=== PATIENT | female | born 1970 | race American Indian/Alaskan Native ===

== ENCOUNTER 2019-02-25 11:24 | Outpatient (CLI) | payer MEDICAID ==
--- NOTE | 2019-02-25 14:02 | Ultrasound Report ---
ULTRASOUND RENAL BILATERAL HISTORY: Abnormal results of kidney function studies. TECHNIQUE: transabdominal ultrasound with color Doppler interrogation. FINDINGS: The right kidney measures 12.4cm. Right renal cortex: 1.7cm. The left kidney measures 11.7cm. Left renal cortex: 1.5cm. Scans of the kidneys show normal renal contours. There is normal central calyceal clustering and good preservation of the cortical thickness. There is no evidence of mass or hydronephrosis. The views of the bladder and the region of the ureters appear normal. IMPRESSION: Unremarkable renal ultrasound.
== END 2019-02-25 11:25 | disposition home or self-care (01) ==
LOC: US 11:24
PROVIDERS: ATTEND Internal Medicine Nephrology
DX: R94.4 Abnormal results of kidney function studies (principal); I11.0 Hypertensive heart disease with heart failure; I50.9 Heart failure, unspecified
CPT/HCPCS: 76770

== ENCOUNTER 2019-03-17 09:23 | Outpatient (CLI) | payer MEDICAID ==
--- NOTE | 2019-03-17 13:53 | Vascular Lab Report ---
PROCEDURE: VL VENOUS DUPLEX LE BILAT TECHNIQUE: Duplex Doppler sonography of the BILATERAL lower extremities. Montoya scale imaging with and without compression, spectral waveform analysis with and without augmentation, and color flow Dopple r were employed. HISTORY: CHRONIC KIDNEY DISEASE, STAGE 2 MILD COMPARISONS: None FINDINGS: RIGHT lower EXTREMITY: Deep Venous Thrombus: None Superficial Venous Thrombus: None Venous valvular incompetence: None Soft tissue abnormality: None LEFT lower EXTREMITY: Deep Venous Thrombus: None Superficial Venous Thrombus: None Venous valvular incompetence: None Soft tissue abnormality: None IMPRESSION: No evidence of deep venous thrombosis in the bilateral lower extremities. This document is electronically signed by Wendi Burris MD., Mar 17 2019 01:51:54 PM ET
== END 2019-03-17 09:24 | disposition home or self-care (01) ==
LOC: VAS 09:23
PROVIDERS: ATTEND Internal Medicine Nephrology
DX: I13.0 Hypertensive heart and chronic kidney disease with heart failure and stage 1 through stage 4 chronic kidney disease, or unspecified chronic kidney disease (principal); I50.9 Heart failure, unspecified; N18.2 Chronic kidney disease, stage 2 (mild)
CPT/HCPCS: 93970

== ENCOUNTER 2019-05-27 13:51 | Outpatient (CLI) | payer MEDICAID ==
[2019-05-27 14:14] LABS: Hematocrit 35.1 % (30.3-42.9); Hemoglobin 11.3 gm/dl (10.1-14.3); Mean Corpuscular HGB Conc 32 % (30-34); Mean Corpuscular Volume 84 fl (79-97); Platelet Count 302 K/mm3 (140-440); Red Cell Distribution Width 13.3 % (13.2-15.2)
[2019-05-27 14:29] LABS: Albumin 4.3 g/dL (3.9-5); Calcium 9.7 mg/dL (8.4-10.2)
== END 2019-05-27 13:52 | disposition home or self-care (01) ==
LOC: LAB 13:51
PROVIDERS: ATTEND Internal Medicine Nephrology
DX: E11.21 Type 2 diabetes mellitus with diabetic nephropathy (principal); N17.9 Acute kidney failure, unspecified; D64.9 Anemia, unspecified; E11.22 Type 2 diabetes mellitus with diabetic chronic kidney disease; I13.0 Hypertensive heart and chronic kidney disease with heart failure and stage 1 through stage 4 chronic kidney disease, or unspecified chronic kidney disease; I50.9 Heart failure, unspecified; N18.2 Chronic kidney disease, stage 2 (mild); R60.9 Edema, unspecified
CPT/HCPCS: 36415; 80048; 82040; 84100; 85027

== ENCOUNTER 2019-05-28 14:14 | Inpatient (IN) | payer MEDICAID ==
--- NOTE | 2019-05-28 15:12 | Event Note ---
ED Screening Note ED Screening Note: SENT BY PCP FOR WORSENING CKD This initial assessment/diagnostic orders/clinical plan/treatment(s) is/are subject to change based on patients health status, clinical progression and re- assessment by fellow clinical providers in the ED. Further treatment and workup at subsequent clinical providers discretion. Patient/guardian urged not to elope from the ED as their condition may be serious if not clinically assessed and managed. Initial orders include: EKG LABS URINE
--- NOTE | 2019-05-28 15:42 | XRay Report ---
CHEST 2 VIEWS INDICATION / CLINICAL INFORMATION: SOB. COMPARISON: None available. FINDINGS: SUPPORT DEVICES: None. HEART / MEDIASTINUM: The heart size and pulmonary vasculature are normal. The aorta is normal in sky ana. LUNGS / PLEURA: No significant pulmonary or pleural abnormality. No pneumothorax. ADDITIONAL FINDINGS: No significant additional findings. IMPRESSION: No acute findings. Signer Name: Nathen Castro MD Signed: 05/28/2019 3:37 PM Workstation Name: [id number]
[2019-05-28 16:12] LABS: Hematocrit 33.6 % (30.3-42.9); Mean Corpuscular HGB Conc 33 % (30-34); Mean Corpuscular Volume 84 fl (79-97); Platelet Count 272 K/mm3 (140-440); Red Blood Count 4.01 M/mm3 (3.65-5.03); Red Cell Distribution Width 13.2 % (13.2-15.2)
[2019-05-28 16:15] LABS: Bilirubin,Urine NEG (Negative); Blood,Urine NEG (Negative); Color,Urine Straw (Yellow); Protein,Urine <15 mg/dL mg/dL (Negative); Urobilinogen,Urine < 2.0 mg/dL (<2.0); WBC,Urine < 1.0 /HPF (0.0-6.0)
[2019-05-28 16:34] LABS: Albumin 4.4 g/dL (3.9-5); Calcium 9.6 mg/dL (8.4-10.2)
--- NOTE | 2019-05-28 20:48 | Emergency Department Report ---
ED General Adult HPI - General Chief complaint: Medical Clearance Stated complaint: SENT DR. KRISHNA Time Seen by Provider: 05/28/19 14:28 Source: patient, old records reviewed Mode of arrival: Ambulatory Limitations: No Limitations - History of Present Illness Initial comments: 48-year-old female with a past medical history CHF, diabetes, and hypertension presents to the hospital for worsening renal function. Patient outpatient labs performed yesterday. Last reviewed and show a creatinine of 3.4 yesterday. She was advised to come to the ED yesterday but had to handle some things at home with her children before being admitted to the hospital. She complains of right upper quadrant pain radiating to the right back described as a burning inter mittent pain without nausea, vomiting, or fever. No complaints of shortness of breath or edema. She does not recall her baseline creatinine. Per Dr Wilder (I spoke to him) her baseline creatinine is less than 1. He also expresses that she is taking nephrotoxic medication and has a history of n oncompliance and needs to be admitted to the hospital. Severity scale (0 -10): 0 - Related Data Home Medications Medication Instructions Recorded Confirmed Last Taken Fluconazole 1 tab PO DAILY 06/04/15 06/04/15 03/06/15 Fluconazole 1 tab PO DAILY 06/04/15 06/04/15 03/06/15 Lisinopril [Zestril TAB] 20 mg PO QDAY 06/04/15 06/04/15 03/06/15 Metoprolol [Lopressor TAB] 50 mg PO DAILY 06/04/15 06/04/15 03/06/15 Potassium Chloride [Klor-Con M20] 1 tab PO DAILY 06/04/15 06/04/15 03/06/15 Simvastatin [Zocor TAB] 40 mg PO QHS 06/04/15 06/04/15 03/06/15 Zolpidem [Ambien] 5 mg PO QHS PRN 06/04/15 06/04/15 03/06/15 cloNIDine [Catapres] 0.2 mg PO BID 06/04/15 06/04/15 03/06/15 Previous Rx's Medication Instructions Recorded Last Taken Type Ciprofloxacin HCl [Ciprofloxacin 500 mg PO Q12H #14 tab 06/04/15 Unknown Rx TAB] DOXYCYCLINE Hyclate [Vibramycin 100 mg PO Q12HR #14 capsule 06/04/15 Unknown Rx CAP] HYDROcodone/APAP 10-325 [[place] 1 each PO Q6HR PRN #20 tablet 06/04/15 Unknown Rx 10/325] Insulin Aspart [NovoLOG 100 5 unit SQ AC 30 Days units 06/04/15 Unknown Rx UNITS/ML VIAL] Insulin Glargine [Lantus VIAL] 40 unit SUB-Q QHS 30 Days units 06/04/15 Unknown Rx glipiZIDE [Glucotrol] 2 tab PO QDAY 30 Days tablet 06/04/15 Unknown Rx Allergies Allergy/AdvReac Type Severity Reaction Status Date / Time No Known Allergies Allergy Verified 05/28/19 15:07 ED Review of Systems ROS: Stated complaint: SENT DR. KRISHNA Other details as noted in HPI Comment: All other systems reviewed and negative ED Past Medical Hx - Past Medical History Previous Medical History?: Yes Hx Hypertension: Yes Hx Congestive Heart Failure: Yes Hx Diabetes: Yes - Surgical History Past Surgical History?: No - Social History Smoking Status: Never Smoker Substance Use Type: None - Medications Home Medications: Home Medications Medication Instructions Recorded Confirmed Last Taken Type Ciprofloxacin HCl [Ciprofloxacin 500 mg PO Q12H #14 tab 06/04/15 Unknown Rx TAB] DOXYCYCLINE Hyclate [Vibramycin 100 mg PO Q12HR #14 capsule 06/04/15 Unknown Rx CAP] Fluconazole 1 tab PO DAILY 06/04/15 06/04/15 03/06/15 History Fluconazole 1 tab PO DAILY 06/04/15 06/04/15 03/06/15 History HYDROcodone/APAP 10-325 [[place] 1 each PO Q6HR PRN #20 tablet 06/04/15 Unknown Rx 10/325] Insulin Aspart [NovoLOG 100 5 unit SQ AC 30 Days units 06/04/15 Unknown Rx UNITS/ML VIAL] Insulin Glargine [Lantus VIAL] 40 unit SUB-Q QHS 30 Days units 06/04/15 Unknow n Rx Lisinopril [Zestril TAB] 20 mg PO QDAY 06/04/15 06/04/15 03/06/15 History Metoprolol [Lopressor TAB] 50 mg PO DAILY 06/04/15 06/04/15 03/06/15 History Potassium Chloride [Klor-Con M20] 1 tab PO DAILY 06/04/15 06/04/1515 History Simvastatin [Zocor TAB] 40 mg PO QHS 06/04/15 06/04/15 03/06/15 History Zolpidem [Ambien] 5 mg PO QHS PRN 06/04/15 06/04/15 03/06/15 History cloNIDine [Catapres] 0.2 mg PO BID 06/04/15 06/04/15 03/06/15 History glipiZIDE [Glucotrol] 2 tab PO QDAY 30 Days tablet 06/04/15 Unknown Rx ED Physical Exam - General Limitations: No Limitations ED Course Vital Signs 05/28/19 05/28/19 05/28/19 15:05 19:41 21:21 Temperature 97.6 F Pulse Rate 95 H 91 H 87 Respiratory 18 17 16 Rate Blood Pressure 150/84 110/69 97/57 [Right] O2 Sat by Pulse 99 96 98 Oximetry 05/29/19 00:04 Temperature Pulse Rate 88 Respiratory 18 Rate Blood Pressure 109/64 [Right] O2 Sat by Pulse 98 Oximetry - Consultations Consultation #1: 05/28/19 20:[address] Wilder. States baseline creatinine less than 1. Patient taking nephrotoxic medication. Needs to be admitted to the hospital for further treatment. Recommends 1/2 normal saline at 75 mL per hour ED Medical Decision Making - Lab Data Result diagrams: 05/28/19 15:52 05/28/19 15:52 Lab Results 05/28/19 05/28/19 05/28/19 Range/Units 14:30 15:50 15:50 WBC (4.5-11.0) K/mm3 RBC (3.65-5.03) M/mm3 Hgb (10.1-14.3) gm/dl Hct (30.3-42.9) % MCV (79-97) fl MCH (28-32) pg MCHC (30-34) % RDW (13.2-15.2) % Plt Count (140-440) K/mm3 Sodium (137-145) mmol/L Potassium (3.6-5.0) mmol/L Chloride (98-107) mmol/L Carbon Dioxide (22-30) mmol/L Anion Gap mmol/L BUN (7-17) mg/dL Creatinine (0.7-1.2) mg/dL Estimated GFR ml/min BUN/Creatinine Ratio % Glucose (65-100) mg/dL POC Glucose 129 H (70-105) Osmolality Mosm/kg Calcium (8.4-10.2) mg/dL Phosphorus (2.5-4.5) mg/dL Magnesium (1.7-2.3) mg/dL Total Bilirubin (0.1-1.2) mg/dL AST (5-40) units/L ALT (7-56) units/L Alkaline Phosphatase (35-129) units/L Troponin T (0.00-0.029) ng/mL NT-Pro-B Natriuret Pep (0-900) pg/mL Total Protein (6.3-8.2) g/dL Albumin (3.9-5) g/dL Albumin/Globulin Ratio % Urine Color Straw (Yellow) Urine Turbidity Clear (Clear) Urine pH 6.0 (5.0-7.0) Ur Specific [place] 1.014 (1.003-1.030) Urine Protein <15 mg/dl (Negative) mg/dL Urine Glucose (UA) >=500 (Negative) mg/dL Urine Ketones Neg (Negative) mg/dL Urine Blood Neg (Negative) Urine Nitrite Neg (Negative) Urine Bilirubin Neg (Negative) Urine Urobilinogen < 2.0 (<2.0) mg/dL Ur Leukocyte Esterase Neg (Negative) Urine WBC (Auto) < 1.0 (0.0-6.0) /HPF Urine RBC (Auto) 3.0 (0.0-6.0) /HPF U Epithel Cells (Auto) 1.0 (0-13.0) /HPF Urine Osmolality 550 Mosm/kg Urine Creatinine 128.9 H (0.1-20.0) mg/dL Urine Sodium 73 mmol/L Urine Urea Nitrogen 693 05/28/19 05/28/19 05/28/19 Range/Units 15:52 15:52 15:52 WBC 5.3 (4.5-11.0) K/mm3 RBC 4.01 (3.65-5.03) M/mm3 Hgb 11.0 (10.1-14.3) gm/dl Hct 33.6 (30.3-42.9) % MCV 84 (79-97) fl MCH 27 L (28-32) pg MCHC 33 (30-34) % RDW 13.2 (13.2-15.2) % Plt Count 272 (140-440) K/mm3 Sodium 143 (137-145) mmol/L Potassium 4.9 (3.6-5.0) mmol/L Chloride 106.0 (98-107) mmol/L Carbon Dioxide 23 (22-30) mmol/L Anion Gap 19 mmol/L BUN 48 H (7-17) mg/dL Creatinine 2.7 H (0.7-1.2) mg/dL Estimated GFR 23 ml/min BUN/Creatinine Ratio 18 % Glucose 119 H (65-100) mg/dL POC Glucose (70-105) Osmolality Mosm/kg Calcium 9.6 (8.4-10.2) mg/dL Phosphorus 4.30 (2.5-4.5) mg/dL Magnesium 2.10 (1.7-2.3) mg/dL Total Bilirubin 0.30 (0.1-1.2) mg/dL AST 18 (5-40) units/L ALT 18 (7-56) units/L Alkaline Phosphatase 92 (35-129) units/L Troponin T (0.00-0.029) ng/mL NT-Pro-B Natriuret Pep (0-900) pg/mL Total Protein 7.9 (6.3-8.2) g/dL Albumin 4.4 (3.9-5) g/dL Albumin/Globulin Ratio 1.3 % Urine Color (Yellow) Urine Turbidity (Clear) Urine pH (5.0-7.0) Ur Specific [place] (1.003-1.030) Urine Protein (Negative) mg/dL Urine Glucose (UA) (Negative) mg/dL Urine Ketones (Negative) mg/dL Urine Blood (Negative) Urine Nitrite (Negative) Urine Bilirubin (Negative) Urine Urobilinogen (<2.0) mg/dL Ur Leukocyte Esterase (Negative) Urine WBC (Auto) (0.0-6.0) /HPF Urine RBC (Auto) (0.0-6.0) /HPF U Epithel Cells (Auto) (0-13.0) /HPF Urine Osmolality Mosm/kg Urine Creatinine (0.1-20.0) mg/dL Urine Sodium mmol/L Urine Urea Nitrogen 05/28/19 05/28/19 05/28/19 Range/Units 15:52 15:52 19:48 WBC (4.5-11.0) K/mm3 RBC (3.65-5.03) M/mm3 Hgb (10.1-14.3) gm/dl Hct (30.3-42.9) % MCV (79-97) fl MCH (28-32) pg MCHC (30-34) % RDW (13.2-15.2) % Plt Count (140-440) K/mm3 Sodium (137-145) mmol/L Potassium (3.6-5.0) mmol/L Chloride (98-107) mmol/L Carbon Dioxide (22-30) mmol/L Anion Gap mmol/L BUN (7-17) mg/dL Creatinine (0.7-1.2) mg/dL Estimated GFR ml/min BUN/Creatinine Ratio % Glucose (65-100) mg/dL POC Glucose 100 (70-105) Osmolality 312 Mosm/kg Calcium (8.4-10.2) mg/dL Phosphorus (2.5-4.5) mg/dL Magnesium (1.7-2.3) mg/dL Total Bilirubin (0.1-1.2) mg/dL AST (5-40) units/L ALT (7-56) units/L Alkaline Phosphatase (35-129) units/L Troponin T < 0.010 (0.00-0.029) ng/mL NT-Pro-B Natriuret Pep 10.16 (0-900) pg/mL Total Protein (6.3-8.2) g/dL Albumin (3.9-5) g/dL Albumin/Globulin Ratio % Urine Color (Yellow) Urine Turbidity (Clear) Urine pH (5.0-7.0) Ur Specific [place] (1.003-1.030) Urine Protein (Negative) mg/dL Urine Glucose (UA) (Negative) mg/dL Urine Ketones (Negative) mg/dL Urine Blood (Negative) Urine Nitrite (Negative) Urine Bilirubin (Negative) Urine Urobilinogen (<2.0) mg/dL Ur Leukocyte Esterase (Negative) Urine WBC (Auto) (0.0-6.0) /HPF Urine RBC (Auto) (0.0-6.0) /HPF U Epithel Cells (Auto) (0-13.0) /HPF Urine Osmolality Mosm/kg Urine Creatinine (0.1-20.0) mg/dL Urine Sodium mmol/L Urine Urea Nitrogen - Radiology Data Radiology results: report reviewed LIMITED RUQ ABDOMINAL ULTRASOUND INDICATION: ruq pain. COMPARISON: No relevant prior imaging study available. FINDINGS: Pancreas: Visualized portions show no significant abnormality. Abdominal Aorta: No significant abnormality. IVC: No significant abnormality. Liver: Normal. Gallbladder: Multiple gallstones. Sonographic Vazquez's sign: Not performed. Bile ducts: Normal. Common bile duct measures 2 mm. Free fluid: None. Additional Findings: None. IMPRESSION: 1. Cholelithiasis. CHEST 2 VIEWS INDICATION / CLINICAL INFORMATION: SOB. COMPARISON: None available. FINDINGS: SUPPORT DEVICES: None. HEART / MEDIASTINUM: The heart size and pulmonary vasculature are normal. The aorta is normal in caliber. LUNGS / PLEURA: No significant pulmonary or pleural abnormality. No pneumothorax. ADDITIONAL FINDINGS: No significant additional findings. IMPRESSION: No acute findings. - Medical Decision Making Plans admit patient to hospital for workup of acute renal failure. 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 Meño ayoub US ordered due to ruq pain and confirmed cholelithiasis - Differential Diagnosis acute renal failure, nephrotoxicity Critical Care Time: No Critical care attestation.: If time is entered above; I have spent that time in minutes in the direct care of this critically ill patient, excluding procedure time. ED Disposition Clinical Impression: ARF (acute renal failure), HTN (hypertension), Cholelithiasis Disposition: OP ADMIT IP TO THIS HOSP Is pt being admited?: Yes Condition: Stable Time of Disposition: 20:52 (Dr Puga/hosp)
[2019-05-28 20:49] LABS: Creatinine,Urine 128.9 mg/dL (0.1-20.0)
[2019-05-28] MEDS ORDERED: ZOFRAN IV PRN (23:36)
[2019-05-28] MEDS ORDERED: SODIUM CHLORIDE FLUSH SYRINGE 10 ML IV PRN (23:36)
[2019-05-28] MEDS ORDERED: D50W (25GM) Syringe IV PRN (23:36)
[2019-05-28] MEDS ORDERED: NACL 0.45% 1000 ML 1,000 ML IV SCH (23:45)
--- NOTE | 2019-05-28 23:57 | History and Physical Report ---
<KIMI MCDANIEL - Last Filed: 05/29/19 00:06> History of Present Illness Date of examination: 05/28/19 Date of admission: 05/28/19 23:11 Chief complaint: worsening renal function and rt sided flank pain History of present illness: 48-year-old -Malaysian female with history of hypertension, diabetes, CHF, obesity who presents to [facility] ED with c/o right-sided flank pain and worsening renal function. Patient went to see her pumper helper (Dr. Wilder) on 05/27, at which time she had a creatinine of 3.4, and was told to report to the ED for further evaluation. Patient states that she had some personal affairs to address before presenting to ED. she complained of right-sided flank pain and slight tenderness to right upper quadrant. The patient and she describes it burning. The right flank is tender to deep palpation. Denies: fever, cough, BLE edema, PND, SOB, or weight gain >2lbs in one day Past History Past Medical History: diabetes, heart failure, hypertension Past Surgical History: No surgical history Social history: lives with family Family history: no significant family history Medications and Allergies Allergies Allergy/AdvReac Type Severity Reaction Status Date / Time No Known Allergies Allergy Verified 05/28/19 15:07 Home Medications Medication Instructions Recorded Confirmed Last Taken Type Ciprofloxacin HCl [Ciprofloxacin 500 mg PO Q12H #14 tab 06/04/15 Unknown Rx TAB] DOXYCYCLINE Hyclate [Vibramycin 100 mg PO Q12HR #14 capsule 06/04/15 Unknown Rx CAP] Fluconazole 1 tab PO DAILY 06/04/15 06/04/15 03/06/15 History Fluconazole 1 tab PO DAILY 06/04/15 06/04/15 03/06/15 History HYDROcodone/APAP 10-325 [[place] 1 each PO Q6HR PRN #20 tablet 06/04/15 Unknown Rx 10/325] Insulin Aspart [NovoLOG 100 5 unit SQ AC 30 Days units 06/04/15 Unknown Rx UNITS/ML VIAL] Insulin Glargine [Lantus VIAL] 40 unit SUB-Q QHS 30 Days units 06/04/15 Unknown Rx Lisinopril [Zestril TAB] 20 mg PO QDAY 06/04/15 06/04/15 03/06/15 History Metoprolol [Lopressor TAB] 50 mg PO DAILY 06/04/15 06/04/15 03/06/15 History Potassium Chloride [Klor-Con M20] 1 tab PO DAILY 06/04/15 06/04/15 03/06/15 History Simvastatin [Zocor TAB] 40 mg PO QHS 06/04/15 06/04/15 03/06/15 History Zolpidem [Ambien] 5 mg PO QHS PRN 06/04/15 06/04/15 03/06/15 History cloNIDine [Catapres] 0.2 mg PO BID 06/04/15 06/04/15 03/06/15 History glipiZIDE [Glucotrol] 2 tab PO QDAY 30 Days tablet 06/04/15 Unknown Rx Active Meds: Active Medications Acetaminophen (Tylenol) 650 mg PO Q4H PRN PRN Reason: Non Cardiac Pain or Temp>100.5 Dextrose (D50w (25gm) Syringe) 50 ml IV PRN PRN PRN Reason: Hypoglycemia Docusate Sodium (Colace) 100 mg PO BID NEY Enoxaparin Sodium (Lovenox) 30 mg SUB-Q QDAY [facility] Sodium Chloride (Nacl 0.45% 1000 Ml) 1,000 mls @ 75 mls/hr IV DIRECT NEY Insulin Glargine (Lantus) 30 units SUB-Q QHS NEY Insulin Human Lispro (Humalog) 0 unit SUB-Q ACHS NEY; Protocol Ondansetron HCl (Zofran) 4 mg IV Q8H PRN PRN Reason: Nausea And Vomiting Sodium Chloride (Sodium Chloride Flush Syringe 10 Ml) 10 ml IV BID NEY Sodium Chloride (Sodium Chloride Flush Syringe 10 Ml) 10 ml IV PRN PRN PRN Reason: LINE FLUSH Review of Systems All systems: negative (reviewed and no additional remarkable complaints except as noted below) Genitourinary Female: flank pain Exam - Physical Exam Narrative exam: Physical exam General appearance: Present: No acute distress, -Malaysian female, obese, well-developed, alert and oriented 3 - EENT Eyes: Present: PERRL, EOM intact ENT: hearing intact, normal dentition - Neck Neck: Present: supple, normal ROM - Respiratory Respiratory effort: Non-labored Respiratory: bilateral: diminished (bases) - Cardiovascular Heart rate: 88 (bpm) Rhythm: regular Heart Sounds: Present: S1 & S2. Absent: rub, click - Extremities Extremities: no ischemia, pulses intact, - Peripheral Assessment Peripheral Pulses: within normal limits - Abdominal General gastrointestinal: Obese, soft, slight tenderness to the right upper quadrant, normal bowel sounds - Integumentary Integumentary: Present: warm, dry - Musculoskeletal Musculoskeletal: Able to move all extremities -Neurological Neurological: CN II-XII intact - Psychiatric Psychiatric: Appropriate for situation, cooperative - Constitutional Vitals: Temp Pulse Resp BP Pulse Ox 97.6 F 87 16 97/57 98 05/28/19 15:05 05/28/19 21:21 05/28/19 21:21 05/28/19 21:21 05/28/19 21:21 Results - Labs CBC & Chem 7: 05/28/19 15:52 05/28/19 15:52 Labs: Laboratory Last Values WBC 5.3 K/mm3 (4.5-11.0) 05/28/19 15:52 RBC 4.01 M/mm3 (3.65-5.03) 05/28/19 15:52 Hgb 11.0 gm/dl (10.1-14.3) 05/28/19 15:52 Hct 33.6 % (30.3-42.9) 05/28/19 15:52 MCV 84 fl (79-97) 05/28/19 15:52 MCH 27 pg (28-32) L 05/28/19 15:52 MCHC 33 % (30-34) 05/28/19 15:52 RDW 13.2 % (13.2-15.2) 05/28/19 15:52 Plt Count 272 K/mm3 (140-440) 05/28/19 15:52 Sodium 143 mmol/L (137-145) 05/28/19 15:52 Potassium 4.9 mmol/L (3.6-5.0) 05/28/19 15:52 Chloride 106.0 mmol/L (98-107) 05/28/19 15:52 Carbon Dioxide 23 mmol/L (22-30) 05/28/19 15:52 19 mmol/L 05/28/19 15:52 BUN 48 mg/dL (7-17) H 05/28/19 15:52 2.7 mg/dL (0.7-1.2) H 05/28/19 15:52 Estimated GFR 23 ml/min 05/28/19 15:52 18 % 05/28/19 15:52 Glucose 119 mg/dL (65-100) H 05/28/19 15:52 POC Glucose 100 (70-105) 05/28/19 19:48 312 Mosm/kg 05/28/19 15:52 Calcium 9.6 mg/dL (8.4-10.2) 05/28/19 15:52 Phosphorus 4.30 mg/dL (2.5-4.5) 05/28/19 15:52 Magnesium 2.10 mg/dL (1.7-2.3) 05/28/19 15:52 0.30 mg/dL (0.1-1.2) 05/28/19 15:52 AST 18 units/L (5-40) 05/28/19 15:52 ALT 18 units/L (7-56) 05/28/19 15:52 92 units/L (35-129) 05/28/19 15:52 < 0.010 ng/mL (0.00-0.029) 05/28/19 15:52 NT-Pro-B Natriuret Pep 10.16 pg/mL (0-900) 05/28/19 15:52 7.9 g/dL (6.3-8.2) 05/28/19 15:52 4.4 g/dL (3.9-5) 05/28/19 15:52 1.3 % 05/28/19 15:52 Straw (Yellow) 05/28/19 15:50 Clear (Clear) 05/28/19 15:50 6.0 (5.0-7.0) 05/28/19 15:50 Ur Specific [place] 1.014 (1.003-1.030) 05/28/19 15:50 <15 mg/dl mg/dL (Negative) 05/28/19 15:50 >=500 mg/dL (Negative) 05/28/19 15:50 Neg mg/dL (Negative) 05/28/19 15:50 Neg (Negative) 05/28/19 15:50 Neg (Negative) 05/28/19 15:50 Neg (Negative) 05/28/19 15:50 < 2.0 mg/dL (<2.0) 05/28/19 15:50 Ur Leukocyte Esterase Neg (Negative) 05/28/19 15:50 < 1.0 /HPF (0.0-6.0) 05/28/19 15:50 3.0 /HPF (0.0-6.0) 05/28/19 15:50 U Epithel Cells (Auto) 1.0 /HPF (0-13.0) 05/28/19 15:50 550 Mosm/kg 05/28/19 15:50 128.9 mg/dL (0.1-20.0) H 05/28/19 15:50 73 mmol/L 05/28/19 15:50 693 05/28/19 15:50 - Imaging and Cardiology Chest x-ray: report reviewed (LUNGS / PLEURA: No significant pulmonary or pleural abnormality. No pneumothorax. ), image reviewed Assessment and Plan Assessment and plan: 48-year-old -Malaysian female with history of hypertension, diabetes, CHF, obesity who presents to [facility] ED with c/o right-sided flank pain and worsening renal function. On 05/27 she had a creatinine of 3.4. On admission her creatinine is 2.7. Dr. Wilder states pt's baseline is <1.0, and has been taking nephrotoxic meds. Will admit to medical floor for further evaluation and treatment. DEVON ??CKD HTN DM CHF Obesity Plan: Continue supportive care Dr. Wilder (pumper helper) following Continue to monitor renal function; avoid nephrotoxic agents Start 1/2 NS @ 75ml/hr US Abd pending Urine Culture pending Monitor BP IV hydralazine prn Will review and resume home antihypertensive meds once medication reconciliation has been completed POC BG monitoring HgbA1C pending SSI and scheduled Lantus May benefit from outpatient weight management program DVT PPX on Lovenox Advance Directives: No VTE prophylaxis?: Chemical Plan of care discussed with patient/family: Yes <KARMEN PAINTING - Last Filed: 05/29/19 05:41> History of Present Illness Date of admission: 05/28/19 23:11 Medications and Allergies Active Meds: Active Medications Acetaminophen (Tylenol) 650 mg PO Q4H PRN PRN Reason: Non Cardiac Pain or Temp>100.5 Last Admin: 05/29/19 00:07 Dose: 650 mg Documented by: Dextrose (D50w (25gm) Syringe) 50 ml IV PRN PRN PRN Reason: Hypoglycemia Docusate Sodium (Colace) 100 mg PO BID NEY Enoxaparin Sodium (Lovenox) 30 mg SUB-Q QDAY NEY Hydralazine HCl (Apresoline) 10 mg IV Q4H PRN PRN Reason: Blood Pressure Sodium Chloride (Nacl 0.45% 1000 Ml) 1,000 mls @ 75 mls/hr IV DIRECT NEY Last Admin: 05/29/19 01:04 Dose: 75 mls/hr Documented by: Insulin Glargine (Lantus) 30 units SUB-Q QHS NEY Insulin Human Lispro (Humalog) 0 unit SUB-Q ACHS NEY; Protocol Ondansetron HCl (Zofran) 4 mg IV Q8H PRN PRN Reason: Nausea And Vomiting Sodium Chloride (Sodium Chloride Flush Syringe 10 Ml) 10 ml IV BID NEY Sodium Chloride (Sodium Chloride Flush Syringe 10 Ml) 10 ml IV PRN PRN PRN Reason: LINE FLUSH Exam - Constitutional Vitals: Temp Pulse Resp BP Pulse Ox 98.5 F 86 24 126/72 96 05/29/19 02:42 05/29/19 02:42 05/29/19 02:42 05/29/19 02:42 05/29/19 02:42 Results - Labs CBC & Chem 7: 05/28/19 15:52 05/28/19 15:52 Labs: Laboratory Last Values WBC 5.3 K/mm3 (4.5-11.0) 05/28/19 15:52 RBC 4.01 M/mm3 (3.65-5.03) 05/28/19 15:52 Hgb 11.0 gm/dl (10.1-14.3) 05/28/19 15:52 Hct 33.6 % (30.3-42.9) 05/28/19 15:52 MCV 84 fl (79-97) 05/28/19 15:52 MCH 27 pg (28-32) L 05/28/19 15:52 MCHC 33 % (30-34) 05/28/19 15:52 RDW 13.2 % (13.2-15.2) 05/28/19 15:52 Plt Count 272 K/mm3 (140-440) 05/28/19 15:52 Sodium 143 mmol/L (137-145) 05/28/19 15:52 Potassium 4.9 mmol/L (3.6-5.0) 05/28/19 15:52 Chloride 106.0 mmol/L (98-107) 05/28/19 15:52 Carbon Dioxide 23 mmol/L (22-30) 05/28/19 15:52 19 mmol/L 05/28/19 15:52 BUN 48 mg/dL (7-17) H 05/28/19 15:52 2.7 mg/dL (0.7-1.2) H 05/28/19 15:52 Estimated GFR 23 ml/min 05/28/19 15:52 18 % 05/28/19 15:52 Glucose 119 mg/dL (65-100) H 05/28/19 15:52 POC Glucose 100 (70-105) 05/28/19 19:48 312 Mosm/kg 05/28/19 15:52 Calcium 9.6 mg/dL (8.4-10.2) 05/28/19 15:52 Phosphorus 4.30 mg/dL (2.5-4.5) 05/28/19 15:52 Magnesium 2.10 mg/dL (1.7-2.3) 05/28/19 15:52 0.30 mg/dL (0.1-1.2) 05/28/19 15:52 AST 18 units/L (5-40) 05/28/19 15:52 ALT 18 units/L (7-56) 05/28/19 15:52 92 units/L (35-129) 05/28/19 15:52 < 0.010 ng/mL (0.00-0.029) 05/28/19 15:52 NT-Pro-B Natriuret Pep 10.16 pg/mL (0-900) 05/28/19 15:52 7.9 g/dL (6.3-8.2) 05/28/19 15:52 4.4 g/dL (3.9-5) 05/28/19 15:52 1.3 % 05/28/19 15:52 Straw (Yellow) 05/28/19 15:50 Clear (Clear) 05/28/19 15:50 6.0 (5.0-7.0) 05/28/19 15:50 Ur Specific [place] 1.014 (1.003-1.030) 05/28/19 15:50 <15 mg/dl mg/dL (Negative) 05/28/19 15:50 >=500 mg/dL (Negative) 05/28/19 15:50 Neg mg/dL (Negative) 05/28/19 15:50 Neg (Negative) 05/28/19 15:50 Neg (Negative) 05/28/19 15:50 Neg (Negative) 05/28/19 15:50 < 2.0 mg/dL (<2.0) 05/28/19 15:50 Ur Leukocyte Esterase Neg (Negative) 05/28/19 15:50 < 1.0 /HPF (0.0-6.0) 05/28/19 15:50 3.0 /HPF (0.0-6.0) 05/28/19 15:50 U Epithel Cells (Auto) 1.0 /HPF (0-13.0) 05/28/19 15:50 550 Mosm/kg 05/28/19 15:50 128.9 mg/dL (0.1-20.0) H 05/28/19 15:50 73 mmol/L 05/28/19 15:50 693 05/28/19 15:50 Assessment and Plan Assessment and plan: 48 year old woman with hypertension, diabetes, CHF, chronic kidney disease was sent to the emergency room by Dr. Wilder for evaluation of worsening kidney function. Also component of right upper quadrant pain, we will follow ultrasound. Agree with fluids, renal to follow patient. Patient seen and examined, d/w MEDICAL LEAD
[2019-05-28] MEDS ORDERED: TYLENOL ONE (23:59)
[2019-05-29] MEDS: TYLENOL PO PRN ×4 (00:07→22:10)
[2019-05-29] MEDS ORDERED: APRESOLINE IV PRN (00:13)
[2019-05-29] MEDS: NACL 0.45% 1000 ML 1,000 ML IV SCH ×2 (01:04→13:40)
--- NOTE | 2019-05-29 01:42 | Ultrasound Report ---
LIMITED RUQ ABDOMINAL ULTRASOUND INDICATION: ruq pain. COMPARISON: No relevant prior imaging study available. FINDINGS: Pancreas: Visualized portions show no significant abnormality. Abdominal Aorta: No significant abnormality. IVC: No significant abnormality. Liver: Normal. Gallbladder: Multiple gallstones. Sonographic Vazquez's sign: Not performed. Bile ducts: Normal. Common bile duct measures 2 mm. Free fluid: None. Additional Findings: None. IMPRESSION: 1. Cholelithiasis. Signer Name: Hima Santoyo MD Signed: 05/29/2019 1:37 AM Workstation Name: [email or web address]
[2019-05-29 06:20] LABS: Basophils % (Auto) 0.4 % (0.0-1.8); Eosinophils # (Auto) 0.1 K/mm3 (0.0-0.4); Eosinophils % (Auto) 1.1 % (0.0-4.3); Hematocrit 30.4 % (30.3-42.9); Hemoglobin 9.7 gm/dl (10.1-14.3); Lymphocytes # (Auto) 2.1 K/mm3 (1.2-5.4); Lymphocytes % (Auto) 41.7 % (13.4-35.0); Mean Corpuscular HGB Conc 32 % (30-34); Mean Corpuscular Volume 84 fl (79-97); Monocytes # (Auto) 0.5 K/mm3 (0.0-0.8); Monocytes % (Auto) 8.9 % (0.0-7.3); Platelet Count 236 K/mm3 (140-440); Red Blood Count 3.62 M/mm3 (3.65-5.03); Red Cell Distribution Width 13.6 % (13.2-15.2)
[2019-05-29 06:37] LABS: Calcium 9.3 mg/dL (8.4-10.2)
[2019-05-29] MEDS: HumaLOG SUB-Q SCH ×4 (07:00→22:25)
--- NOTE | 2019-05-29 08:32 | Progress Note ---
Assessment and Plan Assessment and plan: Patient is a 48 yo -[place] female with history of hypertension, diabetes, CHF, obesity who presents to [facility] ED with c/o right-sided flank pain and worsening renal function. Patient went to see her handle assembler (Dr. Wilder) on 05/27/19, at which time she had a creatinine of 3.4, and was told to report to the ED for further evaluation. Patient states that she had some personal affairs to address before presenting to ED. she complained of right-sided flank pain and slight tenderness to right upper quadrant. The patient and she describes it burning. The right flank is tender to deep palpation. On admission her creatinine is 2.7. Dr. Wilder states pt's baseline is <1.0, and has been taking nephrotoxic meds. Will admit to medical floor for further evaluation and treatment. Acute Renal Failure, suspect multifactorial, vasomotor, tubular stasis: consulted Nephrology and monitor BMP closely HTN DM CHF Obesity Plan: Continue supportive care Dr. Wilder (handle assembler) following Continue to monitor renal function; avoid nephrotoxic agents Start 1/2 NS @ 75ml/hr US Abd pending Urine Culture pending Monitor BP IV hydralazine prn Will review and resume home antihypertensive meds once medication reconciliation has been completed POC BG monitoring HgbA1C pending SSI and scheduled Lantus May benefit from outpatient weight management program DVT PPX on Lovenox History Interval history: Patient was seen and examined. Follow-up on current diagnosis of ARF. No overnight events reported to me. Patient denies any chest pain, shortness breath, nausea/vomiting or severe headaches. Imaging, nursing note, chart, labs and old chart reviewed. Discussed with patient. Hospitalist Physical - Physical exam Narrative exam: Gen: WDWN, NAD, Awake, Alert, Orientated HEENT: NCAT, EOMI, PERRL, OP Clear Neck: supple, no adenopathy, no thyromegaly, no JVD CVS/Heart: RRR, normal S1S2, pulses present bilaterally Chest/Lungs: CTA B, Symmetrical chest expansion, good air entry bilaterally GI/Abdomen: soft, NTND, good bowel sounds, no guarding or rebound /Bladder: no suprapubic tenderness, no CVA or paraspinal tenderness Extermity/Skin: no c/c/e, no obvious rash MSK: FROM x 4 Neuro: CN 2-12 grossly intact, no new focal deficits Psych: calm - Constitutional Vitals: Temp Pulse Resp BP Pulse Ox 98.5 F 86 18 126/72 96 05/29/19 02:42 05/29/19 02:42 05/29/19 06:46 05/29/19 02:42 05/29/19 02:42 Results - Labs CBC & Chem 7: 05/29/19 05:05 05/29/19 05:05 Labs: Laboratory Last Values WBC 5.1 K/mm3 (4.5-11.0) 05/29/19 05:05 RBC 3.62 M/mm3 (3.65-5.03) L 05/29/19 05:05 Hgb 9.7 gm/dl (10.1-14.3) L 05/29/19 05:05 Hct 30.4 % (30.3-42.9) 05/29/19 05:05 MCV 84 fl (79-97) 05/29/19 05:05 MCH 27 pg (28-32) L 05/29/19 05:05 MCHC 32 % (30-34) 05/29/19 05:05 RDW 13.6 % (13.2-15.2) 05/29/19 05:05 Plt Count 236 K/mm3 (140-440) 05/29/19 05:05 Lymph % (Auto) 41.7 % (13.4-35.0) H 05/29/19 05:05 [place] % (Auto) 8.9 % (0.0-7.3) H 05/29/19 05:05 Eos % (Auto) 1.1 % (0.0-4.3) 05/29/19 05:05 Baso % (Auto) 0.4 % (0.0-1.8) 05/29/19 05:05 Lymph # 2.1 K/mm3 (1.2-5.4) 05/29/19 05:05 [place] # 0.5 K/mm3 (0.0-0.8) 05/29/19 05:05 Eos # 0.1 K/mm3 (0.0-0.4) 05/29/19 05:05 Baso # 0.0 K/mm3 (0.0-0.1) 05/29/19 05:05 Seg Neutrophils % 47.9 % (40.0-70.0) 05/29/19 05:05 Seg Neutrophils # 2.5 K/mm3 (1.8-7.7) 05/29/19 05:05 Sodium 142 mmol/L (137-145) 05/29/19 05:05 Potassium 4.2 mmol/L (3.6-5.0) 05/29/19 05:05 Chloride 107.8 mmol/L (98-107) H 05/29/19 05:05 Carbon Dioxide 21 mmol/L (22-30) L 05/29/19 05:05 17 mmol/L 05/29/19 05:05 BUN 43 mg/dL (7-17) H 05/29/19 05:05 2.3 mg/dL (0.7-1.2) H 05/29/19 05:05 Estimated GFR 27 ml/min 05/29/19 05:05 19 % 05/29/19 05:05 Glucose 86 mg/dL (65-100) 05/29/19 05:05 POC Glucose 100 (70-105) 05/28/19 19:48 9.0 % (4-6) H 05/29/19 05:05 312 Mosm/kg 05/28/19 15:52 Calcium 9.3 mg/dL (8.4-10.2) 05/29/19 05:05 Phosphorus 4.30 mg/dL (2.5-4.5) 05/28/19 15:52 Magnesium 2.10 mg/dL (1.7-2.3) 05/28/19 15:52 0.30 mg/dL (0.1-1.2) 05/28/19 15:52 AST 18 units/L (5-40) 05/28/19 15:52 ALT 18 units/L (7-56) 05/28/19 15:52 92 units/L (35-129) 05/28/19 15:52 < 0.010 ng/mL (0.00-0.029) 05/28/19 15:52 NT-Pro-B Natriuret Pep 10.16 pg/mL (0-900) 05/28/19 15:52 7.9 g/dL (6.3-8.2) 05/28/19 15:52 4.4 g/dL (3.9-5) 05/28/19 15:52 1.3 % 05/28/19 15:52 Straw (Yellow) 05/28/19 15:50 Clear (Clear) 05/28/19 15:50 6.0 (5.0-7.0) 05/28/19 15:50 Ur Specific [place] 1.014 (1.003-1.030) 05/28/19 15:50 <15 mg/dl mg/dL (Negative) 05/28/19 15:50 >=500 mg/dL (Negative) 05/28/19 15:50 Neg mg/dL (Negative) 05/28/19 15:50 Neg (Negative) 05/28/19 15:50 Neg (Negative) 05/28/19 15:50 Neg (Negative) 05/28/19 15:50 < 2.0 mg/dL (<2.0) 05/28/19 15:50 Ur Leukocyte Esterase Neg (Negative) 05/28/19 15:50 < 1.0 /HPF (0.0-6.0) 05/28/19 15:50 3.0 /HPF (0.0-6.0) 05/28/19 15:50 U Epithel Cells (Auto) 1.0 /HPF (0-13.0) 05/28/19 15:50 550 Mosm/kg 05/28/19 15:50 128.9 mg/dL (0.1-20.0) H 05/28/19 15:50 73 mmol/L 05/28/19 15:50 693 05/28/19 15:50 Active Medications - Current Medications Current Medications: Generic Name Dose Route Start Last Admin Trade Name Freq PRN Reason Stop Dose Admin Acetaminophen 650 mg 05/28/19 23:12 05/29/19 05:46 Tylenol PO 650 mg Q4H PRN Administration Non Cardiac Pain or Temp>100.5 Dextrose 50 ml 05/28/19 23:36 D50w (25gm) Syringe IV PRN PRN Hypoglycemia Docusate Sodium 100 mg 05/29/19 10:00 Colace PO BID NEY Enoxaparin Sodium 30 mg 05/29/19 10:00 Lovenox SUB-Q QDAY NEY Hydralazine HCl 10 mg 05/29/19 00:13 Apresoline IV Q4H PRN Blood Pressure Sodium Chloride 1,000 mls @ 75 mls/hr 05/28/19 23:00 05/29/19 01:04 Nacl 0.45% 1000 Ml IV 75 mls/hr DIRECT NEY Administration Insulin Glargine 30 units 05/29/19 22:00 Lantus SUB-Q QHS [facility] Insulin Human Lispro 0 unit 05/29/19 07:30 Humalog SUB-Q ACHS [facility] Protocol Ondansetron HCl 4 mg 05/28/19 23:36 Zofran IV Q8H PRN Nausea And Vomiting Sodium Chloride 10 ml 05/29/19 10:00 Sodium Chloride Flush Syringe 10 Ml IV BID [facility] Sodium Chloride 10 ml 05/28/19 23:36 Sodium Chloride Flush Syringe 10 Ml IV PRN PRN LINE FLUSH
--- NOTE | 2019-05-29 09:03 | Consultation ---
History of Present Illness - History of Present Illness Assessment and plan: Acute kidney injury in a patient who has multiple risk factors for underlying chronic kidney disease her baseline creatinine is fairly normal patient's cre atinine wasn't 2 range and last month but she has not had any follow-up later creatinine was noted to be markedly elevated however at that time patient was taking NSAIDS despite counseling , was also on Byduron, lisinopril and Tradjenta D/w Dr Ramesh her endocrine MD who was made aware about patient's noncompliance I did discuss with him today before when I saw the patient in the clinic for follow-up Patient is very poorly involved in her health care, she is also very high risk As far as education is concerned,I have educated this patient on multiple occasions, and she fails to read and follow despite counseling and education Christine pre renal , DEVON improving Past History Past Medical History: diabetes, heart failure, hypertension Past Surgical History: No surgical history Social history: lives with family Family history: no significant family history Medications and Allergies Allergies Allergy/AdvReac Type Severity Reaction Status Date / Time No Known Allergies Allergy Verified 05/28/19 15:07 Home Medications Medication Instructions Recorded Confirmed Last Taken Type Ciprofloxacin HCl [Ciprofloxacin 500 mg PO Q12H #14 tab 06/04/15 Unknown Rx TAB] DOXYCYCLINE Hyclate [Vibramycin 100 mg PO Q12HR #14 capsule 06/04/15 Unknown Rx CAP] Fluconazole 1 tab PO DAILY 06/04/15 06/04/15 03/06/15 History Fluconazole 1 tab PO DAILY 06/04/15 06/04/15 03/06/15 History HYDROcodone/APAP 10-325 [[place] 1 each PO Q6HR PRN #20 tablet 06/04/15 Unknown Rx 10/325] Insulin Aspart [NovoLOG 100 5 unit SQ AC 30 Days units 06/04/15 Unknown Rx UNITS/ML VIAL] Insulin Glargine [Lantus VIAL] 40 unit SUB-Q QHS 30 Days units 06/04/15 Unknown Rx Lisinopril [Zestril TAB] 20 mg PO QDAY 06/04/15 06/04/15 03/06/15 History Metoprolol [Lopressor TAB] 50 mg PO DAILY 06/04/15 06/04/15 03/06/15 History Potassium Chloride [Klor-Con M20] 1 tab PO DAILY 06/04/15 06/04/15 03/06/15 History Simvastatin [Zocor TAB] 40 mg PO QHS 06/04/15 06/04/15 03/06/15 History Zolpidem [Ambien] 5 mg PO QHS PRN 06/04/15 06/04/15 03/06/15 History cloNIDine [Catapres] 0.2 mg PO BID 06/04/15 06/04/15 03/06/15 History glipiZIDE [Glucotrol] 2 tab PO QDAY 30 Days tablet 06/04/15 Unknown Rx Active Meds: Active Medications Acetaminophen (Tylenol) 650 mg PO Q4H PRN PRN Reason: Non Cardiac Pain or Temp>100.5 Last Admin: 05/29/19 05:46 Dose: 650 mg Documented by: Dextrose (D50w (25gm) Syringe) 50 ml IV PRN PRN PRN Reason: Hypoglycemia Docusate Sodium (Colace) 100 mg PO BID NEY Enoxaparin Sodium (Lovenox) 30 mg SUB-Q QDAY NEY Hydralazine HCl (Apresoline) 10 mg IV Q4H PRN PRN Reason: Blood Pressure Sodium Chloride (Nacl 0.45% 1000 Ml) 1,000 mls @ 75 mls/hr IV DIRECT NEY Last Admin: 05/29/19 01:04 Dose: 75 mls/hr Documented by: Insulin Glargine (Lantus) 30 units SUB-Q QHS NEY Insulin Human Lispro (Humalog) 0 unit SUB-Q ACHS NEY; Protocol Ondansetron HCl (Zofran) 4 mg IV Q8H PRN PRN Reason: Nausea And Vomiting Sodium Chloride (Sodium Chloride Flush Syringe 10 Ml) 10 ml IV BID NEY Sodium Chloride (Sodium Chloride Flush Syringe 10 Ml) 10 ml IV PRN PRN PRN Reason: LINE FLUSH Exam - Vital Signs Vital signs: Vital Signs Temp Pulse Resp BP Pulse Ox 97.6 F 95 H 18 150/84 99 05/28/19 15:05 05/28/19 15:05 05/28/19 15:05 05/28/19 15:05 05/28/19 15:05 Results - Lab Results 05/29/19 05:05 05/29/19 05:05 Most recent lab results Calcium 9.3 mg/dL (8.4-10.2) 05/29/19 05:05 Phosphorus 4.30 mg/dL (2.5-4.5) 05/28/19 15:52 Magnesium 2.10 mg/dL (1.7-2.3) 05/28/19 15:52 128.9 mg/dL (0.1-20.0) H 05/28/19 15:50 73 mmol/L 05/28/19 15:50
[2019-05-29] MEDS ORDERED: HEPARIN SUB-Q SCH (10:00)
[2019-05-29] MEDS ORDERED: LOVENOX SUB-Q SCH (10:00)
[2019-05-29] MEDS: COLACE PO SCH ×2 (10:25→22:18)
[2019-05-29] MEDS: SODIUM CHLORIDE FLUSH SYRINGE 10 ML IV SCH ×2 (13:44→22:14)
[2019-05-29] MEDS: NEURONTIN PO SCH ×2 (15:52→22:07)
[2019-05-29] MEDS: LANTUS SUB-Q SCH (22:11)
[2019-05-30] MEDS: NACL 0.45% 1000 ML 1,000 ML IV SCH ×2 (03:28→22:04)
[2019-05-30 05:50] LABS: Hematocrit 31.4 % (30.3-42.9); Hemoglobin 10.2 gm/dl (10.1-14.3); Mean Corpuscular HGB Conc 33 % (30-34); Mean Corpuscular Volume 84 fl (79-97); Platelet Count 238 K/mm3 (140-440); Red Blood Count 3.74 M/mm3 (3.65-5.03); Red Cell Distribution Width 13.1 % (13.2-15.2)
[2019-05-30 06:11] LABS: Calcium 9.2 mg/dL (8.4-10.2)
[2019-05-30] MEDS: HumaLOG SUB-Q SCH ×4 (07:48→22:04)
--- NOTE | 2019-05-30 09:18 | Progress Note ---
Subjective Interval history: Patient was seen today for follow-up on multiple renal related issues Patient denies any complaints of chest pain shortness of breath nausea vomiting . Events over 24 hours were noted Vitals intake output medications were reviewed Allergies: Reviewed Social/family history: Reviewed Physical examination: Gen.: No acute distress HEENT: Oral mucosa moist, no icterus Neck: Supple no thyromegaly maass or JVD Chest: Clear to auscultation Heart: Regular rate and rhythm S1-S2 heard no S3-S4 Abdomen: Soft nontender no suprapubic masses nor organomegaly Extremity: Dry skin less than 1+ edema,No petechial rashes Psych: No evidence of any agitation and aggression noted Neurological: Alert awake Assessment and plan Acute kidney injury: Patient's renal function appears to be improving, she is stable for discharge from renal standpoint Metabolic acidosis current bicarbonate around 21 would like to give her sodium bicarbonate tablet to twice a day for correction of metabolic acidosis Renal failure was mostly drug-induced patient appeared to be mostly prerenal likely due to the effect of medications Poorly controlled diabetes mellitus type 2 slowly improving current hemoglobin A1c noted to be 9.0 which used to be around 14 per patient few months ago She does need to follow up with her health information technician in outpatient setting, she was advised not to use nonsteroidal drug which she was using an outpatient setti ng would like to avoid OLIVIA inhibitor, angiotensin receptor spike, Byduron and Tradjenta if needed should be used with caution when her renal function normalizes with close monitoring of renal function Patient is very high risk in terms of adverse outcome, mortality risk, multiorgan failure She has been adequately counseled and educated regarding all her renal-related issues She will need to make an appointment follow-up in the office next week Patient has been adequately counseled and educated regarding all the renal related issues and does have a good understanding Lab results as well as renal progress was discussed with patient and simple Mongolian We will continue to follow and make recommendation from renal standpoint. For any questions please call me at: [phone] Objective - Vital Signs Vital signs: Vital Signs - 12hr 05/29/19 05/30/19 23:13 06:07 Temperature 98.6 F 97.8 F Pulse Rate 101 H 89 Respiratory 18 18 Rate Blood Pressure 117/75 135/69 O2 Sat by Pulse 96 95 Oximetry - Lab 05/30/19 05:29 05/30/19 05:29 Most recent lab results Calcium 9.2 mg/dL (8.4-10.2) 05/30/19 05:29 Phosphorus 4.30 mg/dL (2.5-4.5) 05/28/19 15:52 Magnesium 2.10 mg/dL (1.7-2.3) 05/28/19 15:52 128.9 mg/dL (0.1-20.0) H 05/28/19 15:50 73 mmol/L 05/28/19 15:50 Medications & Allergies - Medications Allergies/Adverse Reactions: Allergies No Known Allergies Allergy (Verified 05/28/19 15:07) Home Medications: Home Medications Medication Instructions Recorded Confirmed Last Taken Type Ciprofloxacin HCl [Ciprofloxacin 500 mg PO Q12H #14 tab 06/04/15 Unknown Rx TAB] DOXYCYCLINE Hyclate [Vibramycin 100 mg PO Q12HR #14 capsule 06/04/15 Unknown Rx CAP] Fluconazole 1 tab PO DAILY 06/04/15 06/04/15 03/06/15 History Fluconazole 1 tab PO DAILY 06/04/15 06/04/15 03/06/15 History HYDROcodone/APAP 10-325 [[place] 1 each PO Q6HR PRN #20 tablet 06/04/15 Unknown Rx 10/325] Insulin Aspart [NovoLOG 100 5 unit SQ AC 30 Days units 06/04/15 Unknown Rx UNITS/ML VIAL] Insulin Glargine [Lantus VIAL] 40 unit SUB-Q QHS 30 Days units 06/04/15 Unknown Rx Lisinopril [Zestril TAB] 20 mg PO QDAY 06/04/15 06/04/15 03/06/15 History Metoprolol [Lopressor TAB] 50 mg PO DAILY 06/04/15 06/04/15 03/06/15 History Potassium Chloride [Klor-Con M20] 1 tab PO DAILY 06/04/15 06/04/15 03/06/15 History Simvastatin [Zocor TAB] 40 mg PO QHS 06/04/15 06/04/15 03/06/15 History Zolpidem [Ambien] 5 mg PO QHS PRN 06/04/15 06/04/15 03/06/15 History cloNIDine [Catapres] 0.2 mg PO BID 06/04/15 06/04/15 03/06/15 History glipiZIDE [Glucotrol] 2 tab PO QDAY 30 Days tablet 06/04/15 Unknown Rx Active Medications: Generic Name Dose Route Start Last Admin Trade Name Freq PRN Reason Stop Dose Admin Acetaminophen 650 mg 05/28/19 23:12 05/29/19 22:10 Tylenol PO 650 mg Q4H PRN Administration Non Cardiac Pain or Temp>100.5 Dextrose 50 ml 05/28/19 23:36 D50w (25gm) Syringe IV PRN PRN Hypoglycemia Docusate Sodium 100 mg 05/29/19 10:00 05/29/19 22:18 Colace PO 100 mg BID NEY Administration Enoxaparin Sodium 40 mg 05/30/19 10:00 Lovenox SUB-Q QDAY@1000 NEY Gabapentin 600 mg 05/29/19 16:00 05/29/19 22:07 Neurontin PO 600 mg BID NEY Administration Hydralazine HCl 10 mg 05/29/19 00:13 Apresoline IV Q4H PRN Blood Pressure Sodium Chloride 1,000 mls @ 75 mls/hr 05/28/19 23:00 05/30/19 03:28 Nacl 0.45% 1000 Ml IV 75 mls/hr DIRECT NEY Administration Insulin Glargine 30 units 05/29/19 22:00 05/29/19 22:11 Lantus SUB-Q 30 units QHS NEY Administration Insulin Human Lispro 0 unit 05/29/19 07:30 05/30/19 07:48 Humalog SUB-Q Not Given ACHS [facility] Protocol Ondansetron HCl 4 mg 05/28/19 23:36 Zofran IV Q8H PRN Nausea And Vomiting Sodium Chloride 10 ml 05/29/19 10:00 05/29/19 22:14 Sodium Chloride Flush Syringe 10 Ml IV 10 ml BID NEY Administration Sodium Chloride 10 ml 05/28/19 23:36 Sodium Chloride Flush Syringe 10 Ml IV PRN PRN LINE FLUSH
[2019-05-30] MEDS: COLACE PO SCH ×2 (11:32→22:03)
[2019-05-30] MEDS: NEURONTIN PO SCH ×2 (11:33→22:02)
[2019-05-30] MEDS: LOVENOX SUB-Q SCH (11:33)
[2019-05-30] MEDS: SODIUM CHLORIDE FLUSH SYRINGE 10 ML IV SCH ×2 (11:38→22:06)
--- NOTE | 2019-05-30 11:49 | Gastroenterology Consultation ---
History of Present Illness - Reason for Consult Consult date: 05/30/19 abd pain, gallstones Requesting physician: ANG CLIFTON - History of Present Illness Patient is a 48 y/o female with PMH of HTN, DM (uncontrolled; A1C 9 this admission), CHF, and obesity who was sent to ED by management department chair for worsening renal function. She also has c/o abdominal pain to which GI has been consulted. This morning patient was sitting on the side of the bed w/o acute distress. Repo rts acute onset of epigastric/RUQ abd pain x 1 week with pain waxing and weaning and radiating to her back. There are no exacerbating factors. Pain is not correlated with PO intake. Admits to intentional wt loss due to diet changes but denies fever, CP, SOB, N/V, signs of bleeding, or LGI symptoms. Tolerating diet. Has been taking Ibuprofen at home heavily due to neuropathy pain but has decreased amount over the last couple of weeks. No hx of PUD or previous EGD. Past History Past Medical History: other (as per HPI) Past Surgical History: No surgical history Social history: lives with family Family history: no significant family history Medications and Allergies Allergies Allergy/AdvReac Type Severity Reaction Status Date / Time No Known Allergies Allergy Verified 05/28/19 15:07 Home Medications Medication Instructions Recorded Confirmed Last Taken Type Ciprofloxacin HCl [Ciprofloxacin 500 mg PO Q12H #14 tab 06/04/15 Unknown Rx TAB] DOXYCYCLINE Hyclate [Vibramycin 100 mg PO Q12HR #14 capsule 06/04/15 Unknown Rx CAP] Fluconazole 1 tab PO DAILY 06/04/15 06/04/15 03/06/15 History Fluconazole 1 tab PO DAILY 06/04/15 06/04/15 03/06/15 History HYDROcodone/APAP 10-325 [[place] 1 each PO Q6HR PRN #20 tablet 06/04/15 Unknown Rx 10/325] Insulin Aspart [NovoLOG 100 5 unit SQ AC 30 Days units 06/04/15 Unknown Rx UNITS/ML VIAL] Insulin Glargine [Lantus VIAL] 40 unit SUB-Q QHS 30 Days units 06/04/15 Unknown Rx Lisinopril [Zestril TAB] 20 mg PO QDAY 06/04/15 06/04/15 03/06/15 History Metoprolol [Lopressor TAB] 50 mg PO DAILY 06/04/15 06/04/15 03/06/15 History Potassium Chloride [Klor-Con M20] 1 tab PO DAILY 06/04/15 06/04/15 03/06/15 Hi story Simvastatin [Zocor TAB] 40 mg PO QHS 06/04/15 06/04/15 03/06/15 History Zolpidem [Ambien] 5 mg PO QHS PRN 06/04/15 06/04/15 03/06/15 History cloNIDine [Catapres] 0.2 mg PO BID 06/04/15 06/04/15 03/06/15 History glipiZIDE [Glucotrol] 2 tab PO QDAY 30 Days tablet 06/04/15 Unknown Rx Active Meds: Active Medications Acetaminophen (Tylenol) 650 mg PO Q4H PRN PRN Reason: Non Cardiac Pain or Temp>100.5 Last Admin: 05/29/19 22:10 Dose: 650 mg Documented by: Dextrose (D50w (25gm) Syringe) 50 ml IV PRN PRN PRN Reason: Hypoglycemia Docusate Sodium (Colace) 100 mg PO BID [facility] Last Admin: 05/30/19 11:32 Dose: 100 mg Documented by: Enoxaparin Sodium (Lovenox) 40 mg SUB-Q QDAY@1000 NEY Last Admin: 05/30/19 11:33 Dose: 40 mg Documented by: Gabapentin (Neurontin) 600 mg PO BID [facility] Last Admin: 05/30/19 11:33 Dose: 600 mg Documented by: Hydralazine HCl (Apresoline) 10 mg IV Q4H PRN PRN Reason: Blood Pressure Sodium Chloride (Nacl 0.45% 1000 Ml) 1,000 mls @ 75 mls/hr IV DIRECT [facility] Last Admin: 05/30/19 03:28 Dose: 75 mls/hr Documented by: Insulin Glargine (Lantus) 30 units SUB-Q QHS [facility] Last Admin: 05/29/19 22:11 Dose: 30 units Documented by: Insulin Human Lispro (Humalog) 0 unit SUB-Q [facility]; Protocol Last Admin: 05/30/19 07:48 Dose: Not Given Documented by: Ondansetron HCl (Zofran) 4 mg IV Q8H PRN PRN Reason: Nausea And Vomiting Sodium Chloride (Sodium Chloride Flush Syringe 10 Ml) 10 ml IV BID NEY Last Admin: 05/30/19 11:38 Dose: 10 ml Documented by: Sodium Chloride (Sodium Chloride Flush Syringe 10 Ml) 10 ml IV PRN PRN PRN Reason: LINE FLUSH medications reviewed/updated as required Review of Systems - Review of Systems All systems: negative Gastrointestinal: abdominal pain (epigastric/RUQ) Exam - Constitutional Vital Signs: Temp Pulse Resp BP Pulse Ox 97.8 F 140 H 18 135/69 95 05/30/19 06:07 05/30/19 08:00 05/30/19 06:07 05/30/19 06:07 05/30/19 06:07 General appearance: no acute distress, obese - EENT Eyes: PERRL, EOM intact - Respiratory Respiratory effort: normal - Cardiovascular Rhythm: other (tachycardia) - Gastrointestinal General gastrointestinal: Present: soft, tender (midly TTP in epigastric/RUQ), non-distended, normal bowel sounds, other (obese) - Neurologic Neurological: alert and oriented x3 - Labs CBC & Chem 7: 05/30/19 05:29 05/30/19 05:29 Lab Results: Laboratory Results - last 24 hr 05/29/19 05/29/19 05/30/19 17:38 22:17 05:29 WBC 4.3 L RBC 3.74 Hgb 10.2 Hct 31.4 MCV 84 MCH 27 L MCHC 33 RDW 13.1 L Plt Count 238 Sodium Potassium Chloride Carbon Dioxide Anion Gap BUN Creatinine Estimated GFR BUN/Creatinine Ratio Glucose POC Glucose 158 H 124 H Calcium 05/30/19 05/30/19 05:29 07:21 WBC RBC Hgb Hct MCV MCH MCHC RDW Plt Count Sodium 141 Potassium 4.4 Chloride 107.9 H Carbon Dioxide 21 L Anion Gap 17 BUN 33 H Creatinine 2.0 H Estimated GFR 32 BUN/Creatinine Ratio 17 Glucose 117 H POC Glucose 117 H Calcium 9.2 Assessment and Plan 1.abdominal pain (epigastric/RUQ) -afebrile -WBC, H/H, and LFTs WNL -abd U/S showed gallstones -etiology unclear- possibly PUD given heavy NSAID use vs GB vs other (uncontrolled DM likely contributing as well) -will schedule for EGD tomorrow for further evaluation (r/o GI pathology) -NPO after MN -if EGD negative, consider further workup of GB with HIDA vs surgery consult -start on daily PPI -optimize glycemic control -limit narcotics -continue supportive care -will follow 2.DEVON-improving 3.HTN 4.DM (uncontrolled; A1C 9) 5.CHF 6.obesity
--- NOTE | 2019-05-30 12:09 | Progress Note ---
Assessment and Plan Assessment and plan: Patient is a 48 yo -[place] woman with a history of hypertension, type 2 DM, CHF, obesity who presents to [facility] ED with c/o right-sided flank pain and worsening renal function. Patient went to see her systems tester (Dr. Wilder) on 05/27/19, at which time she had a creatinine of 3.4, and was told to report to the ED for further evaluation. Patient states that she had some personal affairs to address before presenting to ED. she complained of right-sided flank pain and slight tenderness to right upper quadrant. The patient and she describes it burning. The right flank is tender to deep palpation. On admission her creatinine is 2.7. Dr. Wilder states pt's baseline is <1.0, and has been taking nephrotoxic meds. Will admit to medical floor for further evaluation and treatment. Acute Renal Failure, suspect multifactorial, vasomotor, tubular stasis: consulted Nephrology and monitor BMP closely Abdominal pains: consulted GI, ordered abd ultrasound which showed Cholelithiasis Cholelithiasis: consulted GI HTN: low salt diet DM type 2 with hyperglycemia complications: treat with ssi, accuchecks and insulin CHF by history: continue to monitor i/o, tele shows premature beats other nsr Obesity, bmi 49.2: personal counselor on weight reduction done. AFR improved, possible EGD tomorrow History Interval history: Patient was seen and examined. Follow-up on current diagnosis of ARF. No overnight events reported to me. Patient denies any chest pain, shortness breath, nausea/vomiting or severe headaches. Imaging, nursing note, chart, labs and old chart reviewed. Discussed with patient. She c/o epigastric abd pains radiating to back. Hospitalist Physical - Physical exam Narrative exam: Gen: WDWN, NAD, Awake, Alert, Orientated x 3, bmi 49.2 HEENT: NCAT, EOMI, PERRL, OP Clear Neck: supple, no adenopathy, no thyromegaly, no JVD CVS/Heart: RRR, normal S1S2, pulses present bilaterally Chest/Lungs: CTA B, Symmetrical chest expansion, good air entry bilaterally GI/Abdomen: soft, epigastric tenderness, good bowel sounds, no guarding or rebound /Bladder: no suprapubic tenderness, no CVA or paraspinal tenderness Extermity/Skin: no c/c/e, no obvious rash MSK: FROM x 4 Neuro: CN 2-12 grossly intact, no new focal deficits Psych: calm - Constitutional Vitals: Temp Pulse Resp BP Pulse Ox 97.8 F 140 H 18 135/69 95 05/30/19 06:07 05/30/19 08:00 05/30/19 06:07 05/30/19 06:07 05/30/19 06:07 Results - Labs CBC & Chem 7: 05/30/19 05:29 05/30/19 05:29 Labs: Laboratory Last Values WBC 4.3 K/mm3 (4.5-11.0) L 05/30/19 05:29 RBC 3.74 M/mm3 (3.65-5.03) 05/30/19 05:29 Hgb 10.2 gm/dl (10.1-14.3) 05/30/19 05:29 Hct 31.4 % (30.3-42.9) 05/30/19 05:29 MCV 84 fl (79-97) 05/30/19 05:29 MCH 27 pg (28-32) L 05/30/19 05:29 MCHC 33 % (30-34) 05/30/19 05:29 RDW 13.1 % (13.2-15.2) L 05/30/19 05:29 Plt Count 238 K/mm3 (140-440) 05/30/19 05:29 Lymph % (Auto) 41.7 % (13.4-35.0) H 05/29/19 05:05 [place] % (Auto) 8.9 % (0.0-7.3) H 05/29/19 05:05 Eos % (Auto) 1.1 % (0.0-4.3) 05/29/19 05:05 Baso % (Auto) 0.4 % (0.0-1.8) 05/29/19 05:05 Lymph # 2.1 K/mm3 (1.2-5.4) 05/29/19 05:05 [place] # 0.5 K/mm3 (0.0-0.8) 05/29/19 05:05 Eos # 0.1 K/mm3 (0.0-0.4) 05/29/19 05:05 Baso # 0.0 K/mm3 (0.0-0.1) 05/29/19 05:05 Seg Neutrophils % 47.9 % (40.0-70.0) 05/29/19 05:05 Seg Neutrophils # 2.5 K/mm3 (1.8-7.7) 05/29/19 05:05 Sodium 141 mmol/L (137-145) 05/30/19 05:29 Potassium 4.4 mmol/L (3.6-5.0) 05/30/19 05:29 Chloride 107.9 mmol/L (98-107) H 05/30/19 05:29 Carbon Dioxide 21 mmol/L (22-30) L 05/30/19 05:29 17 mmol/L 05/30/19 05:29 BUN 33 mg/dL (7-17) H 05/30/19 05:29 2.0 mg/dL (0.7-1.2) H 05/30/19 05:29 Estimated GFR 32 ml/min 05/30/19 05:29 17 % 05/30/19 05:29 Glucose 117 mg/dL (65-100) H 05/30/19 05:29 POC Glucose 117 (70-105) H 05/30/19 07:21 9.0 % (4-6) H 05/29/19 05:05 312 Mosm/kg 05/28/19 15:52 Calcium 9.2 mg/dL (8.4-10.2) 05/30/19 05:29 Phosphorus 4.30 mg/dL (2.5-4.5) 05/28/19 15:52 Magnesium 2.10 mg/dL (1.7-2.3) 05/28/19 15:52 0.30 mg/dL (0.1-1.2) 05/28/19 15:52 AST 18 units/L (5-40) 05/28/19 15:52 ALT 18 units/L (7-56) 05/28/19 15:52 92 units/L (35-129) 05/28/19 15:52 < 0.010 ng/mL (0.00-0.029) 05/28/19 15:52 NT-Pro-B Natriuret Pep 10.16 pg/mL (0-900) 05/28/19 15:52 7.9 g/dL (6.3-8.2) 05/28/19 15:52 4.4 g/dL (3.9-5) 05/28/19 15:52 1.3 % 05/28/19 15:52 Straw (Yellow) 05/28/19 15:50 Clear (Clear) 05/28/19 15:50 6.0 (5.0-7.0) 05/28/19 15:50 Ur Specific [place] 1.014 (1.003-1.030) 05/28/19 15:50 <15 mg/dl mg/dL (Negative) 05/28/19 15:50 >=500 mg/dL (Negative) 05/28/19 15:50 Neg mg/dL (Negative) 05/28/19 15:50 Neg (Negative) 05/28/19 15:50 Neg (Negative) 05/28/19 15:50 Neg (Negative) 05/28/19 15:50 < 2.0 mg/dL (<2.0) 05/28/19 15:50 Ur Leukocyte Esterase Neg (Negative) 05/28/19 15:50 < 1.0 /HPF (0.0-6.0) 05/28/19 15:50 3.0 /HPF (0.0-6.0) 05/28/19 15:50 U Epithel Cells (Auto) 1.0 /HPF (0-13.0) 05/28/19 15:50 550 Mosm/kg 05/28/19 15:50 128.9 mg/dL (0.1-20.0) H 05/28/19 15:50 73 mmol/L 05/28/19 15:50 693 05/28/19 15:50 Active Medications - Current Medications Current Medications: Generic Name Dose Route Start Last Admin Trade Name Freq PRN Reason Stop Dose Admin Acetaminophen 650 mg 05/28/19 23:12 05/29/19 22:10 Tylenol PO 650 mg Q4H PRN Administration Non Cardiac Pain or Temp>100.5 Dextrose 50 ml 05/28/19 23:36 D50w (25gm) Syringe IV PRN PRN Hypoglycemia Docusate Sodium 100 mg 05/29/19 10:00 05/30/19 11:32 Colace PO 100 mg BID NEY Administration Enoxaparin Sodium 40 mg 05/30/19 10:00 05/30/19 11:33 Lovenox SUB-Q 40 mg QDAY@1000 NEY Administration Gabapentin 600 mg 05/29/19 16:00 05/30/19 11:33 Neurontin PO 600 mg BID NEY Administration Hydralazine HCl 10 mg 05/29/19 00:13 Apresoline IV Q4H PRN Blood Pressure Sodium Chloride 1,000 mls @ 75 mls/hr 05/28/19 23:00 05/30/19 03:28 Nacl 0.45% 1000 Ml IV 75 mls/hr DIRECT NEY Administration Insulin Glargine 30 units 05/29/19 22:00 05/29/19 22:11 Lantus SUB-Q 30 units QHS NEY Administration Insulin Human Lispro 0 unit 05/29/19 07:30 05/30/19 07:48 Humalog SUB-Q Not Given ACHS [facility] Protocol Ondansetron HCl 4 mg 05/28/19 23:36 Zofran IV Q8H PRN Nausea And Vomiting Sodium Chloride 10 ml 05/29/19 10:00 05/30/19 11:38 Sodium Chloride Flush Syringe 10 Ml IV 10 ml BID NEY Administration Sodium Chloride 10 ml 05/28/19 23:36 Sodium Chloride Flush Syringe 10 Ml IV PRN PRN LINE FLUSH Nutrition/Malnutrition Assess - Dietary Evaluation Nutrition/Malnutrition Findings: Nutrition Notes Start: 05/29/19 14:49 Freq: Status: Active Protocol: Document 05/29/19 14:50 RM (Rec: 05/29/19 15:04 RM [id number]) Nutrition Notes Need for Assessment generated from: finger buff sewer,Education Initial or Follow up Assessment Current Diagnosis Acute Kidney Injury,Diabetes, Heart Failure Other Pertinent Diagnosis ??? CKD Current Diet Renal Labs/Tests A1c 9 Pertinent Medications Reviewed Height 5 ft 11 in Weight 159.71 kg [place] Body Weight (kg) 70.45 BMI 49.1 Subjective/Other Information Screened for new onset DM. Pt stated that she had only eaten a slice of bread and some fruit since admission. Declined ONS. Pt stated that she has received diet advice from multiple people in the past including a nurse, park maintenance technician, and systems tester. Some of what pt recalled was inadequate or conflicting. Reviewed DM diet education. Gave handout. Burn Absent Trauma Absent #2 Nutrition Diagnosis Food and nutrition-related knowledge deficit Etiology inadequate or conflicting previous education As Evidenced by Signs and Symptoms pt desire for education #1 Nutrition Diagnosis Inadequate oral intake Etiology food preferences As Evidenced by Signs and Symptoms pt statement that she only ate a slice of bread and some fruit today Is patient on ventilator? No Is Patient Ambulatory and/or Out of Bed Yes REE-(Leake-St. Jeor-ambulatory/OOB) [ 3007.199 [id number]] Kcal/Kg value to use for calculation 16 Approximate Energy Requirements Using 2555 kcal/Kg Calculation Used for Recommendations Kcal/kg Additional Notes Protein Needs: 92-115g (0.8-1/ kg 115kg adjBW) Fluid Needs: 1 ml/kcal Nutrition Intervention Change Diet Order: Continue current Teaching Recipient Patient Learning Readiness Good Teaching Methods Discussion,Handout Response to Teaching Verbalize understanding Education Handouts Provided Carbohydrate counting for people with diabetes Barriers to Learning No Barriers RD phone number provided Yes Patient aware of follow up options Yes Goal #1 Meet at least 75% of calorie and protein needs via PO and ONS intakes Goal #2 Utilize carbohydrate counting Anticipated Discharge Needs: Unable to determine at this time Follow-Up By: 06/03/19 Additional Comments Follow for PO and ONS intakes
[2019-05-30] MEDS: PROTONIX PO SCH (13:47)
[2019-05-30] MEDS: TYLENOL PO PRN (22:03)
[2019-05-30] MEDS: LANTUS SUB-Q SCH (22:05)
[2019-05-31 05:30] LABS: Calcium 8.9 mg/dL (8.4-10.2)
[2019-05-31] MEDS ORDERED: WATER FOR IRRIG STERILE IR ONE (06:33)
[2019-05-31] MEDS ORDERED: NACL 0.9% 1000 ML 1,000 ML IV SCH (07:00)
[2019-05-31] MEDS: HumaLOG SUB-Q SCH ×3 (07:17→17:31)
[2019-05-31] MEDS ORDERED: XYLOCAINE CARDIAC IV ONE (07:54)
[2019-05-31] MEDS ORDERED: PHENYLEPHRINE/NS Syringe 1,000 MCG/10 ML IV ONE ×2 (07:54→07:56)
[2019-05-31] MEDS ORDERED: VERSED ONE (07:54)
[2019-05-31] MEDS ORDERED: KETALAR ONE (07:54)
[2019-05-31] MEDS ORDERED: DIPRIVAN 10 MG/ML IV ONE (07:54)
--- NOTE | 2019-05-31 08:17 | Anesthesia Day of Surgery ---
Anesthesia Day of Surgery - Day of Surgery Patient Examined: Yes Patient H&P Reviewed: Yes Patient is NPO: Yes
--- NOTE | 2019-05-31 08:17 | Anesthesia Consultation ---
Anesthesia Consult and Med Hx Date of service: 05/31/19 - Airway Anesthetic Teeth Evaluation: Good ROM Head & Neck: Adequate Mental/Hyoid Distance: Adequate Mallampati Class: Class III Intubation Access Assessment: Possibly Difficult - Pulmonary Exam CTA: Yes - Cardiac Exam Cardiac Exam: RRR - Pre-Operative Health Status ASA Pre-Surgery Classification: ASA3 Proposed Anesthetic Plan: MAC - Pulmonary SOB: Yes (with exertion) - Cardiovascular System Hx Hypertension: Yes Hx Heart Attack/AMI: No Hx Percutaneous Transluminal Coronary Angioplasty (PTCA): No Hx Cardia Arrhythmia: No - Central Nervous System Hx Seizures: No CVA: No Hx Back Pain: Yes Hx Psychiatric Problems: No - Gastrointestinal Hx Gastroesophageal Reflux Disease: No - Endocrine Hx Renal Disease: Yes (DEVON) Hx Insulin Dependent Diabetes: Yes Hx Thyroid Disease: No - Other Systems Hx Obesity: Yes (BMI 48) - Additional Comments Anesthesia Medical History Comments: No prior GA. Reportsd diagnosis CHF in 2007 but has not followed with a elastic attacher chainstitch recently. No cardiology records available at this time. Chronic dyspnea on exertion but denies chest pain. No evidence of acute decompensation on exam.
--- NOTE | 2019-05-31 09:03 | Post Operative Note ---
Pre-op diagnosis: epigastric pain Post-op diagnosis: same Findings: EGD: grade I esophagitis w/ 2 small nodules at g-e junction - medium hiatal hernia - mild gastritis (bx's) - negative other Procedure: EGD Anesthesia: MAC Surgeon: CA PARISI Estimated blood loss: none Pathology: list Specimen disposition: to lab Condition: stable Disposition: floor
[2019-05-31] MEDS: NEURONTIN PO SCH (11:17)
[2019-05-31] MEDS: PROTONIX PO SCH (11:18)
[2019-05-31] MEDS: COLACE PO SCH (11:18)
[2019-05-31] MEDS: SODIUM CHLORIDE FLUSH SYRINGE 10 ML IV SCH (11:19)
[2019-05-31] MEDS: LOVENOX SUB-Q SCH (11:20)
--- NOTE | 2019-05-31 12:13 | Progress Note ---
Assessment and Plan Impression * Acute kidney injury * Abdominal pain * Hypertension * Metabolic acidosis * Diabetes * Obesity Recommendations * Patient's renal function is stable. She is also nonoliguric. * Continue to hold her OLIVIA inhibitor for now. * Her blood pressure is adequately controlled * No objection to discharge from renal standpoint. However she'll need a follow-up visit in the office next week Subjective Date of service: 05/31/19 Interval history: Patient is comfortable. Denies any shortness of breath. No nausea or vomiting. Does complain of some right upper quadrant discomfort. Status post EGD yesterday. Findings noted. Objective - Vital Signs Vital signs: Vital Signs - 12hr 05/31/19 05/31/19 05/31/19 05:53 07:37 07:43 Temperature 98.2 F 98.6 F 98.6 F Pulse Rate 92 H 91 H 91 H Respiratory 16 10 L 10 L Rate Blood Pressure 114/65 119/67 119/67 O2 Sat by Pulse 94 100 100 Oximetry 05/31/19 05/31/19 08:31 08:46 Temperature 98.3 F Pulse Rate 100 H 88 Respiratory 18 12 Rate Blood Pressure 153/93 110/71 O2 Sat by Pulse 100 100 Oximetry - General Appearance General appearance: well-developed, well-nourished, appears stated age, obese EENT: PERRL, mucous membranes moist Neck: no JVD, no thyromegaly, no carotid bruit, supple Respiratory: Present: Clear to Ascultation Cardiology: regular, normal heart rate, S1S2, no murmurs Gastrointestinal: normal, normoactive bowel sounds Integumentary: no rash, other (no edema) - Lab 05/30/19 05:29 05/31/19 04:10 Most recent lab results Calcium 8.9 mg/dL (8.4-10.2) 05/31/19 04:10 Phosphorus 4.30 mg/dL (2.5-4.5) 05/28/19 15:52 Magnesium 2.10 mg/dL (1.7-2.3) 05/28/19 15:52 128.9 mg/dL (0.1-20.0) H 05/28/19 15:50 73 mmol/L 05/28/19 15:50 Medications & Allergies - Medications Allergies/Adverse Reactions: Allergies No Known Allergies Allergy (Verified 05/28/19 15:07) Home Medications: Home Medications Medication Instructions Recorded Confirmed Last Taken Type Ciprofloxacin HCl [Ciprofloxacin 500 mg PO Q12H #14 tab 06/04/15 Unknown Rx TAB] DOXYCYCLINE Hyclate [Vibramycin 100 mg PO Q12HR #14 capsule 06/04/15 Unknown Rx CAP] Fluconazole 1 tab PO DAILY 06/04/15 06/04/15 03/06/15 History Fluconazole 1 tab PO DAILY 06/04/15 06/04/15 03/06/15 History HYDROcodone/APAP 10-325 [[place] 1 each PO Q6HR PRN #20 tablet 06/04/15 Unknown Rx 10/325] Insulin Aspart [NovoLOG 100 5 unit SQ AC 30 Days units 06/04/15 Unknown Rx UNITS/ML VIAL] Insulin Glargine [Lantus VIAL] 40 unit SUB-Q QHS 30 Days units 06/04/15 Unknown Rx Lisinopril [Zestril TAB] 20 mg PO QDAY 06/04/15 06/04/15 03/06/15 History Metoprolol [Lopressor TAB] 50 mg PO DAILY 06/04/15 06/04/15 03/06/15 History Potassium Chloride [Klor-Con M20] 1 tab PO DAILY 06/04/15 06/04/15 03/06/15 History Simvastatin [Zocor TAB] 40 mg PO QHS 06/04/15 06/04/15 03/06/15 History Zolpidem [Ambien] 5 mg PO QHS PRN 06/04/15 06/04/15 03/06/15 History cloNIDine [Catapres] 0.2 mg PO BID 06/04/15 06/04/15 03/06/15 History glipiZIDE [Glucotrol] 2 tab PO QDAY 30 Days tablet 06/04/15 Unknown Rx Active Medications: Generic Name Dose Route Start Last Admin Trade Name Freq PRN Reason Stop Dose Admin Acetaminophen 650 mg 05/28/19 23:12 05/30/19 22:03 Tylenol PO 650 mg Q4H PRN Administration Non Cardiac Pain or Temp>100.5 Dextrose 50 ml 05/28/19 23:36 D50w (25gm) Syringe IV PRN PRN Hypoglycemia Docusate Sodium 100 mg 05/29/19 10:00 05/31/19 11:18 Colace PO 100 mg BID NEY Administration Enoxaparin Sodium 40 mg 05/30/19 10:00 05/31/19 11:20 Lovenox SUB-Q 40 mg QDAY@1000 NEY Administration Gabapentin 600 mg 05/29/19 16:00 05/31/19 11:17 Neurontin PO 600 mg BID NEY Administration Hydralazine HCl 10 mg 05/29/19 00:13 Apresoline IV Q4H PRN Blood Pressure Sodium Chloride 1,000 mls @ 75 mls/hr 05/28/19 23:00 05/30/19 22:04 Nacl 0.45% 1000 Ml IV 75 mls/hr DIRECT NEY Administration Sodium Chloride 1,000 mls @ 50 mls/hr 05/31/19 07:00 05/31/19 07:45 Nacl 0.9% 1000 Ml IV 50 mls/hr DIRECT NEY Administration Insulin Glargine 30 units 05/29/19 22:00 05/30/19 22:05 Lantus SUB-Q Not Given QHS [facility] Insulin Human Lispro 0 unit 05/29/19 07:30 05/31/19 07:17 Humalog SUB-Q Not Given ACHS [facility] Protocol Ondansetron HCl 4 mg 05/28/19 23:36 Zofran IV Q8H PRN Nausea And Vomiting Pantoprazole Sodium 40 mg 05/30/19 13:00 05/31/19 11:18 Protonix PO 40 mg QDAY NEY Administration Sodium Chloride 10 ml 05/29/19 10:00 05/31/19 11:19 Sodium Chloride Flush Syringe 10 Ml IV 10 ml BID NEY Administration Sodium Chloride 10 ml 05/28/19 23:36 Sodium Chloride Flush Syringe 10 Ml IV PRN PRN LINE FLUSH
--- NOTE | 2019-05-31 12:24 | Post Anesthesia Evaluation ---
- Post Anesthesia Evaluation Patient Participated: Yes Airway Patent: Yes Stable Respiratory Function: Yes Nausea/Vomiting: No Temp > 96.8F: Yes Pain Manageable: Yes Adequeate Hydration: Yes Anesthesia Complications: No
--- NOTE | 2019-05-31 12:40 | Operative Report ---
PROCEDURE: EGD with cold biopsies. INDICATIONS: 1. Nausea, vomiting. 2. Epigastric pain. MEDICATIONS: Propofol per CARDIAC SURGEON. COMPLICATIONS: None. DESCRIPTION OF PROCEDURE: The patient brought to the procedure suite. The patient had the procedure discussed with her at length. All risks, complications, and benefits discussed after which the patient signed for the procedure performed. The patient was placed in left lateral decubitus position. Mouth block was placed in the patient's oral cavity. After adequate sedation medication as above, endoscope was introduced into the mouth and brought to the level of the second portion of duodenum. Retroflexion view performed. The patient's vital signs remained stable throughout the procedure. FINDINGS: There was noted to be grade 1 esophagitis noted at GE junction at 38 cm from the gums. There were 2 small raised nodules at the GE junction noted. Biopsies were taken of the GE junction and the nodules and sent to pathology. There was a medium, approximately 2.5 to 3 cm hiatal hernia noted at GE junction. The esophagus otherwise appeared to be normal. There is mild to moderate antral gastritis noted. Biopsies were taken and sent to Pathology. The remaining stomach otherwise appeared to be normal. The duodenum appeared to be normal. Retroflexion view performed in the stomach showed no other pathology other than noted above. The patient tolerated the procedure well. No complications noted during the procedure. IMPRESSION: 1. Hiatal hernia. 2. Esophagitis with 2 small benign appearing nodules, with biopsies taken and sent to pathology. 3. Otherwise normal esophagus. 4. Gastritis with biopsies performed. 5. Otherwise normal stomach. 6. Normal duodenum. RECOMMENDATIONS: 1. Follow up biopsy results. 2. Stool for H. pylori, if positive, we will treat. 3. PPI daily. 4. Soft diet. 5. If tolerate soft diet, okay to discharge from GI standpoint. 6. If symptoms persist, would recommend Surgery consult for possible laparoscopic cholecystectomy. [facility]# [id number] CAB/NTS
[2019-05-31] MEDS: NACL 0.45% 1000 ML 1,000 ML IV SCH (14:06)
[2019-05-31] MEDS: TYLENOL PO PRN (14:08)
[2019-05-31 14:14] VITALS: BP 132/82
[2019-05-31] MEDS ORDERED: NACL 0.9% 1000 ML 1,000 ML ONE (14:40)
--- NOTE | 2019-05-31 14:52 | Progress Note ---
Assessment and Plan Assessment and plan: Patient is a 48 yo -[place] woman with a history of hypertension, type 2 DM, CHF, obesity who presents to [facility] ED with c/o right-sided flank pain and worsening renal function. Patient went to see her personal lines insurance agent (Dr. Wilder) on 05/27/19, at which time she had a creatinine of 3.4, and was told to report to the ED for further evaluation. Patient states that she had some personal affairs to address before presenting to ED. she complained of right-sided flank pain and slight tenderness to right upper quadrant. The patient and she describes it burning. The right flank is tender to deep palpation. On admission her creatinine is 2.7. Dr. Wilder states pt's baseline is <1.0, and has been taking nephrotoxic meds. Will admit to medical floor for further evaluation and treatment. Procedure: EGD Pre-op diagnosis: epigastric pain Post-op diagnosis: same Findings: EGD: grade I esophagitis w/ 2 small nodules at g-e junction - medium hiatal hernia - mild gastritis (bx's) - negative other Plan: f/u bx's - PPI qd - soft diet - if tolerate soft diet ok to d/c from GI standpoint w. follow up outpt - if symptoms recur would rec surgery consult for possible lap marlo - Dr. Jackson to take over service in am, will sign off, call if needed Discharge Diagnoses: Acute Renal Failure, suspect multifactorial, vasomotor, tubular stasis: consulted Nephrology and monitor BMP closely Grade I esophagitis with 2 small nodules at GE junction s/p bx Mild Gastritis Abdominal pains with Cholelithiasis: consulted Gs, recommended surgery but patient wants it done as outpatient Cholelithiasis: consulted GI HTN: low salt diet DM type 2 with hyperglycemia complications: treat with ssi, accuchecks and insulin CHF by history: continue to monitor i/o, tele shows premature beats other nsr Obesity, bmi 49.2: mortgage loan counselor on weight reduction done. History Interval history: Patient was seen and examined. Follow-up on current diagnosis of ARF. No overnight events reported to me. Patient denies any chest pain, shortness breath, nausea/vomiting or severe headaches. Imaging, nursing note, chart, labs and old chart reviewed. Discussed with patient. She c/o epigastric abd pains radiating to back. Hospitalist Physical - Physical exam Narrative exam: Gen: WDWN, NAD, Awake, Alert, Orientated x 3, bmi 49.2 HEENT: NCAT, EOMI, PERRL, OP Clear Neck: supple, no adenopathy, no thyromegaly, no JVD CVS/Heart: RRR, normal S1S2, pulses present bilaterally Chest/Lungs: CTA B, Symmetrical chest expansion, good air entry bilaterally GI/Abdomen: soft, epigastric tenderness, good bowel sounds, no guarding or rebound /Bladder: no suprapubic tenderness, no CVA or paraspinal tenderness Extermity/Skin: no c/c/e, no obvious rash MSK: FROM x 4 Neuro: CN 2-12 grossly intact, no new focal deficits Psych: calm - Constitutional Vitals: Temp Pulse Resp BP Pulse Ox 98.4 F 85 20 132/82 98 05/31/19 11:20 05/31/19 11:20 05/31/19 11:20 05/31/19 11:20 05/31/19 11:20 Results - Labs CBC & Chem 7: 05/30/19 05:29 05/31/19 04:10 Labs: Laboratory Last Values WBC 4.3 K/mm3 (4.5-11.0) L 05/30/19 05:29 RBC 3.74 M/mm3 (3.65-5.03) 05/30/19 05:29 Hgb 10.2 gm/dl (10.1-14.3) 05/30/19 05:29 Hct 31.4 % (30.3-42.9) 05/30/19 05:29 MCV 84 fl (79-97) 05/30/19 05:29 MCH 27 pg (28-32) L 05/30/19 05:29 MCHC 33 % (30-34) 05/30/19 05:29 RDW 13.1 % (13.2-15.2) L 05/30/19 05:29 Plt Count 238 K/mm3 (140-440) 05/30/19 05:29 Lymph % (Auto) 41.7 % (13.4-35.0) H 05/29/19 05:05 [place] % (Auto) 8.9 % (0.0-7.3) H 05/29/19 05:05 Eos % (Auto) 1.1 % (0.0-4.3) 05/29/19 05:05 Baso % (Auto) 0.4 % (0.0-1.8) 05/29/19 05:05 Lymph # 2.1 K/mm3 (1.2-5.4) 05/29/19 05:05 [place] # 0.5 K/mm3 (0.0-0.8) 05/29/19 05:05 Eos # 0.1 K/mm3 (0.0-0.4) 05/29/19 05:05 Baso # 0.0 K/mm3 (0.0-0.1) 05/29/19 05:05 Seg Neutrophils % 47.9 % (40.0-70.0) 05/29/19 05:05 Seg Neutrophils # 2.5 K/mm3 (1.8-7.7) 05/29/19 05:05 Sodium 142 mmol/L (137-145) 05/31/19 04:10 Potassium 4.5 mmol/L (3.6-5.0) 05/31/19 04:10 Chloride 107.8 mmol/L (98-107) H 05/31/19 04:10 Carbon Dioxide 21 mmol/L (22-30) L 05/31/19 04:10 18 mmol/L 05/31/19 04:10 BUN 31 mg/dL (7-17) H 05/31/19 04:10 2.0 mg/dL (0.7-1.2) H 05/31/19 04:10 Estimated GFR 32 ml/min 05/31/19 04:10 16 % 05/31/19 04:10 Glucose 130 mg/dL (65-100) H 05/31/19 04:10 POC Glucose 147 (70-105) H 05/31/19 12:38 9.0 % (4-6) H 05/29/19 05:05 312 Mosm/kg 05/28/19 15:52 Calcium 8.9 mg/dL (8.4-10.2) 05/31/19 04:10 Phosphorus 4.30 mg/dL (2.5-4.5) 05/28/19 15:52 Magnesium 2.10 mg/dL (1.7-2.3) 05/28/19 15:52 0.30 mg/dL (0.1-1.2) 05/28/19 15:52 AST 18 units/L (5-40) 05/28/19 15:52 ALT 18 units/L (7-56) 05/28/19 15:52 92 units/L (35-129) 05/28/19 15:52 < 0.010 ng/mL (0.00-0.029) 05/28/19 15:52 NT-Pro-B Natriuret Pep 10.16 pg/mL (0-900) 05/28/19 15:52 7.9 g/dL (6.3-8.2) 05/28/19 15:52 4.4 g/dL (3.9-5) 05/28/19 15:52 1.3 % 05/28/19 15:52 Straw (Yellow) 05/28/19 15:50 Clear (Clear) 05/28/19 15:50 6.0 (5.0-7.0) 05/28/19 15:50 Ur Specific [place] 1.014 (1.003-1.030) 05/28/19 15:50 <15 mg/dl mg/dL (Negative) 05/28/19 15:50 >=500 mg/dL (Negative) 05/28/19 15:50 Neg mg/dL (Negative) 05/28/19 15:50 Neg (Negative) 05/28/19 15:50 Neg (Negative) 05/28/19 15:50 Neg (Negative) 05/28/19 15:50 < 2.0 mg/dL (<2.0) 05/28/19 15:50 Ur Leukocyte Esterase Neg (Negative) 05/28/19 15:50 < 1.0 /HPF (0.0-6.0) 05/28/19 15:50 3.0 /HPF (0.0-6.0) 05/28/19 15:50 U Epithel Cells (Auto) 1.0 /HPF (0-13.0) 05/28/19 15:50 550 Mosm/kg 05/28/19 15:50 128.9 mg/dL (0.1-20.0) H 05/28/19 15:50 73 mmol/L 05/28/19 15:50 693 07/17/19 15:50 Active Medications - Current Medications Current Medications: Generic Name Dose Route Start Last Admin Trade Name Freq PRN Reason Stop Dose Admin Acetaminophen 650 mg 05/28/19 23:12 05/31/19 14:08 Tylenol PO 650 mg Q4H PRN Administration Non Cardiac Pain or Temp>100.5 Dextrose 50 ml 05/28/19 23:36 D50w (25gm) Syringe IV PRN PRN Hypoglycemia Docusate Sodium 100 mg 05/29/19 10:00 05/31/19 11:18 Colace PO 100 mg BID NEY Administration Enoxaparin Sodium 40 mg 05/30/19 10:00 05/31/19 11:20 Lovenox SUB-Q 40 mg QDAY@1000 NEY Administration Gabapentin 600 mg 05/29/19 16:00 05/31/19 11:17 Neurontin PO 600 mg BID NEY Administration Hydralazine HCl 10 mg 05/29/19 00:13 Apresoline IV Q4H PRN Blood Pressure Sodium Chloride 1,000 mls @ 75 mls/hr 05/28/19 23:00 05/31/19 14:06 Nacl 0.45% 1000 Ml IV 75 mls/hr DIRECT NEY Administration Sodium Chloride 1,000 mls @ 50 mls/hr 05/31/19 07:00 05/31/19 07:45 Nacl 0.9% 1000 Ml IV 50 mls/hr DIRECT NEY Administration Insulin Glargine 30 units 05/29/19 22:00 05/30/19 22:05 Lantus SUB-Q Not Given QHS [facility] Insulin Human Lispro 0 unit 05/29/19 07:30 05/31/19 13:06 Humalog SUB-Q Not Given ACHS [facility] Protocol Ondansetron HCl 4 mg 05/28/19 23:36 Zofran IV Q8H PRN Nausea And Vomiting Pantoprazole Sodium 40 mg 05/30/19 13:00 05/31/19 11:18 Protonix PO 40 mg QDAY NEY Administration Sodium Chloride 10 ml 05/29/19 10:00 05/31/19 11:19 Sodium Chloride Flush Syringe 10 Ml IV 10 ml BID NEY Administration Sodium Chloride 10 ml 05/28/19 23:36 Sodium Chloride Flush Syringe 10 Ml IV PRN PRN LINE FLUSH Nutrition/Malnutrition Assess - Dietary Evaluation Nutrition/Malnutrition Findings: Nutrition Notes Start: 05/29/19 14:49 Freq: Status: Active Protocol: Document 05/29/19 14:50 RM (Rec: 05/29/19 15:04 RM [id number]) Nutrition Notes Need for Assessment generated from: eligibility worker,Education Initial or Follow up Assessment Current Diagnosis Acute Kidney Injury,Diabetes, Heart Failure Other Pertinent Diagnosis ??? CKD Current Diet Renal Labs/Tests A1c 9 Pertinent Medications Reviewed Height 5 ft 11 in Weight 159.71 kg [place] Body Weight (kg) 70.45 BMI 49.1 Subjective/Other Information Screened for new onset DM. Pt stated that she had only eaten a slice of bread and some fruit since admission. Declined ONS. Pt stated that she has received diet advice from multiple people in the past including a nurse, stick puller, and personal lines insurance agent. Some of what pt recalled was inadequate or conflicting. Reviewed DM diet education. Gave handout. Burn Absent Trauma Absent #2 Nutrition Diagnosis Food and nutrition-related knowledge deficit Etiology inadequate or conflicting previous education As Evidenced by Signs and Symptoms pt desire for education #1 Nutrition Diagnosis Inadequate oral intake Etiology food preferences As Evidenced by Signs and Symptoms pt statement that she only ate a slice of bread and some fruit today Is patient on ventilator? No Is Patient Ambulatory and/or Out of Bed Yes REE-([place] or-ambulatory/OOB) [ 3007.199 [id number]] Kcal/Kg value to use for calculation 16 Approximate Energy Requirements Using 2555 kcal/Kg Calculation Used for Recommendations Kcal/kg Additional Notes Protein Needs: 92-115g (0.8-1/ kg 115kg adjBW) Fluid Needs: 1 ml/kcal Nutrition Intervention Change Diet Order: Continue current Teaching Recipient Patient Learning Readiness Good Teaching Methods Discussion,Handout Response to Teaching Verbalize understanding Education Handouts Provided Carbohydrate counting for people with diabetes Barriers to Learning No Barriers RD phone number provided Yes Patient aware of follow up options Yes Goal #1 Meet at least 75% of calorie and protein needs via PO and ONS intakes Goal #2 Utilize carbohydrate counting Anticipated Discharge Needs: Unable to determine at this time Follow-Up By: 06/03/19 Additional Comments Follow for PO and ONS intakes
--- NOTE | 2019-05-31 14:57 | Discharge Summary ---
Providers - Providers Date of Admission: 05/28/19 23:11 Date of discharge: 05/31/19 Attending physician: ANG CLIFTON 05/28/19 23:28 Consult to Physician [CONS] Urgent Comment: Consulting Provider: HECTOR WILDER Physician Instructions: Reason For Exam: arf 05/29/19 15:15 Physical Therapy Evaluation and Treat [CONS] Routine Comment: Reason For Exam: difficulty in ambulation/vertigo/furniture walks 05/30/19 09:12 Consult to Physician [CONS] Routine Comment: Consulting Provider: CA PARISI Physician Instructions: Reason For Exam: abd pains, cholelithiasis 05/31/19 12:23 Consult to Physician [CONS] Routine Comment: Consulting Provider: DEVIN WEN Physician Instructions: i notified Reason For Exam: cholelithiasis Primary care physician: KODAK BARRIENTOS Hospitalization Condition: Stable Hospital course: Patient is a 48 yo -[place] woman with a history of hypertension, type 2 DM, CHF, obesity who presents to [facility] ED with c/o right-sided flank pain and worsening renal function. Patient went to see her sanitary landfill supervisor (Dr. Wilder) on 05/27/19, at which time she had a creatinine of 3.4, and was told to report to the ED for further evaluation. Patient states that she had some personal affairs to address before presenting to ED. she complained of right-sided flank pain and slight tenderness to right upper quadrant. The patient and she describes it burning. The right flank is tender to deep palpation. On admission her creatinine is 2.7. Dr. Wilder states pt's baseline is <1.0, and has been taking nephrotoxic meds. Will admit to medical floor for further evaluation and treatment. Procedure: EGD Pre-op diagnosis: epigastric pain Post-op diagnosis: same Findings: EGD: grade I esophagitis w/ 2 small nodules at g-e junction - medium hiatal hernia - mild gastritis (bx's) - negative other Plan: f/u bx's - PPI qd - soft diet - if tolerate soft diet ok to d/c from GI standpoint w. follow up outpt - if symptoms recur would rec surgery consult for possible lap marlo - Dr. Jackson to take over service in am, will sign off, call if needed Discharge Diagnoses: Acute Renal Failure, suspect multifactorial, vasomotor, tubular stasis: consulted Nephrology and monitor BMP closely Grade I esophagitis with 2 small nodules at GE junction s/p bx Mild Gastritis Abdominal pains with Cholelithiasis: consulted Gs, recommended surgery but patient wants it done as outpatient Cholelithiasis: consulted GI HTN: low salt diet DM type 2 with hyperglycemia complications: treat with ssi, accuchecks and insulin CHF by history: continue to monitor i/o, tele shows premature beats other NSR Obesity, bmi 49.2: child and family counselor on weight reduction done. patient wants to go home and schedule lap marlo as outpatient. Pre-op evaluation: patient is a class II risk intermediate risk using Revised Decker Criteria. No active CHF, normal troponin and pCXR on admission, ok to proceed for lap cholecystectomy. Disposition: DC-01 TO HOME OR SELFCARE Time spent for discharge: 36 minutes Core Measure Documentation - Palliative Care Palliative Care/ Comfort Measures: Not Applicable - Core Measures Any of the following diagnoses?: none - VTE Discharge Requirements Deep Vein Thrombosis/Pulmonary Embolism Present on Admission: No Has pt received <5 days of overlap therapy or INR<2.0: No Anticoagulant overlap therapy prescribed at discharge: No Contraindication No Overlap Therapy order at DC: Not Indicated Exam - Physical Exam Narrative exam: Gen: WDWN, NAD, Awake, Alert, Orientated x 3, bmi 49.2 HEENT: NCAT, EOMI, PERRL, OP Clear Neck: supple, no adenopathy, no thyromegaly, no JVD CVS/Heart: RRR, normal S1S2, pulses present bilaterally Chest/Lungs: CTA B, Symmetrical chest expansion, good air entry bilaterally GI/Abdomen: soft, epigastric tenderness, good bowel sounds, no guarding or rebound /Bladder: no suprapubic tenderness, no CVA or paraspinal tenderness Extermity/Skin: no c/c/e, no obvious rash MSK: FROM x 4 Neuro: CN 2-12 grossly intact, no new focal deficits Psych: calm - Constitutional Vitals: Temp Pulse Resp BP Pulse Ox 98.4 F 85 20 132/82 98 05/31/19 11:20 05/31/19 11:20 05/31/19 11:20 05/31/19 11:20 05/31/19 11:20 Plan Activity: other (no strenous activity unless cleared by PCP) Diet: low salt, diabetic Special Instructions: record blood sugar diary Follow up with: [place] KEELEY BATISTA MD [Referring] - 3-5 Days DEVIN WEN DO [Staff Physician] - 7 Days CA PARISI MD [Staff Physician] - 7 Days HECTOR WILDER MD [Staff Physician] - 7 Days Prescriptions: Gabapentin [Neurontin] 2 tab PO BID 30 Days capsule HYDROcodone/APAP 10-325 [[place] 10/325] 1 each PO Q6HR PRN #20 tablet PRN Reason: Pain , Severe (7-10) Pantoprazole [Protonix TAB] 40 mg PO QDAY #30 tablet
--- NOTE | 2019-05-31 15:23 | Consultation ---
History of Present Illness Consult date: 05/31/19 Reason for consult: abdominal pain Chief complaint: abdominal pain - History of present illness History of present illness: 48 yo F with hx of obesity, DM presented to ER as recommended by her nephrologis t due to worsening kidney function. She also c/o epigastric, RUQ abdominal pain radiating to the back for 4-5 days. The pain is crampy in the back and sharp in the abdomen. She states it woke her from sleep and has been constant since. It is not associated with food. 1 episode of emesis at home. Has been tolerating a diet otherwise. She denies f/c, cp, sob. No prior episodes of these symptoms. Past History Past Medical History: diabetes, hypertension, other (obesity) Past Surgical History: No surgical history Social history: lives with family Family history: no significant family history Medications and Allergies Allergies Allergy/AdvReac Type Severity Reaction Status Date / Time No Known Allergies Allergy Verified 05/28/19 15:07 Home Medications Medication Instructions Recorded Confirmed Last Taken Type HYDROcodone/APAP 10-325 [[place] 1 each PO Q6HR PRN #20 tablet 06/04/15 05/31/19 U nknown Rx 10-325 mg TAB] Insulin Aspart [NovoLOG 100 5 unit SQ AC 30 Days units 06/04/15 05/31/19 Unknown Rx UNITS/ML VIAL] Insulin Glargine [Lantus VIAL] 40 unit SUB-Q QHS 30 Days units 06/04/15 05/31/19 Unknown Rx Lisinopril [Zestril TAB] 20 mg PO QDAY 06/04/15 05/31/19 03/06/15 History Metoprolol [Lopressor TAB] 50 mg PO DAILY 06/04/15 05/31/19 03/06/15 History Potassium Chloride [Klor-Con M20] 1 tab PO DAILY 06/04/15 05/31/19 03/06/15 History Simvastatin [Zocor TAB] 40 mg PO QHS 06/04/15 05/31/19 03/06/15 History Zolpidem [Ambien] 5 mg PO QHS PRN 06/04/15 05/31/19 03/06/15 History cloNIDine [Catapres] 0.2 mg PO BID 06/04/15 05/31/19 03/06/15 History Gabapentin [Neurontin] 2 tab PO BID 30 Days capsule 05/31/19 Unknown Rx HYDROcodone/APAP 10-325 [[place] 1 each PO Q6HR PRN #20 tablet 05/31/19 Unknown Rx 10/325] Pantoprazole [Protonix TAB] 40 mg PO QDAY #30 tablet 05/31/19 Unknown Rx Active Meds: Active Medications Acetaminophen (Tylenol) 650 mg PO Q4H PRN PRN Reason: Non Cardiac Pain or Temp>100.5 Last Admin: 05/31/19 14:08 Dose: 650 mg Documented by: Dextrose (D50w (25gm) Syringe) 50 ml IV PRN PRN PRN Reason: Hypoglycemia Docusate Sodium (Colace) 100 mg PO BID [facility] Last Admin: 05/31/19 11:18 Dose: 100 mg Documented by: Enoxaparin Sodium (Lovenox) 40 mg SUB-Q QDAY@1000 NEY Last Admin: 05/31/19 11:20 Dose: 40 mg Documented by: Gabapentin (Neurontin) 600 mg PO BID [facility] Last Admin: 05/31/19 11:17 Dose: 600 mg Documented by: Hydralazine HCl (Apresoline) 10 mg IV Q4H PRN PRN Reason: Blood Pressure Sodium Chloride (Nacl 0.45% 1000 Ml) 1,000 mls @ 75 mls/hr IV DIRECT [facility] Last Admin: 05/31/19 14:06 Dose: 75 mls/hr Documented by: Sodium Chloride (Nacl 0.9% 1000 Ml) 1,000 mls @ 50 mls/hr IV DIRECT [facility] Last Admin: 05/31/19 07:45 Dose: 50 mls/hr Documented by: Insulin Glargine (Lantus) 30 units SUB-Q QHS [facility] Last Admin: 05/30/19 22:05 Dose: Not Given Documented by: Insulin Human Lispro (Humalog) 0 unit SUB-Q [facility]; Protocol Last Admin: 05/31/19 13:06 Dose: Not Given Documented by: Ondansetron HCl (Zofran) 4 mg IV Q8H PRN PRN Reason: Nausea And Vomiting Pantoprazole Sodium (Protonix) 40 mg PO QDAY [facility] Last Admin: 05/31/19 11:18 Dose: 40 mg Documented by: Sodium Chloride (Sodium Chloride Flush Syringe 10 Ml) 10 ml IV BID NEY Last Admin: 05/31/19 11:19 Dose: 10 ml Documented by: Sodium Chloride (Sodium Chloride Flush Syringe 10 Ml) 10 ml IV PRN PRN PRN Reason: LINE FLUSH Review of Systems All systems: negative (10 pt ROS performed and negative except for that listed in HPI) Exam Vital Signs Temp Pulse Resp BP Pulse Ox 97.6 F 95 H 18 150/84 99 05/28/19 15:05 05/28/19 15:05 05/28/19 15:05 05/28/19 15:05 05/28/19 15:05 Narrative exam: Gen: AAOx3. NAD ENT: no scleral icterus or conjunctival pallor CV: s1, s2+ resp: even and unlabored Abd: soft, ND, obese, RUQ TTP. no r/r/g Ext: no c/c/e Results - Labs 05/30/19 05:29 05/31/19 04:10 Abnormal lab results 05/30/19 05/30/19 05/31/19 Range/Units 17:03 21:57 04:10 Chloride 107.8 H (98-107) mmol/L Carbon Dioxide 21 L (22-30) mmol/L BUN 31 H (7-17) mg/dL Creatinine 2.0 H (0.7-1.2) mg/dL Glucose 130 H (65-100) mg/dL POC Glucose 116 H 165 H (70-105) 05/31/19 05/31/19 Range/Units 09:18 12:38 Chloride (98-107) mmol/L Carbon Dioxide (22-30) mmol/L BUN (7-17) mg/dL Creatinine (0.7-1.2) mg/dL Glucose (65-100) mg/dL POC Glucose 147 H 147 H (70-105) Diabetes panel 05/31/19 Range/Units 04:10 Sodium 142 (137-145) mmol/L Potassium 4.5 (3.6-5.0) mmol/L Chloride 107.8 H (98-107) mmol/L Carbon Dioxide 21 L (22-30) mmol/L BUN 31 H (7-17) mg/dL Creatinine 2.0 H (0.7-1.2) mg/dL Glucose 130 H (65-100) mg/dL Calcium 8.9 (8.4-10.2) mg/dL Calcium panel 05/31/19 Range/Units 04:10 Calcium 8.9 (8.4-10.2) mg/dL Pituitary panel 05/31/19 Range/Units 04:10 Sodium 142 (137-145) mmol/L Potassium 4.5 (3.6-5.0) mmol/L Chloride 107.8 H (98-107) mmol/L Carbon Dioxide 21 L (22-30) mmol/L BUN 31 H (7-17) mg/dL Creatinine 2.0 H (0.7-1.2) mg/dL Glucose 130 H (65-100) mg/dL Calcium 8.9 (8.4-10.2) mg/dL Adrenal panel 05/31/19 Range/Units 04:10 Sodium 142 (137-145) mmol/L Potassium 4.5 (3.6-5.0) mmol/L Chloride 107.8 H (98-107) mmol/L Carbon Dioxide 21 L (22-30) mmol/L BUN 31 H (7-17) mg/dL Creatinine 2.0 H (0.7-1.2) mg/dL Glucose 130 H (65-100) mg/dL Calcium 8.9 (8.4-10.2) mg/dL - Imaging US - abdomen: report reviewed, image reviewed Assessment and Plan 48 yo F with abdominal pain, cholelithiasis EGD 05/31/19 -grade I esophagitis w/ 2 small nodules at g-e junction - medium hiatal hernia - mild gastritis (bx's) - negative other Plan: 1. Discussed cholecystectomy with the patient as she is still having pain. We discussed risks, benefits, alternatives to surgery. I advised her that I do not feel confident that her pain will resolve without intervention. She would like to have time to think about surgery and would prefer to go home and follow up as an outpatient. 2. low fat diet 3. follow up in surgery clinic to schedule elective cholecystectomy 4. Patient advised to return to ER if her symptoms get worse. 5. c/w PPI per GI D/W Dr. Grant. Thank you, please call with questions.
== END 2019-05-31 18:04 | disposition home or self-care (01) | DRG 444 ==
LOC: ED 14:14 → 3A 23:11
PROVIDERS: ADMIT Internal Medicine; ATTEND Internal Medicine
PROC: 0DB48ZX Excision of Esophagogastric Junction, Via Natural or Artificial Opening Endoscopic, Diagnostic (ICD-10-PCS; principal; 2019-05-31)
PROC: 0DB68ZX Excision of Stomach, Via Natural or Artificial Opening Endoscopic, Diagnostic (ICD-10-PCS; 2019-05-31)
DX: K80.20 Calculus of gallbladder without cholecystitis without obstruction (principal); N17.0 Acute kidney failure with tubular necrosis; Z68.42 Body mass index [BMI] 45.0-49.9, adult; E87.2 Acidosis; I13.0 Hypertensive heart and chronic kidney disease with heart failure and stage 1 through stage 4 chronic kidney disease, or unspecified chronic kidney disease; N18.9 Chronic kidney disease, unspecified; E11.22 Type 2 diabetes mellitus with diabetic chronic kidney disease; E11.65 Type 2 diabetes mellitus with hyperglycemia; K20.9 Esophagitis, unspecified; K31.89 Other diseases of stomach and duodenum; K29.70 Gastritis, unspecified, without bleeding; K44.9 Diaphragmatic hernia without obstruction or gangrene; Z71.3 Dietary counseling and surveillance; Z79.899 Other long term (current) drug therapy; Z79.82 Long term (current) use of aspirin; Z79.4 Long term (current) use of insulin; E66.9 Obesity, unspecified
CPT/HCPCS: 36415; 71046; 76705; 80048; 80053; 81001; 81025; 82040; 82570; 82962; 83036; 83735; 83880; 83930; 83935; 84100; 84300; 84484; 84520; 85025; 85027; 87086; 88305; 88312; 88342; 93005; 93010; 96372; 99285; G0378; J1650; J1815; J2001; J2250; J2370; J2704; J7030

== ENCOUNTER 2019-06-26 06:35 | Day surgery (SDC) | payer MEDICAID ==
[~2019-06-26 06:35] MED LIST: ceFAZolin 2 GM in NACL 0.9% 100 ML IV ONE
[2019-06-26 07:39] LABS: Basophils # (Auto) 0.1 K/mm3 (0.0-0.1); Eosinophils # (Auto) 0.1 K/mm3 (0.0-0.4); Hematocrit 31.1 % (30.3-42.9); Hemoglobin 10.2 gm/dl (10.1-14.3); Lymphocytes # (Auto) 2.2 K/mm3 (1.2-5.4); Lymphocytes % (Auto) 36.8 % (13.4-35.0); Mean Corpuscular HGB Conc 33 % (30-34); Mean Corpuscular Volume 83 fl (79-97); Monocytes # (Auto) 0.5 K/mm3 (0.0-0.8); Monocytes % (Auto) 8.4 % (0.0-7.3); Platelet Count 302 K/mm3 (140-440); Red Blood Count 3.75 M/mm3 (3.65-5.03); Red Cell Distribution Width 13.4 % (13.2-15.2)
[2019-06-26 07:45] LABS: Calcium 8.6 mg/dL (8.4-10.2)
--- NOTE | 2019-06-26 08:00 | Anesthesia Consultation ---
Anesthesia Consult and Med Hx Date of service: 06/26/19 - Airway Anesthetic Teeth Evaluation: Good ROM Head & Neck: Adequate Mental/Hyoid Distance: Adequate Mallampati Class: Class II Intubation Access Assessment: Probably Good - Pulmonary Exam CTA: Yes - Cardiac Exam Cardiac Exam: RRR - Pre-Operative Health Status ASA Pre-Surgery Classification: ASA3 Proposed Anesthetic Plan: General (Surgery will be postponed as patient has hx of CHF and cannot lie flat without breathing difficulties and was scheduled to have a stress test last month before her gallbaladder issues , so she will go and seee her shrimp peeler for a stress test and clearancec first ) - Pulmonary Hx Smoking: No Hx Asthma: No SOB: Yes (CHRONIC SOB) COPD: No Hx Pneumonia: No Hx Sleep Apnea: No (ENEDINA PRE SCREEN HIGH RISK) - Cardiovascular System Hx Hypertension: Yes (OFF MEDS X 3 MONTHS) Hx Heart Attack/AMI: No Hx Percutaneous Transluminal Coronary Angioplasty (PTCA): No Hx Cardia Arrhythmia: No - Central Nervous System Hx Seizures: No CVA: No Hx Back Pain: Yes Hx Psychiatric Problems: No - Gastrointestinal Hx Gastroesophageal Reflux Disease: No - Endocrine Hx Renal Disease: Yes (DEVON) Hx End Stage Renal Disease: No Hx Insulin Dependent Diabetes: Yes Hx Thyroid Disease: No - Hematic Hx Anemia: Yes - Other Systems Hx Alcohol Use: No Hx Cancer: No Hx Obesity: Yes (BMI 48)
[2019-06-26 08:03] VITALS: BP 140/92
[2019-06-26] MEDS ORDERED: ANCEF/STERILE WATER 2 GM/20 ML 2 GM/20 ML SYRINGE IV NR (09:00)
--- NOTE | 2019-06-26 19:43 | Anesthesia Day of Surgery ---
Anesthesia Day of Surgery - Day of Surgery Patient Examined: Yes Patient H&P Reviewed: Yes Patient is NPO: Yes
--- NOTE | 2019-06-26 19:44 | Post Anesthesia Evaluation ---
- Post Anesthesia Evaluation Patient Participated: Yes Airway Patent: Yes Stable Respiratory Function: Yes Nausea/Vomiting: No Temp > 96.8F: Yes Pain Manageable: Yes Adequeate Hydration: Yes Anesthesia Complications: No Block Receding Appropriately: Not Applicable Patient on Ventilator: No
--- NOTE | 2019-06-26 22:38 | Event Note ---
Date: 06/26/19 Late note: Pt interviewed by anesthesia morning of surgery. She mentioned during the interview that she was due to have a stress test per her outpatient lead ramp service man Dr. Kidd a few months ago. However, due to life events she was unable to do this and has not followed up with lead ramp service man. Unfortunately, she did not mention this during consultation in surgery office. Discussed with anesthesia and the safest course of action will be to cancel this case as it is elective and have patient follow up with cardiology as soon as possible for stress test. Once this is done and patient cleared by cardiology, will reschedule patient for surgery. Patient agreeable to this.
== END 2019-06-26 07:45 | disposition home or self-care (01) ==
LOC: OR 06:35
PROVIDERS: ATTEND Surgery
DX: K80.20 Calculus of gallbladder without cholecystitis without obstruction (principal); I11.0 Hypertensive heart disease with heart failure; I50.9 Heart failure, unspecified; E78.00 Pure hypercholesterolemia, unspecified; E66.9 Obesity, unspecified; E11.42 Type 2 diabetes mellitus with diabetic polyneuropathy; K21.9 Gastro-esophageal reflux disease without esophagitis; M19.90 Unspecified osteoarthritis, unspecified site; Z53.8 Procedure and treatment not carried out for other reasons; Z68.42 Body mass index [BMI] 45.0-49.9, adult; Z91.81 History of falling; Z79.4 Long term (current) use of insulin; Z79.899 Other long term (current) drug therapy; Z80.8 Family history of malignant neoplasm of other organs or systems; Z86.2 Personal history of diseases of the blood and blood-forming organs and certain disorders involving the immune mechanism
CPT/HCPCS: 36415; 80048; 82962; 85025; J0690

== ENCOUNTER 2020-04-28 00:21 | Observation (INO) | payer MEDICAID ==
[2020-04-28 02:03] LABS: Basophils % (Auto) 0.4 % (0.0-1.8); Eosinophils % (Auto) 0.8 % (0.0-4.3); Hematocrit 36.3 % (30.3-42.9); Hemoglobin 11.3 gm/dl (10.1-14.3); Lymphocytes # (Auto) 1.5 K/mm3 (1.2-5.4); Lymphocytes % (Auto) 28.6 % (13.4-35.0); Mean Corpuscular HGB Conc 31 % (30-34); Mean Corpuscular Volume 87 fl (79-97); Monocytes # (Auto) 0.4 K/mm3 (0.0-0.8); Monocytes % (Auto) 7.2 % (0.0-7.3); Platelet Count 233 K/mm3 (140-440); Red Blood Count 4.19 M/mm3 (3.65-5.03)
[2020-04-28 02:19] LABS: Albumin 3.6 g/dL (3.9-5); Calcium 9.1 mg/dL (8.4-10.2)
[2020-04-28] MEDS ORDERED: SODIUM CHLORIDE 0.9% 1000 ML 1,000 ML IV ONE (03:27)
[2020-04-28] MEDS ORDERED: INSULIN REGULAR, HUMAN 100 UNITS/1 ML IV ONE ×2 (03:28→05:48)
--- NOTE | 2020-04-28 03:50 | Emergency Department Report ---
ED General Adult HPI - General Chief complaint: Eye Problems Stated complaint: BLEEDING IN BACK OF EYE Time Seen by Provider: 04/28/20 03:25 Source: patient Mode of arrival: Ambulatory Limitations: No Limitations - History of Present Illness Initial comments: 49-year female with a past medical history of obesity, diabetes on insulin, hypertension, and recently diagnosed right eye cataract presents to the hospital complaining visual field changes, uncontrolled BP, and hyperglycemia. Patient saw an assessment counselor 2 weeks ago for intermittent cloudy visual field. She was diagnosed with cataracts. She saw her PMD Dr. Renetta Post on 616 for medical clearance for cataract surgery. Patient cannot be medically cleared because her sugar was in the 460s and blood pressure was 160/100. Patient received clonidine at the doctor's office. Patient states she is supposed to take Basaglar sliding scale dosing and Humalog 70 units every morning and every afternoon for her diabetes. She is also on lisinopril, metoprolol, and Lasix 40 mg daily. Patient ran out of Humalog 1 week ago. Patient also states she has been unable to fill her lisinopril (dose unknown) in several months because the pharmacy is always out of the medication. She has not tried another pharmacy. Patient complains of mild intermittent right-sided headache, increase urination, and lower extremity edema. Patient's lower extremity edema is better than normal and her PMD recently increased her Lasix from 40 mg daily to twice daily. Patient states while getting the EKG in the office and lying supine she is what is described as blood dripping downward in her visual field. This has occurred multiple times when lying supine since office visit and has not happened in the past. Patient was advised to go to the ER after office visit but had to run some errands prior to coming here. PMD: Dr. Renetta Post Manufacturing Automation Engineer: Dr. Cruz - Related Data Previous Rx's Medication Instructions Recorded Last Taken Type Aspirin EC [Halfprin EC] 81 mg PO QDAY #30 tablet. 04/29/20 Unknown Rx Gabapentin 600 tab PO BID #90 cap 04/29/20 Unknown Rx HYDROcodone/APAP 10-325 [[place] 1 each PO Q6HR PRN #14 tablet 04/29/20 Unknown Rx 10-325 mg TAB] Insulin Glargine [Lantus VIAL] 70 units SUB-Q BID #10 ml 04/29/20 Unknown Rx Insulin Regular, Human [HumuLIN R] 0 units SUB-Q ACHS #10 ml 04/29/20 Unknown Rx Insulin Regular, Human [HumuLIN R] 15 units SUB-Q AC #30 ml 04/29/20 Unknown Rx Metoprolol [Lopressor TAB] 12.5 mg PO BID #60 tablet 04/29/20 Unknown Rx Pantoprazole [Protonix TAB] 40 mg PO QDAY #30 tablet 04/29/20 Unknown Rx amLODIPine 5 mg PO QDAY #30 tablet 04/29/20 Unknown Rx Allergies Allergy/AdvReac Type Severity Reaction Status Date / Time No Known Allergies Allergy Verified 05/28/19 15:07 ED Review of Systems ROS: Stated complaint: BLEEDING IN BACK OF EYE Other details as noted in HPI Comment: All other systems reviewed and negative ED Past Medical Hx - Past Medical History Previous Medical History?: Yes Hx Hypertension: Yes (OFF MEDS X 3 MONTHS) Hx Heart Attack/AMI: No Hx Congestive Heart Failure: Yes (2008- RESOLVED) Hx Diabetes: Yes Hx GERD: Yes Hx Renal Disease: Yes (DEVON) Hx Arthritis: Yes Hx Headaches / Migraines: (MIGRAINES) Hx Seizures: No Hx Asthma: No Hx COPD: No Hx HIV: No - Surgical History Past Surgical History?: No - Social History Smoking Status: Never Smoker Substance Use Type: None - Medications Home Medications: Home Medications Medication Instructions Recorded Confirmed Last Taken Type Aspirin EC [Halfprin EC] 81 mg PO QDAY #30 tablet. 04/29/20 Unknown Rx Gabapentin 600 tab PO BID #90 cap 04/29/20 Unknown Rx HYDROcodone/APAP 10-325 [[place] 1 each PO Q6HR PRN #14 tablet 04/29/20 Unknown Rx 10-325 mg TAB] Insulin Glargine [Lantus VIAL] 70 units SUB-Q BID #10 ml 04/29/20 Unknown Rx Insulin Regular, Human [HumuLIN R] 0 units SUB-Q ACHS #10 ml 04/29/20 Unknown Rx Insulin Regular, Human [HumuLIN R] 15 units SUB-Q AC #30 ml 04/29/20 Unknown Rx Metoprolol [Lopressor TAB] 12.5 mg PO BID #60 tablet 04/29/20 Unknown Rx Pantoprazole [Protonix TAB] 40 mg PO QDAY #30 tablet 04/29/20 Unknown Rx amLODIPine 5 mg PO QDAY #30 tablet 04/29/20 Unknown Rx ED Physical Exam - General Limitations: No Limitations - Other Other exam information: General: No acute distress Head: Atraumatic Eyes: normal appearance, pupils equal reactive to light, Left eye 20/50, right eye 20/50, bilateral 20/30. no gross hemorrhage on fundoscopic exam, ENT: Moist mucous membranes Neck: Normal appearance, no midline tenderness Chest: Clear to auscultation bilaterally CV: Regular rate and rhythm Abdomen: Soft, normal bowel sounds, nontender, nondistended, no rebound or guarding Back: Normal inspection Extremity: Normal inspection, full range of motion, lower extremity edema with symmetrical legs. No calf tenderness Neuro: Alert O x 3, no facial asymmetry, speech clear, no gross motor sensory deficit Psych: Appropriate behavior Skin: No rash ED Course Vital Signs 04/28/20 04/28/20 04/28/20 00:41 00:57 03:52 Temperature 98.0 F Pulse Rate 72 72 Respiratory 18 19 Rate Blood Pressure 157/113 Blood Pressure 161/97 [Right] O2 Sat by Pulse 96 Oximetry 04/28/20 04/28/20 04/28/20 04:00 04:16 04:30 Temperature Pulse Rate 68 70 70 Respiratory 18 18 19 Rate Blood Pressure 139/86 139/86 139/86 Blood Pressure [Right] O2 Sat by Pulse 97 96 98 Oximetry 04/28/20 04/28/20 04/28/20 04:54 05:00 05:16 Temperature Pulse Rate 80 67 65 Respiratory 22 14 14 Rate Blood Pressure 139/86 139/86 139/86 Blood Pressure [Right] O2 Sat by Pulse 98 100 Oximetry 04/28/20 04/28/20 04/28/20 05:30 05:46 06:00 Temperature Pulse Rate 73 63 63 Respiratory 19 17 16 Rate Blood Pressure 128/95 128/95 126/85 Blood Pressure [Right] O2 Sat by Pulse 99 100 100 Oximetry 04/28/20 04/28/20 04/28/20 06:16 06:30 06:46 Temperature Pulse Rate 64 63 72 Respiratory 17 17 20 Rate Blood Pressure 126/85 126/85 126/85 Blood Pressure [Right] O2 Sat by Pulse 96 98 100 Oximetry 04/28/20 04/28/20 04/28/20 07:00 07:08 07:10 Temperature 98.3 F Pulse Rate 67 64 Respiratory 19 19 Rate Blood Pressure 126/85 160/96 Blood Pressure [Right] O2 Sat by Pulse 100 96 Oximetry 04/28/20 04/28/20 04/28/20 07:20 07:30 07:40 Temperature Pulse Rate 63 70 67 Respiratory 18 16 15 Rate Blood Pressure 160/96 160/96 160/96 Blood Pressure [Right] O2 Sat by Pulse 99 97 97 Oximetry 04/28/20 04/28/20 04/28/20 07:50 07:56 08:00 Temperature Pulse Rate 70 68 68 Respiratory 16 15 17 Rate Blood Pressure 160/96 134/83 Blood Pressure 135/77 [Right] O2 Sat by Pulse 98 98 100 Oximetry 04/28/20 04/28/20 04/28/20 08:10 08:20 08:30 Temperature Pulse Rate 69 67 72 Respiratory 20 19 17 Rate Blood Pressure 134/83 134/83 134/83 Blood Pressure [Right] O2 Sat by Pulse 100 100 Oximetry 04/28/20 04/28/20 04/28/20 08:40 08:50 09:00 Temperature Pulse Rate 67 71 66 Respiratory 13 15 17 Rate Blood Pressure 134/83 134/83 134/83 Blood Pressure [Right] O2 Sat by Pulse Oximetry - Reevaluation(s) Reevaluation #1: 04/28/20 05:48 glucose remains hI after insulin 10 units NS initiated and additional 10 units regular insulin provided. No signs of anion gap acidosis. UA collection pending 04/28/20 06:37 pt developed signficant cramps after insulin. likely potassium shift. ativan 1 mg ordered - Consultations Consultation #1: 04/28/20 05:26 i attempted to call Dr Cruz. mailbox full, no available answering service ED Medical Decision Making - Lab Data Result diagrams: 04/28/20 01:25 04/29/20 04:26 Lab Results 04/28/20 04/28/20 04/28/20 Range/Units 01:25 01:25 02:58 WBC 5.4 (4.5-11.0) K/mm3 RBC 4.19 (3.65-5.03) M/mm3 Hgb 11.3 (10.1-14.3) gm/dl Hct 36.3 (30.3-42.9) % MCV 87 (79-97) fl MCH 27 L (28-32) pg MCHC 31 (30-34) % RDW 14.0 (13.2-15.2) % Plt Count 233 (140-440) K/mm3 Lymph % (Auto) 28.6 (13.4-35.0) % Tift % (Auto) 7.2 (0.0-7.3) % Eos % (Auto) 0.8 (0.0-4.3) % Baso % (Auto) 0.4 (0.0-1.8) % Lymph # 1.5 (1.2-5.4) K/mm3 Tift # 0.4 (0.0-0.8) K/mm3 Eos # 0.0 (0.0-0.4) K/mm3 Baso # 0.0 (0.0-0.1) K/mm3 Seg Neutrophils % 63.0 (40.0-70.0) % Seg Neutrophils # 3.4 (1.8-7.7) K/mm3 VBG pH 7.305 L (7.320-7.420) Sodium 131 L (137-145) mmol/L Potassium 5.0 (3.6-5.0) mmol/L Chloride 94.0 L (98-107) mmol/L Carbon Dioxide 24 (22-30) mmol/L Anion Gap 18 mmol/L BUN 34 H (7-17) mg/dL Creatinine 2.1 H (0.7-1.2) mg/dL Estimated GFR 30 ml/min BUN/Creatinine Ratio 16 % Glucose 687 H* (65-100) mg/dL POC Glucose (70-105) Calcium 9.1 (8.4-10.2) mg/dL Total Bilirubin 0.20 (0.1-1.2) mg/dL AST 13 (5-40) units/L ALT 23 (7-56) units/L Alkaline Phosphatase 149 H (35-129) units/L Total Protein 6.7 (6.3-8.2) g/dL Albumin 3.6 L (3.9-5) g/dL Albumin/Globulin Ratio 1.2 % 04/28/20 04/28/20 Range/Units 03:48 05:37 WBC (4.5-11.0) K/mm3 RBC (3.65-5.03) M/mm3 Hgb (10.1-14.3) gm/dl Hct (30.3-42.9) % MCV (79-97) fl MCH (28-32) pg MCHC (30-34) % RDW (13.2-15.2) % Plt Count (140-440) K/mm3 Lymph % (Auto) (13.4-35.0) % Tift % (Auto) (0.0-7.3) % Eos % (Auto) (0.0-4.3) % Baso % (Auto) (0.0-1.8) % Lymph # (1.2-5.4) K/mm3 Tift # (0.0-0.8) K/mm3 Eos # (0.0-0.4) K/mm3 Baso # (0.0-0.1) K/mm3 Seg Neutrophils % (40.0-70.0) % Seg Neutrophils # (1.8-7.7) K/mm3 VBG pH (7.320-7.420) Sodium (137-145) mmol/L Potassium (3.6-5.0) mmol/L Chloride (98-107) mmol/L Carbon Dioxide (22-30) mmol/L Anion Gap mmol/L BUN (7-17) mg/dL Creatinine (0.7-1.2) mg/dL Estimated GFR ml/min BUN/Creatinine Ratio % Glucose (65-100) mg/dL POC Glucose > 500 H > 500 H (70-105) Calcium (8.4-10.2) mg/dL Total Bilirubin (0.1-1.2) mg/dL AST (5-40) units/L ALT (7-56) units/L Alkaline Phosphatase (35-129) units/L Total Protein (6.3-8.2) g/dL Albumin (3.9-5) g/dL Albumin/Globulin Ratio % - Radiology Data Radiology results: report reviewed CT HEAD WITHOUT CONTRAST INDICATION / CLINICAL INFORMATION: Pt complains of mild headache, Pt states "dripping blood in LEFT visual field". TECHNIQUE: All CT scans at this location are performed using CT dose reduction for ALARA by means of automated exposure control. COMPARISON: None FINDINGS: HEMORRHAGE: None. EXTRA-AXIAL SPACES: Normal in size and morphology for the patient's age. V ENTRICULAR SYSTEM: Normal in size and morphology for the patient's age. CEREBRAL PARENCHYMA: No significant abnormality. No acute territorial infarct. MIDLINE SHIFT OR HERNIATION: None. CEREBELLUM / BRAINSTEM: No significant abnormality. ORBITS: Normal as visualized. SOFT TISSUES of HEAD: No significant abnormality. CALVARIUM: No significant abnormality. PARANASAL SINUSES / MASTOID AIR CELLS: Normal as visualized. ADDITIONAL FINDINGS: None. IMPRESSION: 1. No acute intracranial abnormality. 2. No orbital or periorbital abnormality - Medical Decision Making Mild renal insufficiency noted. Normal saline 1 mL provided. Outpatient follow-up with nephrology encouraged. Patient is on Lasix. Patient has hyperglycemia secondary to medication noncompliance and does not have anion gap acidosis to suggest DKA. Patient also noncompliant with her blood pressure which has remained stable since arrival. I attempted to contact patient's assessment counselor but the office is closed, mailbox is full, and there does not appear to be a paging service. Patient has a known right eye cataracts and is currently awaiting medical clearance for surgery. attempted to my colleague. Admission recommended. patient is glucose remained high despite 10 units and normal saline. Patient will be admitted for further management Critical Care Time: No Critical care attestation.: If time is entered above; I have spent that time in minutes in the direct care of this critically ill patient, excluding procedure time. ED Disposition Clinical Impression: HTN (hypertension), Cataract, left eye, Visual disturbance, Mild renal insufficiency, Acute on chronic renal insufficiency, Uncontrolled diabetes mellitus, Noncompliance with medication regimen Disposition: OP ADMIT IP TO THIS HOSP Is pt being admited?: Yes Does the pt Need Aspirin: No Condition: Stable Time of Disposition: 06:17
--- NOTE | 2020-04-28 05:17 | Cat Scan Report ---
CT HEAD WITHOUT CONTRAST INDICATION / CLINICAL INFORMATION: Pt complains of mild headache, Pt states "dripping blood in LEFT visual field". TECHNIQUE: All CT scans at this location are performed using CT dose reduction for ALARA by means of automated e xposure control. COMPARISON: None FINDINGS: HEMORRHAGE: None. EXTRA-AXIAL SPACES: Normal in size and morphology for the patient's age. VENTRICULAR SYSTEM: Normal in size and morphology for the patient's age. CEREBRAL PARENCHYMA: No significant abnormality. No acute territorial infarct. MIDLINE SHIFT OR HERNIATION: None. CEREBELLUM / BRAINSTEM: No significant abnormality. ORBITS: Normal as visualized. SOFT TISSUES of HEAD: No significant abnormality. CALVARIUM: No significant abnormality. PARANASAL SINUSES / MASTOID AIR CELLS: Normal as visualized. ADDITIONAL FINDINGS: None. IMPRESSION: 1. No acute intracranial abnormality. 2. No orbital or periorbital abnormality Signer Name: Michael Plummer MD Signed: 04/28/2020 5:12 AM Workstation Name: [id number]
[2020-04-28] MEDS ORDERED: LORazepam 2 MG/ML VIAL IV ONE (06:36)
[2020-04-28] MEDS ORDERED: HYDROcodone/ACETAMINOPHEN 10-325MG TAB PO PRN (08:49)
--- NOTE | 2020-04-28 08:55 | History and Physical Report ---
History of Present Illness Date of examination: 04/28/20 Date of admission: 04/28/20 07:04 Chief complaint: My blood glucose is running high History of present illness: 49-year female with a past medical history of obesity, diabetes on insulin, hypertension, and recently diagnosed right eye cataract presents to the hospital complaining visual field changes, uncontrolled BP, and hyperglycemia. Patient saw an front end developer 2 weeks ago for intermittent cloudy visual field and she was diagnosed with cataracts. She went to her PCP office to get the medical karina jose for cataract surgery but patient cannot be medically cleared because her sugar was in the 460s and blood pressure was 160/100. Patient states that she ran out of her medication and was not taking her insulin and blood pressure medicine for last few days. In the ER patient noted to have blood glucose of greater than 500, Patient was given IV fluid and regular insulin subcu one-time dose. She is now called for admission for further evaluation and management. Patient denies any chest pain or shortness of breath but complains of visual difficulty with the right eye due to her cataract. PMD: Dr. Renetta Post Color Maker Dyer: Dr. Cruz - Past Medical History Previous Medical History?: Yes Hx Hypertension: Yes (OFF MEDS X 3 MONTHS) Hx Heart Attack/AMI: No Hx Congestive Heart Failure: Yes (2008- RESOLVED) Hx Diabetes: Yes Hx GERD: Yes Hx Renal Disease: Yes (DEVON) Hx Arthritis: Yes Hx Headaches / Migraines: (MIGRAINES) Hx Seizures: No Hx Asthma: No Hx COPD: No Hx HIV: No - Surgical History Past Surgical History?: No - Social History Smoking Status: Never Smoker Substance Use Type: None - Family History Hx Hypertension: Yes Review of System: Constitutional: no fever, no chills, no weight loss Ears, eyes, nose, mouth and throat: no nasal congestion, no nasal discharge, no sinus pressure, no red eye. Neck: No neck pain or rigidity. Cardiovascular: No chest pain, no orthopnea, no palpitations, no leg swelling Respiratory: No shortness of breath, no cough, no congestion, no wheezing Gastrointestinal: no abdominal pain, no nausea, no vomiting Genitourinary : no dysuria, no hematuria Musculoskeletal: no joint swelling or muscle ache Integumentary: no rash, no pruritis Neurological: no parathesias, no numbness, no tingling Endocrine: no cold or heat intolerance, no polyuria or polydipsia Hematologic/Lymphatic: no easy bruising, no easy bleeding, no gland swelling Allergic/Immunologic: no urticaria, no angioedema. Medications and Allergies Allergies Allergy/AdvReac Type Severity Reaction Status Date / Time No Known Allergies Allergy Verified 05/28/19 15:07 Home Medications Medication Instructions Recorded Confirmed Last Taken Type Aspirin EC [Halfprin EC] 81 mg PO QDAY #30 tablet. 04/29/20 Unknown Rx Gabapentin 600 tab PO BID #90 cap 04/29/20 Unknown Rx HYDROcodone/APAP 10-325 [[place] 1 each PO Q6HR PRN #14 tablet 04/29/20 Unknown Rx 10-325 mg TAB] Insulin Glargine [Lantus VIAL] 70 units SUB-Q BID #10 ml 04/29/20 Unknown Rx Insulin Regular, Human [HumuLIN R] 0 units SUB-Q ACHS #10 ml 04/29/20 Unknown Rx Insulin Regular, Human [HumuLIN R] 15 units SUB-Q AC #30 ml 04/29/20 Unknown Rx Metoprolol [Lopressor TAB] 12.5 mg PO BID #60 tablet 04/29/20 Unknown Rx Pantoprazole [Protonix TAB] 40 mg PO QDAY #30 tablet 04/29/20 Unknown Rx amLODIPine 5 mg PO QDAY #30 tablet 04/29/20 Unknown Rx Active Meds: Active Medications Acetaminophen/Hydrocodone Bitart ([place] 10/325) 1 each PO Q6HR PRN PRN Reason: Pain, Moderate (4-6) Gabapentin (Gabapentin) 600 mg PO BID NEY Sodium Chloride (Nacl 0.9% 1000 Ml) 1,000 mls @ 100 mls/hr IV DIRECT NEY Insulin Glargine (Lantus) 35 units SUB-Q BID NEY Insulin Human Regular (Humulin R) 0 units SUB-Q ACHS NYE; Protocol Pantoprazole Sodium (Protonix) 40 mg PO QDAY NEY Exam - Physical Exam Narrative exam: GENERAL: well-developed and morbidly obese -[place] female lying on bed appeared to be in no discomfort. HEENT: Normocephalic. Atraumatic. No conjunctival congestion or icterus. Patient has moist mucous membranes. NECK: Supple. Trachea midline. CHEST/LUNGS: Clear to auscultated bilaterally, breathing nonlabored. No wheezes crackles or rhonchi. HEART/CARDIOVASCULAR: Regular in rate and rhythm. S1 and S2 positive. ABDOMEN: Abdomen is soft, nontender. Patient has normal bowel sounds. SKIN: There is no rash. Warm and dry. NEURO: No focal motor deficit. Follows command. MUSCULOSKELETAL: No joint effusion or tenderness. EXTRIMITY: No edema, no cyanosis or clubbing. PSYCH: Cooperative. - Constitutional Vitals: Temp Pulse Resp BP Pulse Ox 98.3 F 68 15 135/77 98 04/28/20 07:08 04/28/20 07:56 04/28/20 07:56 04/28/20 07:56 04/28/20 07:56 Results - Labs CBC & Chem 7: 04/28/20 01:25 04/29/20 04:26 Labs: Abnormal lab results 04/28/20 04/28/20 04/28/20 Range/Units 01:25 01:25 02:58 MCH 27 L (28-32) pg VBG pH 7.305 L (7.320-7.420) Sodium 131 L (137-145) mmol/L Chloride 94.0 L (98-107) mmol/L BUN 34 H (7-17) mg/dL Creatinine 2.1 H (0.7-1.2) mg/dL Glucose 687 H* (65-100) mg/dL POC Glucose (70-105) Alkaline Phosphatase 149 H (35-129) units/L Albumin 3.6 L (3.9-5) g/dL 04/28/20 04/28/20 04/28/20 Range/Units 03:48 05:37 06:54 MCH (28-32) pg VBG pH (7.320-7.420) Sodium (137-145) mmol/L Chloride (98-107) mmol/L BUN (7-17) mg/dL Creatinine (0.7-1.2) mg/dL Glucose (65-100) mg/dL POC Glucose > 500 H > 500 H 407 H (70-105) Alkaline Phosphatase (35-129) units/L Albumin (3.9-5) g/dL - Imaging and Cardiology CT Scan - head: report reviewed (Reviewed, no acute findings) Assessment and Plan Hyperglycemia hyperosmolar nonketotic state -Blood glucose was greater than 600 on admission with a normal CO2 and negative ketones in the urine -We will place on aggressive IV fluid hydration -We will initiate sliding scale of insulin and readjust her Lantus dose -We will also add pre-meal insulin based on her 24-hour sliding scale requirement -Her A1c 14.3, counseled on dietary and exercise regimen Hypertension, stable, will resume home medications Diabetes mellitus type 2, uncontrolled -We will continue to adjust insulin doses, continue consistent carb diet -dietary regimen and exercise recommended Morbid obesity, BMI close to 50 -Provided dietary and exercise recommendation DEVON on underlying CKD -Creatinine 1 year ago was 1.5 -We will continue IV fluid, repeat BMP in the morning -Patient follow-up with Dr. Wilder outpatient Right eye cataract -Patient follow-ups with front end developer outpatient -Continue to monitor for now GERD, continue PPI CHF by history, no sign of decompensation -Patient states that she was diagnosed with CHF but that is now resolved -Continue to monitor ins and O's -No prior 2D echo records available Dvt Px, heparin
[2020-04-28 09:25] LABS: Alanine Aminotransferase 23 units/L (7-56); Albumin 3.8 g/dL (3.9-5)
[2020-04-28 09:29] LABS: Bilirubin,Direct < 0.2 mg/dL (0-0.2)
[2020-04-28 09:50] LABS: Bacteria,Urine 1+ /HPF (Negative); Bilirubin,Urine NEG (Negative); Blood,Urine SM (Negative); Color,Urine Yellow (Yellow); Mucus,Urine FEW /HPF; Urobilinogen,Urine < 2.0 mg/dL (<2.0)
[2020-04-28] MEDS ORDERED: INSULIN GLARGINE 100 UNITS/ML SUB-Q SCH ×2 (10:00)
[2020-04-28] MEDS: GABAPENTIN 300 MG CAP PO SCH ×2 (10:34→22:50)
[2020-04-28] MEDS: METOPROLOL TARTRATE 25 MG TAB PO SCH ×2 (10:34→22:49)
[2020-04-28] MEDS: PANTOPRAZOLE 40 MG TAB PO SCH (10:35)
[2020-04-28] MEDS: HEPARIN 5,000 UNIT/1 ML VIAL SUB-Q SCH ×2 (10:35→22:49)
[2020-04-28] MEDS: INSULIN REGULAR, HUMAN 100 UNITS/1 ML SUB-Q SCH ×3 (12:11→22:54)
[2020-04-28] MEDS: SODIUM CHLORIDE 0.9% 1000 ML 1,000 ML IV SCH (16:07)
[2020-04-28] MEDS ORDERED: INSULIN REGULAR, HUMAN 100 UNITS/1 ML SUB-Q ONE ×2 (16:07→18:31)
[2020-04-28] MEDS: INSULIN GLARGINE 100 UNITS/ML SUB-Q SCH (22:53)
[2020-04-29] MEDS: SODIUM CHLORIDE 0.9% 1000 ML 1,000 ML IV SCH (02:26)
[2020-04-29 05:44] LABS: Calcium 8.6 mg/dL (8.4-10.2)
[2020-04-29] MEDS: INSULIN REGULAR, HUMAN 100 UNITS/1 ML SUB-Q SCH ×4 (07:59→12:17)
[2020-04-29] MEDS: METOPROLOL TARTRATE 25 MG TAB PO SCH (09:19)
[2020-04-29] MEDS: INSULIN GLARGINE 100 UNITS/ML SUB-Q SCH (09:20)
[2020-04-29] MEDS: PANTOPRAZOLE 40 MG TAB PO SCH (09:20)
[2020-04-29] MEDS: HEPARIN 5,000 UNIT/1 ML VIAL SUB-Q SCH (09:20)
[2020-04-29] MEDS: GABAPENTIN 300 MG CAP PO SCH (09:20)
--- NOTE | 2020-04-29 10:46 | Discharge Summary ---
Providers - Providers Date of Admission: 04/28/20 07:04 Date of discharge: 04/29/20 Attending physician: RISSA DANIEL Primary care physician: HORSE AND WAGON DRIVER Hospitalization Condition: Stable Pertinent studies: Head CT Hospital course: This is a 49-year-old female with history of morbid obesity, diabetes mellitus type 2, right eye cataract presented to the hospital with complaining visual field changes, uncontrolled BP, and hyperglycemia. on presentation blood glucose was 675, given iv fluid bolus in the ER, admitted to telemetry with a long- acting and sliding scale coverage. Patient was monitored and insulin doses were adjusted. Patient was continued on iv fluid, consistent carb diet, Long-acting insulin and SSI. Adjusted long acting insulin dose to better improve BG level, counselled for dietary and insulin regimen compliance. Multiple attempts were made to communicate with patient's social media community manager but unable to reach out. Patient was instructed to go to her social media community manager office immediately after discharge is as a walk-in. Patient denied any pain to her right eye or any complaints of worsening vision. Head CT was unremarkable. Patient was then discharged home in stable condition with outpt f/u. 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 HEENT: Normocephalic. Atraumatic. No conjunctival congestion or icterus. Patient has moist mucous membranes. NECK: Supple. Trachea midline. CHEST/LUNGS: Clear to auscultated bilaterally, breathing nonlabored. No wheezes crackles or rhonchi. HEART/CARDIOVASCULAR: Regular in rate and rhythm. S1 and S2 positive. ABDOMEN: Abdomen is soft, nontender. Patient has normal bowel sounds. SKIN: There is no rash. Warm and dry. NEURO: No focal motor deficit. Follows command. MUSCULOSKELETAL: No joint effusion or tenderness. EXTRIMITY: No edema, no cyanosis or clubbing. PSYCH: Cooperative. - Constitutional Vitals: Temp Pulse Resp BP Pulse Ox 98.4 F 63 20 130/80 93 04/29/20 06:08 04/29/20 06:08 04/29/20 06:08 04/29/20 09:19 04/29/20 06:08 Plan Activity: advance as tolerated Weight Bearing Status: Weight Bear as Tolerated Diet: diabetic Special Instructions: record blood sugar diary Follow up with: PRIMARY CARE, [Primary Care Provider] - 3-5 Days Prescriptions: amLODIPine 5 mg PO QDAY #30 tablet Gabapentin 600 tab PO BID #90 cap Aspirin EC [Halfprin EC] 81 mg PO QDAY #30 tablet. Insulin Regular, Human [HumuLIN R] 15 units SUB-Q AC #30 ml Insulin Regular, Human [HumuLIN R] 0 units SUB-Q ACHS #10 ml Insulin Glargine [Lantus VIAL] 70 units SUB-Q BID #10 ml Metoprolol [Lopressor TAB] 12.5 mg PO BID #60 tablet HYDROcodone/APAP 10-325 [[place] 10-325 mg TAB] 1 each PO Q6HR PRN #14 tablet PRN Reason: Pain Pantoprazole [Protonix TAB] 40 mg PO QDAY #30 tablet
[2020-04-29] MEDS ORDERED: amLODIPine 5 MG TAB PO SCH (11:00)
[2020-04-29 12:18] VITALS: BP 134/80
[2020-04-29] MEDS ORDERED: INSULIN GLARGINE 100 UNITS/ML SUB-Q SCH (22:00)
== END 2020-04-29 14:10 | disposition home health service (06) ==
LOC: ED 00:21 → INTOOBSV 07:04 → 3A 07:04
PROVIDERS: ADMIT Internal Medicine Geriatric Medicine; ATTEND Internal Medicine
DX: E11.65 Type 2 diabetes mellitus with hyperglycemia (principal); E11.22 Type 2 diabetes mellitus with diabetic chronic kidney disease; I13.0 Hypertensive heart and chronic kidney disease with heart failure and stage 1 through stage 4 chronic kidney disease, or unspecified chronic kidney disease; N18.9 Chronic kidney disease, unspecified; I50.9 Heart failure, unspecified; E11.36 Type 2 diabetes mellitus with diabetic cataract; E66.01 Morbid (severe) obesity due to excess calories; N17.9 Acute kidney failure, unspecified; K21.9 Gastro-esophageal reflux disease without esophagitis; G43.909 Migraine, unspecified, not intractable, without status migrainosus; Z91.19 Patient's noncompliance with other medical treatment and regimen; Z79.4 Long term (current) use of insulin; Z79.899 Other long term (current) drug therapy; Z68.43 Body mass index [BMI] 50.0-59.9, adult
CPT/HCPCS: 36415; 70450; 80048; 80053; 80076; 81001; 82805; 82947; 82962; 83036; 85025; 96361; 96372; 96374; 96375; 96376; 99284; G0378; J1644; J2060; J7030; J1815

== ENCOUNTER 2020-06-10 11:50 | Inpatient (IN) | payer MEDICAID ==
[2020-06-10 12:51] LABS: Basophils % (Auto) 0.4 % (0.0-1.8); Eosinophils % (Auto) 0.6 % (0.0-4.3); Hematocrit 39.4 % (30.3-42.9); Hemoglobin 12.7 gm/dl (10.1-14.3); Lymphocytes # (Auto) 2.7 K/mm3 (1.2-5.4); Mean Corpuscular HGB Conc 32 % (30-34); Mean Corpuscular Volume 82 fl (79-97); Monocytes # (Auto) 0.6 K/mm3 (0.0-0.8); Monocytes % (Auto) 9.1 % (0.0-7.3); Platelet Count 276 K/mm3 (140-440); Red Blood Count 4.82 M/mm3 (3.65-5.03); Red Cell Distribution Width 12.9 % (13.2-15.2)
[2020-06-10 12:56] LABS: Albumin 4.1 g/dL (3.9-5); Calcium 9.7 mg/dL (8.4-10.2)
[2020-06-10] MEDS ORDERED: SODIUM CHLORIDE 0.9% 500 ML 500 ML IV ONE (12:57)
[2020-06-10] MEDS ORDERED: ONDANSETRON 4 MG/2 ML INJ IV ONE (12:58)
[2020-06-10] MEDS ORDERED: INSULIN REGULAR, HUMAN 100 UNITS/1 ML IV ONE ×2 (12:59→15:01)
--- NOTE | 2020-06-10 13:08 | Emergency Department Report ---
HPI - General Chief Complaint: Hyperglycemia Time Seen by Provider: 06/10/20 12:44 - HPI HPI: Room 7 The patient is a 49-year-old female present with a chief complaint of vomiting and diarrhea. The patient states she has been "feeling sick" for approximately 2 weeks which includes nausea. The patient states over the past week she has had intractable nausea vomiting and diarrhea. Patient states she has had a decreased appetite and has been unable to keep anything down. The patient denies fever or cough but states for the past 2 days she has had shortness of breath. Patient denies any known COVID-19 contacts. The patient states this morning her glucose was over 600 prompting her to come to the emergency department ED Past Medical Hx - Past Medical History Hx Hypertension: Yes (OFF MEDS X 3 MONTHS) Hx Congestive Heart Failure: Yes (2008- RESOLVED) Hx Diabetes: Yes Hx GERD: Yes Hx Renal Disease: Yes (DEVON) Hx Arthritis: Yes Hx Headaches / Migraines: (MIGRAINES) - Surgical History Additional Surgical History: eye surgery - Family History Family history: no significant - Social History Smoking Status: Never Smoker Substance Use Type: None (Denies illicit drug use) - Medications Home Medications: Home Medications Medication Instructions Recorded Confirmed Last Taken Type Aspirin EC [Halfprin EC] 81 mg PO QDAY #30 tablet. 04/29/20 Unknown Rx Gabapentin 600 tab PO BID #90 cap 04/29/20 Unknown Rx HYDROcodone/APAP 10-325 [[place] 1 each PO Q6HR PRN #14 tablet 04/29/20 Unknown Rx 10-325 mg TAB] Insulin Glargine [Lantus VIAL] 70 units SUB-Q BID #10 ml 04/29/20 Unknown Rx Insulin Regular, Human [HumuLIN R] 0 units SUB-Q ACHS #10 ml 04/29/20 Unknown Rx Insulin Regular, Human [HumuLIN R] 15 units SUB-Q AC #30 ml 04/29/20 Unknown Rx Metoprolol [Lopressor TAB] 12.5 mg PO BID #60 tablet 04/29/20 Unknown Rx Pantoprazole [Protonix TAB] 40 mg PO QDAY #30 tablet 04/29/20 Unknown Rx amLODIPine 5 mg PO QDAY #30 tablet 04/29/20 Unknown Rx ED Review of Systems ROS: Stated complaint: HBP/SUGAR HIGH/VOMIT Other details as noted in HPI Constitutional: denies: fever Respiratory: shortness of breath. denies: cough Endocrine: no symptoms reported Gastrointestinal: abdominal pain, nausea, vomiting, diarrhea Physical Exam - Physical Exam Vital Signs: Vital Signs 06/10/20 11:55 Temperature 97.5 F L Pulse Rate 103 H Respiratory 22 Rate Blood Pressure 146/103 O2 Sat by Pulse 98 Oximetry Physical Exam: GENERAL: The patient is well-developed well-nourished female lying on stretcher not appearing to be in acute distress. [] HEENT: Normocephalic. Atraumatic. Extraocular motions are intact. Patient has moist mucous membranes. NECK: Supple. Trachea midline CHEST/LUNGS: Clear to auscultation. There is no respiratory distress noted. HEART/CARDIOVASCULAR: Regular. There is no tachycardia. There is no gallop rub or murmur. ABDOMEN: Abdomen is soft, nontender. Patient has normal bowel sounds. There is no abdominal distention. SKIN: There is no rash. There is no edema. There is no diaphoresis. NEURO: The patient is awake, alert, and oriented. The patient is cooperative. The patient has normal speech MUSCULOSKELETAL: There is no evidence of acute injury. ED Course Vital Signs 06/10/20 11:55 Temperature 97.5 F L Pulse Rate 103 H Respiratory 22 Rate Blood Pressure 146/103 O2 Sat by Pulse 98 Oximetry ED Medical Decision Making - Lab Data Result diagrams: 06/10/20 12:11 06/10/20 12:11 - Radiology Data Radiology results: report reviewed (Chest x-ray, CT abdomen pelvis), image reviewed (Chest x-ray, CT abdomen pelvis) interpreted by me: Chest x-ray-no focal infiltrates, no pneumothorax [address] [address] XRay Report Signed Patient: YASMANY LEROY MR #: [id number] : 1970 Acct:[id number] Age/Sex: 49 / F ADM Date: 06/10/20 Loc: ED Attending Dr: Ordering Physician: KARRI MAJOR MD Date of Service: 06/10/20 Procedure(s): XR chest 1V ap Accession Number(s): [id number] cc: KARRI MAJOR MD Fluoro Time In Minutes: CHEST 1 VIEW INDICATION / CLINICAL INFORMATION: Shortness of breath. COMPARISON: 05/28/2019 FINDINGS: SUPPORT DEVICES: None. HEART / MEDIASTINUM: No significant abnormality. LUNGS / PLEURA: No significant pulmonary or pleural abnormality. No pneumothorax. ADDITIONAL FINDINGS: No significant additional findings. IMPRESSION: No acute pulmonary or pleural abnormality. No interval change from 05/28/2019 Signer Name: Stanley Staley MD FACR Signed: 06/10/2020 2:01 PM Workstation Name: [id number] Transcribed By: [place] Dictated By: Stanley Staley MD Electronically Authenticated By: Stanley Staley MD Signed Date/Time: 06/10/20 1401 DD/ 1352 TD/TT: [facility] [address] [place] [address] Cat Scan Report Signed Patient: YASMANY LEROY MR #: [id number] : 1970 Acct:[id number] Age/Sex: 49 / F ADM Date: 06/10/20 Loc: ED Attending Dr: Ordering Physician: KARRI MAJOR MD Date of Service: 06/10/20 Pro cedure(s): CT abdomen pelvis wo con Accession Number(s): [id number] cc: KARRI MAJOR MD CT ABDOMEN AND PELVIS WITHOUT IV CONTRAST INDICATION: Intractable nausea vomiting diarrhea. COMPARISON: None available. TECHNIQUE: All CT scans at this facility use dose modulation, automated exposure control, iterative reconstruction or weight based dosing, when appropriate, to reduce radiation dose to as low as reasonably achievable. FINDINGS: Lung Bases: No significant abnormality. Skeletal System: No acute abnormality. ABDOMEN: Liver: No significant abnormality. Gallbladder: No significant abnormality. Bile Ducts: No significant abnormality. Pancreas: No significant abnormality. Spleen: No significant abnormality. Adrenals: No significant abnormality. Right Kidney: No significant abnormality. Left Kidney: No significant abnormality. Upper GI tract: No significant abnormality. Lymph Nodes: No significant adenopathy. Aorta: No significant abnormality. Additional Findings: No significant abnormality. PELVIS: Colon: No acute abnormality. Urinary Bladder and Distal Ureters: No significant abnormality. Appendix: No significant abnormality. Lymph Nodes: No significant adenopathy. Additional Findings: None. IMPRESSION: 1. Within the limitations of non contrast technique, no acute process in the abdom en or pelvis. Signer Name: Kayden Fairchild MD Signed: 06/10/2020 2:10 PM Workstation Name: [id number] Transcribed By: SW Dictated By: Kayden Fairchild MD Electronically Authenticated By: Kayden Fairchild MD Signed Date/Time: 06/10/20 1410 DD/ 1405 TD/TT: - Differential Diagnosis Gastroenteritis, COVID-19, pancreatitis Critical care attestation.: If time is entered above; I have spent that time in minutes in the direct care of this critically ill patient, excluding procedure time. ED Disposition Clinical Impression: Intractable nausea and vomiting Disposition: DC-09 OP ADMIT IP TO THIS HOSP Is pt being admited?: Yes Does the pt Need Aspirin: No Condition: Fair Time of Disposition: 15:34 (Hospitalist paged (Dr Bullock))
--- NOTE | 2020-06-10 14:06 | XRay Report ---
CHEST 1 VIEW INDICATION / CLINICAL INFORMATION: Shortness of breath. COMPARISON: 05/28/2019 FINDINGS: SUPPORT DEVICES: None. HEART / MEDIASTINUM: No significant abnormality. LUNGS / PLEURA: No significant pulmonary or pleural abnormality. No pneumothorax. ADDITIONAL FINDINGS: No significant additional findings. IMPRESSION: No acute pulmonary or pleural abnormality. No interval change from 05/28/2019 Signer Name: Stanley Staley MD FACJolly Signed: 06/10/2020 2:01 PM Workstation Name: [email or web address]
--- NOTE | 2020-06-10 14:14 | Cat Scan Report ---
CT ABDOMEN AND PELVIS WITHOUT IV CONTRAST INDICATION: Intractable nausea vomiting diarrhea. COMPARISON: None available. TECHNIQUE: All CT scans at this facility use dose modulation, automated exposure control, iterative reconstructi on or weight based dosing, when appropriate, to reduce radiation dose to as low as reasonably achieva ble. FINDINGS: Lung Bases: No significant abnormality. Skeletal System: No acute abnormality. ABDOMEN: Liver: No significant abnormality. Gallbladder: No significant abnormality. Bile Ducts: No significant abnormality. Pancreas: No significant abnormality. Spleen: No significant abnormality. Adrenals: No significant abnormality. Right Kidney: No significant abnormality. Left Kidney: No significant abnormality. Upper GI tract: No significant abnormality. Lymph Nodes: No significant adenopathy. Aorta: No significant abnormality. Additional Findings: No significant abnormality. PELVIS: Colon: No acute abnormality. Urinary Bladder and Distal Ureters: No significant abnormality. Appendix: No significant abnormality. Lymph Nodes: No significant adenopathy. Additional Findings: None. IMPRESSION: 1. Within the limitations of non contrast technique, no acute process in the abdomen or pelvis. Signer Name: Kayden Fairchild MD Signed: 06/10/2020 2:10 PM Workstation Name: [email or web address]
[2020-06-10] MEDS ORDERED: METOCLOPRAMIDE 10 MG/2 ML INJ IV ONE (15:02)
[2020-06-10 16:32] LABS: C-Reactive Protein 0.2 mg/dL (0.00-1.30)
--- NOTE | 2020-06-10 17:58 | History and Physical Report ---
History of Present Illness Date of examination: 06/10/20 Date of admission: 06/10/20 15:37 Chief complaint: Vomiting for 1 week Diarrhea for 2 to 3 days High blood glucose levels around 500 History of present illness: 49-year-old female comes in for vomiting and diarrhea of one-week duration. Patient states she has not been feeling good and feeling sick. Intractable nausea and vomiting. Also diarrhea for the last 3days which has subsided. Decreased appetite. Unable to keep anything down. No fever. No cough. No exposure to coronavirus. Patient also has high blood glucose levels which prompted him to come to the emergency department. Noncompliant with her medications. Polyuria and polydipsia present. - Past Medical History Hypertension: Yes (OFF MEDS X 3 MONTHS) Congestive Heart Failure: Yes (2007- RESOLVED) Diabetes: Yes GERD: Yes Renal Disease: Yes (DEVON) Arthritis: Yes Headaches / Migraines: (MIGRAINES) - Surgical History Additional Surgical History: eye surgery - Family History Family history: no significant - Social History Smoking Status: Never Smoker Substance Use Type: None (Denies illicit drug use) - Medications Home Medications: Home Medications Medication Instructions Recorded Confirmed Last Taken Type Aspirin EC [Halfprin EC] 81 mg PO QDAY #30 tablet. 04/29/20 Unknown Rx Gabapentin 600 tab PO BID #90 cap 04/29/20 Unknown Rx HYDROcodone/APAP 10-325 [[place] 1 each PO Q6HR PRN #14 tablet 04/29/20 Unknown Rx 10-325 mg TAB] Insulin Glargine [Lantus VIAL] 70 units SUB-Q BID #10 ml 04/29/20 Unknown Rx Insulin Regular, Human [HumuLIN R] 0 units SUB-Q ACHS #10 ml 04/29/20 Unknown Rx Insulin Regular, Human [HumuLIN R] 15 units SUB-Q AC #30 ml 04/29/20 Unknown Rx Metoprolol [Lopressor TAB] 12.5 mg PO BID #60 tablet 04/29/20 Unknown Rx Pantoprazole [Protonix TAB] 40 mg PO QDAY #30 tablet 04/29/20 Unknown Rx amLODIPine 5 mg PO QDAY #30 tablet 04/29/20 Unknown Rx Review of Systems ROS: Constitutional feels weak and dehydrated, no fever HEENT no sore throat no post nasal drip no diplopia Neck no neck stiffness no lymph gland enlargement Chest and lungs no shortness of breath cough or wheezing CVS no chest pain no diaphoresis no palpitations GI persistent vomiting and diarrhea for 2 days Genitourinary system no dysuria no flank pain Musculoskeletal system no muscle pains no 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 04/29/20 06/11/20 Unknown Rx Gabapentin 600 tab PO BID #90 cap 04/29/20 06/11/20 Unknown Rx HYDROcodone/APAP 10-325 [[place] 1 each PO Q6HR PRN #14 tablet 04/29/20 06/11/20 Unknown Rx 10-325 mg TAB] Insulin Glargine [Lantus VIAL] 70 units SUB-Q BID #10 ml 04/29/20 06/11/20 Unknown Rx Insulin Regular, Human [HumuLIN R] 0 units SUB-Q ACHS #10 ml 04/29/20 06/11/20 Unknown Rx Insulin Regular, Human [HumuLIN R] 15 units SUB-Q AC #30 ml 04/29/20 06/11/20 Unknown Rx Metoprolol [Lopressor TAB] 12.5 mg PO BID #60 tablet 04/29/20 06/11/20 Unknown R x Pantoprazole [Protonix TAB] 40 mg PO QDAY #30 tablet 04/29/20 06/11/20 1 Day Ago Rx ~06/10/20 amLODIPine 5 mg PO QDAY #30 tablet 04/29/20 06/11/20 Unknown Rx Exam - Constitutional Vitals: Temp Pulse Resp BP Pulse Ox 97.5 F L 94 H 18 142/93 96 06/10/20 11:55 06/10/20 17:01 06/10/20 17:01 06/10/20 17:01 06/10/20 17:01 General appearance: Present: no acute distress, well-nourished - EENT Eyes: Present: PERRL ENT: hearing intact, clear oral mucosa - Neck Neck: Present: supple, normal ROM - Respiratory Respiratory effort: normal Respiratory: bilateral: CTA - Cardiovascular Heart rate: 78 Rhythm: regular Heart Sounds: Present: S1 & S2. Absent: rub, click - Extremities Extremities: no ischemia, pulses symmetrical, No edema Peripheral Pulses: within normal limits - Abdominal General gastrointestinal: Present: soft, non-tender, non-distended, normal bowel sounds Female genitourinary: Present: normal - Integumentary Integumentary: Present: clear, warm, dry - Musculoskeletal Musculoskeletal: gait normal, strength equal bilaterally - Psychiatric Psychiatric: appropriate mood/affect, intact judgment & insight - Neurologic Neurologic: CNII-XII intact, moves all extremities Results - Labs CBC & Chem 7: 06/10/20 12:11 06/10/20 15:55 Labs: Laboratory Last Values WBC 6.8 K/mm3 (4.5-11.0) 06/10/20 12:11 RBC 4.82 M/mm3 (3.65-5.03) 06/10/20 12:11 Hgb 12.7 gm/dl (10.1-14.3) 06/10/20 12:11 Hct 39.4 % (30.3-42.9) 06/10/20 12:11 MCV 82 fl (79-97) 06/10/20 12:11 MCH 26 pg (28-32) L 06/10/20 12:11 MCHC 32 % (30-34) 06/10/20 12:11 RDW 12.9 % (13.2-15.2) L 06/10/20 12:11 Plt Count 276 K/mm3 (140-440) 06/10/20 12:11 Lymph % (Auto) 40.0 % (13.4-35.0) H 06/10/20 12:11 [place] % (Auto) 9.1 % (0.0-7.3) H 06/10/20 12:11 Eos % (Auto) 0.6 % (0.0-4.3) 06/10/20 12:11 Baso % (Auto) 0.4 % (0.0-1.8) 06/10/20 12:11 Lymph # 2.7 K/mm3 (1.2-5.4) 06/10/20 12:11 [place] # 0.6 K/mm3 (0.0-0.8) 06/10/20 12:11 Eos # 0.0 K/mm3 (0.0-0.4) 06/10/20 12:11 Baso # 0.0 K/mm3 (0.0-0.1) 06/10/20 12:11 Seg Neutrophils % 49.9 % (40.0-70.0) 06/10/20 12:11 Seg Neutrophils # 3.4 K/mm3 (1.8-7.7) 06/10/20 12:11 D-Dimer 267.43 ng/mlDDU (0-234) H 06/10/20 15:55 VBG pH 7.366 (7.320-7.420) 06/10/20 12:11 Sodium 128 mmol/L (137-145) L 06/10/20 12:11 Potassium 4.0 mmol/L (3.6-5.0) 06/10/20 12:11 Chloride 92.0 mmol/L (98-107) L 06/10/20 12:11 Carbon Dioxide 19 mmol/L (22-30) L 06/10/20 12:11 Anion Gap 21 mmol/L 06/10/20 12:11 BUN 41 mg/dL (7-17) H 06/10/20 12:11 Creatinine 2.4 mg/dL (0.6-1.2) H 06/10/20 12:11 Estimated GFR 26 ml/min 06/10/20 12:11 BUN/Creatinine Ratio 17 % 06/10/20 12:11 Glucose 528 mg/dL (65-100) H* 06/10/20 15:55 POC Glucose > 500 (70-105) H 06/10/20 15:13 Ketones Quantitative Negative (Negative) 06/10/20 13:16 Calcium 9.7 mg/dL (8.4-10.2) 06/10/20 12:11 Ferritin 305.7 ng/mL (13.0-400.0) 06/10/20 15:55 Total Bilirubin 0.30 mg/dL (0.1-1.2) 06/10/20 12:11 AST 15 units/L (5-40) 06/10/20 12:11 ALT 18 units/L (7-56) 06/10/20 12:11 Alkaline Phosphatase 125 units/L (35-129) 06/10/20 12:11 Lactate Dehydrogenase 248 units/L (91-180) H 06/10/20 15:55 C-Reactive Protein 0.20 mg/dL (0.00-1.30) 06/10/20 15:55 Total Protein 7.7 g/dL (6.3-8.2) 06/10/20 12:11 Albumin 4.1 g/dL (3.9-5) 06/10/20 12:11 Albumin/Globulin Ratio 1.1 % 06/10/20 12:11 Lipase 39 units/L (13-60) 06/10/20 13:16 Short CBC 06/10/20 Range/Units 12:11 WBC 6.8 (4.5-11.0) K/mm3 Hgb 12.7 (10.1-14.3) gm/dl Hct 39.4 (30.3-42.9) % Plt Count 276 (140-440) K/mm3 BMP 06/10/20 06/10/20 12:11 15:55 Sodium 128 L Potassium 4.0 Chloride 92.0 L Carbon Dioxide 19 L BUN 41 H Creatinine 2.4 H Glucose 572 H* 528 H* Calcium 9.7 Liver Function 06/10/20 Range/Units 12:11 Total Bilirubin 0.30 (0.1-1.2) mg/dL AST 15 (5-40) units/L ALT 18 (7-56) units/L Alkaline Phosphatase 125 (35-129) units/L Albumin 4.1 (3.9-5) g/dL Assessment and Plan Advance Directives: Yes (Full code) VTE prophylaxis?: Chemical Plan of care discussed with patient/family: Yes - Patient Problems (1) Acute gastroenteritis Current Visit: Yes Status: Acute Plan to address problem: IV fluids for now (2) Hyperosmolar non-ketotic state due to type 2 diabetes mellitus Current Visit: Yes Status: Acute Plan to address problem: No anion gap increase Frequent Accu-Cheks and high-dose insulin sliding scale protocol Insulin 70/30 twice daily also started Patient counseled about the diabetes and the management Patient is morbidly obese Patient advised about bariatric surgery after discharge (3) DEVON (acute kidney injury) Current Visit: Yes Status: Acute Plan to address problem: Secondary to ATN IV normal saline for now Nephrology consult if necessary (4) Intractable nausea and vomiting Current Visit: Yes Status: Acute Plan to address problem: IV fluids and IV Zofran/IV Reglan. (5) HTN (hypertension) Current Visit: No Status: Chronic Qualifiers: Hypertension type: essential hypertension Qualified Code(s): I10 - Essential (primary) hypertension Plan to address problem: Continue antihypertensives and adjust medications (6) Hyponatremia Current Visit: Yes Status: Acute Plan to address problem: Secondary to high blood glucose levels Should correct with the correction of blood glucose levels (7) DVT prophylaxis Current Visit: Yes Status: Acute Plan to address problem: On heparin and GI prophylaxis
[2020-06-10] MEDS: INSULIN LISPRO 100 UNIT/ML SUB-Q SCH ×2 (19:04→22:18)
[2020-06-10] MEDS ORDERED: HYDROcodone/ACETAMINOPHEN 10-325MG TAB PO PRN (21:30)
[2020-06-10] MEDS ORDERED: METOCLOPRAMIDE 10 MG/2 ML INJ IV PRN (21:31)
[2020-06-10] MEDS ORDERED: HYDROmorphone 1 MG/1 ML INJ IV PRN (21:31)
[2020-06-10] MEDS ORDERED: ONDANSETRON 4 MG/2 ML INJ IV PRN (21:31)
[2020-06-10] MEDS ORDERED: ACETAMINOPHEN 325 MG TAB PO PRN (21:31)
[2020-06-10] MEDS ORDERED: SODIUM CHLORIDE 0.9% 1000 ML 1,000 ML IV SCH (21:45)
[2020-06-10] MEDS: GABAPENTIN 300 MG CAP PO SCH (22:16)
[2020-06-10] MEDS: PANTOPRAZOLE 40 MG INJ IV SCH (22:16)
[2020-06-10] MEDS: METOPROLOL TARTRATE 25 MG TAB PO SCH (22:17)
[2020-06-11] MEDS: INSULIN LISPRO 100 UNIT/ML SUB-Q SCH ×6 (02:30→22:11)
[2020-06-11] MEDS: INSULIN NPH/REGULAR 70/30 INJ SUB-Q SCH ×2 (09:10→18:24)
[2020-06-11] MEDS: PANTOPRAZOLE 40 MG INJ IV SCH ×2 (11:27→22:08)
[2020-06-11] MEDS: METOPROLOL TARTRATE 25 MG TAB PO SCH ×2 (11:28→22:07)
[2020-06-11] MEDS: GABAPENTIN 300 MG CAP PO SCH ×2 (11:28→22:06)
[2020-06-11] MEDS: amLODIPine 5 MG TAB PO SCH (11:29)
[2020-06-12] MEDS: INSULIN LISPRO 100 UNIT/ML SUB-Q SCH ×6 (01:59→22:23)
[2020-06-12] MEDS: INSULIN NPH/REGULAR 70/30 INJ SUB-Q SCH ×2 (08:35→16:35)
[2020-06-12] MEDS: PANTOPRAZOLE 40 MG INJ IV SCH ×2 (09:34→22:13)
[2020-06-12] MEDS: GABAPENTIN 300 MG CAP PO SCH ×2 (09:36→22:14)
[2020-06-12] MEDS: METOPROLOL TARTRATE 25 MG TAB PO SCH ×2 (09:37→22:19)
[2020-06-12] MEDS: amLODIPine 5 MG TAB PO SCH (09:39)
--- NOTE | 2020-06-12 20:09 | Progress Note ---
Assessment and Plan - Patient Problems (1) Acute gastroenteritis Current Visit: Yes Status: Acute Plan to address problem: IV fluids for now (2) Hyperosmolar non-ketotic state due to type 2 diabetes mellitus Current Visit: Yes Status: Acute Plan to address problem: No anion gap increase Frequent Accu-Cheks and high-dose insulin sliding scale protocol Insulin 70/30 twice daily also started Patient counseled about the diabetes and the management Patient is morbidly obese Patient advised about bariatric surgery after discharge (3) DEVON (acute kidney injury) Current Visit: Yes Status: Acute Plan to address problem: Secondary to ATN IV normal saline for now Nephrology consult if necessary (4) Intractable nausea and vomiting Current Visit: Yes Status: Acute Plan to address problem: IV fluids and IV Zofran/IV Reglan. (5) HTN (hypertension) Current Visit: No Status: Chronic Qualifiers: Hypertension type: essential hypertension Qualified Code(s): I10 - Essential (primary) hypertension Plan to address problem: Continue antihypertensives and adjust medications (6) Hyponatremia Current Visit: Yes Status: Acute Plan to address problem: Secondary to high blood glucose levels Should correct with the correction of blood glucose levels (7) DVT prophylaxis Current Visit: Yes Status: Acute Plan to address problem: On heparin and GI prophylaxis Subjective Date of service: 06/11/20 Principal diagnosis: Hyperosmolar nonketotic state and diabetes Interval history: Patient was into hyperosmolar state secondary to type 2 diabetes Patient was vomiting With aggressive insulin therapy blood sugars have come reasonable around 200 Patient is not vomiting Objective - Constitutional Vitals: Vital Signs - 12hr 06/12/20 06/12/20 06/12/20 09:37 09:39 10:00 Temperature Pulse Rate 89 89 Respiratory 20 Rate Blood Pressure 113/69 113/69 O2 Sat by Pulse 98 Oximetry 06/12/20 06/12/20 10:59 18:11 Temperature 99.3 F 97.0 F L Pulse Rate 89 84 Respiratory 20 22 Rate Blood Pressure 119/85 103/75 O2 Sat by Pulse 97 96 Oximetry General appearance: Present: mild distress, well-nourished - EENT Eyes: PERRL, EOM intact ENT: hearing intact, clear oral mucosa Ears: bilateral: normal - Neck Neck: supple, normal ROM - Respiratory Respiratory effort: normal Respiratory: bilateral: CTA - Breasts Breasts: normal - Cardiovascular Heart rate: 78 Rhythm: regular Heart Sounds: Present: S1 & S2. Absent: gallop, rub Extremities: pulses intact, No edema, normal color, Full ROM - Gastrointestinal General gastrointestinal: Present: soft, non-tender, non-distended, normal bowel sounds - Genitourinary Female genitourinary: normal - Integumentary Integumentary: clear, warm, dry - Musculoskeletal Musculoskeletal: 1, strength equal bilaterally - Neurologic Neurologic: moves all extremities - Psychiatric Psychiatric: memory intact, appropriate mood/affect, intact judgment & insight - Labs CBC & Chem 7: 06/10/20 12:11 06/10/20 15:55 Labs: Abnormal lab results 06/11/20 06/12/20 06/12/20 Range/Units 21:37 02:03 06:11 POC Glucose 224 H 268 H 288 H (70-105) 06/12/20 06/12/20 06/12/20 Range/Units 10:40 14:21 17:52 POC Glucose 359 H 393 H 410 H (70-105)
--- NOTE | 2020-06-12 20:15 | Progress Note ---
Assessment and Plan Day #3 06/12/2020 Patient symptomatically a lot better BMP is pending - Patient Problems (1) Acute gastroenteritis Current Visit: Yes Status: Acute Plan to address problem: IV fluids for now Resolved (2) Hyperosmolar non-ketotic state due to type 2 diabetes mellitus Current Visit: Yes Status: Acute Plan to address problem: No anion gap increase Frequent Accu-Cheks and high-dose insulin sliding scale protocol Patient on Basaglar 70 units twice a day at home and Humalog as per sliding scale which she has been non-compliant Patient advised about continuing Basaglar 70 twice a day at home and also Humalog 10 units before each meal and follow sliding scale for postprandial blood sugars. Patient counseled about the diabetes and the management Patient is morbidly obese Patient advised about bariatric surgery after discharge (3) DEVON (acute kidney injury) Current Visit: Yes Status: Acute Plan to address problem: Secondary to ATN IV normal saline for now Nephrology consult if necessary BMP is pending (4) Intractable nausea and vomiting Current Visit: Yes Status: Acute Plan to address problem: IV fluids and IV Zofran/IV Reglan. (5) HTN (hypertension) Current Visit: No Status: Chronic Qualifiers: Hypertension type: essential hypertension Qualified Code(s): I10 - Essential (primary) hypertension Plan to address problem: Continue antihypertensives and adjust medications (6) Hyponatremia Current Visit: Yes Status: Acute Plan to address problem: Secondary to high blood glucose levels Should correct with the correction of blood glucose levels (7) DVT prophylaxis Current Visit: Yes Status: Acute Plan to address problem: On heparin and GI prophylaxis Subjective Date of service: 06/12/20 Principal diagnosis: Hyperosmolar nonketotic state and diabetes Interval history: Patient was into hyperosmolar state secondary to type 2 diabetes Patient was vomiting With aggressive insulin therapy blood sugars have come reasonable around 200 Patient is not vomiting Objective - Constitutional Vitals: Vital Signs - 12hr 06/12/20 06/12/20 06/12/20 09:37 09:39 10:00 Temperature Pulse Rate 89 89 Respiratory 20 Rate Blood Pressure 113/69 113/69 O2 Sat by Pulse 98 Oximetry 06/12/20 06/12/20 10:59 18:11 Temperature 99.3 F 97.0 F L Pulse Rate 89 84 Respiratory 20 22 Rate Blood Pressure 119/85 103/75 O2 Sat by Pulse 97 96 Oximetry General appearance: Present: no acute distress, well-nourished - EENT Eyes: PERRL, EOM intact ENT: hearing intact, clear oral mucosa Ears: bilateral: normal - Neck Neck: supple, normal ROM - Respiratory Respiratory effort: normal Respiratory: bilateral: CTA - Breasts Breasts: normal - Cardiovascular Heart rate: 78 Rhythm: regular Heart Sounds: Present: S1 & S2. Absent: gallop, rub Extremities: no ischemia, pulses intact, No edema, normal color, Full ROM - Gastrointestinal General gastrointestinal: Present: soft, non-tender, non-distended, normal bowel sounds Rectal Exam: deferred - Genitourinary Female genitourinary: normal - Integumentary Integumentary: clear, warm, dry - Musculoskeletal Musculoskeletal: 1, strength equal bilaterally - Neurologic Neurologic: moves all extremities - Psychiatric Psychiatric: memory intact, appropriate mood/affect, intact judgment & insight - Allied health notes Allied health notes reviewed: nursing, case management - Labs CBC & Chem 7: 06/10/20 12:11 06/10/20 15:55 Labs: Abnormal lab results 06/11/20 06/12/20 06/12/20 Range/Units 21:37 02:03 06:11 POC Glucose 224 H 268 H 288 H (70-105) 06/12/20 06/12/20 06/12/20 Range/Units 10:40 14:21 17:52 POC Glucose 359 H 393 H 410 H (70-105)
--- NOTE | 2020-06-12 20:22 | Discharge Summary ---
Providers - Providers Date of Admission: 06/12/20 12:43 Date of discharge: 06/13/20 Attending physician: MILANA PIERSON [facility] Condition[facility] Fair Disposition: DC- TO HOME OR SELFCARE - Discharge Diagnoses (1) Acute gastroenteritis Status: Acute (2) Hyperosmolar non-ketotic state due to type 2 diabetes mellitus Status: Acute (3) DEVON (acute kidney injury) Status: Acute (4) Intractable nausea and vomiting Status: Acute (5) HTN (hypertension) Status: Chronic Qualifiers: Hypertension type: essential hypertension Qualified Code(s): I10 - Essential (primary) hypertension (6) Hyponatremia Status: Acute (7) DVT prophylaxis Status: Acute Core Measure Documentation - Palliative Care Palliative Care/ Comfort Measures: Not Applicable - Core Measures Any of the following diagnoses?: none Exam - Constitutional Vitals: Temp Pulse Resp BP Pulse Ox 97.0 F L 84 22 103/75 96 06/12/20 18:11 06/12/20 18:11 06/12/20 18:11 06/12/20 18:11 06/12/20 18:11 [facility] - 7 Days Prescriptions: Insulin Glargine,Hum.rec.anlog [Basaglar Kwikpen U-100] 75 unit SQ BID #15 insuln.pen Valsartan [Diovan] 160 mg PO QDAY #30 tablet Gabapentin 600 mg PO BID #60 capsule Aspirin EC [Halfprin EC] 81 mg PO QDAY 100 Days #100 tablet. Insulin Lispro [Humalog Kwikpen U-200] 10 unit SQ AC #5 insuln.pen Potassium Chloride [K-Dur] 20 meq PO Q3D #10 tablet Furosemide [Lasix TAB] 40 mg PO Q3D 30 Days #10 tablet Metoprolol [Lopressor TAB] 25 mg PO BID #60 tablet Pantoprazole [Protonix TAB] 40 mg PO QDAY #30 tablet
[2020-06-12 20:46] LABS: Calcium 9.1 mg/dL (8.4-10.2)
[2020-06-12] MEDS: SODIUM CHLORIDE 0.9% 1000 ML 1,000 ML IV SCH (22:13)
[2020-06-13] MEDS: INSULIN LISPRO 100 UNIT/ML SUB-Q SCH ×6 (02:51→18:03)
[2020-06-13] MEDS ORDERED: PANTOPRAZOLE 40 MG TAB PO SCH (10:00)
[2020-06-13] MEDS: GABAPENTIN 300 MG CAP PO SCH (10:09)
[2020-06-13] MEDS: INSULIN NPH/REGULAR 70/30 INJ SUB-Q SCH ×2 (10:09→18:14)
[2020-06-13] MEDS: METOPROLOL TARTRATE 25 MG TAB PO SCH (10:11)
[2020-06-13] MEDS: amLODIPine 5 MG TAB PO SCH (10:12)
[2020-06-13] MEDS: SODIUM CHLORIDE 0.9% 1000 ML 1,000 ML IV SCH (10:18)
[2020-06-13 11:13] LABS: Albumin 3.8 g/dL (3.9-5)
[2020-06-13 16:00] LABS: Calcium 8.6 mg/dL (8.4-10.2)
[2020-06-13 16:09] VITALS: BP 136/75
== END 2020-06-13 18:15 | disposition home or self-care (01) | DRG 637 ==
LOC: ED 11:50 → INTOOBSV 15:37 → 3A 15:37 → OBSVTOIN 06-12 12:43
PROVIDERS: ADMIT Internal Medicine; ATTEND Internal Medicine
DX: E11.00 Type 2 diabetes mellitus with hyperosmolarity without nonketotic hyperglycemic-hyperosmolar coma (NKHHC) (principal); N17.0 Acute kidney failure with tubular necrosis; K52.9 Noninfective gastroenteritis and colitis, unspecified; E87.1 Hypo-osmolality and hyponatremia; I11.0 Hypertensive heart disease with heart failure; I50.9 Heart failure, unspecified; K21.9 Gastro-esophageal reflux disease without esophagitis; M19.90 Unspecified osteoarthritis, unspecified site; G43.909 Migraine, unspecified, not intractable, without status migrainosus; Z79.82 Long term (current) use of aspirin; Z79.899 Other long term (current) drug therapy; Z79.4 Long term (current) use of insulin; Z03.818 Encounter for observation for suspected exposure to other biological agents ruled out
CPT/HCPCS: 36415; 71045; 74176; 80048; 80053; 82010; 82728; 82805; 82947; 82962; 83615; 83690; 84145; 85025; 85379; 86140; 96374; 96375; 96376; G0378; C9113; J1815; J2405; J2765; J7030; J7040; U0003-CS

== ENCOUNTER 2021-06-15 23:29 | Emergency (ER) | payer MEDICAID ==
[2021-06-16 00:39] VITALS: BP 153/97
[2021-06-16] MEDS ORDERED: ASPIRIN 325 MG TAB PO ONE (00:40)
--- NOTE | 2021-06-16 01:21 | XRay Report ---
CHEST 2 VIEWS INDICATION / CLINICAL INFORMATION: chest pain. COMPARISON: 06/10/20 FINDINGS: SUPPORT DEVICES: None. HEART / MEDIASTINUM: No significant abnormality. LUNGS / PLEURA: No significant pulmonary or pleural abnormality. No pneumothorax. ADDITIONAL FINDINGS: No significant additional findings. IMPRESSION: 1. No acute findings. No change. Signer Name: David Shrestha MD Signed: 06/16/2021 1:16 AM Workstation Name: [id number]
[2021-06-16 01:34] LABS: Basophils % (Auto) 0.5 % (0.0-1.8); Eosinophils # (Auto) 0.1 K/mm3 (0.0-0.4); Hematocrit 33.8 % (30.3-42.9); Hemoglobin 10.7 gm/dl (10.1-14.3); Lymphocytes # (Auto) 3.2 K/mm3 (1.2-5.4); Lymphocytes % (Auto) 36.9 % (13.4-35.0); Mean Corpuscular HGB Conc 32 % (30-34); Mean Corpuscular Volume 82 fl (79-97); Monocytes # (Auto) 0.6 K/mm3 (0.0-0.8); Monocytes % (Auto) 7.4 % (0.0-7.3); Platelet Count 385 K/mm3 (140-440); Red Blood Count 4.13 M/mm3 (3.65-5.03); Red Cell Distribution Width 13.7 % (13.2-15.2)
[2021-06-16 01:52] LABS: Alanine Aminotransferase 13 units/L (7-56); Albumin 3.1 g/dL (3.9-5); BUN/Creatinine Ratio 12; Blood Urea Nitrogen 43 mg/dL (7-17); Calcium 9.1 mg/dL (8.4-10.2); Hemolysis Index 2
[2021-06-16 02:17] LABS: Chol/HDL Ratio 6.34 %; HDL Cholesterol 64 mg/dL (40-59); LDL Cholesterol,Direct 321 mg/dL (50-130)
--- NOTE | 2021-06-16 11:13 | Electrocardiograph Report ---
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
== END 2021-06-16 07:15 | disposition left against medical advice (07) ==
LOC: ED 23:29
DX: R07.89 Other chest pain (principal); Z53.21 Procedure and treatment not carried out due to patient leaving prior to being seen by health care provider
CPT/HCPCS: 36415; 71046; 80053; 80061; 84484; 85025; 93005

== ENCOUNTER 2022-01-10 12:23 | Emergency (ER) | payer MEDICAID ==
--- NOTE | 2022-01-10 12:41 | Emergency Department Report ---
ED General Adult HPI - General Stated complaint: KIDNEY FELLING Time Seen by Provider: 01/10/22 12:33 - History of Present Illness Initial comments: Patient was sent here by her regular doctor due to elevated creatinine. Her creatinine was 5.5. She was told that she needed to come here because "her heart could stop due to potassium problems." She is not having chest pain or shortness of breath. Labs were drawn last week and they called her today for this. She does have a history of chronic kidney disease. Her oracle forms developer is Dr. Wilder. She is not on dialysis at this time. She does not have any IV access for dialysis. She states that this is related to her diabetes which has been difficult to control. - Related Data Previous Rx's Medication Instructions Recorded Last Taken Type Gabapentin 600 tab PO BID #90 cap 04/29/20 Unknown Rx HYDROcodone/APAP 10-325 [[place] 1 each PO Q6HR PRN #14 tablet 04/29/20 Unknown Rx 10-325 mg TAB] Insulin Glargine [Lantus VIAL] 70 units SUB-Q BID #10 ml 04/29/20 Unknown Rx Insulin Regular, Human [HumuLIN R] 0 units SUB-Q ACHS #10 ml 04/29/20 Unknown Rx Insulin Regular, Human [HumuLIN R] 15 units SUB-Q AC #30 ml 04/29/20 Unknown Rx amLODIPine 5 mg PO QDAY #30 tablet 04/29/20 Unknown Rx Aspirin EC [Halfprin EC] 81 mg PO QDAY 100 Days #100 06/12/20 Unknown Rx tablet. Furosemide [Lasix TAB] 40 mg PO Q3D 30 Days #10 tablet 06/12/20 Unknown Rx Gabapentin 600 mg PO BID #60 capsule 06/12/20 Unknown Rx Insulin Glargine,Hum.rec.anlog 75 unit SQ BID #15 insuln.pen 06/12/20 Unknown Rx [Basaglar Kwikpen U-100] Insulin Lispro [Humalog Kwikpen 10 unit SQ AC #5 insuln.pen 06/12/20 Unknown Rx U-200] Metoprolol [Lopressor TAB] 25 mg PO BID #60 tablet 06/12/20 Unknown Rx Pantoprazole [Protonix TAB] 40 mg PO QDAY #30 tablet 06/12/20 Unknown Rx Potassium Chloride [K-Dur] 20 meq PO Q3D #10 tablet 06/12/20 Unknown Rx Valsartan [Diovan] 160 mg PO QDAY #30 tablet 06/12/20 Unknown Rx Allergies Allergy/AdvReac Type Severity Reaction Status Date / Time No Known Allergies Allergy Verified 06/10/20 11:52 ED Review of Systems ROS: Stated complaint: KIDNEY FELLING Other details as noted in HPI Comment: All other systems reviewed and negative Constitutional: denies: fever Eyes: denies: vision change ENT: denies: epistaxis Respiratory: denies: cough Cardiovascular: denies: chest pain Endocrine: denies: unexplained weight loss Gastrointestinal: denies: abdominal pain Genitourinary: denies: dysuria Musculoskeletal: denies: back pain Skin: denies: rash Neurological: denies: headache Hematological/Lymphatic: denies: easy bruising ED Past Medical Hx - Past Medical History Hx Hypertension: Yes Hx Heart Attack/AMI: No Hx Congestive Heart Failure: Yes Hx Diabetes: Yes Hx GERD: Yes Hx Renal Disease: Yes (DEVON) Hx Arthritis: Yes Hx Headaches / Migraines: (MIGRAINES) Hx Seizures: Yes (With Preeclampsia) Hx Asthma: No Hx COPD: No Hx HIV: No Additional medical history: Home O2 user 3 liters since having Covid last year - Surgical History Additional Surgical History: eye surgery - Family History Family history: hypertension - Social History Smoking Status: Never Smoker - Medications Home Medications: Home Medications Medication Instructions Recorded Confirmed Last Taken Type Gabapentin 600 tab PO BID #90 cap 04/29/20 06/11/20 Unknown Rx HYDROcodone/APAP 10-325 [[place] 1 each PO Q6HR PRN #14 tablet 04/29/20 06/11/20 Unknown Rx 10-325 mg TAB] Insulin Glargine [Lantus VIAL] 70 units SUB-Q BID #10 ml 04/29/20 06/11/20 Unknown Rx Insulin Regular, Human [HumuLIN R] 0 units SUB-Q ACHS #10 ml 04/29/20 06/11/20 Unknown Rx Insulin Regular, Human [HumuLIN R] 15 units SUB-Q AC #30 ml 04/29/20 06/11/20 Unknown Rx amLODIPine 5 mg PO QDAY #30 tablet 04/29/20 06/11/20 Unknown Rx Aspirin EC [Halfprin EC] 81 mg PO QDAY 100 Days #100 06/12/20 Unknown Rx tablet. Furosemide [Lasix TAB] 40 mg PO Q3D 30 Days #10 tablet 06/12/20 Unknown Rx Gabapentin 600 mg PO BID #60 capsule 06/12/20 Unknown Rx Insulin Glargine,Hum.rec.anlog 75 unit SQ BID #15 insuln.pen 06/12/20 Unknown Rx [Basaglar Kwikpen U-100] Insulin Lispro [Humalog Kwikpen 10 unit SQ AC #5 insuln.pen 06/12/20 Unknown Rx U-200] Metoprolol [Lopressor TAB] 25 mg PO BID #60 tablet 06/12/20 Unknown Rx Pantoprazole [Protonix TAB] 40 mg PO QDAY #30 tablet 06/12/20 Unknown Rx Potassium Chloride [K-Dur] 20 meq PO Q3D #10 tablet 06/12/20 Unknown Rx Valsartan [Diovan] 160 mg PO QDAY #30 tablet 06/12/20 Unknown Rx ED Physical Exam - General Limitations: No Limitations, Other (Pulse ox noted and normal) General appearance: alert, in no apparent distress, obese - Head Head exam: Present: atraumatic, normocephalic - Eye Eye exam: Present: normal appearance, PERRL, EOMI - ENT ENT exam: Present: normal orophraynx, normal external ear exam - Neck Neck exam: Present: normal inspection. Absent: meningismus - Respiratory Respiratory exam: Present: normal lung sounds bilaterally. Absent: respiratory distress - Cardiovascular Cardiovascular Exam: Present: regular rate, normal rhythm - GI/Abdominal GI/Abdominal exam: Present: soft. Absent: distended, tenderness - Extremities Exam Extremities exam: Present: normal capillary refill, pedal edema (2+ bilateral) - Back Exam Back exam: Absent: CVA tenderness (R), CVA tenderness (L) - Neurological Exam Neurological exam: Present: alert, oriented X3, CN II-XII intact. Absent: motor sensory deficit - Psychiatric Psychiatric exam: Present: normal affect, normal mood - Skin Skin exam: Present: warm, dry ED Course Vital Signs 01/10/22 01/10/22 01/10/22 13:00 13:03 13:16 Temperature 98.4 F Pulse Rate 97 H 96 H 98 H Respiratory 19 18 22 Rate Blood Pressure 149/85 149/85 O2 Sat by Pulse 99 99 97 Oximetry 01/10/22 01/10/22 13:30 13:35 Temperature Pulse Rate 90 Respiratory 19 Rate Blood Pressure 149/85 O2 Sat by Pulse 96 98 Oximetry - Reevaluation(s) Reevaluation #1: 01/10/22 12:39 IV and labs were ordered. Old records reviewed. Reevaluation #2: 01/10/22 14:46 Labs are noted. Nephrology was paged. Reevaluation #3: 01/10/22 15:07 Labs are noted. Case was discussed with the staff on-call for Dr. Wilder. They will see the patient in follow-up. ED Medical Decision Making - Lab Data Result diagrams: 01/10/22 13:54 01/10/22 13:54 - Medical Decision Making Patient presents secondary to have elevated creatinine. She is asymptomatic. She has no chest pain or shortness of breath. She has no nausea or vomiting. Blood pressures been well controlled. At this time, I discussed the case with the staff on-call for Dr. Wilder. They will see the patient in follow-up in the office. She does not have hyperkalemia. She does not require admission. She may progress to warrant dialysis, but she does not need emergent intervention or dialysis at this point. Critical Care Time: No Critical care attestation.: If time is entered above; I have spent that time in minutes in the direct care of this critically ill patient, excluding procedure time. ED Disposition Clinical Impression: Elevated serum creatinine, Referred by health lawn care worker, CKD (chronic kidney disease) Disposition: 01 HOME / SELF CARE / HOMELESS Is pt being admited?: No Condition: Stable Instructions: Food Basics for Chronic Kidney Disease, Preventing Chronic Kidney Disease Additional Instructions: Continue to drink water. Avoid potassium and salt. Continue your home medication. Follow-up with your kidney doctor for recheck. Referrals: PRIMARY MD FRANCISCO [Referring] - 3-5 Days HECTOR WILDER MD [Staff Physician] - 3-5 Days
[2022-01-10 13:11] VITALS: BP 149/85
[2022-01-10 14:37] LABS: Hematocrit 33.3 % (30.3-42.9); Hemoglobin 10.6 gm/dl (10.1-14.3); Mean Corpuscular HGB Conc 32 % (30-34); Mean Corpuscular Volume 84 fl (79-97); Platelet Count 347 K/mm3 (140-440); Red Blood Count 3.96 M/mm3 (3.65-5.03); Red Cell Distribution Width 13.5 % (13.2-15.2)
[2022-01-10 14:43] LABS: Calcium 8.5 mg/dL (8.4-10.2)
== END 2022-01-10 16:01 | disposition home or self-care (01) ==
LOC: ED 12:23
DX: R94.4 Abnormal results of kidney function studies (principal); I13.2 Hypertensive heart and chronic kidney disease with heart failure and with stage 5 chronic kidney disease, or end stage renal disease; E11.22 Type 2 diabetes mellitus with diabetic chronic kidney disease; N18.6 End stage renal disease; Z99.2 Dependence on renal dialysis; I50.9 Heart failure, unspecified; K21.9 Gastro-esophageal reflux disease without esophagitis; G43.909 Migraine, unspecified, not intractable, without status migrainosus; M19.90 Unspecified osteoarthritis, unspecified site; R56.9 Unspecified convulsions; Z98.890 Other specified postprocedural states; Z79.899 Other long term (current) drug therapy
CPT/HCPCS: 36415; 80048; 82962; 83735; 85027; 99283

== ENCOUNTER 2022-02-16 13:32 | Inpatient (IN) | payer MEDICAID ==
[2022-02-16] MEDS ORDERED: IPRATROPIUM 0.02% NEBU 2.5 ML IH ONE ×2 (14:22→18:17)
[2022-02-16] MEDS ORDERED: PIPERACIL-TAZO 2.25 GM/50 ML 2.25 GM/50 ML BAG IV ONE (14:22)
[2022-02-16] MEDS ORDERED: VANCOMYCIN/NS 1 GM/250 ML 1 GM/250 ML BAG IV ONE (14:22)
[2022-02-16] MEDS ORDERED: ALBUTEROL 2.5 MG/3 ML NEBU IH ONE ×2 (14:22→18:17)
[2022-02-16] MEDS ORDERED: FUROSEMIDE 40 MG/4 ML INJ IV ONE (14:22)
--- NOTE | 2022-02-16 15:01 | XRay Report ---
XR chest 1V ap INDICATION / CLINICAL INFORMATION: CHF VS PNEUMONIA. COMPARISON: 06/16/2021 FINDINGS: Findings in the chest are accentuated by body habitus and phase of inspiration. SUPPORT DEVICES: None. HEART /PULMONARY VASCULATURE: Cardiac silhouette is enlarged without significant pulmonary vasculatur e congestion. LUNGS / PLEURA: No significant pulmonary or pleural abnormality. No pneumothorax. IMPRESSION: Cardiac enlargement without overt failure or other acute chest process. Signer Name: Salty Street MD Signed: 02/16/2022 2:56 PM Workstation Name: [id number]
--- NOTE | 2022-02-16 15:33 | Ultrasound Report ---
ULTRASOUND BREAST LEFT COMPLETE, 02/16/2022 CLINICAL INFORMATION / INDICATION: LEFT BREAST CELLULITIS EVAL FOR ABSCESS. Patient is currently in [facility] Emergency Department. TECHNIQUE: Complete sonographic evaluation of all 4 quadrants and retroareolar region was performed. COMPARISON: None available FINDINGS: Complete ultrasound of the left breast reveals diffuse edematous change and skin thickening with asso ciated hypervascularity. There is a more complex, heterogeneous focal hypoechoic area in the subareol ar left breast measuring up to approximately 2.4 x 1.8 x 3.7 cm which may reflect a developing absces s. IMPRESSION: 1. Diffuse edematous change of the left breast most likely reflects mastitis given the provided clini theo history. There is a more focal, heterogeneous hypoechoic area in the subareolar left breast which may reflect a developing abscess. 2. Recommend a diagnostic mammogram and a repeat left breast ultrasound following treatment of the ac [place] episode to ensure resolution. Follow up recommendation: Short term interval follow up BI-RADS Category 0: INCOMPLETE. Needs additional imaging evaluation and/or prior mammograms for aileen cody. A normal or "negative" report should not preclude biopsy or follow-up of a clinically suspicious find ing. Signer Name: Belem Du MD Signed: 02/16/2022 3:29 PM Workstation Name: [id number]
[2022-02-16 15:55] LABS: Basophils % (Auto) 0.6 % (0.0-1.8); Eosinophils # (Auto) 0.1 K/mm3 (0.0-0.4); Hematocrit 32.1 % (30.3-42.9); Hemoglobin 10.3 gm/dl (10.1-14.3); Lymphocytes # (Auto) 1.6 K/mm3 (1.2-5.4); Lymphocytes % (Auto) 22.2 % (13.4-35.0); Mean Corpuscular HGB Conc 32 % (30-34); Mean Corpuscular Volume 84 fl (79-97); Monocytes # (Auto) 0.6 K/mm3 (0.0-0.8); Monocytes % (Auto) 8.6 % (0.0-7.3); Platelet Count 290 K/mm3 (140-440); Red Blood Count 3.81 M/mm3 (3.65-5.03); Red Cell Distribution Width 14.2 % (13.2-15.2)
[2022-02-16 16:05] LABS: INR 0.99 (0.87-1.13)
[2022-02-16 16:26] LABS: Albumin 2.8 g/dL (3.9-5); Calcium 8.4 mg/dL (8.4-10.2)
[2022-02-16 16:54] LABS: Chol/HDL Ratio 2.78 %
--- NOTE | 2022-02-16 17:21 | Emergency Department Report ---
ED General Adult HPI - General Chief complaint: Urogenital-Female Stated complaint: CALISTA PUI?: No Source: patient, family Mode of arrival: Wheelchair Limitations: No Limitations - History of Present Illness Initial comments: This patient is complaining of approximately 4 to 5-day history of left breast swelling, pain especially around the areola and warmth to touch Patient also complained of diffuse body swelling associated with dyspnea on exertion. -: Gradual, days(s) Location: left (Breast swelling, painful, warm to touch) Radiation: non-radiation Severity scale (0 -10): 6 Quality: burning, aching Consistency: constant Improves with: none Associated Symptoms: shortness of breath, other (Associated also with diffuse body swelling, orthopnea and dyspnea on exertion). denies: confusion, chest pain, cough, diaphoresis, fever/chills, headaches, loss of appetite, malaise, nausea/vomiting, rash, seizure - Related Data Home Medications Medication Instructions Recorded Confirmed Last Taken Amoxicillin [Trimox CAP] 500 mg PO QDAY 01/10/22 01/10/22 Unknown Ascorbic Acid [Vitamin C] 1,000 mg PO QDAY 01/10/22 01/10/22 Unknown Furosemide [Lasix TAB] 40 mg PO QDAY 01/10/22 01/10/22 Unknown Gabapentin [Neurontin] 600 mg PO QDAY 01/10/22 01/10/22 Unknown Insulin Glargine,Hum.rec.anlog 70 unit SQ BID 01/10/22 01/10/22 Unknown [Basaglar Kwikpen U-100] Metoprolol [Lopressor TAB] 50 mg PO QDAY 01/10/22 01/10/22 Unknown Zinc [Zinc 50mg TAB] 50 mg PO QDAY 01/10/22 01/10/22 Unknown traMADoL [Ultram] 50 mg PO QDAY PRN 01/10/22 01/10/22 Unknown Previous Rx's Medication Instructions Recorded Last Taken Type Pantoprazole [Protonix TAB] 40 mg PO QDAY #30 tablet 06/12/20 Unknown Rx Allergies Allergy/AdvReac Type Severity Reaction Status Date / Time No Known Allergies Allergy Verified 02/16/22 13:44 ED Review of Systems ROS: Stated complaint: CALISTA Other details as noted in HPI Comment: All other systems reviewed and negative Respiratory: see HPI Skin: as per HPI ED Past Medical Hx - Past Medical History Hx Hypertension: Yes Hx Heart Attack/AMI: No Hx Congestive Heart Failure: Yes Hx Diabetes: Yes Hx GERD: Yes Hx Renal Disease: Yes (DEVON) Hx Arthritis: Yes Hx Headaches / Migraines: (MIGRAINES) Hx Seizures: Yes (With Preeclampsia) Hx Asthma: No Hx COPD: No Hx HIV: No Additional medical history: Home O2 user 3 liters since having Covid last year - Surgical History Past Surgical History?: No Additional Surgical History: eye surgery - Social History Smoking Status: Never Smoker Substance Use Type: None - Medications Home Medications: Home Medications Medication Instructions Recorded Confirmed Last Taken Type Pantoprazole [Protonix TAB] 40 mg PO QDAY #30 tablet 06/12/20 01/10/22 Unknown Rx Amoxicillin [Trimox CAP] 500 mg PO QDAY 01/10/22 01/10/22 Unknown History Ascorbic Acid [Vitamin C] 1,000 mg PO QDAY 01/10/22 01/10/22 Unknown History Furosemide [Lasix TAB] 40 mg PO QDAY 01/10/22 01/10/22 Unknown History Gabapentin [Neurontin] 600 mg PO QDAY 01/10/22 01/10/22 Unknown History Insulin Glargine,Hum.rec.anlog 70 unit SQ BID 01/10/22 01/10/22 Unknown History [Basaglar Kwikpen U-100] Metoprolol [Lopressor TAB] 50 mg PO QDAY 01/10/22 01/10/22 Unknown History Zinc [Zinc 50mg TAB] 50 mg PO QDAY 01/10/22 01/10/22 Unknown History traMADoL [Ultram] 50 mg PO QDAY PRN 01/10/22 01/10/22 Unknown History ED Physical Exam - General Limitations: No Limitations General appearance: alert - Head Head exam: Present: atraumatic, normocephalic - Eye Eye exam: Present: normal appearance - ENT ENT exam: Present: mucous membranes moist - Neck Neck exam: Present: normal inspection - Respiratory Respiratory exam: Present: decreased breath sounds. Absent: respiratory distress - Cardiovascular Cardiovascular Exam: Present: regular rate, normal rhythm. Absent: systolic murmur, diastolic murmur, rubs, gallop - GI/Abdominal GI/Abdominal exam: Present: soft, normal bowel sounds - Extremities Exam Extremities exam: Present: normal inspection - Back Exam Back exam: Present: normal inspection - Neurological Exam Neurological exam: Present: alert, oriented X3 - Psychiatric Psychiatric exam: Present: normal affect, normal mood - Skin Skin exam: Present: warm, dry, intact, normal color, erythema (Patient has diffuse mild body swelling consistent with anasarca, patient also with left breast erythema, tenderness, warmth with increased tenderness around the left areola). Absent: rash ED Course Vital Signs 02/16/22 02/16/22 02/16/22 14:14 14:27 15:31 Temperature 97.5 F L 97.5 F L Pulse Rate 102 H 99 H 95 H Respiratory 18 21 19 Rate Blood Pressure 140/93 Blood Pressure 124/88 132/83 [Right] O2 Sat by Pulse 99 100 Oximetry 02/16/22 15:35 Temperature Pulse Rate Respiratory Rate Blood Pressure Blood Pressure [Right] O2 Sat by Pulse 100 Oximetry ED Medical Decision Making - Lab Data Result diagrams: 02/16/22 15:30 02/16/22 15:30 - EKG Data -: EKG Interpreted by Me EKG shows normal: sinus rhythm Rate: normal - EKG Data When compared to previous EKG there are: no significant change Interpretation: nonspecific ST-T wave edgar - Differential Diagnosis Anasarca, acute renal failure, CHF, left breast cellulitis with abscess, Critical care attestation.: If time is entered above; I have spent that time in minutes in the direct care of this critically ill patient, excluding procedure time. ED Disposition Clinical Impression: [id number] renal failure, Cellulitis of left breast, Abscess of left breast Condition: Stable Referrals: KODAK BARRIENTOS DO [Primary Care Provider] - 3-5 Days
--- NOTE | 2022-02-16 18:04 | History and Physical Report ---
History of Present Illness Date of examination: 02/16/22 Date of admission: February 16, 2022 Chief complaint: Left breast pain and redness. History of present illness: 51-year-old -[place] female with morbid obesity past medical history of insulin-dependent diabetes, hypertension and CHF comes in for spontaneous onset of redness and pain in the left breast. Patient also retaining fluid all over the body for the past 3 to 4 weeks. Pain in the left breast is about 8 on a scale of 1-10. Complains of orthopnea. Left breast is apparently tender to touch. Any movement is an exacerbating factor. Rest is a relieving factor. No fever or chills. - Past Medical History --Hypertension: Yes --Heart Attack/AMI: No --Congestive Heart Failure: Yes --Diabetes: Yes --GERD: Yes --Renal Disease: Yes (DEVON) --Arthritis: Yes --Headaches / Migraines: (MIGRAINES) --Seizures: Yes (With Preeclampsia) --Additional medical history: Home O2 user 3 liters since having Covid last year - Surgical History --Past Surgical History?: No --Additional Surgical History: eye surgery - Social History --Smoking Status: Never Smoker --Substance Use Type: None Review of Systems ROS: Stated complaint: CALISTA Other details as noted in HPI Comment: All other systems reviewed and negative Respiratory: see HPI Skin: as per HPI Medications and Allergies Allergies Allergy/AdvReac Type Severity Reaction Status Date / Time No Known Allergies Allergy Verified 02/16/22 13:44 Home Medications Medication Instructions Recorded Confirmed Last Taken Type Pantoprazole [Protonix TAB] 40 mg PO QDAY #30 tablet 06/12/20 01/10/22 Unknown Rx Amoxicillin [Trimox CAP] 500 mg PO QDAY 01/10/22 01/10/22 Unknown History Ascorbic Acid [Vitamin C] 1,000 mg PO QDAY 01/10/22 01/10/22 Unknown History Furosemide [Lasix TAB] 40 mg PO QDAY 01/10/22 01/10/22 Unknown History Gabapentin [Neurontin] 600 mg PO QDAY 01/10/22 01/10/22 Unknown History Insulin Glargine,Hum.rec.anlog 70 unit SQ BID 01/10/22 01/10/22 Unknown History [Ailyn Cid U-100] Metoprolol [Lopressor TAB] 50 mg PO QDAY 01/10/22 01/10/22 Unknown History Zinc [Zinc 50mg TAB] 50 mg PO QDAY 01/10/22 01/10/22 Unknown History traMADoL [Ultram] 50 mg PO QDAY PRN 01/10/22 01/10/22 Unknown History Exam - Constitutional Vitals: Temp Pulse Resp BP Pulse Ox 97.5 F L 95 H 19 132/83 100 02/16/22 14:27 02/16/22 15:31 02/16/22 15:31 02/16/22 15:31 02/16/22 15:35 General appearance: Present: mild distress, well-nourished - EENT Eyes: Present: PERRL ENT: hearing intact, clear oral mucosa - Neck Neck: Present: supple, normal ROM - Respiratory Respiratory effort: normal Respiratory: bilateral: CTA Details: Left breast red and tender around the perianal area - Cardiovascular Heart rate: 78 Rhythm: regular Heart Sounds: Present: S1 & S2. Absent: rub, click - Extremities Extremities: no ischemia, pulses intact, pulses symmetrical, No edema Peripheral Pulses: within normal limits - Abdominal General gastrointestinal: Present: soft, non-tender, non-distended, normal bowel sounds Female genitourinary: Present: normal - Rectal Rectal Exam: deferred - Integumentary Integumentary: Present: clear, warm, dry - Musculoskeletal Musculoskeletal: gait normal, strength equal bilaterally - Psychiatric Psychiatric: appropriate mood/affect, intact judgment & insight - Neurologic Neurologic: CNII-XII intact, moves all extremities - Allied Health Allied health notes reviewed: nursing, case management HEART Score - HEART Score Troponin: Troponin T 0.129 ng/mL (0.00-0.029) H* 02/16/22 15:30 Results - Labs CBC & Chem 7: 02/16/22 15:30 02/16/22 15:30 Labs: Laboratory Last Values WBC 7.2 K/mm3 (4.5-11.0) 02/16/22 15:30 RBC 3.81 M/mm3 (3.65-5.03) 02/16/22 15:30 Hgb 10.3 gm/dl (10.1-14.3) 02/16/22 15:30 Hct 32.1 % (30.3-42.9) 02/16/22 15:30 MCV 84 fl (79-97) 02/16/22 15:30 MCH 27 pg (28-32) L 02/16/22 15:30 MCHC 32 % (30-34) 02/16/22 15:30 RDW 14.2 % (13.2-15.2) 02/16/22 15:30 Plt Count 290 K/mm3 (140-440) 02/16/22 15:30 Lymph % (Auto) 22.2 % (13.4-35.0) 02/16/22 15:30 [place] % (Auto) 8.6 % (0.0-7.3) H 02/16/22 15:30 Eos % (Auto) 1.0 % (0.0-4.3) 02/16/22 15:30 Baso % (Auto) 0.6 % (0.0-1.8) 02/16/22 15:30 Lymph # (Auto) 1.6 K/mm3 (1.2-5.4) 02/16/22 15:30 [place] # (Auto) 0.6 K/mm3 (0.0-0.8) 02/16/22 15:30 Eos # (Auto) 0.1 K/mm3 (0.0-0.4) 02/16/22 15:30 Baso # (Auto) 0.0 K/mm3 (0.0-0.1) 02/16/22 15:30 Seg Neutrophils % 67.6 % (40.0-70.0) 02/16/22 15:30 Seg Neutrophils # 4.9 K/mm3 (1.8-7.7) 02/16/22 15:30 PT 14.2 Sec. (12.2-14.9) 02/16/22 15:30 INR 0.99 (0.87-1.13) 02/16/22 15:30 Sodium 144 mmol/L (137-145) 02/16/22 15:30 Potassium 4.8 mmol/L (3.6-5.0) 02/16/22 15:30 Chloride 113.7 mmol/L (98-107) H 02/16/22 15:30 Carbon Dioxide 19 mmol/L (22-30) L 02/16/22 15:30 Anion Gap 16 mmol/L 02/16/22 15:30 BUN 42 mg/dL (7-17) H 02/16/22 15:30 Creatinine 5.0 mg/dL (0.6-1.2) H 02/16/22 15:30 Estimated GFR 11 ml/min 02/16/22 15:30 BUN/Creatinine Ratio 8 % 02/16/22 15:30 Glucose 135 mg/dL (65-100) H 02/16/22 15:30 Lactic Acid 1.00 mmol/L (0.7-2.0) 02/16/22 15:30 Calcium 8.4 mg/dL (8.4-10.2) 02/16/22 15:30 Total Bilirubin 0.20 mg/dL (0.1-1.2) 02/16/22 15:30 AST 16 units/L (5-40) 02/16/22 15:30 ALT 17 units/L (7-56) 02/16/22 15:30 Alkaline Phosphatase 120 units/L (35-129) 02/16/22 15:30 Troponin T 0.129 ng/mL (0.00-0.029) H* 02/16/22 15:30 NT-Pro-B Natriuret Pep 8264 pg/mL (0-900) H 02/16/22 15:30 Total Protein 5.9 g/dL (6.3-8.2) L 02/16/22 15:30 Albumin 2.8 g/dL (3.9-5) L 02/16/22 15:30 Albumin/Globulin Ratio 0.9 % 02/16/22 15:30 Triglycerides 97 mg/dL (2-149) 02/16/22 15:30 Cholesterol 287 mg/dL (50-199) H 02/16/22 15:30 LDL Cholesterol Direct 184 mg/dL (50-130) H 02/16/22 15:30 HDL Cholesterol 103 mg/dL (40-59) H 02/16/22 15:30 Cholesterol/HDL Ratio 2.78 % 02/16/22 15:30 Short CBC 02/16/22 Range/Units 15:30 WBC 7.2 (4.5-11.0) K/mm3 Hgb 10.3 (10.1-14.3) gm/dl Hct 32.1 (30.3-42.9) % Plt Count 290 (140-440) K/mm3 BMP 02/16/22 15:30 Sodium 144 Potassium 4.8 Chloride 113.7 H Carbon Dioxide 19 L BUN 42 H Creatinine 5.0 H Glucose 135 H Calcium 8.4 Cardiac Enzymes 02/16/22 Range/Units 15:30 Troponin T 0.129 H* (0.00-0.029) ng/mL Liver Function 02/16/22 Range/Units 15:30 Total Bilirubin 0.20 (0.1-1.2) mg/dL AST 16 (5-40) units/L ALT 17 (7-56) units/L Alkaline Phosphatase 120 (35-129) units/L Albumin 2.8 L (3.9-5) g/dL Microbiology: Microbiology 02/16/22 15:30 Peripheral/Venous Blood Culture - Preliminary Culture in Progress 02/16/22 15:30 Peripheral/Venous Blood Culture - Preliminary Culture in Progress - Imaging and Cardiology Chest x-ray: report reviewed Imaging and Cardiology: Breast ultrasound Diffuse erythematous change of the left breast most likely reflects mastitis. There is a multifocal heterogenous hypoechoic area in the subareolar left breast which may reflect a developing abscess. Recommend a diagnostic mammogram and repeat left breast ultrasound following treatment of the acute episode to entire resolution. Chest x-ray cardiac enlargement without overt failure or other acute chest process. Assessment and Plan Advance Directives: Yes (Full code) VTE prophylaxis?: Chemical Plan of care discussed with patient/family: Yes - Patient Problems (1) Cellulitis of left breast Current Visit: Yes Status: Acute Plan to address problem: Cellulitis and abscess of left breast Surgery and IR consult requested IR consult at surgeon's request IV Unasyn and IV vancomycin initiated (2) Hypertension Current Visit: Yes Status: Chronic Qualifiers: Hypertension type: primary hypertension Qualified Code(s): I10 - Essential (primary) hypertension Plan to address problem: Continue antihypertensives (3) DEVON (acute kidney injury) Current Visit: Yes Status: Acute Plan to address problem: DEVON superimposed upon chronic kidney disease Her creatinine was around 3.5 in June 2021 Patient did not follow-up with nephrology as requested Today the creatinine is around 5.0 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 Roman at the time of discharge (7) GERD (gastroesophageal reflux disease) Current Visit: Yes Status: Chronic Qualifiers: Esophagitis presence: without esophagitis Qualified Code(s): K21.9 - Gastro-esophageal reflux disease without esophagitis Plan to address problem: Continue PPIs (8) Elevated troponin Current Visit: Yes Status: Chronic Plan to address problem: Secondary to troponin leak (9) Hyperlipidemia Current Visit: Yes Status: Chronic Qualifiers: Hyperlipidemia type: mixed hyperlipidemia Qualified Code(s): E78.2 - Mixed hyperlipidemia Plan to address problem: Statins initiated (10) DVT prophylaxis Current Visit: Yes Status: Acute Plan to address problem: On anticoagulation GI prophylaxis (11) Advance care planning Current Visit: Yes Status: Acute Plan to address problem: Disease education conducted, care plan discussed, diagnosis discussed. Prognosis discussed. Patient is full code. Patient acknowledges understanding and agreement with care plan. +30 minutes.
[2022-02-16] MEDS ORDERED: NON-FORMULARY EACH (Ascorbic Acid [Vitamin C] 1,000 MG Tablet) PO SCH (19:15)
[2022-02-16] MEDS ORDERED: NON-FORMULARY EACH (Gabapentin [Neurontin] 600 MG Tablet) PO SCH (19:15)
[2022-02-16] MEDS ORDERED: ACETAMINOPHEN 325 MG TAB PO PRN (19:18)
[2022-02-16] MEDS ORDERED: METOCLOPRAMIDE 10 MG/2 ML INJ IV PRN (19:20)
[2022-02-16] MEDS ORDERED: INSULIN LISPRO 100 UNIT/ML SUB-Q ONE (19:27)
[2022-02-16] MEDS ORDERED: SODIUM CHLORIDE 0.9% 1000 ML 1,000 ML IV SCH (19:30)
[2022-02-16] MEDS ORDERED: FUROSEMIDE 40 MG TAB PO SCH (20:00)
[2022-02-16] MEDS ORDERED: VANCOMYCIN PHARMACY TO DOSE IV SCH (20:00)
[2022-02-16] MEDS: GABAPENTIN 300 MG CAP PO SCH (20:14)
[2022-02-16] MEDS: PANTOPRAZOLE 40 MG TAB PO SCH (20:14)
[2022-02-16] MEDS: METOPROLOL TARTRATE 50 MG TAB PO SCH (20:14)
[2022-02-16] MEDS ORDERED: VANCOMYCIN 2,000 MG in SODIUM CHLORIDE 0.9% 500 ML 500 ML IV ONE (21:00)
[2022-02-16] MEDS: SULBACTAM IV SCH (21:29)
[2022-02-16] MEDS: AMPICILLIN IV SCH (21:29)
[2022-02-16] MEDS: SODIUM CHLORIDE 0.9% IV SCH (21:29)
[2022-02-16] MEDS ORDERED: NON-FORMULARY EACH (Insulin Glargine,Hum.Rec.Anlog [Basaglar Kwikpen U-100] 100 UNIT/ML In SQ SCH (22:00)
[2022-02-17] MEDS: GABAPENTIN 300 MG CAP PO SCH ×3 (00:18→06:04)
[2022-02-17] MEDS: oxyCODONE /ACETAMINOPHEN 5-325MG TAB PO PRN ×2 (00:18→13:07)
[2022-02-17] MEDS: ASCORBIC ACID 500 MG TAB PO SCH ×3 (00:18→11:08)
[2022-02-17] MEDS: HEPARIN 5,000 UNIT/1 ML VIAL SUB-Q SCH ×3 (00:19→22:55)
[2022-02-17] MEDS: INSULIN GLARGINE 100 UNITS/ML SUB-Q SCH ×4 (00:22→22:56)
[2022-02-17] MEDS: AMPICILLIN IV SCH ×2 (05:56→13:07)
[2022-02-17] MEDS: SULBACTAM IV SCH ×2 (05:56→13:07)
[2022-02-17] MEDS: SODIUM CHLORIDE 0.9% IV SCH ×2 (05:56→13:07)
--- NOTE | 2022-02-17 08:53 | Consultation ---
History of Present Illness - Reason for Consult Consult date: 02/17/22 Left breast abscess - History of Present Illness Patient with a history of chronic renal failure with progressive bilateral swelling over the last month that noticed over the last month that her left breast began to enlarge asymmetrically. Additionally, there are cutaneous changes along the medial aspect of the breast. Ultimately the patient presented to the hospital and was found to have inflammatory changes in the medial aspect of the breast. The patient has had a mammogram over a year ago and has 1 scheduled this month. Patient states that there is a family history of breast cancer with her aunt dying of breast cancer. Currently, her breast feels less swollen since admission. Patient is currently on oxygen. Past History Past Medical History: ESRD Medications and Allergies Allergies Allergy/AdvReac Type Severity Reaction Status Date / Time No Known Allergies Allergy Verified 02/16/22 13:44 Home Medications Medication Instructions Recorded Confirmed Last Taken Type Pantoprazole [Protonix TAB] 40 mg PO QDAY #30 tablet 06/12/20 01/10/22 Unknown Rx Amoxicillin [Trimox CAP] 500 mg PO QDAY 01/10/22 01/10/22 Unknown History Ascorbic Acid [Vitamin C] 1,000 mg PO QDAY 01/10/22 01/10/22 Unknown History Furosemide [Lasix TAB] 40 mg PO QDAY 01/10/22 01/10/22 Unknown History Gabapentin [Neurontin] 600 mg PO QDAY 01/10/22 01/10/22 Unknown History Insulin Glargine,Hum.rec.anlog 70 unit SQ BID 01/10/22 01/10/22 Unknown History [Basaglar Kwiksaima U-100] Metoprolol [Lopressor TAB] 50 mg PO QDAY 01/10/22 01/10/22 Unknown History Zinc [Zinc 50mg TAB] 50 mg PO QDAY 01/10/22 01/10/22 Unknown History traMADoL [Ultram] 50 mg PO QDAY PRN 01/10/22 01/10/22 Unknown History Active Meds: Active Medications Acetaminophen (Acetaminophen 325 Mg Tab) 650 mg PO Q4H PRN PRN Reason: Pain MILD(1-3)/Fever >100.5/ALY Ascorbic Acid (Ascorbic Acid 500 Mg Tab) 1,000 mg PO QDAY [facility] Last Admin: 02/17/22 06:04 Dose: Not Given Furosemide (Furosemide 40 Mg Tab) 40 mg PO QDAY [facility] Last Admin: 02/17/22 00:17 Dose: 40 mg Gabapentin (Gabapentin 300 Mg Cap) 600 mg PO Q8HR [facility] Last Admin: 02/17/22 06:04 Dose: 600 mg Heparin Sodium (Porcine) (Heparin 5,000 Unit/1 Ml Vial) 5,000 unit SUB-Q Q12HR [facility] Last Admin: 02/17/22 00:19 Dose: 5,000 unit Hydromorphone HCl (Hydromorphone 1 Mg/1 Ml Inj) 0.5 mg IV Q3H PRN PRN Reason: Pain , Severe (7-10) Ampicillin Sodium/Sulbactam (Sodium 1.5 gm/ Sodium Chloride) 50 mls @ 200 mls/hr IV Q8H [facility]; Protocol Last Admin: 02/17/22 05:56 Dose: 200 mls/hr Sodium Chloride (Nacl 0.9% 1000 Ml) 1,000 mls @ 75 mls/hr IV DIRECT [facility] Stop: 02/17/22 18:00 Insulin Glargine (Insulin Glargine 100 Units/Ml) 70 units SUB-Q BID [facility] Last Admin: 02/17/22 06:04 Dose: Not Given Metoclopramide HCl (Metoclopramide 10 Mg/2 Ml Inj) 10 mg IV Q6H PRN PRN Reason: Nausea And Vomiting Metoprolol Tartrate (Metoprolol Tartrate 50 Mg Tab) 50 mg PO QDAY [facility] Last Admin: 02/16/22 20:14 Dose: 50 mg Morphine Sulfate (Morphine 2 Mg/1 Ml Inj) 2 mg IV Q4H PRN PRN Reason: Pain, Moderate (4-6) Ondansetron HCl (Ondansetron 4 Mg/2 Ml Inj) 4 mg IV Q3H PRN PRN Reason: Nausea And Vomiting Oxycodone/Acetaminophen (Oxycodone /Acetaminophen 5-325mg Tab) 1 tab PO Q6H PRN PRN Reason: Pain, Moderate (4-6) Last Admin: 02/17/22 00:18 Dose: 1 tab Pantoprazole Sodium (Pantoprazole 40 Mg Tab) 40 mg PO QDAY [facility] Last Admin: 02/16/22 20:14 Dose: 40 mg Sodium Chloride (Sodium Chloride 0.9% 10 Ml Flush Syringe) 10 ml IV BID [facility] Last Admin: 02/17/22 00:22 Dose: 10 ml Sodium Chloride (Sodium Chloride 0.9% 10 Ml Flush Syringe) 10 ml IV PRN PRN PRN Reason: LINE FLUSH Zinc Sulfate (Zinc Sulfate 220 Mg Cap) 220 mg PO QDAY [facility] Review of Systems All systems: negative Exam - Constitutional Vitals: Temp Pulse Resp BP Pulse Ox 97.7 F 72 20 136/87 97 02/17/22 05:51 02/17/22 05:51 02/17/22 05:51 02/17/22 05:51 02/17/22 07:40 General appearance: Present: no acute distress, obese - EENT Eyes: Present: EOM intact ENT: hearing intact - Neck Neck: Present: supple, normal ROM - Respiratory Respiratory effort: normal - Abdominal General gastrointestinal: Present: deferred Female genitourinary: Present: deferred - Rectal Rectal Exam: deferred - Psychiatric Psychiatric: appropriate mood/affect, cooperative - Additional findings Additional findings: Medial left aspect of left breast with skin thickening and discoloration. No nipple retraction. Results - Labs CBC & Chem 7: 02/16/22 15:30 02/16/22 15:30 Labs: Abnormal lab results 02/16/22 02/16/22 02/16/22 Range/Units 13:38 15:30 15:30 MCH 27 L (28-32) pg [place] % (Auto) 8.6 H (0.0-7.3) % Chloride 113.7 H (98-107) mmol/L Carbon Dioxide 19 L (22-30) mmol/L BUN 42 H (7-17) mg/dL Creatinine 5.0 H (0.6-1.2) mg/dL Glucose 135 H (65-100) mg/dL POC Glucose 141 H (70-105) mg/dL Troponin T 0.129 H* (0.00-0.029) ng/mL NT-Pro-B Natriuret Pep (0-900) pg/mL Total Protein 5.9 L (6.3-8.2) g/dL Albumin 2.8 L (3.9-5) g/dL Cholesterol 287 H (50-199) mg/dL LDL Cholesterol Direct 184 H (50-130) mg/dL HDL Cholesterol 103 H (40-59) mg/dL 02/16/22 02/17/22 Range/Units 15:30 00:19 MCH (28-32) pg [place] % (Auto) (0.0-7.3) % Chloride (98-107) mmol/L Carbon Dioxide (22-30) mmol/L BUN (7-17) mg/dL Creatinine (0.6-1.2) mg/dL Glucose (65-100) mg/dL POC Glucose 109 H (70-105) mg/dL Troponin T (0.00-0.029) ng/mL NT-Pro-B Natriuret Pep 8264 H (0-900) pg/mL Total Protein (6.3-8.2) g/dL Albumin (3.9-5) g/dL Cholesterol (50-199) mg/dL LDL Cholesterol Direct (50-130) mg/dL HDL Cholesterol (40-59) mg/dL - Imaging and Cardiology Venous US: image reviewed (Breast ultrasound) Assessment and Plan Patient with a history of 1 month of worsening left breast swelling. She does not have any inciting events to create abscess in this area. Patient will need further evaluation with surgery/breast surgery as well as mammography. Given the patient's family history of breast cancer, inflammatory carcinoma is a possibility. Patient is scheduled for mammogram today. Review of the ultrasound demonstrates developing hypoechogenicity along the medial inferior aspect of the left breast. Currently not organized enough to be drained. Would want evaluation by general surgery/breast surgery as well as mammography prior to proceeding forward. The patient will need repeat ultrasound of her breast in 2 to 3 days to determine if this area would need percutaneous drainage/needle aspiration versus evaluation for breast carcinoma.
--- NOTE | 2022-02-17 09:21 | Consultation ---
History of Present Illness - Reason for Consult Consult date: 02/17/22 acute renal failure, chronic renal failure - History of Present Illness History of present illness: 51-year-old -[place] female with morbid obesity past medical history of insulin-dependent diabetes, hypertension and CHF comes in for spontaneous onset of redness and pain in the left breast. Patient also retaining fluid all over the body for the past 3 to 4 weeks. Pain in the left breast is about 8 on a scale of 1-10. Complains of orthopnea. Left breast is apparently tender to touch. Any movement is an exacerbating factor. Rest is a relieving factor. No fever or chills. - Past Medical History --Hypertension: Yes --Heart Attack/AMI: No --Congestive Heart Failure: Yes --Diabetes: Yes --GERD: Yes --Renal Disease: Yes (DEVON) --Arthritis: Yes --Headaches / Migraines: (MIGRAINES) --Seizures: Yes (With Preeclampsia) --Additional medical history: Home O2 user 3 liters since having Covid last year - Surgical History --Past Surgical History?: No --Additional Surgical History: eye surgery - Social History --Smoking Status: Never Smoker --Substance Use Type: None Review of Systems ROS: Stated complaint: CALISTA Other details as noted in HPI Comment: All other systems reviewed and negative Respiratory: see HPI Skin: as per HPI Past History Past Medical History: ESRD Medications and Allergies Allergies Allergy/AdvReac Type Severity Reaction Status Date / Time No Known Allergies Allergy Verified 02/16/22 13:44 Home Medications Medication Instructions Recorded Confirmed Last Taken Type Pantoprazole [Protonix TAB] 40 mg PO QDAY #30 tablet 06/12/20 01/10/22 Unknown Rx Amoxicillin [Trimox CAP] 500 mg PO QDAY 01/10/22 01/10/22 Unknown History Ascorbic Acid [Vitamin C] 1,000 mg PO QDAY 01/10/22 01/10/22 Unknown History Furosemide [Lasix TAB] 40 mg PO QDAY 01/10/22 01/10/22 Unknown History Gabapentin [Neurontin] 600 mg PO QDAY 01/10/22 01/10/22 Unknown History Insulin Glargine,Hum.rec.anlog 70 unit SQ BID 01/10/22 01/10/22 Unknown History [Ailyn Cid U-100] Metoprolol [Lopressor TAB] 50 mg PO QDAY 01/10/22 01/10/22 Unknown History Zinc [Zinc 50mg TAB] 50 mg PO QDAY 01/10/22 01/10/22 Unknown History traMADoL [Ultram] 50 mg PO QDAY PRN 01/10/22 01/10/22 Unknown History Active Meds: Active Medications Acetaminophen (Acetaminophen 325 Mg Tab) 650 mg PO Q4H PRN PRN Reason: Pain MILD(1-3)/Fever >100.5/[place] Ascorbic Acid (Ascorbic Acid 500 Mg Tab) 1,000 mg PO QDAY [facility] Last Admin: 02/17/22 06:04 Dose: Not Given Furosemide (Furosemide 40 Mg Tab) 40 mg PO QDAY [facility] Last Admin: 02/17/22 00:17 Dose: 40 mg Gabapentin (Gabapentin 300 Mg Cap) 600 mg PO Q8HR [facility] Last Admin: 02/17/22 06:04 Dose: 600 mg Heparin Sodium (Porcine) (Heparin 5,000 Unit/1 Ml Vial) 5,000 unit SUB-Q Q12HR [facility] Last Admin: 02/17/22 00:19 Dose: 5,000 unit Hydromorphone HCl (Hydromorphone 1 Mg/1 Ml Inj) 0.5 mg IV Q3H PRN PRN Reason: Pain , Severe (7-10) Ampicillin Sodium/Sulbactam (Sodium 1.5 gm/ Sodium Chloride) 50 mls @ 200 mls/hr IV Q8H [facility]; Protocol Last Admin: 02/17/22 05:56 Dose: 200 mls/hr Sodium Chloride (Nacl 0.9% 1000 Ml) 1,000 mls @ 75 mls/hr IV DIRECT [facility] Stop: 02/17/22 18:00 Insulin Glargine (Insulin Glargine 100 Units/Ml) 70 units SUB-Q BID [facility] Last Admin: 02/17/22 06:04 Dose: Not Given Metoclopramide HCl (Metoclopramide 10 Mg/2 Ml Inj) 10 mg IV Q6H PRN PRN Reason: Nausea And Vomiting Metoprolol Tartrate (Metoprolol Tartrate 50 Mg Tab) 50 mg PO QDAY [facility] Last Admin: 02/16/22 20:14 Dose: 50 mg Morphine Sulfate (Morphine 2 Mg/1 Ml Inj) 2 mg IV Q4H PRN PRN Reason: Pain, Moderate (4-6) Ondansetron HCl (Ondansetron 4 Mg/2 Ml Inj) 4 mg IV Q3H PRN PRN Reason: Nausea And Vomiting Oxycodone/Acetaminophen (Oxycodone /Acetaminophen 5-325mg Tab) 1 tab PO Q6H PRN PRN Reason: Pain, Moderate (4-6) Last Admin: 02/17/22 00:18 Dose: 1 tab Pantoprazole Sodium (Pantoprazole 40 Mg Tab) 40 mg PO QDAY [facility] Last Admin: 02/16/22 20:14 Dose: 40 mg Sodium Chloride (Sodium Chloride 0.9% 10 Ml Flush Syringe) 10 ml IV BID [facility] Last Admin: 02/17/22 00:22 Dose: 10 ml Sodium Chloride (Sodium Chloride 0.9% 10 Ml Flush Syringe) 10 ml IV PRN PRN PRN Reason: LINE FLUSH Zinc Sulfate (Zinc Sulfate 220 Mg Cap) 220 mg PO QDAY [facility] Exam - Vital Signs Vital signs: Vital Signs Temp Pulse Resp BP Pulse Ox 97.5 F L 102 H 18 124/88 99 02/16/22 14:14 02/16/22 14:14 02/16/22 14:14 02/16/22 14:14 02/16/22 14:14 - Physical Exam Narrative exam: General appearance: Present: mild distress, well-nourished - EENT Eyes: Present: PERRL ENT: hearing intact, clear oral mucosa - Neck Neck: Present: supple, normal ROM - Respiratory Respiratory effort: normal Respiratory: bilateral: CTA Details: Left breast red and tender around the perianal area - Cardiovascular Heart rate: 78 Rhythm: regular Heart Sounds: Present: S1 & S2. Absent: rub, click - Extremities Extremities: no ischemia, pulses intact, pulses symmetrical, No edema Peripheral Pulses: within normal limits - Abdominal General gastrointestinal: Present: soft, non-tender, non-distended, normal bowel sounds Female genitourinary: Present: normal - Rectal Rectal Exam: deferred - Integumentary Integumentary: Present: clear, warm, dry - Musculoskeletal Musculoskeletal: gait normal, strength equal bilaterally - Psychiatric Psychiatric: appropriate mood/affect, intact judgment & insight - Neurologic Neurologic: CNII-XII intact, moves all extremities - Allied Health Allied health notes reviewed: nursing, case management Results - Lab Results 02/16/22 15:30 02/16/22 15:30 Most recent lab results Calcium 8.4 mg/dL (8.4-10.2) 02/16/22 15:30 Assessment and Plan Impression: * DEVON on ckd 4 * Cellulits of breast * HTN * IDDM * CHF Plan: gentle ivfs Cellulitis and abscess of left breast Surgery and IR consult requested IV Unasyn and IV vancomycin initiated--rec id input DEVON superimposed upon chronic kidney disease Her creatinine was around 3.5 in June 2021 Patient did not follow-up with nephrology as requested Today the creatinine is around 5.0 No [employer] needed renal diet, strict i/os, daily lytes Needs follow-up with nephrology on regular basis
[2022-02-17] MEDS ORDERED: NON-FORMULARY EACH (Zinc [Zinc 50mg Tab] 50 MG Tablet) PO SCH (10:00)
--- NOTE | 2022-02-17 10:04 | Progress Note ---
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 Nephrology consulted Needs follow-up with nephrology on regular basis --CHF (congestive heart failure) Current Visit: Yes Status: Chronic Continue Lasix and Aldactone --IDDM (insulin dependent diabetes mellitus) Current Visit: Yes Status: Chronic Coverage for now Check hemoglobin A1c --GERD (gastroesophageal reflux disease) Current Visit: Yes Status: Chronic Continue PPIs --Elevated troponin/ non-ST elevation [place] type II Current Visit: Yes Status: Chronic The setting of renal failure Closely monitor --Hyperlipidemia Current Visit: Yes Status: Chronic Statins initiated -- Morbid obesity ;BMI 46.7 Current Visit: Yes Status: Acute Patient to be counseled about follow-up with bariatric surgery Needs gastric sleeve or gastric bypass Patient to be referred to Dr. Roman at the time of discharge --DVT prophylaxis Current Visit: Yes Status: Acute On anticoagulation GI prophylaxis --Advance care planning Current Visit: Yes Status: Acute Disease education conducted, care plan discussed, diagnosis discussed. Prognosis discussed. Patient is full code. Patient acknowledges understanding and agreement with care plan. +30 minutes. History Interval history: I have seen and examined the patient at the bedside Patient's chart and medications reviewed Patient was scheduled for CT-guided drainage of breast abscess Did not have enough fluid to be aspirated Patient is morbidly obese in mild distress Vital signs reviewed Hospitalist Physical - Constitutional Vitals: Temp Pulse Resp BP Pulse Ox 97.7 F 72 20 136/87 97 02/17/22 05:51 02/17/22 05:51 02/17/22 05:51 02/17/22 05:51 02/17/22 07:40 General appearance: Present: no acute distress, well-nourished, obese (Morbidly obese) - EENT Eyes: Present: PERRL, EOM intact - Neck Neck: Present: supple, normal ROM - Respiratory Respiratory effort: normal Respiratory: bilateral: diminished, negative: rales, rhonchi, wheezing - Cardiovascular Rhythm: regular Heart Sounds: Present: S1 & S2 - Extremities Extremities: no ischemia, No edema - Abdominal General gastrointestinal: soft, non-tender, non-distended, normal bowel sounds - Integumentary Integumentary: Present: clear, warm - Psychiatric Psychiatric: appropriate mood/affect, cooperative - Neurologic Neurologic: CNII-XII intact, moves all extremities HEART Score - HEART Score Troponin: Troponin T 0.129 ng/mL (0.00-0.029) H* 02/16/22 15:30 Results - Labs CBC & Chem 7: 02/16/22 15:30 02/16/22 15:30 Labs: Laboratory Last Values WBC 7.2 K/mm3 (4.5-11.0) 02/16/22 15:30 RBC 3.81 M/mm3 (3.65-5.03) 02/16/22 15:30 Hgb 10.3 gm/dl (10.1-14.3) 02/16/22 15:30 Hct 32.1 % (30.3-42.9) 02/16/22 15:30 MCV 84 fl (79-97) 02/16/22 15:30 MCH 27 pg (28-32) L 02/16/22 15:30 MCHC 32 % (30-34) 02/16/22 15:30 RDW 14.2 % (13.2-15.2) 02/16/22 15:30 Plt Count 290 K/mm3 (140-440) 02/16/22 15:30 Lymph % (Auto) 22.2 % (13.4-35.0) 02/16/22 15:30 [place] % (Auto) 8.6 % (0.0-7.3) H 02/16/22 15:30 Eos % (Auto) 1.0 % (0.0-4.3) 02/16/22 15:30 Baso % (Auto) 0.6 % (0.0-1.8) 02/16/22 15:30 Lymph # (Auto) 1.6 K/mm3 (1.2-5.4) 02/16/22 15:30 [place] # (Auto) 0.6 K/mm3 (0.0-0.8) 02/16/22 15:30 Eos # (Auto) 0.1 K/mm3 (0.0-0.4) 02/16/22 15:30 Baso # (Auto) 0.0 K/mm3 (0.0-0.1) 02/16/22 15:30 Seg Neutrophils % 67.6 % (40.0-70.0) 02/16/22 15:30 Seg Neutrophils # 4.9 K/mm3 (1.8-7.7) 02/16/22 15:30 PT 14.2 Sec. (12.2-14.9) 02/16/22 15:30 INR 0.99 (0.87-1.13) 02/16/22 15:30 Sodium 144 mmol/L (137-145) 02/16/22 15:30 Potassium 4.8 mmol/L (3.6-5.0) 02/16/22 15:30 Chloride 113.7 mmol/L (98-107) H 02/16/22 15:30 Carbon Dioxide 19 mmol/L (22-30) L 02/16/22 15:30 Anion Gap 16 mmol/L 02/16/22 15:30 BUN 42 mg/dL (7-17) H 02/16/22 15:30 Creatinine 5.0 mg/dL (0.6-1.2) H 02/16/22 15:30 Estimated GFR 11 ml/min 02/16/22 15:30 BUN/Creatinine Ratio 8 % 02/16/22 15:30 Glucose 135 mg/dL (65-100) H 02/16/22 15:30 POC Glucose 90 mg/dL (70-105) 02/17/22 08:05 Lactic Acid 1.00 mmol/L (0.7-2.0) 02/16/22 15:30 Calcium 8.4 mg/dL (8.4-10.2) 02/16/22 15:30 Total Bilirubin 0.20 mg/dL (0.1-1.2) 02/16/22 15:30 AST 16 units/L (5-40) 02/16/22 15:30 ALT 17 units/L (7-56) 02/16/22 15:30 Alkaline Phosphatase 120 units/L (35-129) 02/16/22 15:30 Troponin T 0.129 ng/mL (0.00-0.029) H* 02/16/22 15:30 NT-Pro-B Natriuret Pep 8264 pg/mL (0-900) H 02/16/22 15:30 Total Protein 5.9 g/dL (6.3-8.2) L 02/16/22 15:30 Albumin 2.8 g/dL (3.9-5) L 02/16/22 15:30 Albumin/Globulin Ratio 0.9 % 02/16/22 15:30 Triglycerides 97 mg/dL (2-149) 02/16/22 15:30 Cholesterol 287 mg/dL (50-199) H 02/16/22 15:30 LDL Cholesterol Direct 184 mg/dL (50-130) H 02/16/22 15:30 HDL Cholesterol 103 mg/dL (40-59) H 02/16/22 15:30 Cholesterol/HDL Ratio 2.78 % 02/16/22 15:30 Microbiology: Microbiology 02/16/22 15:30 Peripheral/Venous Blood Culture - Preliminary Culture in Progress 02/16/22 15:30 Peripheral/Venous Blood Culture - Preliminary Culture in Progress San[place]ria/IV: Voiding Method Toilet Active Medications - Current Medications Current Medications: Generic Name Dose Route Start Last Admin Trade Name Freq PRN Reason Stop Dose Admin Acetaminophen 650 mg 02/16/22 19:18 Acetaminophen 325 Mg Tab PO Q4H PRN Pain MILD(1-3)/Fever >100.5/ALY Ascorbic Acid 1,000 mg 02/16/22 20:00 02/17/22 06:04 Ascorbic Acid 500 Mg Tab PO Not Given QDAY [facility] Gabapentin 100 mg 02/17/22 14:00 Gabapentin 100 Mg Cap PO Q8HR [facility] Heparin Sodium (Porcine) 5,000 unit 02/16/22 22:00 02/17/22 00:19 Heparin 5,000 Unit/1 Ml Vial SUB-Q 5,000 unit Q12HR [facility] Administration Hydromorphone HCl 0.5 mg 02/16/22 19:20 Hydromorphone 1 Mg/1 Ml Inj IV Q3H PRN Pain , Severe (7-10) Ampicillin Sodium/Sulbactam 50 mls @ 200 mls/hr 02/16/22 20:00 02/17/22 05:56 Sodium 1.5 gm/ Sodium Chloride IV 200 mls/hr Q8H [facility] Administration Protocol Sodium Chloride 1,000 mls @ 100 mls/hr 02/17/22 10:00 Nacl 0.45% 1000 Ml IV DIRECT [facility] Insulin Glargine 70 units 02/16/22 22:00 02/17/22 06:04 Insulin Glargine 100 Units/Ml SUB-Q Not Given BID [facility] Metoclopramide HCl 10 mg 02/16/22 19:20 Metoclopramide 10 Mg/2 Ml Inj IV Q6H PRN Nausea And Vomiting Metoprolol Tartrate 50 mg 02/16/22 20:00 02/16/22 20:14 Metoprolol Tartrate 50 Mg Tab PO 50 mg QDAY [facility] Administration Morphine Sulfate 2 mg 02/16/22 19:20 Morphine 2 Mg/1 Ml Inj IV Q4H PRN Pain, Moderate (4-6) Ondansetron HCl 4 mg 02/16/22 19:18 Ondansetron 4 Mg/2 Ml Inj IV Q3H PRN Nausea And Vomiting Oxycodone/Acetaminophen 1 tab 02/16/22 19:20 02/17/22 00:18 Oxycodone /Acetaminophen 5-325mg Tab PO 1 tab Q6H PRN Administration Pain, Moderate (4-6) Pantoprazole Sodium 40 mg 02/16/22 20:00 02/16/22 20:14 Pantoprazole 40 Mg Tab PO 40 mg QDAY [facility] Administration Sodium Chloride 10 ml 02/16/22 22:00 02/17/22 00:22 Sodium Chloride 0.9% 10 Ml Flush Syringe IV 10 ml BID [facility] Administration Sodium Chloride 10 ml 02/16/22 19:18 Sodium Chloride 0.9% 10 Ml Flush Syringe IV PRN PRN LINE FLUSH Zinc Sulfate 220 mg 02/17/22 10:00 Zinc Sulfate 220 Mg Cap PO QDAY [facility]
[2022-02-17] MEDS: PANTOPRAZOLE 40 MG TAB PO SCH (11:06)
[2022-02-17] MEDS: ZINC SULFATE 220 MG CAP PO SCH (11:08)
--- NOTE | 2022-02-17 11:25 | Consultation ---
History of Present Illness Consult date: 02/17/22 Reason for consult: other (breast cellulitis) - History of present illness History of present illness: 51 year old female admitted through the ER yesterday with worsening left breast pain and swelling. She says that swelling started about a month ago. She says that the breast occasionally feels hot to touch. She denies any insect bite or skin trauma. US of left breast showed unorganized collection under nipple suggestive of early abscess. She says she had a mammogram over a year ago that she believes was 'ok'. She is scheduled to get a mammo later this month. She says she has an aunt who of breast CA. Past History Past Medical History: diabetes, ESRD, GERD, heart failure, hypertension Past Surgical History: No surgical history, Other Social history: lives with family Family history: other (aunt with breast CA) Medications and Allergies Allergies Allergy/AdvReac Type Severity Reaction Status Date / Time No Known Allergies Allergy Verified 02/16/22 13:44 Home Medications Medication Instructions Recorded Confirmed Last Taken Type Pantoprazole [Protonix TAB] 40 mg PO QDAY #30 tablet 06/12/20 01/10/22 Unknown R x Amoxicillin [Trimox CAP] 500 mg PO QDAY 01/10/22 01/10/22 Unknown History Ascorbic Acid [Vitamin C] 1,000 mg PO QDAY 01/10/22 01/10/22 Unknown History Furosemide [Lasix TAB] 40 mg PO QDAY 01/10/22 01/10/22 Unknown History Gabapentin [Neurontin] 600 mg PO QDAY 01/10/22 01/10/22 Unknown History Insulin Glargine,Hum.rec.anlog 70 unit SQ BID 01/10/22 01/10/22 Unknown History [Basaglar Kwikpen U-100] Metoprolol [Lopressor TAB] 50 mg PO QDAY 01/10/22 01/10/22 Unknown History Zinc [Zinc 50mg TAB] 50 mg PO QDAY 01/10/22 01/10/22 Unknown History traMADoL [Ultram] 50 mg PO QDAY PRN 01/10/22 01/10/22 Unknown History Active Meds: Active Medications Acetaminophen (Acetaminophen 325 Mg Tab) 650 mg PO Q4H PRN PRN Reason: Pain MILD(1-3)/Fever >100.5/[place]Y Ascorbic Acid (Ascorbic Acid 500 Mg Tab) 1,000 mg PO QDAY [facility] Last Admin: 02/17/22 11:08 Dose: 1,000 mg Gabapentin (Gabapentin 100 Mg Cap) 100 mg PO Q8HR [facility] Heparin Sodium (Porcine) (Heparin 5,000 Unit/1 Ml Vial) 5,000 unit SUB-Q Q12HR [facility] Last Admin: 02/17/22 11:09 Dose: 5,000 unit Hydromorphone HCl (Hydromorphone 1 Mg/1 Ml Inj) 0.5 mg IV Q3H PRN PRN Reason: Pain , Severe (7-10) Ampicillin Sodium/Sulbactam (Sodium 1.5 gm/ Sodium Chloride) 50 mls @ 200 mls/hr IV Q8H [facility]; Protocol Last Admin: 02/17/22 05:56 Dose: 200 mls/hr Sodium Chloride (Nacl 0.45% 1000 Ml) 1,000 mls @ 100 mls/hr IV DIRECT [facility] Insulin Glargine (Insulin Glargine 100 Units/Ml) 70 units SUB-Q BID [facility] Last Admin: 02/17/22 11:07 Dose: Not Given Metoclopramide HCl (Metoclopramide 10 Mg/2 Ml Inj) 10 mg IV Q6H PRN PRN Reason: Nausea And Vomiting Metoprolol Tartrate (Metoprolol Tartrate 50 Mg Tab) 50 mg PO QDAY [facility] Last Admin: 02/16/22 20:14 Dose: 50 mg Morphine Sulfate (Morphine 2 Mg/1 Ml Inj) 2 mg IV Q4H PRN PRN Reason: Pain, Moderate (4-6) Ondansetron HCl (Ondansetron 4 Mg/2 Ml Inj) 4 mg IV Q3H PRN PRN Reason: Nausea And Vomiting Oxycodone/Acetaminophen (Oxycodone /Acetaminophen 5-325mg Tab) 1 tab PO Q6H PRN PRN Reason: Pain, Moderate (4-6) Last Admin: 02/17/22 00:18 Dose: 1 tab Pantoprazole Sodium (Pantoprazole 40 Mg Tab) 40 mg PO QDAY [facility] Last Admin: 02/17/22 11:06 Dose: 40 mg Sodium Chloride (Sodium Chloride 0.9% 10 Ml Flush Syringe) 10 ml IV BID [facility] Last Admin: 02/17/22 00:22 Dose: 10 ml Sodium Chloride (Sodium Chloride 0.9% 10 Ml Flush Syringe) 10 ml IV PRN PRN PRN Reason: LINE FLUSH Zinc Sulfate (Zinc Sulfate 220 Mg Cap) 220 mg PO QDAY [facility] Last Admin: 02/17/22 11:08 Dose: 220 mg Review of Systems All systems: negative - Breasts left: change in shape, swelling, pain, skin changes Exam Vital Signs Temp Pulse Resp BP Pulse Ox 97.5 F L 102 H 18 124/88 99 02/16/22 14:14 02/16/22 14:14 02/16/22 14:14 02/16/22 14:14 02/16/22 14:14 - General physical appearance Positive: well developed, no distress, no pain, obese - Eyes Positive: PERRL - ENT Positive: no hearing loss - Respiratory Positive: normal expansion, normal respiratory effort - Cardiovascular Heart Sounds: Present: S1 & S2 - Extremities Extremities: no ischemia - Breasts Breasts: other (left breast larger than the right, pe[place] skin changes, tender to deep paplation at the nipple/areola, no palpable axiallary or supraclavicular LAD) Results - Labs 02/16/22 15:30 02/16/22 15:30 Abnormal lab results 02/16/22 02/16/22 02/16/22 Range/Units 13:38 15:30 15:30 MCH 27 L (28-32) pg [place] % (Auto) 8.6 H (0.0-7.3) % Chloride 113.7 H (98-107) mmol/L Carbon Dioxide 19 L (22-30) mmol/L BUN 42 H (7-17) mg/dL Creatinine 5.0 H (0.6-1.2) mg/dL Glucose 135 H (65-100) mg/dL POC Glucose 141 H (70-105) mg/dL Troponin T 0.129 H* (0.00-0.029) ng/mL NT-Pro-B Natriuret Pep (0-900) pg/mL Total Protein 5.9 L (6.3-8.2) g/dL Albumin 2.8 L (3.9-5) g/dL Cholesterol 287 H (50-199) mg/dL LDL Cholesterol Direct 184 H (50-130) mg/dL HDL Cholesterol 103 H (40-59) mg/dL 02/16/22 02/17/22 Range/Units 15:30 00:19 MCH (28-32) pg [place] % (Auto) (0.0-7.3) % Chloride (98-107) mmol/L Carbon Dioxide (22-30) mmol/L BUN (7-17) mg/dL Creatinine (0.6-1.2) mg/dL Glucose (65-100) mg/dL POC Glucose 109 H (70-105) mg/dL Troponin T (0.00-0.029) ng/mL NT-Pro-B Natriuret Pep 8264 H (0-900) pg/mL Total Protein (6.3-8.2) g/dL Albumin (3.9-5) g/dL Cholesterol (50-199) mg/dL LDL Cholesterol Direct (50-130) mg/dL HDL Cholesterol (40-59) mg/dL Diabetes panel 02/16/22 Range/Units 15:30 Sodium 144 (137-145) mmol/L Potassium 4.8 (3.6-5.0) mmol/L Chloride 113.7 H (98-107) mmol/L Carbon Dioxide 19 L (22-30) mmol/L BUN 42 H (7-17) mg/dL Creatinine 5.0 H (0.6-1.2) mg/dL Glucose 135 H (65-100) mg/dL Calcium 8.4 (8.4-10.2) mg/dL AST 16 (5-40) units/L ALT 17 (7-56) units/L Alkaline Phosphatase 120 (35-129) units/L Total Protein 5.9 L (6.3-8.2) g/dL Albumin 2.8 L (3.9-5) g/dL Triglycerides 97 (2-149) mg/dL HDL Cholesterol 103 H (40-59) mg/dL Calcium panel 02/16/22 Range/Units 15:30 Calcium 8.4 (8.4-10.2) mg/dL Albumin 2.8 L (3.9-5) g/dL Pituitary panel 02/16/22 Range/Units 15:30 Sodium 144 (137-145) mmol/L Potassium 4.8 (3.6-5.0) mmol/L Chloride 113.7 H (98-107) mmol/L Carbon Dioxide 19 L (22-30) mmol/L BUN 42 H (7-17) mg/dL Creatinine 5.0 H (0.6-1.2) mg/dL Glucose 135 H (65-100) mg/dL Calcium 8.4 (8.4-10.2) mg/dL Adrenal panel 02/16/22 Range/Units 15:30 Sodium 144 (137-145) mmol/L Potassium 4.8 (3.6-5.0) mmol/L Chloride 113.7 H (98-107) mmol/L Carbon Dioxide 19 L (22-30) mmol/L BUN 42 H (7-17) mg/dL Creatinine 5.0 H (0.6-1.2) mg/dL Glucose 135 H (65-100) mg/dL Calcium 8.4 (8.4-10.2) mg/dL Total Bilirubin 0.20 (0.1-1.2) mg/dL AST 16 (5-40) units/L ALT 17 (7-56) units/L Alkaline Phosphatase 120 (35-129) units/L Total Protein 5.9 L (6.3-8.2) g/dL Albumin 2.8 L (3.9-5) g/dL Assessment and Plan 51 year old female with left breast swelling/cellulitis for one month. Afebrile and stable. Pt was seen by IR who after reviewing images believe there is no drainagable collection at this time. Recommend repeat US in 2-3 days to evaluate for change in collection and the possibility to be drained. Cont abx. Skin changes concerning for possibility of malignancy. Will discuss pt with Dr. Moa Bowman who does breast surgery. He is out of town. Will have him see her on Sunday for further work up and evaluation. No acute surgical intervention indicated at this time.
--- NOTE | 2022-02-17 11:41 | Electrocardiograph Report ---
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
[2022-02-17] MEDS: METOPROLOL TARTRATE 50 MG TAB PO SCH (12:08)
[2022-02-17] MEDS: SODIUM CHLORIDE 0.45% 1000 ML 1,000 ML IV SCH (12:56)
[2022-02-17] MEDS: GABAPENTIN 100 MG CAP PO SCH ×2 (13:03→22:55)
[2022-02-17] MEDS ORDERED: METOCLOPRAMIDE 10 MG/2 ML INJ IV PRN (14:00)
[2022-02-17 16:05] LABS: Bacteria,Urine 1+ /HPF (Negative); Bilirubin,Urine NEG (Negative); Blood,Urine SM (Negative); Color,Urine Straw (Yellow); Mucus,Urine FEW /HPF; Urobilinogen,Urine < 2.0 mg/dL (<2.0)
[2022-02-17 16:06] LABS: Protein,Urine >500 mg/dL (Negative)
[2022-02-17] MEDS: HYDROmorphone 1 MG/1 ML INJ IV PRN (23:15)
[2022-02-17] MEDS: AMPICILLIN/SULBACTA 3GM/100ML 3 GM/100 ML BAG IV SCH (23:22)
[2022-02-18] MEDS: AMPICILLIN/SULBACTA 3GM/100ML 3 GM/100 ML BAG IV SCH ×2 (00:08→11:08)
[2022-02-18] MEDS: SODIUM CHLORIDE 0.45% 1000 ML 1,000 ML IV SCH ×2 (02:33→17:21)
[2022-02-18] MEDS: GABAPENTIN 100 MG CAP PO SCH ×3 (05:04→22:38)
--- NOTE | 2022-02-18 09:34 | Progress Note ---
Assessment and Plan Assessment and plan: --Cellulitis of left breast Current Visit: Yes Status: Acute Cellulitis and abscess of left breast Surgery and IR evaluated Not amenable for CT drainage . Did not have sufficient discharge IR consult at surgeon's request IV Unasyn and IV vancomycin initiated Pharmacist discussed with me regarding vancomycin Peak and trough could not be measured due to unable to get blood sample Patient is morbidly obese difficult stick/difficult blood draw Pharmacist ports that cannot continue vancomycin if unable to do peak and trough to adjust the dose She recommended doxycycline 100 twice a day in the place of vancomycin at this point. I DC'd vancomycin, started doxycycline Patient is currently on doxycycline and Unasyn --Hypertension/moderate control Current Visit: Yes Status: Chronic Continue antihypertensives --DEVON (acute kidney injury) vasomotor nephropathy Current Visit: Yes Status: Acute DEVON superimposed upon chronic kidney disease Her creatinine was around 3.5 in June 2021 Patient did not follow-up with nephrology as requested Today the creatinine is around 5.0 Nephrology following Needs follow-up with nephrology on regular basis --CHF (congestive heart failure) Current Visit: Yes Status: Chronic Continue Lasix and Aldactone --IDDM (insulin dependent diabetes mellitus) Current Visit: Yes Status: Chronic Coverage for now Check hemoglobin A1c --Morbid obesity Current Visit: Yes Status: Acute Patient to be counseled about follow-up with bariatric surgery Needs gastric sleeve or gastric bypass Patient to be referred to Dr. Roman at the time of discharge --GERD (gastroesophageal reflux disease) Current Visit: Yes Status: Chronic Continue PPIs --Elevated troponin Current Visit: Yes Status: Chronic Secondary to troponin leak --Hyperlipidemia Current Visit: Yes Status: Chronic Statins initiated --DVT prophylaxis Current Visit: Yes Status: Acute On anticoagulation GI prophylaxis --Advance care planning Current Visit: Yes Status: Acute Disease education conducted, care plan discussed, diagnosis discussed. Prognosis discussed. Patient is full code. Patient acknowledges understanding and agreement with care plan. +30 minutes. 02/18/2022; unable to do CT-guided drainage as sufficient discharge is started present Discussed with pharmacy, unable to give vancomycin without measuring peak and trough periodically Pharmacy recommended doxycycline 100 mg twice a day History Interval history: I seen and examined the patient at the bedside this morning Patient's chart and medications reviewed Patient feels slightly better No new complaints Vital signs noted Hospitalist Physical - Constitutional Vitals: Temp Pulse Resp BP Pulse Ox 98.1 F 74 19 152/93 99 02/18/22 04:47 02/18/22 04:47 02/18/22 04:47 02/18/22 04:47 02/18/22 04:47 General appearance: Present: no acute distress, well-nourished, obese (Morbidly obese) - EENT Eyes: Present: PERRL, EOM intact - Neck Neck: Present: supple, normal ROM - Respiratory Respiratory effort: normal Respiratory: bilateral: diminished, negative: rales, rhonchi, wheezing - Cardiovascular Rhythm: regular Heart Sounds: Present: S1 & S2 - Extremities Extremities: no ischemia, No edema - Abdominal General gastrointestinal: soft, non-tender, non-distended, normal bowel sounds - Integumentary Integumentary: Present: clear, warm - Psychiatric Psychiatric: appropriate mood/affect, cooperative - Neurologic Neurologic: CNII-XII intact, moves all extremities HEART Score - HEART Score Troponin: Troponin T 0.129 ng/mL (0.00-0.029) H* 02/16/22 15:30 Results - Labs CBC & Chem 7: 02/18/22 14:24 02/16/22 15:30 Labs: Laboratory Last Values WBC 7.2 K/mm3 (4.5-11.0) 02/16/22 15:30 RBC 3.81 M/mm3 (3.65-5.03) 02/16/22 15:30 Hgb 10.3 gm/dl (10.1-14.3) 02/16/22 15:30 Hct 32.1 % (30.3-42.9) 02/16/22 15:30 MCV 84 fl (79-97) 02/16/22 15:30 MCH 27 pg (28-32) L 02/16/22 15:30 MCHC 32 % (30-34) 02/16/22 15:30 RDW 14.2 % (13.2-15.2) 02/16/22 15:30 Plt Count 290 K/mm3 (140-440) 02/16/22 15:30 Lymph % (Auto) 22.2 % (13.4-35.0) 02/16/22 15:30 [place] % (Auto) 8.6 % (0.0-7.3) H 02/16/22 15:30 Eos % (Auto) 1.0 % (0.0-4.3) 02/16/22 15:30 Baso % (Auto) 0.6 % (0.0-1.8) 02/16/22 15:30 Lymph # (Auto) 1.6 K/mm3 (1.2-5.4) 02/16/22 15:30 [place] # (Auto) 0.6 K/mm3 (0.0-0.8) 02/16/22 15:30 Eos # (Auto) 0.1 K/mm3 (0.0-0.4) 02/16/22 15:30 Baso # (Auto) 0.0 K/mm3 (0.0-0.1) 02/16/22 15:30 Seg Neutrophils % 67.6 % (40.0-70.0) 02/16/22 15:30 Seg Neutrophils # 4.9 K/mm3 (1.8-7.7) 02/16/22 15:30 PT 14.2 Sec. (12.2-14.9) 02/16/22 15:30 INR 0.99 (0.87-1.13) 02/16/22 15:30 Sodium 144 mmol/L (137-145) 02/16/22 15:30 Potassium 4.8 mmol/L (3.6-5.0) 02/16/22 15:30 Chloride 113.7 mmol/L (98-107) H 02/16/22 15:30 Carbon Dioxide 19 mmol/L (22-30) L 02/16/22 15:30 Anion Gap 16 mmol/L 02/16/22 15:30 BUN 42 mg/dL (7-17) H 02/16/22 15:30 Creatinine 5.0 mg/dL (0.6-1.2) H 02/16/22 15:30 Estimated GFR 11 ml/min 02/16/22 15:30 BUN/Creatinine Ratio 8 % 02/16/22 15:30 Glucose 135 mg/dL (65-100) H 02/16/22 15:30 POC Glucose 158 mg/dL (70-105) H 02/18/22 07:40 Lactic Acid 1.00 mmol/L (0.7-2.0) 02/16/22 15:30 Calcium 8.4 mg/dL (8.4-10.2) 02/16/22 15:30 Total Bilirubin 0.20 mg/dL (0.1-1.2) 02/16/22 15:30 AST 16 units/L (5-40) 02/16/22 15:30 ALT 17 units/L (7-56) 02/16/22 15:30 Alkaline Phosphatase 120 units/L (35-129) 02/16/22 15:30 Troponin T 0.129 ng/mL (0.00-0.029) H* 02/16/22 15:30 NT-Pro-B Natriuret Pep 8264 pg/mL (0-900) H 02/16/22 15:30 Total Protein 5.9 g/dL (6.3-8.2) L 02/16/22 15:30 Albumin 2.8 g/dL (3.9-5) L 02/16/22 15:30 Albumin/Globulin Ratio 0.9 % 02/16/22 15:30 Triglycerides 97 mg/dL (2-149) 02/16/22 15:30 Cholesterol 287 mg/dL (50-199) H 02/16/22 15:30 LDL Cholesterol Direct 184 mg/dL (50-130) H 02/16/22 15:30 HDL Cholesterol 103 mg/dL (40-59) H 02/16/22 15:30 Cholesterol/HDL Ratio 2.78 % 02/16/22 15:30 Urine Color Straw (Yellow) 02/17/22 Unknown Urine Turbidity Clear (Clear) 02/17/22 Unknown Urine pH 6.0 (5.0-7.0) 02/17/22 Unknown Ur Specific [place] 1.013 (1.003-1.030) 02/17/22 Unknown Urine Protein >500 mg/dL (Negative) 02/17/22 Unknown Urine Glucose (UA) 50 mg/dL (Negative) 02/17/22 Unknown Urine Ketones Neg mg/dL (Negative) 02/17/22 Unknown Urine Blood Sm (Negative) 02/17/22 Unknown Urine Nitrite Neg (Negative) 02/17/22 Unknown Urine Bilirubin Neg (Negative) 02/17/22 Unknown Urine Urobilinogen < 2.0 mg/dL (<2.0) 02/17/22 Unknown Ur Leukocyte Esterase Neg (Negative) 02/17/22 Unknown Urine WBC (Auto) 3.0 /HPF (0.0-6.0) 02/17/22 Unknown Urine RBC (Auto) 1.0 /HPF (0.0-6.0) 02/17/22 Unknown U Epithel Cells (Auto) 4.0 /HPF (0-13.0) 02/17/22 Unknown Urine Bacteria (Auto) 1+ /HPF (Negative) 02/17/22 Unknown Urine Mucus Few /HPF 02/17/22 Unknown Urine Yeast (Budding) Few /HPF 02/17/22 Unknown Urine Eosinophils Rare (None Seen) 02/17/22 Unknown Microbiology: Microbiology 02/16/22 15:30 Peripheral/Venous Blood Culture - Preliminary NO GROWTH AFTER 24 HOURS 02/16/22 15:30 Peripheral/Venous Blood Culture - Preliminary NO GROWTH AFTER 24 HOURS Sanabria/IV: Voiding Method Toilet Active Medications - Current Medications Current Medications: Generic Name Dose Route Start Last Admin Trade Name Freq PRN Reason Stop Dose Admin Acetaminophen 650 mg 02/16/22 19:18 Acetaminophen 325 Mg Tab PO Q4H PRN Pain MILD(1-3)/Fever >100.5/ALY Ascorbic Acid 1,000 mg 02/16/22 20:00 02/17/22 11:08 Ascorbic Acid 500 Mg Tab PO 1,000 mg QDAY NEY Administration Gabapentin 100 mg 02/17/22 14:00 02/18/22 05:04 Gabapentin 100 Mg Cap PO 100 mg Q8HR NYE Administration Heparin Sodium (Porcine) 5,000 unit 02/16/22 22:00 02/17/22 22:55 Heparin 5,000 Unit/1 Ml Vial SUB-Q 5,000 unit Q12HR NEY Administration Hydromorphone HCl 0.5 mg 02/16/22 19:20 02/17/22 23:15 Hydromorphone 1 Mg/1 Ml Inj IV 0.5 mg Q3H PRN Administration Pain , Severe (7-10) Sodium Chloride 1,000 mls @ 100 mls/hr 02/17/22 10:00 02/18/22 02:33 Nacl 0.45% 1000 Ml IV 100 mls/hr DIRECT NEY Administration Ampicillin Sodium/Sulbactam Sodium 3 gm in 100 mls @ 200 mls/hr 02/18/22 00:00 02/18/22 00:08 Unasyn/Ns 3 Gm/100 Ml IV 200 mls/hr Q12H NEY Administration Insulin Glargine 70 units 02/16/22 22:00 02/17/22 22:56 Insulin Glargine 100 Units/Ml SUB-Q Not Given BID NEY Metoclopramide HCl 5 mg 02/17/22 14:00 Metoclopramide 10 Mg/2 Ml Inj IV Q8H PRN Nausea And Vomiting Metoprolol Tartrate 50 mg 02/16/22 20:00 02/17/22 12:08 Metoprolol Tartrate 50 Mg Tab PO 50 mg QDAY NEY Administration Morphine Sulfate 2 mg 02/16/22 19:20 Morphine 2 Mg/1 Ml Inj IV Q4H PRN Pain, Moderate (4-6) Ondansetron HCl 4 mg 02/16/22 19:18 Ondansetron 4 Mg/2 Ml Inj IV Q3H PRN Nausea And Vomiting Oxycodone/Acetaminophen 1 tab 02/16/22 19:20 02/17/22 13:07 Oxycodone /Acetaminophen 5-325mg Tab PO 1 tab Q6H PRN Administration Pain, Moderate (4-6) Pantoprazole Sodium 40 mg 02/16/22 20:00 02/17/22 11:06 Pantoprazole 40 Mg Tab PO 40 mg QDAY NEY Administration Sodium Chloride 10 ml 02/16/22 22:00 02/17/22 22:56 Sodium Chloride 0.9% 10 Ml Flush Syringe IV 10 ml BID NEY Administration Sodium Chloride 10 ml 02/16/22 19:18 Sodium Chloride 0.9% 10 Ml Flush Syringe IV PRN PRN LINE FLUSH Zinc Sulfate 220 mg 02/17/22 10:00 02/17/22 11:08 Zinc Sulfate 220 Mg Cap PO 220 mg QDAY NEY Administration
[2022-02-18] MEDS: INSULIN GLARGINE 100 UNITS/ML SUB-Q SCH ×2 (10:11→22:46)
[2022-02-18] MEDS: HEPARIN 5,000 UNIT/1 ML VIAL SUB-Q SCH ×2 (10:21→22:38)
[2022-02-18] MEDS: ASCORBIC ACID 500 MG TAB PO SCH (10:21)
[2022-02-18] MEDS: ZINC SULFATE 220 MG CAP PO SCH (10:21)
[2022-02-18] MEDS: METOPROLOL TARTRATE 50 MG TAB PO SCH (10:21)
[2022-02-18] MEDS: PANTOPRAZOLE 40 MG TAB PO SCH (10:22)
[2022-02-18] MEDS: INSULIN LISPRO 100 UNIT/ML SUB-Q SCH ×3 (11:11→22:55)
--- NOTE | 2022-02-18 13:38 | Progress Note ---
Assessment and Plan Impression: * DEVON on ckd 4 * Cellulits of breast * HTN * IDDM * CHF Plan: continue gentle ivfs, follow up lytes, not drawn as of yet Cellulitis and abscess of left breast Surgery and IR consult requested IV Unasyn and IV vancomycin initiated--rec id input DEVON superimposed upon chronic kidney disease Her creatinine was around 3.5 in June 2021 Patient did not follow-up with nephrology as requested No [employer] needed renal diet, strict i/os, daily lytes Needs follow-up with nephrology on regular basis Subjective Date of service: 02/18/22 Interval history: resting in bed today Objective - Exam Narrative Exam: General appearance: Present: mild distress, well-nourished - EENT Eyes: Present: PERRL ENT: hearing intact, clear oral mucosa - Neck Neck: Present: supple, normal ROM - Respiratory Respiratory effort: normal Respiratory: bilateral: CTA Details: Left breast red and tender around the perianal area - Cardiovascular Heart rate: 78 Rhythm: regular Heart Sounds: Present: S1 & S2. Absent: rub, click - Extremities Extremities: no ischemia, pulses intact, pulses symmetrical, No edema Peripheral Pulses: within normal limits - Abdominal General gastrointestinal: Present: soft, non-tender, non-distended, normal bowel sounds Female genitourinary: Present: normal - Rectal Rectal Exam: deferred - Integumentary Integumentary: Present: clear, warm, dry - Musculoskeletal Musculoskeletal: gait normal, strength equal bilaterally - Psychiatric Psychiatric: appropriate mood/affect, intact judgment & insight - Neurologic Neurologic: CNII-XII intact, moves all extremities - Allied Health Allied health notes reviewed: nursing, case management - Vital Signs Vital signs: Vital Signs - 12hr 02/18/22 02/18/22 02/18/22 04:20 04:47 08:52 Temperature 98.1 F Pulse Rate 74 Respiratory 19 Rate Blood Pressure 152/93 O2 Sat by Pulse 98 99 97 Oximetry 02/18/22 10:21 Temperature Pulse Rate 78 Respiratory Rate Blood Pressure 149/87 O2 Sat by Pulse Oximetry - Lab 02/16/22 15:30 02/16/22 15:30 Most recent lab results Calcium 8.4 mg/dL (8.4-10.2) 02/16/22 15:30 Medications & Allergies - Medications Allergies/Adverse Reactions: Allergies No Known Allergies Allergy (Verified 02/16/22 13:44) Home Medications: Home Medications Medication Instructions Recorded Confirmed Last Taken Type Pantoprazole [Protonix TAB] 40 mg PO QDAY #30 tablet 06/12/20 01/10/22 Unknown Rx Amoxicillin [Trimox CAP] 500 mg PO QDAY 01/10/22 01/10/22 Unknown History Ascorbic Acid [Vitamin C] 1,000 mg PO QDAY 01/10/22 01/10/22 Unknown History Furosemide [Lasix TAB] 40 mg PO QDAY 01/10/22 01/10/22 Unknown History Gabapentin [Neurontin] 600 mg PO QDAY 01/10/22 01/10/22 Unknown History Insulin Glargine,Hum.rec.anlog 70 unit SQ BID 01/10/22 01/10/22 Unknown History [Basaglar Kwikpen U-100] Metoprolol [Lopressor TAB] 50 mg PO QDAY 01/10/22 01/10/22 Unknown History Zinc [Zinc 50mg TAB] 50 mg PO QDAY 01/10/22 01/10/22 Unknown History traMADoL [Ultram] 50 mg PO QDAY PRN 01/10/22 01/10/22 Unknown History Active Medications: Generic Name Dose Route Start Last Admin Trade Name Freq PRN Reason Stop Dose Admin Acetaminophen 650 mg 02/16/22 19:18 Acetaminophen 325 Mg Tab PO Q4H PRN Pain MILD(1-3)/Fever >100.5/ALY Ascorbic Acid 1,000 mg 02/16/22 20:00 02/18/22 10:21 Ascorbic Acid 500 Mg Tab PO 1,000 mg QDAY NEY Administration Gabapentin 100 mg 02/17/22 14:00 02/18/22 05:04 Gabapentin 100 Mg Cap PO 100 mg Q8HR NEY Administration Heparin Sodium (Porcine) 5,000 unit 02/16/22 22:00 02/18/22 10:21 Heparin 5,000 Unit/1 Ml Vial SUB-Q 5,000 unit Q12HR NEY Administration Hydromorphone HCl 0.5 mg 02/16/22 19:20 02/17/22 23:15 Hydromorphone 1 Mg/1 Ml Inj IV 0.5 mg Q3H PRN Administration Pain , Severe (7-10) Sodium Chloride 1,000 mls @ 100 mls/hr 02/17/22 10:00 02/18/22 02:33 Nacl 0.45% 1000 Ml IV 100 mls/hr DIRECT NEY Administration Ampicillin Sodium/Sulbactam Sodium 3 gm in 100 mls @ 200 mls/hr 02/18/22 00:00 02/18/22 11:08 Unasyn/Ns 3 Gm/100 Ml IV 200 mls/hr Q12H NEY Administration Insulin Glargine 70 units 02/16/22 22:00 02/18/22 10:11 Insulin Glargine 100 Units/Ml SUB-Q Not Given BID NEY Insulin Human Lispro 0 unit 02/18/22 11:30 02/18/22 11:11 Insulin Lispro 100 Unit/Ml SUB-Q 2 unit ACHS NEY Administration Protocol Metoclopramide HCl 5 mg 02/17/22 14:00 Metoclopramide 10 Mg/2 Ml Inj IV Q8H PRN Nausea And Vomiting Metoprolol Tartrate 50 mg 02/16/22 20:00 02/18/22 10:21 Metoprolol Tartrate 50 Mg Tab PO 50 mg QDAY NEY Administration Morphine Sulfate 2 mg 02/16/22 19:20 Morphine 2 Mg/1 Ml Inj IV Q4H PRN Pain, Moderate (4-6) Ondansetron HCl 4 mg 02/16/22 19:18 Ondansetron 4 Mg/2 Ml Inj IV Q3H PRN Nausea And Vomiting Oxycodone/Acetaminophen 1 tab 02/16/22 19:20 02/17/22 13:07 Oxycodone /Acetaminophen 5-325mg Tab PO 1 tab Q6H PRN Administration Pain, Moderate (4-6) Pantoprazole Sodium 40 mg 02/16/22 20:00 02/18/22 10:22 Pantoprazole 40 Mg Tab PO 40 mg QDAY NEY Administration Sodium Chloride 10 ml 02/16/22 22:00 02/18/22 10:23 Sodium Chloride 0.9% 10 Ml Flush Syringe IV 10 ml BID NEY Administration Sodium Chloride 10 ml 02/16/22 19:18 Sodium Chloride 0.9% 10 Ml Flush Syringe IV PRN PRN LINE FLUSH Zinc Sulfate 220 mg 02/17/22 10:00 02/18/22 10:21 Zinc Sulfate 220 Mg Cap PO 220 mg QDAY NEY Administration
[2022-02-18 14:39] LABS: Basophils % (Auto) 0.3 % (0.0-1.8); Eosinophils # (Auto) 0.1 K/mm3 (0.0-0.4); Eosinophils % (Auto) 1.9 % (0.0-4.3); Lymphocytes # (Auto) 1.4 K/mm3 (1.2-5.4); Mean Corpuscular HGB Conc 30 % (30-34); Mean Corpuscular Volume 86 fl (79-97); Monocytes # (Auto) 0.5 K/mm3 (0.0-0.8); Monocytes % (Auto) 9.1 % (0.0-7.3); Platelet Count 262 K/mm3 (140-440); Red Blood Count 3.66 M/mm3 (3.65-5.03); Red Cell Distribution Width 14.6 % (13.2-15.2)
[2022-02-18 14:46] LABS: Hematocrit 31.3 % (30.3-42.9); Hemoglobin 9.4 gm/dl (10.1-14.3)
[2022-02-18 15:02] LABS: Alanine Aminotransferase 22 units/L (7-56); Albumin 2.5 g/dL (3.9-5); Blood Urea Nitrogen 48 mg/dL (7-17); Hemolysis Index 4
[2022-02-18 15:03] LABS: BUN/Creatinine Ratio 9
[2022-02-18 17:30] LABS: Creatinine,Urine 111.3 mg/dL (0.1-20.0)
[2022-02-18 17:34] LABS: Creatinine 24 Hour,Urine 1.4 (0.8-2.8)
[2022-02-18] MEDS: DOXYCYCLINE 100 MG CAP PO SCH (22:37)
[2022-02-19] MEDS: HYDROmorphone 1 MG/1 ML INJ IV PRN ×2 (01:08→22:14)
[2022-02-19] MEDS: AMPICILLIN/SULBACTA 3GM/100ML 3 GM/100 ML BAG IV SCH ×2 (01:14→12:06)
[2022-02-19] MEDS: GABAPENTIN 100 MG CAP PO SCH ×3 (06:48→21:35)
[2022-02-19] MEDS: INSULIN LISPRO 100 UNIT/ML SUB-Q SCH ×4 (08:15→22:07)
--- NOTE | 2022-02-19 08:51 | Progress Note ---
Assessment and Plan Assessment and plan: --Cellulitis of left breast Current Visit: Yes Status: Acute Cellulitis and abscess of left breast Surgery and IR evaluated Not amenable for CT drainage . Did not have sufficient discharge IV Unasyn and vancomycin changed to doxycycline part pharmacy recommendations Pharmacist discussed with me regarding vancomycin, unable to continue Peak and trough could not be measured due to unable to get blood sample Patient is morbidly obese difficult stick/difficult blood draw She recommended doxycycline 100 twice a day in the place of vancomycin at this point. Continue Unasyn and doxycycline Patient is currently on doxycycline and Unasyn --Hypertension/moderate control Current Visit: Yes Status: Chronic Continue antihypertensives --DEVON (acute kidney injury) on chronic kidney disease stage IV vasomotor nephropathy Current Visit: Yes Status: Acute DEVON superimposed upon chronic kidney disease Her creatinine was around 3.5 in June 2021 Patient did not follow-up with nephrology as requested Today the creatinine is around 5.0 Nephrology following Needs follow-up with nephrology on regular basis --CHF (congestive heart failure) Current Visit: Yes Status: Chronic Continue Lasix and Aldactone --IDDM (insulin dependent diabetes mellitus) Current Visit: Yes Status: Chronic Coverage for now Check hemoglobin A1c --Morbid obesity; BMI 46.7 Current Visit: Yes Status: Acute Patient to be counseled about follow-up with bariatric surgery Needs gastric sleeve or gastric bypass Patient to be referred to Dr. Roman at the time of discharge --GERD (gastroesophageal reflux disease) Current Visit: Yes Status: Chronic Continue PPIs --Elevated troponin Current Visit: Yes Status: Chronic Secondary to troponin leak --Hyperlipidemia Current Visit: Yes Status: Chronic Statins initiated --DVT prophylaxis Current Visit: Yes Status: Acute On anticoagulation GI prophylaxis --Advance care planning Current Visit: Yes Status: Acute Disease education conducted, care plan discussed, diagnosis discussed. Prognosis discussed. Patient is full code. Patient acknowledges understanding and agreement with care plan. +30 minutes. 02/18/2022; unable to do CT-guided drainage as insufficient discharge . Discussed with pharmacy, unable to do blood tests as patient is morbidly obese and hard stick unable to give vancomycin without measuring peak and trough periodically Pharmacy recommended doxycycline 100 mg twice a day. 02/19; continue current management, breast surgeon Dr. Bowman will evaluate the patient tomorrow Continue current management History Interval history: I have seen and examined the patient at the bedside Patient's chart and medications reviewed Patient complains of some discomfort in the left breast Vital signs reviewed Hospitalist Physical - Constitutional Vitals: Temp Pulse Resp BP Pulse Ox 97.5 F L 75 20 146/80 96 02/19/22 04:10 02/19/22 04:10 02/19/22 08:28 02/19/22 04:10 02/19/22 08:28 General appearance: Present: no acute distress, well-nourished, obese (Morbidly obese) - EENT Eyes: Present: PERRL, EOM intact - Neck Neck: Present: supple, normal ROM - Respiratory Respiratory effort: normal, other (Left breast engorged and tender to touch) Respiratory: bilateral: diminished, negative: rales, rhonchi, wheezing - Cardiovascular Rhythm: regular Heart Sounds: Present: S1 & S2 - Extremities Extremities: no ischemia Extremity abnormal: edema - Abdominal General gastrointestinal: soft, non-tender, non-distended, normal bowel sounds - Integumentary Integumentary: Present: clear, warm - Psychiatric Psychiatric: appropriate mood/affect, cooperative - Neurologic Neurologic: moves all extremities HEART Score - HEART Score Troponin: Troponin T 0.129 ng/mL (0.00-0.029) H* 02/16/22 15:30 Results - Labs CBC & Chem 7: 02/19/22 10:12 02/19/22 10:12 Labs: Laboratory Last Values WBC 5.7 K/mm3 (4.5-11.0) 02/18/22 14:24 RBC 3.66 M/mm3 (3.65-5.03) 02/18/22 14:24 Hgb 9.4 gm/dl (10.1-14.3) L 02/18/22 14:24 Hct 31.3 % (30.3-42.9) 02/18/22 14:24 MCV 86 fl (79-97) 02/18/22 14:24 MCH 26 pg (28-32) L 02/18/22 14:24 MCHC 30 % (30-34) 02/18/22 14:24 RDW 14.6 % (13.2-15.2) 02/18/22 14:24 Plt Count 262 K/mm3 (140-440) 02/18/22 14:24 Lymph % (Auto) 25.0 % (13.4-35.0) 02/18/22 14:24 [place] % (Auto) 9.1 % (0.0-7.3) H 02/18/22 14:24 Eos % (Auto) 1.9 % (0.0-4.3) 02/18/22 14:24 Baso % (Auto) 0.3 % (0.0-1.8) 02/18/22 14:24 Lymph # (Auto) 1.4 K/mm3 (1.2-5.4) 02/18/22 14:24 [place] # (Auto) 0.5 K/mm3 (0.0-0.8) 02/18/22 14:24 Eos # (Auto) 0.1 K/mm3 (0.0-0.4) 02/18/22 14:24 Baso # (Auto) 0.0 K/mm3 (0.0-0.1) 02/18/22 14:24 Seg Neutrophils % 63.7 % (40.0-70.0) 02/18/22 14:24 Seg Neutrophils # 3.6 K/mm3 (1.8-7.7) 02/18/22 14:24 PT 14.2 Sec. (12.2-14.9) 02/16/22 15:30 INR 0.99 (0.87-1.13) 02/16/22 15:30 Sodium 138 mmol/L (137-145) 02/18/22 14:24 Potassium 4.5 mmol/L (3.6-5.0) 02/18/22 14:24 Chloride 106.5 mmol/L (98-107) 02/18/22 14:24 Carbon Dioxide 17 mmol/L (22-30) L 02/18/22 14:24 Anion Gap 19 mmol/L 02/18/22 14:24 BUN 48 mg/dL (7-17) H 02/18/22 14:24 Creatinine 5.5 mg/dL (0.6-1.2) H 02/18/22 14:24 Estimated GFR 10 ml/min 02/18/22 14:24 BUN/Creatinine Ratio 9 % 02/18/22 14:24 Glucose 195 mg/dL (65-100) H 02/18/22 14:24 POC Glucose 205 mg/dL (70-105) H 02/19/22 00:56 Lactic Acid 1.00 mmol/L (0.7-2.0) 02/16/22 15:30 Calcium 8.0 mg/dL (8.4-10.2) L 02/18/22 14:24 Total Bilirubin < 0.20 mg/dL (0.1-1.2) 02/18/22 14:24 AST 28 units/L (5-40) 02/18/22 14:24 ALT 22 units/L (7-56) 02/18/22 14:24 Alkaline Phosphatase 117 units/L (35-129) 02/18/22 14:24 Troponin T 0.129 ng/mL (0.00-0.029) H* 02/16/22 15:30 NT-Pro-B Natriuret Pep 8264 pg/mL (0-900) H 02/16/22 15:30 Total Protein 5.6 g/dL (6.3-8.2) L 02/18/22 14:24 Albumin 2.5 g/dL (3.9-5) L 02/18/22 14:24 Albumin/Globulin Ratio 0.8 % 02/18/22 14:24 Triglycerides 97 mg/dL (2-149) 02/16/22 15:30 Cholesterol 287 mg/dL (50-199) H 02/16/22 15:30 LDL Cholesterol Direct 184 mg/dL (50-130) H 02/16/22 15:30 HDL Cholesterol 103 mg/dL (40-59) H 02/16/22 15:30 Cholesterol/HDL Ratio 2.78 % 02/16/22 15:30 Urine Color Straw (Yellow) 02/17/22 Unknown Urine Turbidity Clear (Clear) 02/17/22 Unknown Urine pH 6.0 (5.0-7.0) 02/17/22 Unknown Ur Specific [place] 1.013 (1.003-1.030) 02/17/22 Unknown Urine Protein >500 mg/dL (Negative) 02/17/22 Unknown Urine Glucose (UA) 50 mg/dL (Negative) 02/17/22 Unknown Urine Ketones Neg mg/dL (Negative) 02/17/22 Unknown Urine Blood Sm (Negative) 02/17/22 Unknown Urine Nitrite Neg (Negative) 02/17/22 Unknown Urine Bilirubin Neg (Negative) 02/17/22 Unknown Urine Urobilinogen < 2.0 mg/dL (<2.0) 02/17/22 Unknown Ur Leukocyte Esterase Neg (Negative) 02/17/22 Unknown Urine WBC (Auto) 3.0 /HPF (0.0-6.0) 02/17/22 Unknown Urine RBC (Auto) 1.0 /HPF (0.0-6.0) 02/17/22 Unknown U Epithel Cells (Auto) 4.0 /HPF (0-13.0) 02/17/22 Unknown Urine Bacteria (Auto) 1+ /HPF (Negative) 02/17/22 Unknown Urine Mucus Few /HPF 02/17/22 Unknown Urine Yeast (Budding) Few /HPF 02/17/22 Unknown Urine Eosinophils Rare (None Seen) 02/17/22 Unknown Urine Total Volume 1300 ml 02/17/22 17:00 Urine Creatinine 111.3 mg/dL (0.1-20.0) H 02/17/22 17:00 Ur Creatinine 24 Hour 1.4 (0.8-2.8) 02/17/22 17:00 Ur Total Protein 24 Hr 06096.00 mg/dL (2-200) H 02/17/22 17:00 Urine Total Protein 862 mg/dL (5-11.8) H 02/17/22 17:00 Random Vancomycin 13.1 ug/mL (0-40.0) 02/18/22 14:24 Microbiology: Microbiology 02/16/22 15:30 Peripheral/Venous Blood Culture - Preliminary NO GROWTH AFTER 48 HOURS 02/16/22 15:30 Peripheral/Venous Blood Culture - Preliminary NO GROWTH AFTER 48 HOURS [place]/IV: Voiding Method Toilet Active Medications - Current Medications Current Medications: Generic Name Dose Route Start Last Admin Trade Name Freq PRN Reason Stop Dose Admin Acetaminophen 650 mg 02/16/22 19:18 Acetaminophen 325 Mg Tab PO Q4H PRN Pain MILD(1-3)/Fever >100.5/ALY Ascorbic Acid 1,000 mg 02/16/22 20:00 02/18/22 10:21 Ascorbic Acid 500 Mg Tab PO 1,000 mg QDAY NEY Administration Doxycycline Hyclate 100 mg 02/18/22 22:00 02/18/22 22:37 Doxycycline 100 Mg Cap PO 100 mg BID NEY Administration Protocol Gabapentin 100 mg 02/17/22 14:00 02/19/22 06:48 Gabapentin 100 Mg Cap PO 100 mg Q8HR NEY Administration Heparin Sodium (Porcine) 5,000 unit 02/16/22 22:00 02/18/22 22:38 Heparin 5,000 Unit/1 Ml Vial SUB-Q 5,000 unit Q12HR NEY Administration Hydromorphone HCl 0.5 mg 02/16/22 19:20 02/19/22 01:08 Hydromorphone 1 Mg/1 Ml Inj IV 0.5 mg Q3H PRN Administration Pain , Severe (7-10) Sodium Chloride 1,000 mls @ 100 mls/hr 02/17/22 10:00 02/18/22 17:21 Nacl 0.45% 1000 Ml IV 100 mls/hr DIRECT NEY Administration Ampicillin Sodium/Sulbactam Sodium 3 gm in 100 mls @ 200 mls/hr 02/18/22 00:00 02/19/22 01:14 Unasyn/Ns 3 Gm/100 Ml IV 200 mls/hr Q12H NEY Administration Insulin Glargine 70 units 02/16/22 22:00 02/18/22 22:46 Insulin Glargine 100 Units/Ml SUB-Q 70 units BID NEY Administration Insulin Human Lispro 0 unit 02/18/22 11:30 02/19/22 08:15 Insulin Lispro 100 Unit/Ml SUB-Q 2 unit ACHS NEY Administration Protocol Metoclopramide HCl 5 mg 02/17/22 14:00 Metoclopramide 10 Mg/2 Ml Inj IV Q8H PRN Nausea And Vomiting Metoprolol Tartrate 50 mg 02/16/22 20:00 02/18/22 10:21 Metoprolol Tartrate 50 Mg Tab PO 50 mg QDAY NEY Administration Morphine Sulfate 2 mg 02/16/22 19:20 Morphine 2 Mg/1 Ml Inj IV Q4H PRN Pain, Moderate (4-6) Ondansetron HCl 4 mg 02/16/22 19:18 Ondansetron 4 Mg/2 Ml Inj IV Q3H PRN Nausea And Vomiting Oxycodone/Acetaminophen 1 tab 02/16/22 19:20 02/17/22 13:07 Oxycodone /Acetaminophen 5-325mg Tab PO 1 tab Q6H PRN Administration Pain, Moderate (4-6) Pantoprazole Sodium 40 mg 02/16/22 20:00 02/18/22 10:22 Pantoprazole 40 Mg Tab PO 40 mg QDAY NEY Administration Sodium Chloride 10 ml 02/16/22 22:00 02/18/22 22:43 Sodium Chloride 0.9% 10 Ml Flush Syringe IV 10 ml BID NEY Administration Sodium Chloride 10 ml 02/16/22 19:18 Sodium Chloride 0.9% 10 Ml Flush Syringe IV PRN PRN LINE FLUSH Zinc Sulfate 220 mg 02/17/22 10:00 02/18/22 10:21 Zinc Sulfate 220 Mg Cap PO 220 mg QDAY NEY Administration
[2022-02-19] MEDS: ZINC SULFATE 220 MG CAP PO SCH (09:44)
[2022-02-19] MEDS: METOPROLOL TARTRATE 50 MG TAB PO SCH (09:44)
[2022-02-19] MEDS: ASCORBIC ACID 500 MG TAB PO SCH (09:45)
[2022-02-19] MEDS: DOXYCYCLINE 100 MG CAP PO SCH ×2 (09:45→21:35)
[2022-02-19] MEDS: PANTOPRAZOLE 40 MG TAB PO SCH (09:45)
[2022-02-19] MEDS: HEPARIN 5,000 UNIT/1 ML VIAL SUB-Q SCH ×2 (09:46→21:35)
[2022-02-19] MEDS: INSULIN GLARGINE 100 UNITS/ML SUB-Q SCH ×2 (09:46→22:06)
[2022-02-19 10:35] LABS: Basophils % (Auto) 0.8 % (0.0-1.8); Eosinophils # (Auto) 0.1 K/mm3 (0.0-0.4); Eosinophils % (Auto) 2.2 % (0.0-4.3); Hematocrit 29.8 % (30.3-42.9); Hemoglobin 9.4 gm/dl (10.1-14.3); Lymphocytes # (Auto) 1.6 K/mm3 (1.2-5.4); Mean Corpuscular HGB Conc 32 % (30-34); Mean Corpuscular Volume 85 fl (79-97); Monocytes # (Auto) 0.5 K/mm3 (0.0-0.8); Platelet Count 255 K/mm3 (140-440); Red Blood Count 3.49 M/mm3 (3.65-5.03); Red Cell Distribution Width 14.6 % (13.2-15.2)
[2022-02-19 10:51] LABS: Alanine Aminotransferase 24 units/L (7-56); Albumin 2.5 g/dL (3.9-5); Blood Urea Nitrogen 48 mg/dL (7-17); Calcium 8.4 mg/dL (8.4-10.2); Hemolysis Index 20
[2022-02-19 10:52] LABS: BUN/Creatinine Ratio 8
--- NOTE | 2022-02-19 16:07 | Progress Note ---
Assessment and Plan Impression: * DEVON on ckd 4/5 * Cellulits of breast * HTN * IDDM * CHF Plan: continue gentle ivfs, follow up lytes, noted, worsening follow up crcl Cellulitis and abscess of left breast renal us appears to have been performed, await interpretation Surgery and IR consult noted IV abx noted DEVON superimposed upon chronic kidney disease Her creatinine was around 3.5 in June 2021 Patient did not follow-up with nephrology as requested, mark progression to ESRD if no improvement next 24 to 48 hrs, will need MANAGER DATA renal diet, strict i/os, daily lytes Subjective Date of service: 02/19/22 Interval history: resting in bed today Objective - Exam Narrative Exam: General appearance: Present: mild distress, well-nourished - EENT Eyes: Present: PERRL ENT: hearing intact, clear oral mucosa - Neck Neck: Present: supple, normal ROM - Respiratory Respiratory effort: normal Respiratory: bilateral: CTA Details: Left breast red and tender around the perianal area - Cardiovascular Heart rate: 78 Rhythm: regular Heart Sounds: Present: S1 & S2. Absent: rub, click - Extremities Extremities: no ischemia, pulses intact, pulses symmetrical, No edema Peripheral Pulses: within normal limits - Abdominal General gastrointestinal: Present: soft, non-tender, non-distended, normal bowel sounds Female genitourinary: Present: normal - Rectal Rectal Exam: deferred - Integumentary Integumentary: Present: clear, warm, dry - Musculoskeletal Musculoskeletal: gait normal, strength equal bilaterally - Psychiatric Psychiatric: appropriate mood/affect, intact judgment & insight - Neurologic Neurologic: CNII-XII intact, moves all extremities - Allied Health Allied health notes reviewed: nursing, case management - Vital Signs Vital signs: Vital Signs - 12hr 02/19/22 02/19/22 02/19/22 04:10 08:28 09:59 Temperature 97.5 F L 98.0 F Pulse Rate 75 80 Respiratory 16 20 20 Rate Blood Pressure 146/80 Blood Pressure 143/84 [Right] O2 Sat by Pulse 96 96 96 Oximetry 02/19/22 11:17 Temperature 98.2 F Pulse Rate 69 Respiratory 18 Rate Blood Pressure 163/72 Blood Pressure [Right] O2 Sat by Pulse 97 Oximetry - Lab 02/19/22 10:12 02/19/22 10:12 Most recent lab results Calcium 8.4 mg/dL (8.4-10.2) 02/19/22 10:12 Urine Creatinine 111.3 mg/dL (0.1-20.0) H 02/17/22 17:00 Ur Total Protein 24 Hr 26057.00 mg/dL (2-200) H 02/17/22 17:00 Urine Total Protein 862 mg/dL (5-11.8) H 02/17/22 17:00 Medications & Allergies - Medications Allergies/Adverse Reactions: Allergies No Known Allergies Allergy (Verified 02/16/22 13:44) Home Medications: Home Medications Medication Instructions Recorded Confirmed Last Taken Type Pantoprazole [Protonix TAB] 40 mg PO QDAY #30 tablet 06/12/20 01/10/22 Unknown Rx Amoxicillin [Trimox CAP] 500 mg PO QDAY 01/10/22 01/10/22 Unknown History Ascorbic Acid [Vitamin C] 1,000 mg PO QDAY 01/10/22 01/10/22 Unknown History Furosemide [Lasix TAB] 40 mg PO QDAY 01/10/22 01/10/22 Unknown History Gabapentin [Neurontin] 600 mg PO QDAY 01/10/22 01/10/22 Unknown History Insulin Glargine,Hum.rec.anlog 70 unit SQ BID 01/10/22 01/10/22 Unknown History [Basaglar Kwikpen U-100] Metoprolol [Lopressor TAB] 50 mg PO QDAY 01/10/22 01/10/22 Unknown History Zinc [Zinc 50mg TAB] 50 mg PO QDAY 01/10/22 01/10/22 Unknown History traMADoL [Ultram] 50 mg PO QDAY PRN 01/10/22 01/10/22 Unknown History Active Medications: Generic Name Dose Route Start Last Admin Trade Name Freq PRN Reason Stop Dose Admin Acetaminophen 650 mg 02/16/22 19:18 Acetaminophen 325 Mg Tab PO Q4H PRN Pain MILD(1-3)/Fever >100.5/ALY Ascorbic Acid 1,000 mg 02/16/22 20:00 02/19/22 09:45 Ascorbic Acid 500 Mg Tab PO 1,000 mg QDAY NEY Administration Doxycycline Hyclate 100 mg 02/18/22 22:00 02/19/22 09:45 Doxycycline 100 Mg Cap PO 100 mg BID NEY Administration Protocol Gabapentin 100 mg 02/17/22 14:00 02/19/22 14:22 Gabapentin 100 Mg Cap PO 100 mg Q8HR NEY Administration Heparin Sodium (Porcine) 5,000 unit 02/16/22 22:00 02/19/22 09:46 Heparin 5,000 Unit/1 Ml Vial SUB-Q 5,000 unit Q12HR NEY Administration Hydromorphone HCl 0.5 mg 02/16/22 19:20 02/19/22 01:08 Hydromorphone 1 Mg/1 Ml Inj IV 0.5 mg Q3H PRN Administration Pain , Severe (7-10) Sodium Chloride 1,000 mls @ 100 mls/hr 02/17/22 10:00 02/18/22 17:21 Nacl 0.45% 1000 Ml IV 100 mls/hr DIRECT NEY Administration Ampicillin Sodium/Sulbactam Sodium 3 gm in 100 mls @ 200 mls/hr 02/18/22 00:00 02/19/22 12:06 Unasyn/Ns 3 Gm/100 Ml IV 200 mls/hr Q12H NEY Administration Insulin Glargine 70 units 02/16/22 22:00 02/19/22 09:46 Insulin Glargine 100 Units/Ml SUB-Q Not Given BID [facility] Insulin Human Lispro 0 unit 02/18/22 11:30 02/19/22 12:06 Insulin Lispro 100 Unit/Ml SUB-Q 2 unit ACHS [facility] Administration Protocol Metoclopramide HCl 5 mg 02/17/22 14:00 Metoclopramide 10 Mg/2 Ml Inj IV Q8H PRN Nausea And Vomiting Metoprolol Tartrate 50 mg 02/16/22 20:00 02/19/22 09:44 Metoprolol Tartrate 50 Mg Tab PO 50 mg QDAY NEY Administration Morphine Sulfate 2 mg 02/16/22 19:20 Morphine 2 Mg/1 Ml Inj IV Q4H PRN Pain, Moderate (4-6) Ondansetron HCl 4 mg 02/16/22 19:18 Ondansetron 4 Mg/2 Ml Inj IV Q3H PRN Nausea And Vomiting Oxycodone/Acetaminophen 1 tab 02/16/22 19:20 02/17/22 13:07 Oxycodone /Acetaminophen 5-325mg Tab PO 1 tab Q6H PRN Administration Pain, Moderate (4-6) Pantoprazole Sodium 40 mg 02/16/22 20:00 02/19/22 09:45 Pantoprazole 40 Mg Tab PO 40 mg QDAY NEY Administration Sodium Chloride 10 ml 02/16/22 22:00 02/19/22 09:45 Sodium Chloride 0.9% 10 Ml Flush Syringe IV 10 ml BID NEY Administration Sodium Chloride 10 ml 02/16/22 19:18 Sodium Chloride 0.9% 10 Ml Flush Syringe IV PRN PRN LINE FLUSH Zinc Sulfate 220 mg 02/17/22 10:00 02/19/22 09:44 Zinc Sulfate 220 Mg Cap PO 220 mg QDAY NEY Administration
[2022-02-20] MEDS: AMPICILLIN/SULBACTA 3GM/100ML 3 GM/100 ML BAG IV SCH ×3 (00:41→23:31)
[2022-02-20 06:29] LABS: Basophils % (Auto) 0.5 % (0.0-1.8); Eosinophils # (Auto) 0.1 K/mm3 (0.0-0.4); Hematocrit 29.4 % (30.3-42.9); Lymphocytes # (Auto) 1.7 K/mm3 (1.2-5.4); Mean Corpuscular HGB Conc 31 % (30-34); Mean Corpuscular Volume 85 fl (79-97); Monocytes # (Auto) 0.5 K/mm3 (0.0-0.8); Monocytes % (Auto) 8.6 % (0.0-7.3); Platelet Count 258 K/mm3 (140-440); Red Blood Count 3.44 M/mm3 (3.65-5.03); Red Cell Distribution Width 14.5 % (13.2-15.2)
[2022-02-20 06:39] LABS: Albumin 2.5 g/dL (3.9-5); Calcium 8.4 mg/dL (8.4-10.2)
[2022-02-20] MEDS: GABAPENTIN 100 MG CAP PO SCH ×3 (06:53→21:23)
--- NOTE | 2022-02-20 08:24 | Ultrasound Report ---
ULTRASOUND RENAL ULTRASOUND BLADDER RESIDUAL INDICATION / CLINICAL INFORMATION: renal failure. COMPARISON: Renal ultrasound dated 02/25/2019 FINDINGS: RIGHT KIDNEY: Length = 12.3 cm. [normal > 9 cm] - Parenchymal Thickness = 1.8 cm. [normal > 1.5 cm] - Echogenicity: Increased - Hydronephrosis: None. - Cyst or mass: No significant abnormality. - Stones: None seen. LEFT KIDNEY: Length = 11.4 cm. [normal > 9 cm] - Parenchymal Thickness = 1.6 cm. [normal > 1.5 cm] - Echogenicity: Increased - Hydronephrosis: None. - Cyst or mass: No significant abnormality. - Stones: None seen. URINARY BLADDER: No significant abnormality. No mass or wall abnormality. Prevoid bladder volume ally ures 161 cc. There is a small post void residual measuring 11 cc. FREE FLUID: None. ADDITIONAL FINDINGS: None. IMPRESSION: Normal size but slightly echogenic kidneys consistent with medical renal disease. No focal renal les ion or hydronephrosis. Small post void residual measuring 11 cc. Signer Name: Ollie Villalta Jr, MD Signed: 02/20/2022 8:20 AM Workstation Name: [id number]
--- NOTE | 2022-02-20 08:30 | Progress Note ---
Assessment and Plan Assessment and Plan Impression: * DEVON on stage IV/V CKD --24h urine CrCl 18ml/min (Feb 17) --Scr 3.5mg/dL in Jun 2021 * Cellulits and abscess, left breast * Hypertension * Type II DM * Proteinuria, subnephrotic --24h urine protein 862mg (Feb 17) * CHF * Metabolic acidosis Plan: * AM labs reviewed. Lytes are stable. 24h urine CrCl 18ml/min. No acute indication for renal replacement therapy. Continue close monitoring for now * Will stop IVF * Give Bumex 1mg IV q12h x 2 doses * Blood pressure uncontrolled - add Amlodipine 10mg daily * Start NaBicarb 1300mg BID * Abx per ID * Surgery and IR consult noted * Dose medications for renal function * AM labs Subjective Date of service: 02/20/22 Interval history: Patient complains of swelling Objective - Vital Signs Vital signs: Vital Signs - 12hr 02/19/22 02/19/22 02/19/22 20:32 21:10 22:30 Temperature 98.0 F Pulse Rate 80 Respiratory 16 18 Rate Blood Pressure 166/71 O2 Sat by Pulse 99 97 100 Oximetry 02/20/22 04:42 Temperature 97.5 F L Pulse Rate 82 Respiratory 20 Rate Blood Pressure 176/79 O2 Sat by Pulse 91 Oximetry - General Appearance General appearance: well-nourished, obese EENT: ATNC Respiratory: Present: Decreased Breath Sounds Cardiology: regular, S1S2 Gastrointestinal: other (abdominal wall edema) Integumentary: warm and dry Neurologic: alert and oriented x3 Musculoskeletal: other (LE edema) Psychiatric: cooperative - Lab 02/20/22 05:54 02/20/22 05:54 Most recent lab results Calcium 8.4 mg/dL (8.4-10.2) 02/20/22 05:54 Urine Creatinine 111.3 mg/dL (0.1-20.0) H 02/17/22 17:00 Ur Total Protein 24 Hr 93110.00 mg/dL (2-200) H 02/17/22 17:00 Urine Total Protein 862 mg/dL (5-11.8) H 02/17/22 17:00 Medications & Allergies - Medications Allergies/Adverse Reactions: Allergies No Known Allergies Allergy (Verified 02/16/22 13:44) Home Medications: Home Medications Medication Instructions Recorded Confirmed Last Taken Type Pantoprazole [Protonix TAB] 40 mg PO QDAY #30 tablet 06/12/20 01/10/22 Unknown Rx Amoxicillin [Trimox CAP] 500 mg PO QDAY 01/10/22 01/10/22 Unknown History Ascorbic Acid [Vitamin C] 1,000 mg PO QDAY 01/10/22 01/10/22 Unknown History Furosemide [Lasix TAB] 40 mg PO QDAY 01/10/22 01/10/22 Unknown History Gabapentin [Neurontin] 600 mg PO QDAY 01/10/22 01/10/22 Unknown History Insulin Glargine,Hum.rec.anlog 70 unit SQ BID 01/10/22 01/10/22 Unknown History [Basaglar Kwikpen U-100] Metoprolol [Lopressor TAB] 50 mg PO QDAY 01/10/22 01/10/22 Unknown History Zinc [Zinc 50mg TAB] 50 mg PO QDAY 01/10/22 01/10/22 Unknown History traMADoL [Ultram] 50 mg PO QDAY PRN 01/10/22 01/10/22 Unknown History Active Medications: Generic Name Dose Route Start Last Admin Trade Name Freq PRN Reason Stop Dose Admin Acetaminophen 650 mg 02/16/22 19:18 Acetaminophen 325 Mg Tab PO Q4H PRN Pain MILD(1-3)/Fever >100.5/ALY Ascorbic Acid 1,000 mg 02/16/22 20:00 02/19/22 09:45 Ascorbic Acid 500 Mg Tab PO 1,000 mg QDAY NEY Administration Doxycycline Hyclate 100 mg 02/18/22 22:00 02/19/22 21:35 Doxycycline 100 Mg Cap PO 100 mg BID NEY Administration Protocol Gabapentin 100 mg 02/17/22 14:00 02/20/22 06:53 Gabapentin 100 Mg Cap PO 100 mg Q8HR NEY Administration Heparin Sodium (Porcine) 5,000 unit 02/16/22 22:00 02/19/22 21:35 Heparin 5,000 Unit/1 Ml Vial SUB-Q 5,000 unit Q12HR NEY Administration Hydromorphone HCl 0.5 mg 02/16/22 19:20 02/19/22 22:14 Hydromorphone 1 Mg/1 Ml Inj IV 0.5 mg Q3H PRN Administration Pain , Severe (7-10) Sodium Chloride 1,000 mls @ 100 mls/hr 02/17/22 10:00 02/18/22 17:21 Nacl 0.45% 1000 Ml IV 100 mls/hr DIRECT NEY Administration Ampicillin Sodium/Sulbactam Sodium 3 gm in 100 mls @ 200 mls/hr 02/18/22 00:00 02/20/22 00:41 Unasyn/Ns 3 Gm/100 Ml IV 200 mls/hr Q12H NEY Administration Insulin Glargine 70 units 02/16/22 22:00 02/19/22 22:06 Insulin Glargine 100 Units/Ml SUB-Q Not Given BID NEY Insulin Human Lispro 0 unit 02/18/22 11:30 02/19/22 22:07 Insulin Lispro 100 Unit/Ml SUB-Q Not Given ACHS [facility] Protocol Metoclopramide HCl 5 mg 02/17/22 14:00 Metoclopramide 10 Mg/2 Ml Inj IV Q8H PRN Nausea And Vomiting Metoprolol Tartrate 50 mg 02/16/22 20:00 02/19/22 09:44 Metoprolol Tartrate 50 Mg Tab PO 50 mg QDAY NEY Administration Morphine Sulfate 2 mg 02/16/22 19:20 Morphine 2 Mg/1 Ml Inj IV Q4H PRN Pain, Moderate (4-6) Ondansetron HCl 4 mg 02/16/22 19:18 Ondansetron 4 Mg/2 Ml Inj IV Q3H PRN Nausea And Vomiting Oxycodone/Acetaminophen 1 tab 02/16/22 19:20 02/17/22 13:07 Oxycodone /Acetaminophen 5-325mg Tab PO 1 tab Q6H PRN Administration Pain, Moderate (4-6) Pantoprazole Sodium 40 mg 02/16/22 20:00 02/19/22 09:45 Pantoprazole 40 Mg Tab PO 40 mg QDAY NEY Administration Sodium Chloride 10 ml 02/16/22 22:00 02/19/22 21:36 Sodium Chloride 0.9% 10 Ml Flush Syringe IV 10 ml BID NEY Administration Sodium Chloride 10 ml 02/16/22 19:18 Sodium Chloride 0.9% 10 Ml Flush Syringe IV PRN PRN LINE FLUSH Zinc Sulfate 220 mg 02/17/22 10:00 02/19/22 09:44 Zinc Sulfate 220 Mg Cap PO 220 mg QDAY NEY Administration
[2022-02-20] MEDS: DOXYCYCLINE 100 MG CAP PO SCH ×2 (09:44→21:24)
[2022-02-20] MEDS: ASCORBIC ACID 500 MG TAB PO SCH (09:44)
[2022-02-20] MEDS: METOPROLOL TARTRATE 50 MG TAB PO SCH (09:44)
[2022-02-20] MEDS: INSULIN LISPRO 100 UNIT/ML SUB-Q SCH ×4 (09:44→23:17)
[2022-02-20] MEDS: amLODIPine 10 MG TAB PO SCH (09:44)
[2022-02-20] MEDS: PANTOPRAZOLE 40 MG TAB PO SCH (09:45)
[2022-02-20] MEDS: ZINC SULFATE 220 MG CAP PO SCH (09:45)
[2022-02-20] MEDS: INSULIN GLARGINE 100 UNITS/ML SUB-Q SCH ×2 (09:45→23:17)
[2022-02-20] MEDS: HEPARIN 5,000 UNIT/1 ML VIAL SUB-Q SCH ×2 (09:45→21:22)
[2022-02-20] MEDS: SODIUM BICARBONATE 650 MG TAB PO SCH ×2 (09:46→21:23)
[2022-02-20] MEDS ORDERED: BUMETANIDE 1 MG/4 ML INJ IV SCH (10:00)
[2022-02-20] MEDS: BUMETANIDE 2.5 MG/10 ML VIAL IV SCH ×2 (11:47→21:23)
--- NOTE | 2022-02-20 12:14 | Ultrasound Report ---
ULTRASOUND BREAST LEFT COMPLETE, 02/20/2022 CLINICAL INFORMATION / INDICATION: The patient has a history of left breast pain and swelling. She is currently on antibiotic therapy. This is a short-term follow-up evaluation. TECHNIQUE: Targeted ultrasound evaluation was performed of the area of interest. COMPARISON: Left breast ultrasound, 11/18/2021 FINDINGS: Sonographic evaluation of the left breast again demonstrates generalized soft tissue edema most notab ly in the periareolar region. Overall, this is slightly decreased when compared to the previous study . No discrete drainable fluid collection is visualized. The previously seen hypoechoic region in the retroareolar location is not clearly visualized on today's study. IMPRESSION: 1. Slight interval decrease of left breast soft tissue edema without evidence of discrete drainable f luid collection such as abscess. Please correlate with patient's clinical circumstances. 2. Even if patient's clinical symptoms improve with antibiotic therapy, a short-term follow-up left b reast ultrasound and diagnostic mammogram is recommended for complete evaluation to ensure there is n o underlying suspicious mass or other finding. Follow up recommendation: Clinical exam BI-RADS Category 3: PROBABLY BENIGN. Followup in 3 months. A normal or "negative" report should not preclude biopsy or follow-up of a clinically suspicious find ing. Signer Name: Jailyn Engel MD Signed: 02/20/2022 12:10 PM Workstation Name: [id number]
--- NOTE | 2022-02-20 20:32 | Progress Note ---
Assessment and Plan Assessment and plan: --Cellulitis of left breast Current Visit: Yes Status: Acute Cellulitis left breast Surgery and IR evaluated Not amenable for CT drainage . No breast abscess noted Started IV Unasyn and vancomycin [unable to check Vanco levels due to hard stick blood draws] Patient is receiving IV Unasyn and doxycycline recommended by pharmacy Continue Unasyn and doxycycline --Hypertension/moderate control Current Visit: Yes Status: Chronic Continue antihypertensives --DEVON (acute kidney injury) on chronic kidney disease stage IV vasomotor nephropathy Current Visit: Yes Status: Acute DEVON superimposed upon chronic kidney disease Her creatinine was around 3.5 in June 2021 Patient noncompliance with follow-up Nephrology following, no indication for replacement therapy at this point Closely monitor --CHF (congestive heart failure) Current Visit: Yes Status: Chronic Continue Lasix and Aldactone --IDDM (insulin dependent diabetes mellitus) Current Visit: Yes Status: Chronic Coverage for now Check hemoglobin A1c --Morbid obesity; BMI 46.7 Current Visit: Yes Status: Acute Patient to be counseled about follow-up with bariatric surgery Needs gastric sleeve or gastric bypass Patient to be referred to Dr. Roman at the time of discharge --GERD (gastroesophageal reflux disease) Current Visit: Yes Status: Chronic Continue PPIs --Elevated troponin Current Visit: Yes Status: Chronic Secondary to troponin leak --Hyperlipidemia Current Visit: Yes Status: Chronic Statins initiated --DVT prophylaxis Current Visit: Yes Status: Acute On anticoagulation GI prophylaxis --Advance care planning Current Visit: Yes Status: Acute Disease education conducted, care plan discussed, diagnosis discussed. Prognosis discussed. Patient is full code. Patient acknowledges understanding and agreement with care plan. +30 minutes. Brief history: 51-year-old -[place]in[place] female with morbid obesity past medical history of insulin-dependent diabetes, hypertension and CHF comes in for spontaneous onset of redness and pain in the left breast. No evidence of breast abscess, breast cellulitis being managed with Unasyn and doxycycline per pharmacy, acute on chronic kidney disease nephrology following, patient noncompliant with nephro follow-up, no indication for replacement therapy at this point 02/18/2022; unable to do CT-guided drainage as insufficient discharge . Discussed with pharmacy, unable to do blood tests as patient is morbidly obese and hard stick unable to give vancomycin without measuring peak and trough periodically Pharmacy recommended doxycycline 100 mg twice a day. 02/19; continue current management, breast surgeon Dr. Bowman will evaluate the patient tomorrow Continue current management 02/20; breast ultrasound, and possible breast biopsy per surgeon Dr. Bowman if needed Disposition; follow general surgery, nephrology recommendations, discharge when cleared by the History Interval history: I have seen and examined the patient at the bedside Patient's chart and medications reviewed No new events reported by the nursing vital signs noted Hospitalist Physical - Constitutional Vitals: Temp Pulse Resp BP Pulse Ox 97.5 F L 82 20 176/79 98 02/20/22 04:42 02/20/22 04:42 02/20/22 10:00 02/20/22 04:42 02/20/22 20:22 General appearance: Present: no acute distress, well-nourished, obese (Morbidly obese) - EENT Eyes: Present: PERRL, EOM intact - Neck Neck: Present: supple, normal ROM - Respiratory Respiratory effort: normal Respiratory: bilateral: diminished, negative: rales, rhonchi, wheezing - Cardiovascular Rhythm: regular Heart Sounds: Present: S1 & S2 - Extremities Extremities: no ischemia, No edema - Abdominal General gastrointestinal: soft, non-tender, non-distended, normal bowel sounds - Psychiatric Psychiatric: appropriate mood/affect, cooperative - Neurologic Neurologic: moves all extremities HEART Score - HEART Score Troponin: Troponin T 0.129 ng/mL (0.00-0.029) H* 02/16/22 15:30 Results - Labs CBC & Chem 7: 02/20/22 05:54 02/20/22 05:54 Labs: Laboratory Last Values WBC 6.1 K/mm3 (4.5-11.0) 02/20/22 05:54 RBC 3.44 M/mm3 (3.65-5.03) L 02/20/22 05:54 Hgb 9.0 gm/dl (10.1-14.3) L 02/20/22 05:54 Hct 29.4 % (30.3-42.9) L 02/20/22 05:54 MCV 85 fl (79-97) 02/20/22 05:54 MCH 26 pg (28-32) L 02/20/22 05:54 MCHC 31 % (30-34) 02/20/22 05:54 RDW 14.5 % (13.2-15.2) 02/20/22 05:54 Plt Count 258 K/mm3 (140-440) 02/20/22 05:54 Lymph % (Auto) 28.0 % (13.4-35.0) 02/20/22 05:54 [place] % (Auto) 8.6 % (0.0-7.3) H 02/20/22 05:54 Eos % (Auto) 2.0 % (0.0-4.3) 02/20/22 05:54 Baso % (Auto) 0.5 % (0.0-1.8) 02/20/22 05:54 Lymph # (Auto) 1.7 K/mm3 (1.2-5.4) 02/20/22 05:54 [place] # (Auto) 0.5 K/mm3 (0.0-0.8) 02/20/22 05:54 Eos # (Auto) 0.1 K/mm3 (0.0-0.4) 02/20/22 05:54 Baso # (Auto) 0.0 K/mm3 (0.0-0.1) 02/20/22 05:54 Seg Neutrophils % 60.9 % (40.0-70.0) 02/20/22 05:54 Seg Neutrophils # 3.7 K/mm3 (1.8-7.7) 02/20/22 05:54 PT 14.2 Sec. (12.2-14.9) 02/16/22 15:30 INR 0.99 (0.87-1.13) 02/16/22 15:30 Sodium 144 mmol/L (137-145) 02/20/22 05:54 Potassium 4.7 mmol/L (3.6-5.0) 02/20/22 05:54 Chloride 114.7 mmol/L (98-107) H 02/20/22 05:54 Carbon Dioxide 18 mmol/L (22-30) L 02/20/22 05:54 Anion Gap 16 mmol/L 02/20/22 05:54 BUN 50 mg/dL (7-17) H 02/20/22 05:54 Creatinine 5.9 mg/dL (0.6-1.2) H 02/20/22 05:54 Estimated GFR 9 ml/min 02/20/22 05:54 BUN/Creatinine Ratio 8 % 02/20/22 05:54 Glucose 170 mg/dL (65-100) H 02/20/22 05:54 POC Glucose 137 mg/dL (70-105) H 02/20/22 16:40 Lactic Acid 1.00 mmol/L (0.7-2.0) 02/16/22 15:30 Calcium 8.4 mg/dL (8.4-10.2) 02/20/22 05:54 Total Bilirubin 0.20 mg/dL (0.1-1.2) 02/20/22 05:54 AST 24 units/L (5-40) 02/20/22 05:54 ALT 24 units/L (7-56) 02/20/22 05:54 Alkaline Phosphatase 110 units/L (35-129) 02/20/22 05:54 Troponin T 0.129 ng/mL (0.00-0.029) H* 02/16/22 15:30 NT-Pro-B Natriuret Pep 8264 pg/mL (0-900) H 02/16/22 15:30 Total Protein 5.3 g/dL (6.3-8.2) L 02/20/22 05:54 Albumin 2.5 g/dL (3.9-5) L 02/20/22 05:54 Albumin/Globulin Ratio 0.9 % 02/20/22 05:54 Triglycerides 97 mg/dL (2-149) 02/16/22 15:30 Cholesterol 287 mg/dL (50-199) H 02/16/22 15:30 LDL Cholesterol Direct 184 mg/dL (50-130) H 02/16/22 15:30 HDL Cholesterol 103 mg/dL (40-59) H 02/16/22 15:30 Cholesterol/HDL Ratio 2.78 % 02/16/22 15:30 Urine Color Straw (Yellow) 02/17/22 Unknown Urine Turbidity Clear (Clear) 02/17/22 Unknown Urine pH 6.0 (5.0-7.0) 02/17/22 Unknown Ur Specific [place] 1.013 (1.003-1.030) 02/17/22 Unknown Urine Protein >500 mg/dL (Negative) 02/17/22 Unknown Urine Glucose (UA) 50 mg/dL (Negative) 02/17/22 Unknown Urine Ketones Neg mg/dL (Negative) 02/17/22 Unknown Urine Blood Sm (Negative) 02/17/22 Unknown Urine Nitrite Neg (Negative) 02/17/22 Unknown Urine Bilirubin Neg (Negative) 02/17/22 Unknown Urine Urobilinogen < 2.0 mg/dL (<2.0) 02/17/22 Unknown Ur Leukocyte Esterase Neg (Negative) 02/17/22 Unknown Urine WBC (Auto) 3.0 /HPF (0.0-6.0) 02/17/22 Unknown Urine RBC (Auto) 1.0 /HPF (0.0-6.0) 02/17/22 Unknown U Epithel Cells (Auto) 4.0 /HPF (0-13.0) 02/17/22 Unknown Urine Bacteria (Auto) 1+ /HPF (Negative) 02/17/22 Unknown Urine Mucus Few /HPF 02/17/22 Unknown Urine Yeast (Budding) Few /HPF 02/17/22 Unknown Urine Eosinophils Rare (None Seen) 02/17/22 Unknown Urine Total Volume 1300 ml 02/17/22 17:00 Urine Creatinine 111.3 mg/dL (0.1-20.0) H 02/17/22 17:00 Ur Creatinine 24 Hour 1.4 (0.8-2.8) 02/17/22 17:00 Ur Total Protein 24 Hr 91750.00 mg/dL (2-200) H 02/17/22 17:00 Urine Total Protein 862 mg/dL (5-11.8) H 02/17/22 17:00 Random Vancomycin 13.1 ug/mL (0-40.0) 02/18/22 14:24 Microbiology: Microbiology 02/16/22 15:30 Peripheral/Venous Blood Culture - Preliminary NO GROWTH AFTER 4 DAYS 02/16/22 15:30 Peripheral/Venous Blood Culture - Preliminary NO GROWTH AFTER 4 DAYS [place]/IV: Voiding Method Toilet Active Medications - Current Medications Current Medications: Generic Name Dose Route Start Last Admin Trade Name Freq PRN Reason Stop Dose Admin Acetaminophen 650 mg 02/16/22 19:18 Acetaminophen 325 Mg Tab PO Q4H PRN Pain MILD(1-3)/Fever >100.5/ALY Amlodipine Besylate 10 mg 02/20/22 10:00 02/20/22 09:44 Amlodipine 10 Mg Tab PO 10 mg QDAY NEY Administration Ascorbic Acid 1,000 mg 02/16/22 20:00 02/20/22 09:44 Ascorbic Acid 500 Mg Tab PO 1,000 mg QDAY NEY Administration Bumetanide 1 mg 02/20/22 10:00 02/20/22 11:47 Bumetanide 2.5 Mg/10 Ml Vial IV 02/20/22 23:59 1 mg BID NEY Administration Doxycycline Hyclate 100 mg 02/18/22 22:00 02/20/22 09:44 Doxycycline 100 Mg Cap PO 100 mg BID [facility] Administration Protocol Gabapentin 100 mg 02/17/22 14:00 02/20/22 13:11 Gabapentin 100 Mg Cap PO 100 mg Q8HR NEY Administration Heparin Sodium (Porcine) 5,000 unit 02/16/22 22:00 02/20/22 09:45 Heparin 5,000 Unit/1 Ml Vial SUB-Q 5,000 unit Q12HR NEY Administration Hydromorphone HCl 0.5 mg 02/16/22 19:20 02/19/22 22:14 Hydromorphone 1 Mg/1 Ml Inj IV 0.5 mg Q3H PRN Administration Pain , Severe (7-10) Ampicillin Sodium/Sulbactam Sodium 3 gm in 100 mls @ 200 mls/hr 02/18/22 00:00 02/20/22 11:49 Unasyn/Ns 3 Gm/100 Ml IV 200 mls/hr Q12H NEY Administration Insulin Glargine 70 units 02/16/22 22:00 02/20/22 09:45 Insulin Glargine 100 Units/Ml SUB-Q Not Given BID [facility] Insulin Human Lispro 0 unit 02/18/22 11:30 02/20/22 18:05 Insulin Lispro 100 Unit/Ml SUB-Q Not Given ACHS [facility] Protocol Metoclopramide HCl 5 mg 02/17/22 14:00 Metoclopramide 10 Mg/2 Ml Inj IV Q8H PRN Nausea And Vomiting Metoprolol Tartrate 50 mg 02/16/22 20:00 02/20/22 09:44 Metoprolol Tartrate 50 Mg Tab PO 50 mg QDAY [facility] Administration Morphine Sulfate 2 mg 02/16/22 19:20 Morphine 2 Mg/1 Ml Inj IV Q4H PRN Pain, Moderate (4-6) Ondansetron HCl 4 mg 02/16/22 19:18 Ondansetron 4 Mg/2 Ml Inj IV Q3H PRN Nausea And Vomiting Oxycodone/Acetaminophen 1 tab 02/16/22 19:20 02/17/22 13:07 Oxycodone /Acetaminophen 5-325mg Tab PO 1 tab Q6H PRN Administration Pain, Moderate (4-6) Pantoprazole Sodium 40 mg 02/16/22 20:00 02/20/22 09:45 Pantoprazole 40 Mg Tab PO 40 mg QDAY NEY Administration Sodium Bicarbonate 1,300 mg 02/20/22 10:00 02/20/22 09:46 Sodium Bicarbonate 650 Mg Tab PO 1,300 mg BID NEY Administration Sodium Chloride 10 ml 02/16/22 22:00 02/20/22 09:46 Sodium Chloride 0.9% 10 Ml Flush Syringe IV 10 ml BID NEY Administration Sodium Chloride 10 ml 02/16/22 19:18 Sodium Chloride 0.9% 10 Ml Flush Syringe IV PRN PRN LINE FLUSH Zinc Sulfate 220 mg 02/17/22 10:00 02/20/22 09:45 Zinc Sulfate 220 Mg Cap PO 220 mg QDAY NEY Administration
[2022-02-21] MEDS: oxyCODONE /ACETAMINOPHEN 5-325MG TAB PO PRN (04:20)
[2022-02-21] MEDS: GABAPENTIN 100 MG CAP PO SCH ×3 (05:03→23:06)
[2022-02-21] MEDS: INSULIN LISPRO 100 UNIT/ML SUB-Q SCH ×4 (07:30→23:05)
--- NOTE | 2022-02-21 08:20 | Consultation ---
History of Present Illness Consult date: 02/21/22 Chief complaint: Left breast cellulitis - History of present illness History of present illness: 51 year old female admitted through the ER 02/16/22 with worsening left breast pain and swelling. She says that swelling started about a month ago. She says that the breast occasionally feels hot to touch. She denies any insect bite or skin trauma. US of left breast showed unorganized collection under nipple suggestive of early abscess. She says she had a mammogram over a year ago that she believes was 'ok'. She is scheduled to get a mammo later this month. She says she has an aunt who of breast CA. Skin changes into the breast with lymphedema and peau d'orange changes. US repeated yesterday again without an organized abscess. Pt has been on Iv antibiotics. She also has renal insufficiency and is poorly compliant with this issue. She notes swelling of legs arms and trunk. Yesterday she got her first dose of bumex . Consultation at this time is for the skin changes on the left breast and potential for inflammatroy breast ca. Past History Past Medical History: diabetes, ESRD, GERD, heart failure, hypertension Past Surgical History: No surgical history, Other Social history: lives with family Family history: other (aunt with breast CA) Medications and Allergies Allergies Allergy/AdvReac Type Severity Reaction Status Date / Time No Known Allergies Allergy Verified 02/21/22 07:23 Home Medications Medication Instructions Recorded Confirmed Last Taken Type Pantoprazole [Protonix TAB] 40 mg PO QDAY #30 tablet 06/12/20 02/21/22 Unknown Rx Ascorbic Acid [Vitamin C] 1,000 mg PO QDAY 01/10/22 02/21/22 Unknown History Furosemide [Lasix TAB] 40 mg PO BID 01/10/22 02/21/22 Unknown History Gabapentin [Neurontin] 600 mg PO QDAY 01/10/22 02/21/22 Unknown History Insulin Glargine,Hum.rec.anlog 80 unit SQ BID 01/10/22 02/21/22 Unknown History [Basaglbirgit Cid U-100] Metoprolol [Lopressor TAB] 50 mg PO QDAY 01/10/22 02/21/22 Unknown History Zinc [Zinc 50mg TAB] 50 mg PO QDAY 01/10/22 02/21/22 Unknown History traMADoL [Ultram] 50 mg PO QDAY PRN 01/10/22 02/21/22 Unknown History Active Meds: Active Medications Acetaminophen (Acetaminophen 325 Mg Tab) 650 mg PO Q4H PRN PRN Reason: Pain MILD(1-3)/Fever >100.5/ALY Amlodipine Besylate (Amlodipine 10 Mg Tab) 10 mg PO QDAY [facility] Last Admin: 02/20/22 09:44 Dose: 10 mg Ascorbic Acid (Ascorbic Acid 500 Mg Tab) 1,000 mg PO QDAY [facility] Last Admin: 02/20/22 09:44 Dose: 1,000 mg Doxycycline Hyclate (Doxycycline 100 Mg Cap) 100 mg PO BID [facility]; Protocol Last Admin: 02/20/22 21:24 Dose: 100 mg Gabapentin (Gabapentin 100 Mg Cap) 100 mg PO Q8HR [facility] Last Admin: 02/21/22 05:03 Dose: 100 mg Heparin Sodium (Porcine) (Heparin 5,000 Unit/1 Ml Vial) 5,000 unit SUB-Q Q12HR [facility] Last Admin: 02/20/22 21:22 Dose: 5,000 unit Hydromorphone HCl (Hydromorphone 1 Mg/1 Ml Inj) 0.5 mg IV Q3H PRN PRN Reason: Pain , Severe (7-10) Last Admin: 02/19/22 22:14 Dose: 0.5 mg Ampicillin Sodium/Sulbactam Sodium (Unasyn/Ns 3 Gm/100 Ml) 3 gm in 100 mls @ 200 mls/hr IV Q12H [facility] Last Admin: 02/20/22 23:31 Dose: 200 mls/hr Insulin Glargine (Insulin Glargine 100 Units/Ml) 70 units SUB-Q BID [facility] Last Admin: 02/20/22 23:17 Dose: Not Given Insulin Human Lispro (Insulin Lispro 100 Unit/Ml) 0 unit SUB-Q ACHS [facility]; Protocol Last Admin: 02/20/22 23:17 Dose: 3 unit Metoclopramide HCl (Metoclopramide 10 Mg/2 Ml Inj) 5 mg IV Q8H PRN PRN Reason: Nausea And Vomiting Metoprolol Tartrate (Metoprolol Tartrate 50 Mg Tab) 50 mg PO QDAY [facility] Last Admin: 02/20/22 09:44 Dose: 50 mg Morphine Sulfate (Morphine 2 Mg/1 Ml Inj) 2 mg IV Q4H PRN PRN Reason: Pain, Moderate (4-6) Ondansetron HCl (Ondansetron 4 Mg/2 Ml Inj) 4 mg IV Q3H PRN PRN Reason: Nausea And Vomiting Oxycodone/Acetaminophen (Oxycodone /Acetaminophen 5-325mg Tab) 1 tab PO Q6H PRN PRN Reason: Pain, Moderate (4-6) Last Admin: 02/21/22 04:20 Dose: 1 tab Pantoprazole Sodium (Pantoprazole 40 Mg Tab) 40 mg PO QDAY [facility] Last Admin: 02/20/22 09:45 Dose: 40 mg Sodium Bicarbonate (Sodium Bicarbonate 650 Mg Tab) 1,300 mg PO BID [facility] Last Admin: 02/20/22 21:23 Dose: 1,300 mg Sodium Chloride (Sodium Chloride 0.9% 10 Ml Flush Syringe) 10 ml IV BID [facility] Last Admin: 02/20/22 21:24 Dose: 10 ml Sodium Chloride (Sodium Chloride 0.9% 10 Ml Flush Syringe) 10 ml IV PRN PRN PRN Reason: LINE FLUSH Zinc Sulfate (Zinc Sulfate 220 Mg Cap) 220 mg PO QDAY [facility] Last Admin: 02/20/22 09:45 Dose: 220 mg Exam Vital Signs Temp Pulse Resp BP Pulse Ox 97.5 F L 102 H 18 124/88 99 02/16/22 14:14 02/16/22 14:14 02/16/22 14:14 02/16/22 14:14 02/16/22 14:14 - General physical appearance Positive: well developed, no distress - Eyes Positive: PERRL - Neck Positive: no masses, no bruits, trachea midline - Respiratory Positive: normal expansion - Cardiovascular Rhythm: regular - Extremities Extremities: no ischemia Extremity abnormal: edema - Breasts Breasts: other - Abdomen Abdomen: Present: soft. Absent: tender Hernia: none - Integumentary other (peau d'orange of left breast about a third of the breast.) - Neurologic Neurologic: alert and oriented to time, place and person, motor strength and sensation are grossly intact, CN II-XII intact Results - Labs 02/20/22 05:54 02/20/22 05:54 Abnormal lab results 02/20/22 02/20/22 02/20/22 Range/Units 11:55 16:40 22:40 POC Glucose 145 H 137 H 229 H (70-105) mg/dL Assessment and Plan Clinical presentation and physical findings not consistant with inflammatory breast cancer. A bedside 4 mm punch biopsy was done yesterday to definitively rule out this diagnosis. Continue management of reanl issues and iv antibiotics for now.
--- NOTE | 2022-02-21 08:28 | Procedure Note ---
Date of procedure: 02/20/22 Pre-op diagnosis: peau d'orange left breast Post-op diagnosis: same Procedure: 4mm punch biopsy of skin of left breast Findings: peau d'orange left breast Anesthesia: local Surgeon: JEAN MARIE RODRIGUEZ Estimated blood loss: minimal Pathology: list (skin bx of left breast) Specimen disposition: to lab Condition: stable Disposition: floor
--- NOTE | 2022-02-21 09:04 | Progress Note ---
Assessment and Plan Assessment and Plan Assessment and plan: --Cellulitis of left breast Current Visit: Yes Status: Acute Cellulitis left breast-resolving now continue IV antibiotics. Change to p.o. antibiotics soon for anticipated discharge. Surgery and IR evaluated Not amenable for CT drainage . No breast abscess noted Started IV Unasyn and vancomycin [unable to check Vanco levels due to hard stick blood draws] Patient is receiving IV Unasyn and doxycycline recommended by pharmacy Continue Unasyn and doxycycline --Hypertension/moderate control Current Visit: Yes Status: Chronic 131/66. Fair control. Continue antihypertensives --DEVON (acute kidney injury) on chronic kidney disease stage IV vasomotor nephropathy Current Visit: Yes Status: Acute DEVON superimposed upon chronic kidney disease Her creatinine was around 3.5 in June 2021 Patient noncompliance with follow-up Creatinine is 5.7 today. 24-hour urine protein 11,000+ Nephrology following, no indication for replacement therapy at this point Closely monitor --CHF (congestive heart failure) Current Visit: Yes Status: Chronic Continue Bumex --IDDM (insulin dependent diabetes mellitus) Current Visit: Yes Status: Chronic Stable Accu-Cheks 109 to max 141. Continue sliding scale insulin. Check hemoglobin A1c --Morbid obesity; BMI 46.7 Current Visit: Yes Status: Acute Patient to be counseled about follow-up with bariatric surgery Needs gastric sleeve or gastric bypass Patient to be referred to Dr. Roman at the time of discharge --GERD (gastroesophageal reflux disease) Current Visit: Yes Status: Chronic Continue PPIs --Elevated troponin Current Visit: Yes Status: Chronic Secondary to troponin leak --Hyperlipidemia Current Visit: Yes Status: Chronic Statins initiated --DVT prophylaxis Current Visit: Yes Status: Acute On anticoagulation GI prophylaxis --Advance care planning Current Visit: Yes Status: Acute Explained to the patient about why she is swelling. About the diuresis. Disease education conducted, care plan discussed, diagnosis discussed. Prognosis discussed. Patient is full code. Patient acknowledges understanding and agreement with care plan. +28 minutes. Subjective Date of service: 02/21/22 Principal diagnosis: Anasarca shortness of breath. Interval history: 51 year old female admitted through the ER 02/16/22 with worsening left breast pain and swelling. She says that swelling started about a month ago. She says that the breast occasionally feels hot to touch. She denies any insect bite or skin trauma. US of left breast showed unorganized collection under nipple suggestive of early abscess. She says she had a mammogram over a year ago that she believes was 'ok'. She is scheduled to get a mammo later this month. She says she has an aunt who of breast CA. Skin changes into the breast with lymphedema and peau d'orange changes. US repeated yesterday again without an organized abscess. Pt has been on Iv antibiotics. She also has renal insufficiency and is poorly compliant with this issue. She notes swelling of legs arms and trunk. Yesterday she got her first dose of bumex . Consultation at this time is for the skin changes on the left breast and potential for inflammatroy breast ca. 02/20/2022 Patient states she did have some response initially with Bumex. States now her legs trunk arms have increased swelling. Unsure of patient's baseline from yesterday. Patient states she has been swelling along with 4 the breast begin to swell. Patient was being treated by primary care physician with diuretics. Objective - Constitutional Vitals: Vital Signs - 12hr 02/20/22 02/21/22 22:43 06:05 Temperature 99.5 F 98.6 F Pulse Rate 74 82 Respiratory 20 20 Rate Blood Pressure 151/83 135/57 O2 Sat by Pulse 94 94 Oximetry General appearance: Present: no acute distress, obese, other (Resting comfortably talking in full sentences without hypoxia or difficulty breathing.) - EENT Eyes: PERRL, EOM intact ENT: hearing intact, clear oral mucosa - Neck Neck: supple, normal ROM - Respiratory Respiratory: bilateral: CTA (Patient with good air entry.) - Breasts Breasts: other (Patient left breast again with Protonix. Minimal discharge from nipple area that is bandaged.) - Cardiovascular Rhythm: regular Heart Sounds: Present: S1 & S2. Absent: gallop, rub Extremity abnormal: edema, other (Patient with significant edema and anasarca. Involving mid abdominal area legs including the thighs. Bilateral breast.) - Gastrointestinal Rectal Exam: deferred - Genitourinary Female genitourinary: deferred - Musculoskeletal Musculoskeletal: strength equal bilaterally - Neurologic Neurologic: moves all extremities - Psychiatric Psychiatric: memory intact, appropriate mood/affect, intact judgment & insight - Labs CBC & Chem 7: 02/21/22 08:08 02/21/22 08:08 Labs: Abnormal lab results 02/20/22 02/20/22 02/20/22 Range/Units 11:55 16:40 22:40 POC Glucose 145 H 137 H 229 H (70-105) mg/dL 02/21/22 Range/Units 07:41 POC Glucose 171 H (70-105) mg/dL HEART Score - HEART Score Troponin: Troponin T 0.129 ng/mL (0.00-0.029) H* 02/16/22 15:30
[2022-02-21 09:11] LABS: Basophils % (Auto) 0.4 % (0.0-1.8); Eosinophils # (Auto) 0.2 K/mm3 (0.0-0.4); Eosinophils % (Auto) 3.1 % (0.0-4.3); Hematocrit 29.5 % (30.3-42.9); Hemoglobin 9.3 gm/dl (10.1-14.3); Lymphocytes # (Auto) 1.6 K/mm3 (1.2-5.4); Lymphocytes % (Auto) 27.1 % (13.4-35.0); Mean Corpuscular HGB Conc 32 % (30-34); Mean Corpuscular Volume 84 fl (79-97); Monocytes # (Auto) 0.5 K/mm3 (0.0-0.8); Monocytes % (Auto) 8.9 % (0.0-7.3); Platelet Count 280 K/mm3 (140-440); Red Cell Distribution Width 14.3 % (13.2-15.2)
[2022-02-21 09:15] LABS: Albumin 2.7 g/dL (3.9-5); Calcium 8.6 mg/dL (8.4-10.2)
--- NOTE | 2022-02-21 09:22 | Progress Note ---
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 24h urine CrCl 18ml/min. Continue close monitoring for now * Patient is s/p Bumex 1mg IV x 2 doses yesterday - UOP not recorded as ordered * Continue Bumex 1mg IV daily * Continue antiHTN medications - Amlodipine 10mg daily started on 02/20 * Continue NaBicarb 1300mg BID * Abx per ID * Surgery and IR consult noted * Dose medications for renal function * AM labs Subjective Date of service: 02/21/22 Interval history: Patient complains of swelling. Denies SOB Objective - Vital Signs Vital signs: Vital Signs - 12hr 02/20/22 02/21/22 22:43 06:05 Temperature 99.5 F 98.6 F Pulse Rate 74 82 Respiratory 20 20 Rate Blood Pressure 151/83 135/57 O2 Sat by Pulse 94 94 Oximetry - General Appearance General appearance: well-developed, well-nourished EENT: ATNC Respiratory: Present: Decreased Breath Sounds Cardiology: regular, S1S2 Gastrointestinal: obese, other (abdominal wall edema) Integumentary: warm and dry Neurologic: alert and oriented x3 Psychiatric: cooperative - Lab 02/22/22 05:17 02/22/22 05:17 Most recent lab results Calcium 8.6 mg/dL (8.4-10.2) 02/21/22 08:08 Urine Creatinine 111.3 mg/dL (0.1-20.0) H 02/17/22 17:00 Ur Total Protein 24 Hr 34825.00 mg/dL (2-200) H 02/17/22 17:00 Urine Total Protein 862 mg/dL (5-11.8) H 02/17/22 17:00 Medications & Allergies - Medications Allergies/Adverse Reactions: Allergies No Known Allergies Allergy (Verified 02/21/22 07:23) Home Medications: Home Medications Medication Instructions Recorded Confirmed Last Taken Type Pantoprazole [Protonix TAB] 40 mg PO QDAY #30 tablet 06/12/20 02/21/22 Unknown Rx Ascorbic Acid [Vitamin C] 1,000 mg PO QDAY 01/10/22 02/21/22 Unknown History Furosemide [Lasix TAB] 40 mg PO BID 01/10/22 02/21/22 Unknown History Gabapentin [Neurontin] 600 mg PO QDAY 01/10/22 02/21/22 Unknown History Insulin Glargine,Hum.rec.anlog 80 unit SQ BID 01/10/22 02/21/22 Unknown History [Basaglar Kwikpen U-100] Metoprolol [Lopressor TAB] 50 mg PO QDAY 01/10/22 02/21/22 Unknown History Zinc [Zinc 50mg TAB] 50 mg PO QDAY 01/10/22 02/21/22 Unknown History traMADoL [Ultram] 50 mg PO QDAY PRN 01/10/22 02/21/22 Unknown History Active Medications: Generic Name Dose Route Start Last Admin Trade Name Freq PRN Reason Stop Dose Admin Acetaminophen 650 mg 02/16/22 19:18 Acetaminophen 325 Mg Tab PO Q4H PRN Pain MILD(1-3)/Fever >100.5/ALY Amlodipine Besylate 10 mg 02/20/22 10:00 02/20/22 09:44 Amlodipine 10 Mg Tab PO 10 mg QDAY NEY Administration Ascorbic Acid 1,000 mg 02/16/22 20:00 02/20/22 09:44 Ascorbic Acid 500 Mg Tab PO 1,000 mg QDAY NEY Administration Doxycycline Hyclate 100 mg 02/18/22 22:00 02/20/22 21:24 Doxycycline 100 Mg Cap PO 100 mg BID NEY Administration Protocol Gabapentin 100 mg 02/17/22 14:00 02/21/22 05:03 Gabapentin 100 Mg Cap PO 100 mg Q8HR NEY Administration Heparin Sodium (Porcine) 5,000 unit 02/16/22 22:00 02/20/22 21:22 Heparin 5,000 Unit/1 Ml Vial SUB-Q 5,000 unit Q12HR NEY Administration Hydromorphone HCl 0.5 mg 02/16/22 19:20 02/19/22 22:14 Hydromorphone 1 Mg/1 Ml Inj IV 0.5 mg Q3H PRN Administration Pain , Severe (7-10) Ampicillin Sodium/Sulbactam Sodium 3 gm in 100 mls @ 200 mls/hr 02/18/22 00:00 02/20/22 23:31 Unasyn/Ns 3 Gm/100 Ml IV 200 mls/hr Q12H NEY Administration Insulin Glargine 70 units 02/16/22 22:00 02/20/22 23:17 Insulin Glargine 100 Units/Ml SUB-Q Not Given BID NEY Insulin Human Lispro 0 unit 02/18/22 11:30 02/21/22 07:30 Insulin Lispro 100 Unit/Ml SUB-Q 2 unit ACHS NEY Administration Protocol Metoclopramide HCl 5 mg 02/17/22 14:00 Metoclopramide 10 Mg/2 Ml Inj IV Q8H PRN Nausea And Vomiting Metoprolol Tartrate 50 mg 02/16/22 20:00 02/20/22 09:44 Metoprolol Tartrate 50 Mg Tab PO 50 mg QDAY NEY Administration Morphine Sulfate 2 mg 02/16/22 19:20 Morphine 2 Mg/1 Ml Inj IV Q4H PRN Pain, Moderate (4-6) Ondansetron HCl 4 mg 02/16/22 19:18 Ondansetron 4 Mg/2 Ml Inj IV Q3H PRN Nausea And Vomiting Oxycodone/Acetaminophen 1 tab 02/16/22 19:20 02/21/22 04:20 Oxycodone /Acetaminophen 5-325mg Tab PO 1 tab Q6H PRN Administration Pain, Moderate (4-6) Pantoprazole Sodium 40 mg 02/16/22 20:00 02/20/22 09:45 Pantoprazole 40 Mg Tab PO 40 mg QDAY NEY Administration Sodium Bicarbonate 1,300 mg 02/20/22 10:00 02/20/22 21:23 Sodium Bicarbonate 650 Mg Tab PO 1,300 mg BID NEY Administration Sodium Chloride 10 ml 02/16/22 22:00 02/20/22 21:24 Sodium Chloride 0.9% 10 Ml Flush Syringe IV 10 ml BID NEY Administration Sodium Chloride 10 ml 02/16/22 19:18 Sodium Chloride 0.9% 10 Ml Flush Syringe IV PRN PRN LINE FLUSH Zinc Sulfate 220 mg 02/17/22 10:00 02/20/22 09:45 Zinc Sulfate 220 Mg Cap PO 220 mg QDAY NEY Administration
[2022-02-21] MEDS ORDERED: BUMETANIDE 1 MG/4 ML INJ IV SCH (10:00)
[2022-02-21] MEDS: HEPARIN 5,000 UNIT/1 ML VIAL SUB-Q SCH ×2 (10:00→23:06)
[2022-02-21] MEDS: METOPROLOL TARTRATE 50 MG TAB PO SCH (10:01)
[2022-02-21] MEDS: PANTOPRAZOLE 40 MG TAB PO SCH (10:01)
[2022-02-21] MEDS: ASCORBIC ACID 500 MG TAB PO SCH (10:01)
[2022-02-21] MEDS: DOXYCYCLINE 100 MG CAP PO SCH ×2 (10:01→23:06)
[2022-02-21] MEDS: ZINC SULFATE 220 MG CAP PO SCH (10:01)
[2022-02-21] MEDS: amLODIPine 10 MG TAB PO SCH (10:01)
[2022-02-21] MEDS: INSULIN GLARGINE 100 UNITS/ML SUB-Q SCH ×2 (10:02→23:07)
[2022-02-21] MEDS: SODIUM BICARBONATE 650 MG TAB PO SCH ×2 (10:05→23:06)
[2022-02-21] MEDS: BUMETANIDE 2.5 MG/10 ML VIAL IV SCH (11:01)
[2022-02-21] MEDS: diphenhydrAMINE 25 MG CAP PO PRN (11:01)
[2022-02-21] MEDS: AMPICILLIN/SULBACTA 3GM/100ML 3 GM/100 ML BAG IV SCH ×2 (12:49→23:20)
[2022-02-22] MEDS: diphenhydrAMINE 25 MG CAP PO PRN (01:37)
[2022-02-22] MEDS: GABAPENTIN 100 MG CAP PO SCH ×3 (06:01→22:33)
[2022-02-22 06:32] LABS: Basophils % (Auto) 0.2 % (0.0-1.8); Eosinophils # (Auto) 0.2 K/mm3 (0.0-0.4); Eosinophils % (Auto) 2.5 % (0.0-4.3); Hematocrit 28.5 % (30.3-42.9); Hemoglobin 8.9 gm/dl (10.1-14.3); Lymphocytes % (Auto) 29.3 % (13.4-35.0); Mean Corpuscular HGB Conc 31 % (30-34); Mean Corpuscular Volume 85 fl (79-97); Monocytes # (Auto) 0.7 K/mm3 (0.0-0.8); Monocytes % (Auto) 10.6 % (0.0-7.3); Platelet Count 289 K/mm3 (140-440); Red Blood Count 3.36 M/mm3 (3.65-5.03); Red Cell Distribution Width 14.4 % (13.2-15.2)
[2022-02-22 06:54] LABS: Alanine Aminotransferase 28 units/L (7-56); Albumin 2.5 g/dL (3.9-5); Blood Urea Nitrogen 56 mg/dL (7-17); Calcium 8.2 mg/dL (8.4-10.2); Hemolysis Index 114
[2022-02-22 06:55] LABS: BUN/Creatinine Ratio 9
[2022-02-22] MEDS: INSULIN LISPRO 100 UNIT/ML SUB-Q SCH ×4 (07:52→22:34)
[2022-02-22] MEDS: oxyCODONE /ACETAMINOPHEN 5-325MG TAB PO PRN (07:58)
--- NOTE | 2022-02-22 09:33 | Progress Note ---
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 Note increase in SCr - patient will likely require hemodialysis * Continue antiHTN medications * Continue NaBicarb 1300mg BID * Abx per ID * Surgery and IR consult noted * Dose medications for renal function * AM labs Subjective Date of service: 02/22/22 Principal diagnosis: Anasarca shortness of breath. Objective - Vital Signs Vital signs: Vital Signs - 12hr 02/21/22 02/21/22 02/21/22 21:41 21:58 23:12 Temperature 98.2 F Pulse Rate 75 Respiratory 18 Rate Blood Pressure 157/83 O2 Sat by Pulse 100 100 100 Oximetry 02/22/22 02/22/22 05:56 08:00 Temperature 98.0 F Pulse Rate 80 Respiratory 18 Rate Blood Pressure 136/81 O2 Sat by Pulse 98 96 Oximetry - Lab 02/23/22 05:35 02/23/22 05:35 Most recent lab results Calcium 8.2 mg/dL (8.4-10.2) L 02/22/22 05:17 Urine Creatinine 111.3 mg/dL (0.1-20.0) H 02/17/22 17:00 Ur Total Protein 24 Hr 97156.00 mg/dL (2-200) H 02/17/22 17:00 Urine Total Protein 862 mg/dL (5-11.8) H 02/17/22 17:00 Medications & Allergies - Medications Allergies/Adverse Reactions: Allergies No Known Allergies Allergy (Verified 02/21/22 07:23) Home Medications: Home Medications Medication Instructions Recorded Confirmed Last Taken Type Pantoprazole [Protonix TAB] 40 mg PO QDAY #30 tablet 06/12/20 02/21/22 Unknown Rx Ascorbic Acid [Vitamin C] 1,000 mg PO QDAY 01/10/22 02/21/22 Unknown History Furosemide [Lasix TAB] 40 mg PO BID 01/10/22 02/21/22 Unknown History Gabapentin [Neurontin] 600 mg PO QDAY 01/10/22 02/21/22 Unknown History Insulin Glargine,Hum.rec.anlog 80 unit SQ BID 01/10/22 02/21/22 Unknown History [Ailyn Cid U-100] Metoprolol [Lopressor TAB] 50 mg PO QDAY 01/10/22 02/21/22 Unknown History Zinc [Zinc 50mg TAB] 50 mg PO QDAY 01/10/22 02/21/22 Unknown History traMADoL [Ultram] 50 mg PO QDAY PRN 01/10/22 02/21/22 Unknown History Active Medications: Generic Name Dose Route Start Last Admin Trade Name Freq PRN Reason Stop Dose Admin Acetaminophen 650 mg 02/16/22 19:18 Acetaminophen 325 Mg Tab PO Q4H PRN Pain MILD(1-3)/Fever >100.5/ALY Amlodipine Besylate 10 mg 02/20/22 10:00 02/21/22 10:01 Amlodipine 10 Mg Tab PO 10 mg QDAY NEY Administration Ascorbic Acid 1,000 mg 02/16/22 20:00 02/21/22 10:01 Ascorbic Acid 500 Mg Tab PO 1,000 mg QDAY NEY Administration Bumetanide 1 mg 02/21/22 11:00 02/21/22 11:01 Bumetanide 2.5 Mg/10 Ml Vial IV 1 mg DAILY NEY Administration Diphenhydramine HCl 25 mg 02/21/22 10:19 02/22/22 01:37 Diphenhydramine 25 Mg Cap PO 25 mg Q6H PRN Administration Itching Doxycycline Hyclate 100 mg 02/18/22 22:00 02/21/22 23:06 Doxycycline 100 Mg Cap PO 02/25/22 23:59 100 mg BID NEY Administration Protocol Gabapentin 100 mg 02/17/22 14:00 02/22/22 06:01 Gabapentin 100 Mg Cap PO 100 mg Q8HR NEY Administration Heparin Sodium (Porcine) 5,000 unit 02/16/22 22:00 02/21/22 23:06 Heparin 5,000 Unit/1 Ml Vial SUB-Q 5,000 unit Q12HR NEY Administration Hydromorphone HCl 0.5 mg 02/16/22 19:20 02/19/22 22:14 Hydromorphone 1 Mg/1 Ml Inj IV 0.5 mg Q3H PRN Administration Pain , Severe (7-10) Ampicillin Sodium/Sulbactam Sodium 3 gm in 100 mls @ 200 mls/hr 02/18/22 00:00 02/21/22 23:20 Unasyn/Ns 3 Gm/100 Ml IV 02/26/22 00:59 200 mls/hr Q12H NEY Administration Insulin Glargine 70 units 02/16/22 22:00 02/21/22 23:07 Insulin Glargine 100 Units/Ml SUB-Q 70 units BID NEY Administration Insulin Human Lispro 0 unit 02/18/22 11:30 02/22/22 07:52 Insulin Lispro 100 Unit/Ml SUB-Q Not Given [facility] Protocol Metoclopramide HCl 5 mg 02/17/22 14:00 Metoclopramide 10 Mg/2 Ml Inj IV Q8H PRN Nausea And Vomiting Metoprolol Tartrate 50 mg 02/16/22 20:00 02/21/22 10:01 Metoprolol Tartrate 50 Mg Tab PO 50 mg QDAY NEY Administration Morphine Sulfate 2 mg 02/16/22 19:20 Morphine 2 Mg/1 Ml Inj IV Q4H PRN Pain, Moderate (4-6) Ondansetron HCl 4 mg 02/16/22 19:18 Ondansetron 4 Mg/2 Ml Inj IV Q3H PRN Nausea And Vomiting Oxycodone/Acetaminophen 1 tab 02/16/22 19:20 02/22/22 07:58 Oxycodone /Acetaminophen 5-325mg Tab PO 1 tab Q6H PRN Administration Pain, Moderate (4-6) Pantoprazole Sodium 40 mg 02/16/22 20:00 02/21/22 10:01 Pantoprazole 40 Mg Tab PO 40 mg QDAY NEY Administration Sodium Bicarbonate 1,300 mg 02/20/22 10:00 02/21/22 23:06 Sodium Bicarbonate 650 Mg Tab PO 1,300 mg BID NEY Administration Sodium Chloride 10 ml 02/16/22 22:00 02/21/22 23:07 Sodium Chloride 0.9% 10 Ml Flush Syringe IV 10 ml BID NEY Administration Sodium Chloride 10 ml 02/16/22 19:18 Sodium Chloride 0.9% 10 Ml Flush Syringe IV PRN PRN LINE FLUSH Zinc Sulfate 220 mg 02/17/22 10:00 02/21/22 10:01 Zinc Sulfate 220 Mg Cap PO 220 mg QDAY NEY Administration
[2022-02-22] MEDS: INSULIN GLARGINE 100 UNITS/ML SUB-Q SCH ×2 (10:08→22:34)
[2022-02-22] MEDS: HEPARIN 5,000 UNIT/1 ML VIAL SUB-Q SCH ×2 (10:11→22:34)
[2022-02-22] MEDS: SODIUM BICARBONATE 650 MG TAB PO SCH ×2 (10:11→22:33)
[2022-02-22] MEDS: amLODIPine 10 MG TAB PO SCH (10:11)
[2022-02-22] MEDS: PANTOPRAZOLE 40 MG TAB PO SCH (10:11)
[2022-02-22] MEDS: ASCORBIC ACID 500 MG TAB PO SCH (10:11)
[2022-02-22] MEDS: DOXYCYCLINE 100 MG CAP PO SCH ×2 (10:11→22:33)
[2022-02-22] MEDS: METOPROLOL TARTRATE 50 MG TAB PO SCH (10:12)
[2022-02-22] MEDS: ZINC SULFATE 220 MG CAP PO SCH (10:12)
--- NOTE | 2022-02-22 12:31 | Progress Note ---
Assessment and Plan Assessment and Plan Assessment and plan: --Cellulitis of left breast Current Visit: Yes Status: Acute Cellulitis left breast-resolving changed to p.o. antibiotics today. Change to p.o. antibiotics soon for anticipated discharge. Surgery and IR evaluated Not amenable for CT drainage . No breast abscess noted --Hypertension/moderate control Current Visit: Yes Status: Chronic 131/66. Fair control. Continue antihypertensives --DEVON (acute kidney injury) on chronic kidney disease stage IV vasomotor nephropathy Current Visit: Yes Status: Acute DEVON superimposed upon chronic kidney disease Her creatinine was around 3.5 in June 2021 Patient noncompliance with follow-up Creatinine has increased to 6.0. Continues to progress. 24-hour urine protein 842+ Nephrology following, no indication for replacement therapy at this point Closely monitor --CHF (congestive heart failure) Current Visit: Yes Status: Chronic Echocardiogram was added for complete work-up however swelling appears to be secondary to renal disease. Continue Bumex --IDDM (insulin dependent diabetes mellitus) Current Visit: Yes Status: Chronic Stable Accu-Cheks 109 to max 141. Continue sliding scale insulin. Check hemoglobin A1c --Morbid obesity; BMI 46.7 Current Visit: Yes Status: Acute Patient to be counseled about follow-up with bariatric surgery Needs gastric sleeve or gastric bypass Patient to be referred to Dr. Roman at the time of discharge --GERD (gastroesophageal reflux disease) Current Visit: Yes Status: Chronic Continue PPIs --Elevated troponin Current Visit: Yes Status: Chronic Secondary to troponin leak --Hyperlipidemia Current Visit: Yes Status: Chronic Statins initiated --DVT prophylaxis Current Visit: Yes Status: Acute On anticoagulation GI prophylaxis --Advance care planning Current Visit: Yes Status: Acute Explained to the patient about why she is swelling. About the diuresis. Disease education conducted, care plan discussed, diagnosis discussed. Prognosis discussed. Patient is full code. Patient acknowledges understanding and agreement with care plan. +28 minutes. Subjective Date of service: 02/22/22 Principal diagnosis: Anasarca shortness of breath. Interval history: 51 year old female admitted through the ER 02/16/22 with worsening left breast pain and swelling. She says that swelling started about a month ago. She says that the breast occasionally feels hot to touch. She denies any insect bite or skin trauma. US of left breast showed unorganized collection under nipple suggestive of early abscess. She says she had a mammogram over a year ago that she believes was 'ok'. She is scheduled to get a mammo later this month. She says she has an aunt who of breast CA. Skin changes into the breast with lymphedema and peau d'orange changes. US yanelis stafford yesterday again without an organized abscess. Pt has been on Iv antibiotics. She also has renal insufficiency and is poorly compliant with this issue. She notes swelling of legs arms and trunk. Yesterday she got her first dose of bumex. Consultation at this time is for the skin changes on the left breast and potential for inflammatroy breast ca. 02/21/2022 Patient states she did have some response initially with Bumex. States now her legs trunk arms have increased swelling. Unsure of patient's baseline from yesterday. Patient states she has been swelling along with 4 the breast begin to swell. Patient was being treated by primary care physician with diuretics. 02/22/2022. Clinically patient has improved. Lower extremity edema has improved however continues to have anasarca. I did discuss with patient her renal function did not appear to be improving. Left breast area for biopsy looks good. Objective - Constitutional Vitals: Vital Signs - 12hr 02/22/22 02/22/22 02/22/22 05:56 08:00 10:12 Temperature 98.0 F Pulse Rate 80 72 Respiratory 18 Rate Blood Pressure 136/81 136/74 O2 Sat by Pulse 98 96 Oximetry General appearance: Present: no acute distress - EENT Eyes: PERRL, EOM intact ENT: hearing intact - Neck Neck: supple - Respiratory Respiratory: bilateral: CTA - Breasts Breasts: other (Left breast with peau d'orange. Difficult to tell whether the swelling is going down currently. But no longer has cellulitis. Biopsy area looks good.) - Cardiovascular Rhythm: regular Extremities: pulses intact, normal color, Full ROM Extremity abnormal: other (Improving edema of lower extremities and hands and arms. Still has some anasarca around hips breast area.) - Musculoskeletal Musculoskeletal: 1, strength equal bilaterally - Neurologic Neurologic: moves all extremities - Psychiatric Psychiatric: memory intact, appropriate mood/affect, intact judgment & insight - Labs CBC & Chem 7: 02/23/22 05:35 02/23/22 05:35 Labs: Abnormal lab results 02/21/22 02/21/22 02/22/22 Range/Units 16:52 21:43 05:17 RBC 3.36 L (3.65-5.03) M/mm3 Hgb 8.9 L (10.1-14.3) gm/dl Hct 28.5 L (30.3-42.9) % MCH 27 L (28-32) pg [place] % (Auto) 10.6 H (0.0-7.3) % Chloride (98-107) mmol/L Carbon Dioxide (22-30) mmol/L BUN (7-17) mg/dL Creatinine (0.6-1.2) mg/dL POC Glucose 124 H 173 H (70-105) mg/dL Calcium (8.4-10.2) mg/dL Total Protein (6.3-8.2) g/dL Albumin (3.9-5) g/dL 02/22/22 02/22/22 Range/Units 05:17 07:24 RBC (3.65-5.03) M/mm3 Hgb (10.1-14.3) gm/dl Hct (30.3-42.9) % MCH (28-32) pg [place] % (Auto) (0.0-7.3) % Chloride 110.9 H (98-107) mmol/L Carbon Dioxide 17 L (22-30) mmol/L BUN 56 H (7-17) mg/dL Creatinine 6.0 H (0.6-1.2) mg/dL POC Glucose 56 L (70-105) mg/dL Calcium 8.2 L (8.4-10.2) mg/dL Total Protein 5.7 L (6.3-8.2) g/dL Albumin 2.5 L (3.9-5) g/dL HEART Score - HEART Score Troponin: Troponin T 0.129 ng/mL (0.00-0.029) H* 02/16/22 15:30
[2022-02-22] MEDS: BUMETANIDE 2.5 MG/10 ML VIAL IV SCH (13:37)
[2022-02-22] MEDS: AMPICILLIN/SULBACTA 3GM/100ML 3 GM/100 ML BAG IV SCH (13:37)
[2022-02-23] MEDS: AMPICILLIN/SULBACTA 3GM/100ML 3 GM/100 ML BAG IV SCH ×3 (00:20→23:50)
[2022-02-23] MEDS: oxyCODONE /ACETAMINOPHEN 5-325MG TAB PO PRN (02:37)
[2022-02-23] MEDS: GABAPENTIN 100 MG CAP PO SCH ×3 (05:43→21:29)
[2022-02-23 06:25] LABS: Basophils % (Auto) 0.6 % (0.0-1.8); Eosinophils # (Auto) 0.2 K/mm3 (0.0-0.4); Eosinophils % (Auto) 2.3 % (0.0-4.3); Hematocrit 28.5 % (30.3-42.9); Hemoglobin 8.9 gm/dl (10.1-14.3); Lymphocytes # (Auto) 2.2 K/mm3 (1.2-5.4); Lymphocytes % (Auto) 32.3 % (13.4-35.0); Mean Corpuscular HGB Conc 31 % (30-34); Mean Corpuscular Volume 85 fl (79-97); Monocytes # (Auto) 0.7 K/mm3 (0.0-0.8); Monocytes % (Auto) 10.8 % (0.0-7.3); Platelet Count 264 K/mm3 (140-440); Red Blood Count 3.36 M/mm3 (3.65-5.03); Red Cell Distribution Width 14.6 % (13.2-15.2)
[2022-02-23 06:41] LABS: Albumin 2.6 g/dL (3.9-5); Calcium 8.3 mg/dL (8.4-10.2)
[2022-02-23] MEDS: INSULIN LISPRO 100 UNIT/ML SUB-Q SCH ×4 (07:30→22:32)
--- NOTE | 2022-02-23 08:52 | Progress Note ---
Assessment and Plan Assessment and Plan Assessment and plan: --Cellulitis of left breast Current Visit: Yes Status: Acute Cellulitis left breast-resolving changed to p.o. antibiotics today. Change to p.o. antibiotics soon for anticipated discharge. Surgery and IR evaluated Not amenable for CT drainage . No breast abscess noted --Hypertension/moderate control Current Visit: Yes Status: Chronic 131/66. Fair control. Continue antihypertensives --DEVON (acute kidney injury) on chronic kidney disease stage IV vasomotor nephropathy Current Visit: Yes Status: Acute DEVON superimposed upon chronic kidney disease Her creatinine was around 3.5 in June 2021 Patient noncompliance with follow-up Creatinine has increased to 6.0. Continues to progress. 24-hour urine protein 842+ Nephrology following, no indication for replacement therapy at this point Closely monitor --CHF (congestive heart failure) Current Visit: Yes Status: Chronic Echocardiogram was added for complete work-up however swelling appears to be secondary to renal disease. Continue Bumex --IDDM (insulin dependent diabetes mellitus) Current Visit: Yes Status: Chronic Stable Accu-Cheks 109 to max 141. Continue sliding scale insulin. Check hemoglobin A1c --Morbid obesity; BMI 46.7 Current Visit: Yes Status: Acute Patient to be counseled about follow-up with bariatric surgery Needs gastric sleeve or gastric bypass Patient to be referred to Dr. Roman at the time of discharge --GERD (gastroesophageal reflux disease) Current Visit: Yes Status: Chronic Continue PPIs --Elevated troponin Current Visit: Yes Status: Chronic Secondary to troponin leak --Hyperlipidemia Current Visit: Yes Status: Chronic Statins initiated --DVT prophylaxis Current Visit: Yes Status: Acute On anticoagulation GI prophylaxis --Advance care planning Current Visit: Yes Status: Acute Explained to the patient about why she is swelling. About the diuresis. Disease education conducted, care plan discussed, diagnosis discussed. Prognosis discussed. Patient is full code. Patient acknowledges understanding and agreement with care plan. +28 minutes. Subjective Date of service: 02/23/22 Principal diagnosis: Anasarca shortness of breath. Interval history: 51 year old female admitted through the ER 02/16/22 with worsening left breast pain and swelling. She says that swelling started about a month ago. She says that the breast occasionally feels hot to touch. She denies any insect bite or skin trauma. US of left breast showed unorganized collection under nipple suggestive of early abscess. She says she had a mammogram over a year ago that she believes was 'ok'. She is scheduled to get a mammo later this month. She says she has an aunt who of breast CA. Skin changes into the breast with lymphedema and peau d'orange changes. US yanelis stafford yesterday again without an organized abscess. Pt has been on Iv antibiotics. She also has renal insufficiency and is poorly compliant with this issue. She notes swelling of legs arms and trunk. Yesterday she got her first dose of bumex. Consultation at this time is for the skin changes on the left breast and potential for inflammatroy breast ca. 02/21/2022 Patient states she did have some response initially with Bumex. States now her legs trunk arms have increased swelling. Unsure of patient's baseline from yesterday. Patient states she has been swelling along with 4 the breast begin to swell. Patient was being treated by primary care physician with diuretics. 02/22/2022. Clinically patient has improved. Lower extremity edema has improved however continues to have anasarca. I did discuss with patient her renal function did not appear to be improving. Left breast area for biopsy looks good. Objective - Constitutional Vitals: Vital Signs - 12hr 02/22/22 02/22/22 02/22/22 21:23 22:23 22:39 Temperature 98.3 F Pulse Rate 73 Respiratory 18 Rate Blood Pressure 156/86 O2 Sat by Pulse 96 98 98 Oximetry 02/23/22 05:14 Temperature 98.0 F Pulse Rate 75 Respiratory 18 Rate Blood Pressure 119/71 O2 Sat by Pulse 97 Oximetry General appearance: Present: no acute distress, well-nourished - Labs CBC & Chem 7: 02/23/22 05:35 02/23/22 05:35 Labs: Abnormal lab results 02/22/22 02/22/22 02/23/22 Range/Units 07:24 21:26 05:35 RBC 3.36 L (3.65-5.03) M/mm3 Hgb 8.9 L (10.1-14.3) gm/dl Hct 28.5 L (30.3-42.9) % MCH 26 L (28-32) pg [place] % (Auto) 10.8 H (0.0-7.3) % Chloride (98-107) mmol/L Carbon Dioxide (22-30) mmol/L BUN (7-17) mg/dL Creatinine (0.6-1.2) mg/dL Glucose (65-100) mg/dL POC Glucose 56 L 118 H (70-105) mg/dL Calcium (8.4-10.2) mg/dL Total Protein (6.3-8.2) g/dL Albumin (3.9-5) g/dL 02/23/22 Range/Units 05:35 RBC (3.65-5.03) M/mm3 Hgb (10.1-14.3) gm/dl Hct (30.3-42.9) % MCH (28-32) pg [place] % (Auto) (0.0-7.3) % Chloride 111.5 H (98-107) mmol/L Carbon Dioxide 18 L (22-30) mmol/L BUN 54 H (7-17) mg/dL Creatinine 6.0 H (0.6-1.2) mg/dL Glucose 108 H (65-100) mg/dL POC Glucose (70-105) mg/dL Calcium 8.3 L (8.4-10.2) mg/dL Total Protein 5.4 L (6.3-8.2) g/dL Albumin 2.6 L (3.9-5) g/dL HEART Score - HEART Score Troponin: Troponin T 0.129 ng/mL (0.00-0.029) H* 02/16/22 15:30
[2022-02-23] MEDS: BUMETANIDE 2.5 MG/10 ML VIAL IV SCH (09:17)
[2022-02-23] MEDS: ZINC SULFATE 220 MG CAP PO SCH (09:18)
[2022-02-23] MEDS: HEPARIN 5,000 UNIT/1 ML VIAL SUB-Q SCH ×2 (09:18→21:30)
[2022-02-23] MEDS: SODIUM BICARBONATE 650 MG TAB PO SCH ×2 (09:19→21:29)
[2022-02-23] MEDS: METOPROLOL TARTRATE 50 MG TAB PO SCH (09:19)
[2022-02-23] MEDS: amLODIPine 10 MG TAB PO SCH (09:19)
[2022-02-23] MEDS: PANTOPRAZOLE 40 MG TAB PO SCH (09:19)
[2022-02-23] MEDS: DOXYCYCLINE 100 MG CAP PO SCH ×2 (09:19→21:29)
[2022-02-23] MEDS: ASCORBIC ACID 500 MG TAB PO SCH (09:20)
[2022-02-23] MEDS: INSULIN GLARGINE 100 UNITS/ML SUB-Q SCH ×2 (09:20→22:32)
[2022-02-23] MEDS ORDERED: SODIUM CHLORIDE 0.9% 100 ML IV PRN (11:00)
--- NOTE | 2022-02-23 13:46 | Progress Note ---
Assessment and Plan Clinical presentation and physical findings not consistant with inflammatory breast cancer. A bedside 4 mm punch biopsy was done and path report is negative for malignancy. Continue management of reanl issues and iv antibiotics for now. Subjective Date of service: 02/23/22 Patient Reports: Positive: no new complaints Narrative: Patient is 4 days status post a 4 mm punch biopsy of the skin next to her nipple areolar complex. Path report is negative for malignancy. Patient gives history of preferring to sleep on the left side down. She has marked fluid retention related to renal sufficiency. The peau d'orange changes appear to be positional related to fluid overload. We will sign off for now. If patient is still in the hospital next week Sunday suture can be removed at the bedside. Objective Vital Signs - 12hr 02/23/22 02/23/22 02/23/22 05:14 10:00 11:35 Temperature 98.0 F 98.7 F Pulse Rate 75 79 Respiratory 18 18 Rate Blood Pressure 119/71 152/79 O2 Sat by Pulse 97 98 98 Oximetry - Labs 02/23/22 05:35 02/23/22 05:35 Diabetes panel 02/23/22 Range/Units 05:35 Sodium 144 (137-145) mmol/L Potassium 4.1 (3.6-5.0) mmol/L Chloride 111.5 H (98-107) mmol/L Carbon Dioxide 18 L (22-30) mmol/L BUN 54 H (7-17) mg/dL Creatinine 6.0 H (0.6-1.2) mg/dL Glucose 108 H (65-100) mg/dL Calcium 8.3 L (8.4-10.2) mg/dL AST 23 (5-40) units/L ALT 27 (7-56) units/L Alkaline Phosphatase 118 (35-129) units/L Total Protein 5.4 L (6.3-8.2) g/dL Albumin 2.6 L (3.9-5) g/dL Calcium panel 02/23/22 Range/Units 05:35 Calcium 8.3 L (8.4-10.2) mg/dL Albumin 2.6 L (3.9-5) g/dL Pituitary panel 02/23/22 Range/Units 05:35 Sodium 144 (137-145) mmol/L Potassium 4.1 (3.6-5.0) mmol/L Chloride 111.5 H (98-107) mmol/L Carbon Dioxide 18 L (22-30) mmol/L BUN 54 H (7-17) mg/dL Creatinine 6.0 H (0.6-1.2) mg/dL Glucose 108 H (65-100) mg/dL Calcium 8.3 L (8.4-10.2) mg/dL Adrenal panel 02/23/22 Range/Units 05:35 Sodium 144 (137-145) mmol/L Potassium 4.1 (3.6-5.0) mmol/L Chloride 111.5 H (98-107) mmol/L Carbon Dioxide 18 L (22-30) mmol/L BUN 54 H (7-17) mg/dL Creatinine 6.0 H (0.6-1.2) mg/dL Glucose 108 H (65-100) mg/dL Calcium 8.3 L (8.4-10.2) mg/dL Total Bilirubin 0.20 (0.1-1.2) mg/dL AST 23 (5-40) units/L ALT 27 (7-56) units/L Alkaline Phosphatase 118 (35-129) units/L Total Protein 5.4 L (6.3-8.2) g/dL Albumin 2.6 L (3.9-5) g/dL
[2022-02-23] MEDS ORDERED: HEPARIN/NS 5000 UNIT/500ML 500 ML IR ONE (14:50)
[2022-02-23] MEDS ORDERED: MIDAZOLAM 2 MG/2 ML INJ ONE (14:50)
[2022-02-23] MEDS ORDERED: fentaNYL 100 MCG/2 ML INJ ONE (14:50)
[2022-02-23] MEDS ORDERED: LIDOCAINE (1%) 10 MG/1 ML VIAL 20 ML MDV ONE (14:51)
[2022-02-23] MEDS ORDERED: SODIUM CHLORIDE 0.9% 250ML 250 ML ONE (15:05)
[2022-02-23] MEDS: HEPARIN 10,000 UNITS/10 ML VIAL ONE ×2 (15:22→15:23)
--- NOTE | 2022-02-23 15:31 | Operative Report ---
Operative Report Operative Report: Exam: Ultrasound and fluoroscopic guided placement of tunneled hemodialysis catheter Clinical indication: Patient with a history of end-stage renal disease requiring dialysis for volume overload Date: 02/23/2022 Procedure: Following an explanation of the risks, benefits and alternatives; written informed consent was obtained. The patient was brought to the angiographic suite and placed in supine position on the examination table. Initial ultrasound evaluation of the neck demonstrated a patent and distended right internal jugular vein. The patient's right neck and chest wall were prepped and draped in the usual sterile fashion. 2% lidocaine was used for anesthesia. Under ultrasound guidance, the right internal jugular vein was cannulated with a 7 cm 18-gauge needle. A 0.035 guidewire was advanced into the IVC under fluoroscopy to document intravenous positioning and for anchoring. An appropriate catheter exit site was chosen along the right lateral chest wall. 2% lidocaine was used for anesthesia at the catheter exit site along the tunnel tract. A Bard 23 cm glidepath tunneled hemodialysis catheter was then tunneled antegrade from the catheter exit site to the venotomy site. Following serial dilation over the guidewire under fluoroscopy, a 15 Welsh peel-away sheath was advanced over the guidewire under fluoroscopy centrally. The trocar and guidewire were removed. The catheter was inserted through the peel-away sheath the position the tip in the proximal right atrium. Both ports flushed and aspirated easily and were then locked with appropriate volumes of heparin. The catheter was securely fastened to the skin surface using 3-0 Vicryl suture which was also used to approximate the catheter exit site. 4-0 Vicryl suture and Dermabond were applied to the venotomy site to approximate them as well. Sterile dressings were then applied. The patient tolerated the procedure well. There were no immediate postprocedure complications. Conscious sedation was performed under the guidance of radiologic nursing. Continuous cardiopulmonary monitoring was utilized. Impression: Ultrasound and fluoroscopic guided placement of tunneled hemodialysis catheter by the right internal jugular vein
--- NOTE | 2022-02-23 18:24 | Progress Note ---
Assessment and Plan Assessment and Plan Assessment and plan: --Cellulitis of left breast Current Visit: Yes Status: Acute Cellulitis left breast-resolving changed to p.o. antibiotics today. Change to p.o. antibiotics soon for anticipated discharge. Surgery and IR evaluated Not amenable for CT drainage . No breast abscess noted --Hypertension/moderate control Current Visit: Yes Status: Chronic 131/66. Fair control. Continue antihypertensives Chronic kidney disease/end-stage renal disease -Patient would not require hemodialysis. -Surgical consult for Vas-Cath placement. 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 Continues to progress. 24-hour urine protein 842+ Nephrology following, no indication for replacement therapy at this point Closely monitor --CHF (congestive heart failure) Current Visit: Yes Status: Chronic Echocardiogram complete has adequate ejection fraction. Continue Bumex --IDDM (insulin dependent diabetes mellitus) Current Visit: Yes Status: Chronic -At present continues to have optimal control. No changes in medical management. Stable Accu-Cheks 109 to max 141. Continue sliding scale insulin. --Morbid obesity; BMI 46.7 Current Visit: Yes Status: Acute Patient to be counseled about follow-up with bariatric surgery Needs gastric sleeve or gastric bypass Patient to be referred to Dr. Roman at the time of discharge --GERD (gastroesophageal reflux disease) Current Visit: Yes Status: Chronic Continue PPIs --Elevated troponin Current Visit: Yes Status: Chronic Secondary to troponin leak --Hyperlipidemia Current Visit: Yes Status: Chronic Statins initiated --DVT prophylaxis Current Visit: Yes Status: Acute On anticoagulation GI prophylaxis --Advance care planning Current Visit: Yes Status: Acute Explained to the patient about why she is swelling. About the diuresis. Disease education conducted, care plan discussed, diagnosis discussed. Prognosis discussed. Patient is full code. Understands that she requires hemodialysis. Subjective Date of service: 02/23/22 Principal diagnosis: Anasarca shortness of breath. Interval history: 51 year old female admitted through the ER 02/16/22 with worsening left breast pain and swelling. She says that swelling started about a month ago. She says th at the breast occasionally feels hot to touch. She denies any insect bite or skin trauma. US of left breast showed unorganized collection under nipple suggestive of early abscess. She says she had a mammogram over a year ago that she believes was 'ok'. She is scheduled to get a mammo later this month. She says she has an aunt who of breast CA. Skin changes into the breast with lymphedema and peau d'orange changes. US repeated yesterday again without an organized abscess. Pt has been on Iv antibiotics. She also has renal insufficiency and is poorly compliant with this issue. She notes swelling of legs arms and trunk. Yesterday she got her first dose of bumex. Consultation at this time is for the skin changes on the left breast and potential for inflammatroy breast ca. 02/21/2022 Patient states she did have some response initially with Bumex. States now her legs trunk arms have increased swelling. Unsure of patient's baseline from yesterday. Patient states she has been swelling along with 4 the breast begin to swell. Patient was being treated by primary care physician with diuretics. 02/22/2022. Clinically patient has improved. Lower extremity edema has improved however continues to have anasarca. I did discuss with patient her renal function did not appear to be improving. Left breast area for biopsy looks good. 02/23/2022. Discussed with patient the need for hemodialysis. Patient has spoken to nephrology yesterday. All questions and concerns answered to patient satisfaction. Objective - Constitutional Vitals: Vital Signs - 12hr 02/23/22 02/23/22 10:00 11:35 Temperature 98.7 F Pulse Rate 79 Respiratory 18 Rate Blood Pressure 152/79 O2 Sat by Pulse 98 98 Oximetry General appearance: Present: no acute distress, well-nourished - EENT Eyes: PERRL, EOM intact ENT: hearing intact, clear oral mucosa Ears: bilateral: normal - Neck Neck: supple, normal ROM - Respiratory Respiratory effort: normal Respiratory: bilateral: CTA - Breasts Breasts: normal - Cardiovascular Rhythm: regular Heart Sounds: Present: S1 & S2. Absent: gallop, rub Extremities: pulses intact, normal color, Full ROM Extremity abnormal: other (Edema anasarca has improved. But not significant enough to not require hemodialysis for removal of fluid.) - Gastrointestinal General gastrointestinal: Present: soft, non-tender, non-distended, normal bowel sounds - Genitourinary Female genitourinary: normal - Integumentary Integumentary: clear, warm, dry - Musculoskeletal Musculoskeletal: 1, strength equal bilaterally - Neurologic Neurologic: moves all extremities - Psychiatric Psychiatric: memory intact, appropriate mood/affect, intact judgment & insight - Labs CBC & Chem 7: 02/23/22 05:35 02/23/22 05:35 Labs: Abnormal lab results 02/22/22 02/23/22 02/23/22 Range/Units 21:26 05:35 05:35 RBC 3.36 L (3.65-5.03) M/mm3 Hgb 8.9 L (10.1-14.3) gm/dl Hct 28.5 L (30.3-42.9) % MCH 26 L (28-32) pg [place] % (Auto) 10.8 H (0.0-7.3) % Chloride 111.5 H (98-107) mmol/L Carbon Dioxide 18 L (22-30) mmol/L BUN 54 H (7-17) mg/dL Creatinine 6.0 H (0.6-1.2) mg/dL Glucose 108 H (65-100) mg/dL POC Glucose 118 H (70-105) mg/dL Calcium 8.3 L (8.4-10.2) mg/dL Total Protein 5.4 L (6.3-8.2) g/dL Albumin 2.6 L (3.9-5) g/dL HEART Score - HEART Score Troponin: Troponin T 0.129 ng/mL (0.00-0.029) H* 02/16/22 15:30
[2022-02-23 20:56] LABS: Hepatitis B Surface Antigen Non-Reactive (Negative); Hepatitis C Virus Antibody Non-Reactive (NonReactive)
[2022-02-23 21:31] LABS: Albumin 2.9 g/dL (3.9-5); Calcium 8.3 mg/dL (8.4-10.2)
[2022-02-24] MEDS: MORPHINE 2 MG/1 ML INJ IV PRN ×2 (00:01→07:51)
[2022-02-24 05:33] LABS: Basophils % (Auto) 0.5 % (0.0-1.8); Eosinophils # (Auto) 0.1 K/mm3 (0.0-0.4); Eosinophils % (Auto) 1.6 % (0.0-4.3); Hematocrit 27.6 % (30.3-42.9); Hemoglobin 8.5 gm/dl (10.1-14.3); Lymphocytes # (Auto) 1.4 K/mm3 (1.2-5.4); Lymphocytes % (Auto) 24.4 % (13.4-35.0); Mean Corpuscular HGB Conc 31 % (30-34); Mean Corpuscular Volume 84 fl (79-97); Monocytes # (Auto) 0.6 K/mm3 (0.0-0.8); Platelet Count 239 K/mm3 (140-440); Red Blood Count 3.29 M/mm3 (3.65-5.03); Red Cell Distribution Width 14.5 % (13.2-15.2)
[2022-02-24] MEDS: GABAPENTIN 100 MG CAP PO SCH ×3 (05:43→22:24)
[2022-02-24 05:52] LABS: Alanine Aminotransferase 24 units/L (7-56); Albumin 2.5 g/dL (3.9-5); Blood Urea Nitrogen 43 mg/dL (7-17); Hemolysis Index 0
[2022-02-24 05:54] LABS: BUN/Creatinine Ratio 8
[2022-02-24] MEDS: INSULIN LISPRO 100 UNIT/ML SUB-Q SCH ×4 (07:30→22:41)
--- NOTE | 2022-02-24 07:49 | Progress Note ---
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 --24h urine CrCl 18ml/min (Feb 17) --Scr 3.5mg/dL in Jun 2021 * Cellulits and abscess, left breast * Hypertension * Type II DM - long standing, uncontrolled per patient * Proteinuria, subnephrotic --24h urine protein 862mg (Feb 17) * CHF * Metabolic acidosis Plan: * Discussed need for HD as patient with minimal response to diuretics, persistent edema and increasing SCr. Patient agreeable * Permcath insertion today * Hemodialysis to follow * UF as tolerated * Continue antiHTN medications * Continue NaBicarb 1300mg BID * Abx per ID/primary team * Dose medications for renal function * AM labs Subjective Date of service: 02/23/22 Principal diagnosis: Anasarca shortness of breath. Interval history: Patient c/o swelling Objective - Vital Signs Vital signs: Vital Signs - 12hr 02/23/22 02/23/22 02/23/22 20:00 20:20 21:00 Temperature 98.2 F 99.1 F Pulse Rate 72 73 81 Respiratory 18 20 Rate Blood Pressure 121/75 128/82 109/88 O2 Sat by Pulse 97 Oximetry O2 Sat by Pulse 97 Oximetry [ Anterior Bilateral Throughout] O2 Sat by Pulse 97 Oximetry [ Posterior Bilateral Throughout] 02/23/22 02/24/22 22:00 04:47 Temperature 98.6 F Pulse Rate 87 Respiratory 20 Rate Blood Pressure 128/58 O2 Sat by Pulse 98 94 Oximetry O2 Sat by Pulse Oximetry [ Anterior Bilateral Throughout] O2 Sat by Pulse Oximetry [ Posterior Bilateral Throughout] - General Appearance General appearance: well-developed, well-nourished EENT: ATNC Respiratory: Present: Decreased Breath Sounds Cardiology: regular, S1S2 Gastrointestinal: obese Integumentary: warm and dry Neurologic: alert and oriented x3 Musculoskeletal: other (+PAULETTE) Psychiatric: cooperative - Lab 02/24/22 05:14 02/24/22 05:14 Most recent lab results Calcium 8.0 mg/dL (8.4-10.2) L 02/24/22 05:14 Urine Creatinine 111.3 mg/dL (0.1-20.0) H 02/17/22 17:00 Ur Total Protein 24 Hr 81820.00 mg/dL (2-200) H 02/17/22 17:00 Urine Total Protein 862 mg/dL (5-11.8) H 02/17/22 17:00 Medications & Allergies - Medications Allergies/Adverse Reactions: Allergies No Known Allergies Allergy (Verified 02/21/22 07:23) Home Medications: Home Medications Medication Instructions Recorded Confirmed Last Taken Type Pantoprazole [Protonix TAB] 40 mg PO QDAY #30 tablet 06/12/20 02/21/22 Unknown Rx Ascorbic Acid [Vitamin C] 1,000 mg PO QDAY 01/10/22 02/21/22 Unknown History Furosemide [Lasix TAB] 40 mg PO BID 01/10/22 02/21/22 Unknown History Gabapentin [Neurontin] 600 mg PO QDAY 01/10/22 02/21/22 Unknown History Insulin Glargine,Hum.rec.anlog 80 unit SQ BID 01/10/22 02/21/22 Unknown History [Basaglar Kwikpen U-100] Metoprolol [Lopressor TAB] 50 mg PO QDAY 01/10/22 02/21/22 Unknown History Zinc [Zinc 50mg TAB] 50 mg PO QDAY 01/10/22 02/21/22 Unknown History traMADoL [Ultram] 50 mg PO QDAY PRN 01/10/22 02/21/22 Unknown History Active Medications: Generic Name Dose Route Start Last Admin Trade Name Freq PRN Reason Stop Dose Admin Acetaminophen 650 mg 02/16/22 19:18 Acetaminophen 325 Mg Tab PO Q4H PRN Pain MILD(1-3)/Fever >100.5/ALY Amlodipine Besylate 10 mg 02/20/22 10:00 02/23/22 09:19 Amlodipine 10 Mg Tab PO 10 mg QDAY NEY Administration Ascorbic Acid 1,000 mg 02/16/22 20:00 02/23/22 09:20 Ascorbic Acid 500 Mg Tab PO 1,000 mg QDAY NEY Administration Bumetanide 1 mg 02/21/22 11:00 02/23/22 09:17 Bumetanide 2.5 Mg/10 Ml Vial IV 1 mg DAILY NEY Administration Diphenhydramine HCl 25 mg 02/21/22 10:19 02/22/22 01:37 Diphenhydramine 25 Mg Cap PO 25 mg Q6H PRN Administration Itching Doxycycline Hyclate 100 mg 02/18/22 22:00 02/23/22 21:29 Doxycycline 100 Mg Cap PO 02/25/22 23:59 100 mg BID [facility] Administration Protocol Gabapentin 100 mg 02/17/22 14:00 02/24/22 05:43 Gabapentin 100 Mg Cap PO 100 mg Q8HR [facility] Administration Heparin Sodium (Porcine) 5,000 unit 02/16/22 22:00 02/23/22 21:30 Heparin 5,000 Unit/1 Ml Vial SUB-Q 5,000 unit Q12HR [facility] Administration Hydromorphone HCl 0.5 mg 02/16/22 19:20 02/19/22 22:14 Hydromorphone 1 Mg/1 Ml Inj IV 0.5 mg Q3H PRN Administration Pain , Severe (7-10) Ampicillin Sodium/Sulbactam Sodium 3 gm in 100 mls @ 200 mls/hr 02/18/22 00:00 02/23/22 23:50 Unasyn/Ns 3 Gm/100 Ml IV 02/26/22 00:59 200 mls/hr Q12H [facility] Administration Sodium Chloride 100 mls @ 999 mls/hr 02/23/22 11:00 Nacl 0.9% IV GAYLE PRN Hypotension Insulin Glargine 70 units 02/16/22 22:00 02/23/22 22:32 Insulin Glargine 100 Units/Ml SUB-Q Not Given BID [facility] Insulin Human Lispro 0 unit 02/18/22 11:30 02/23/22 22:32 Insulin Lispro 100 Unit/[facility] Metoclopramide HCl 5 mg 02/17/22 14:00 Metoclopramide 10 Mg/2 Ml Inj IV Q8H PRN Nausea And Vomiting Metoprolol Tartrate 50 mg 02/16/22 20:00 02/23/22 09:19 Metoprolol Tartrate 50 Mg Tab PO 50 mg QDAY [facility] Administration Morphine Sulfate 2 mg 02/16/22 19:20 02/24/22 00:01 Morphine 2 Mg/1 Ml Inj IV 2 mg Q4H PRN Administration Pain, Moderate (4-6) Ondansetron HCl 4 mg 02/16/22 19:18 Ondansetron 4 Mg/2 Ml Inj IV Q3H PRN Nausea And Vomiting Oxycodone/Acetaminophen 1 tab 02/16/22 19:20 02/23/22 02:37 Oxycodone /Acetaminophen 5-325mg Tab PO 1 tab Q6H PRN Administration Pain, Moderate (4-6) Pantoprazole Sodium 40 mg 02/16/22 20:00 02/23/22 09:19 Pantoprazole 40 Mg Tab PO 40 mg QDAY NEY Administration Sodium Bicarbonate 1,300 mg 02/20/22 10:00 02/23/22 21:29 Sodium Bicarbonate 650 Mg Tab PO 1,300 mg BID NEY Administration Sodium Chloride 10 ml 02/16/22 22:00 02/23/22 21:30 Sodium Chloride 0.9% 10 Ml Flush Syringe IV 10 ml BID NEY Administration Sodium Chloride 10 ml 02/16/22 19:18 Sodium Chloride 0.9% 10 Ml Flush Syringe IV PRN PRN LINE FLUSH Zinc Sulfate 220 mg 02/17/22 10:00 02/23/22 09:18 Zinc Sulfate 220 Mg Cap PO 220 mg QDAY NEY Administration
--- NOTE | 2022-02-24 07:50 | Progress Note ---
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 --Permcath insertion on Feb 23 --HD intitation on Feb 23 --24h urine CrCl 18ml/min (Feb 17) --Scr 3.5mg/dL in Jun 2021 * Cellulits and abscess, left breast * Hypertension * Type II DM - long standing, uncontrolled per patient * Proteinuria, subnephrotic --24h urine protein 862mg (Feb 17) * CHF * Metabolic acidosis Plan: * Patient is s/p permcath insertion and first HD treatment yesterday - 2 liters removed during HD * Continue daily HD - Sun and Sunday * UF as tolerated * Continue antiHTN medications * Continue NaBicarb 1300mg BID * Abx per ID/primary team * Dose medications for renal function * AM labs * Consult CM for outpatient HD clinic placement Subjective Date of service: 02/24/22 Principal diagnosis: Anasarca shortness of breath. Interval history: Patient complains of left breast swelling, pain Objective - Vital Signs Vital signs: Vital Signs - 12hr 02/23/22 02/23/22 02/23/22 20:00 20:20 21:00 Temperature 98.2 F 99.1 F Pulse Rate 72 73 81 Respiratory 18 20 Rate Blood Pressure 121/75 128/82 109/88 O2 Sat by Pulse 97 Oximetry O2 Sat by Pulse 97 Oximetry [ Anterior Bilateral Throughout] O2 Sat by Pulse 97 Oximetry [ Posterior Bilateral Throughout] 02/23/22 02/24/22 22:00 04:47 Temperature 98.6 F Pulse Rate 87 Respiratory 20 Rate Blood Pressure 128/58 O2 Sat by Pulse 98 94 Oximetry O2 Sat by Pulse Oximetry [ Anterior Bilateral Throughout] O2 Sat by Pulse Oximetry [ Posterior Bilateral Throughout] - General Appearance General appearance: well-developed, well-nourished EENT: ATNC Respiratory: Present: Clear to Ascultation Cardiology: regular, S1S2 Gastrointestinal: obese Integumentary: warm and dry Neurologic: alert and oriented x3 Psychiatric: cooperative - Lab 02/24/22 05:14 02/24/22 05:14 Most recent lab results Calcium 8.0 mg/dL (8.4-10.2) L 02/24/22 05:14 Urine Creatinine 111.3 mg/dL (0.1-20.0) H 02/17/22 17:00 Ur Total Protein 24 Hr 03418.00 mg/dL (2-200) H 02/17/22 17:00 Urine Total Protein 862 mg/dL (5-11.8) H 02/17/22 17:00 Medications & Allergies - Medications Allergies/Adverse Reactions: Allergies No Known Allergies Allergy (Verified 02/21/22 07:23) Home Medications: Home Medications Medication Instructions Recorded Confirmed Last Taken Type Pantoprazole [Protonix TAB] 40 mg PO QDAY #30 tablet 06/12/20 02/21/22 Unknown Rx Ascorbic Acid [Vitamin C] 1,000 mg PO QDAY 01/10/22 02/21/22 Unknown History Furosemide [Lasix TAB] 40 mg PO BID 01/10/22 02/21/22 Unknown History Gabapentin [Neurontin] 600 mg PO QDAY 01/10/22 02/21/22 Unknown History Insulin Glargine,Hum.rec.anlog 80 unit SQ BID 01/10/22 02/21/22 Unknown History [Basaglar Kwikpen U-100] Metoprolol [Lopressor TAB] 50 mg PO QDAY 01/10/22 02/21/22 Unknown History Zinc [Zinc 50mg TAB] 50 mg PO QDAY 01/10/22 02/21/22 Unknown History traMADoL [Ultram] 50 mg PO QDAY PRN 01/10/22 02/21/22 Unknown History Active Medications: Generic Name Dose Route Start Last Admin Trade Name Freq PRN Reason Stop Dose Admin Acetaminophen 650 mg 02/16/22 19:18 Acetaminophen 325 Mg Tab PO Q4H PRN Pain MILD(1-3)/Fever >100.5/ALY Amlodipine Besylate 10 mg 02/20/22 10:00 02/23/22 09:19 Amlodipine 10 Mg Tab PO 10 mg QDAY NEY Administration Ascorbic Acid 1,000 mg 02/16/22 20:00 02/23/22 09:20 Ascorbic Acid 500 Mg Tab PO 1,000 mg QDAY NEY Administration Bumetanide 1 mg 02/21/22 11:00 02/23/22 09:17 Bumetanide 2.5 Mg/10 Ml Vial IV 1 mg DAILY NEY Administration Diphenhydramine HCl 25 mg 02/21/22 10:19 02/22/22 01:37 Diphenhydramine 25 Mg Cap PO 25 mg Q6H PRN Administration Itching Doxycycline Hyclate 100 mg 02/18/22 22:00 02/23/22 21:29 Doxycycline 100 Mg Cap PO 02/25/22 23:59 100 mg BID [facility] Administration Protocol Gabapentin 100 mg 02/17/22 14:00 02/24/22 05:43 Gabapentin 100 Mg Cap PO 100 mg Q8HR NEY Administration Heparin Sodium (Porcine) 5,000 unit 02/16/22 22:00 02/23/22 21:30 Heparin 5,000 Unit/1 Ml Vial SUB-Q 5,000 unit Q12HR [facility] Administration Hydromorphone HCl 0.5 mg 02/16/22 19:20 02/19/22 22:14 Hydromorphone 1 Mg/1 Ml Inj IV 0.5 mg Q3H PRN Administration Pain , Severe (7-10) Ampicillin Sodium/Sulbactam Sodium 3 gm in 100 mls @ 200 mls/hr 02/18/22 00:00 02/23/22 23:50 Unasyn/Ns 3 Gm/100 Ml IV 02/26/22 00:59 200 mls/hr Q12H [facility] Administration Sodium Chloride 100 mls @ 999 mls/hr 02/23/22 11:00 Nacl 0.9% IV GAYLE PRN Hypotension Insulin Glargine 70 units 02/16/22 22:00 02/23/22 22:32 Insulin Glargine 100 Units/Ml SUB-Q Not Given BID [facility] Insulin Human Lispro 0 unit 02/18/22 11:30 02/23/22 22:32 Insulin Lispro 100 Unit/Ml SUB-Q Not Given ACHS [facility] Protocol Metoclopramide HCl 5 mg 02/17/22 14:00 Metoclopramide 10 Mg/2 Ml Inj IV Q8H PRN Nausea And Vomiting Metoprolol Tartrate 50 mg 02/16/22 20:00 02/23/22 09:19 Metoprolol Tartrate 50 Mg Tab PO 50 mg QDAY [facility] Administration Morphine Sulfate 2 mg 02/16/22 19:20 02/24/22 00:01 Morphine 2 Mg/1 Ml Inj IV 2 mg Q4H PRN Administration Pain, Moderate (4-6) Ondansetron HCl 4 mg 02/16/22 19:18 Ondansetron 4 Mg/2 Ml Inj IV Q3H PRN Nausea And Vomiting Oxycodone/Acetaminophen 1 tab 02/16/22 19:20 02/23/22 02:37 Oxycodone /Acetaminophen 5-325mg Tab PO 1 tab Q6H PRN Administration Pain, Moderate (4-6) Pantoprazole Sodium 40 mg 02/16/22 20:00 02/23/22 09:19 Pantoprazole 40 Mg Tab PO 40 mg QDAY NEY Administration Sodium Bicarbonate 1,300 mg 02/20/22 10:00 02/23/22 21:29 Sodium Bicarbonate 650 Mg Tab PO 1,300 mg BID NEY Administration Sodium Chloride 10 ml 02/16/22 22:00 02/23/22 21:30 Sodium Chloride 0.9% 10 Ml Flush Syringe IV 10 ml BID NEY Administration Sodium Chloride 10 ml 02/16/22 19:18 Sodium Chloride 0.9% 10 Ml Flush Syringe IV PRN PRN LINE FLUSH Zinc Sulfate 220 mg 02/17/22 10:00 02/23/22 09:18 Zinc Sulfate 220 Mg Cap PO 220 mg QDAY NEY Administration
[2022-02-24] MEDS ORDERED: SODIUM CHLORIDE 0.9% 100 ML IV PRN (07:53)
[2022-02-24] MEDS: INSULIN GLARGINE 100 UNITS/ML SUB-Q SCH ×3 (10:00→22:46)
[2022-02-24] MEDS: METOPROLOL TARTRATE 50 MG TAB PO SCH (12:59)
[2022-02-24] MEDS: PANTOPRAZOLE 40 MG TAB PO SCH (13:00)
[2022-02-24] MEDS: SODIUM BICARBONATE 650 MG TAB PO SCH ×2 (13:00→22:24)
[2022-02-24] MEDS: DOXYCYCLINE 100 MG CAP PO SCH ×2 (13:00→22:25)
[2022-02-24] MEDS: ASCORBIC ACID 500 MG TAB PO SCH (13:00)
[2022-02-24] MEDS: ZINC SULFATE 220 MG CAP PO SCH (13:00)
[2022-02-24] MEDS: amLODIPine 10 MG TAB PO SCH (13:01)
[2022-02-24] MEDS: BUMETANIDE 2.5 MG/10 ML VIAL IV SCH (13:01)
[2022-02-24] MEDS: AMPICILLIN/SULBACTA 3GM/100ML 3 GM/100 ML BAG IV SCH ×2 (13:04→23:19)
[2022-02-24] MEDS: HEPARIN 5,000 UNIT/1 ML VIAL SUB-Q SCH ×2 (13:07→22:25)
--- NOTE | 2022-02-24 13:16 | Progress Note ---
Assessment and Plan Assessment and plan: 51 year old female admitted through the ER 02/16/22 with worsening left breast pain and swelling. She says that swelling started about a month ago. She says that the breast occasionally feels hot to touch. She denies any insect bite or skin trauma. The patient was evaluated by general surgery who reported clinical presentation and physical findings not consistent with inflammatory breast cancer. A bedside 4 mm punch biopsy was done and path report is negative for malignancy. The patient received IV antibiotics. 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 Patient had permacath insertion on February 23 and initiation of hemodialysis at that time. Acute kidney injury on stage IV/V CKD Diabetic nephropathy Left breast cellulitis and abscess. Hypertension Diabetes mellitus type 2 Chronic combined systolic and diastolic heart failure. 02/24/2022. Echocardiogram reveals left ventricle moderately dilated and left ventricular systolic function moderately to severely decreased. Mild to moderate concentric left ventricular hypertrophy with EF of 30-35%. Nephrology to continue hemodialysis Sunday and Sunday. Continue sodium bicarbonate. Continue antihypertensive medications. Case management consulted for outpatient hemodialysis clinic placement. History Interval history: No new issues overnight Hospitalist Physical - Constitutional Vitals: Temp Pulse Resp BP Pulse Ox 98.6 F 87 20 128/58 94 02/24/22 04:47 02/24/22 04:47 02/24/22 04:47 02/24/22 04:47 02/24/22 04:47 General appearance: Present: no acute distress, well-nourished - EENT Eyes: Present: PERRL, EOM intact ENT: hearing intact, clear oral mucosa, dentition normal - Neck Neck: Present: supple, normal ROM - Respiratory Respiratory effort: normal Respiratory: bilateral: CTA - Cardiovascular Rhythm: regular Heart Sounds: Present: S1 & S2. Absent: gallop, rub - Extremities Extremities: no ischemia, No edema, Full ROM - Abdominal General gastrointestinal: soft, non-tender, non-distended, normal bowel sounds - Integumentary Integumentary: Present: clear, warm, dry - Neurologic Neurologic: CNII-XII intact, moves all extremities HEART Score - HEART Score Troponin: Troponin T 0.129 ng/mL (0.00-0.029) H* 02/16/22 15:30 Results - Labs CBC & Chem 7: 02/24/22 05:14 02/24/22 05:14 Labs: Laboratory Last Values WBC 5.6 K/mm3 (4.5-11.0) 02/24/22 05:14 RBC 3.29 M/mm3 (3.65-5.03) L 02/24/22 05:14 Hgb 8.5 gm/dl (10.1-14.3) L 02/24/22 05:14 Hct 27.6 % (30.3-42.9) L 02/24/22 05:14 MCV 84 fl (79-97) 02/24/22 05:14 MCH 26 pg (28-32) L 02/24/22 05:14 MCHC 31 % (30-34) 02/24/22 05:14 RDW 14.5 % (13.2-15.2) 02/24/22 05:14 Plt Count 239 K/mm3 (140-440) 02/24/22 05:14 Lymph % (Auto) 24.4 % (13.4-35.0) 02/24/22 05:14 [place] % (Auto) 10.0 % (0.0-7.3) H 02/24/22 05:14 Eos % (Auto) 1.6 % (0.0-4.3) 02/24/22 05:14 Baso % (Auto) 0.5 % (0.0-1.8) 02/24/22 05:14 Lymph # (Auto) 1.4 K/mm3 (1.2-5.4) 02/24/22 05:14 Ware # (Auto) 0.6 K/mm3 (0.0-0.8) 02/24/22 05:14 Eos # (Auto) 0.1 K/mm3 (0.0-0.4) 02/24/22 05:14 Baso # (Auto) 0.0 K/mm3 (0.0-0.1) 02/24/22 05:14 Seg Neutrophils % 63.5 % (40.0-70.0) 02/24/22 05:14 Seg Neutrophils # 3.5 K/mm3 (1.8-7.7) 02/24/22 05:14 PT 14.2 Sec. (12.2-14.9) 02/16/22 15:30 INR 0.99 (0.87-1.13) 02/16/22 15:30 Sodium 145 mmol/L (137-145) 02/24/22 05:14 Potassium 4.2 mmol/L (3.6-5.0) 02/24/22 05:14 Chloride 112.9 mmol/L (98-107) H 02/24/22 05:14 Carbon Dioxide 21 mmol/L (22-30) L 02/24/22 05:14 Anion Gap 15 mmol/L 02/24/22 05:14 BUN 43 mg/dL (7-17) H 02/24/22 05:14 Creatinine 5.2 mg/dL (0.6-1.2) H 02/24/22 05:14 Estimated GFR 10 ml/min 02/24/22 05:14 BUN/Creatinine Ratio 8 % 02/24/22 05:14 Glucose 244 mg/dL (65-100) H 02/24/22 05:14 POC Glucose 206 mg/dL (70-105) H 02/24/22 07:09 Lactic Acid 1.00 mmol/L (0.7-2.0) 02/16/22 15:30 Calcium 8.0 mg/dL (8.4-10.2) L 02/24/22 05:14 Total Bilirubin < 0.20 mg/dL (0.1-1.2) 02/24/22 05:14 AST 18 units/L (5-40) 02/24/22 05:14 ALT 24 units/L (7-56) 02/24/22 05:14 Alkaline Phosphatase 112 units/L (35-129) 02/24/22 05:14 Troponin T 0.129 ng/mL (0.00-0.029) H* 02/16/22 15:30 NT-Pro-B Natriuret Pep 8264 pg/mL (0-900) H 02/16/22 15:30 Total Protein 5.1 g/dL (6.3-8.2) L 02/24/22 05:14 Albumin 2.5 g/dL (3.9-5) L 02/24/22 05:14 Albumin/Globulin Ratio 1.0 % 02/24/22 05:14 Triglycerides 97 mg/dL (2-149) 02/16/22 15:30 Cholesterol 287 mg/dL (50-199) H 02/16/22 15:30 LDL Cholesterol Direct 184 mg/dL (50-130) H 02/16/22 15:30 HDL Cholesterol 103 mg/dL (40-59) H 02/16/22 15:30 Cholesterol/HDL Ratio 2.78 % 02/16/22 15:30 Urine Color Straw (Yellow) 02/17/22 Unknown Urine Turbidity Clear (Clear) 02/17/22 Unknown Urine pH 6.0 (5.0-7.0) 02/17/22 Unknown Ur Specific [place] 1.013 (1.003-1.030) 02/17/22 Unknown Urine Protein >500 mg/dL (Negative) 02/17/22 Unknown Urine Glucose (UA) 50 mg/dL (Negative) 02/17/22 Unknown Urine Ketones Neg mg/dL (Negative) 02/17/22 Unknown Urine Blood Sm (Negative) 02/17/22 Unknown Urine Nitrite Neg (Negative) 02/17/22 Unknown Urine Bilirubin Neg (Negative) 02/17/22 Unknown Urine Urobilinogen < 2.0 mg/dL (<2.0) 02/17/22 Unknown Ur Leukocyte Esterase Neg (Negative) 02/17/22 Unknown Urine WBC (Auto) 3.0 /HPF (0.0-6.0) 02/17/22 Unknown Urine RBC (Auto) 1.0 /HPF (0.0-6.0) 02/17/22 Unknown U Epithel Cells (Auto) 4.0 /HPF (0-13.0) 02/17/22 Unknown Urine Bacteria (Auto) 1+ /HPF (Negative) 02/17/22 Unknown Urine Mucus Few /HPF 02/17/22 Unknown Urine Yeast (Budding) Few /HPF 02/17/22 Unknown Urine Eosinophils Rare (None Seen) 02/17/22 Unknown Urine Total Volume 1300 ml 02/17/22 17:00 Urine Creatinine 111.3 mg/dL (0.1-20.0) H 02/17/22 17:00 Ur Creatinine 24 Hour 1.4 (0.8-2.8) 02/17/22 17:00 Ur Total Protein 24 Hr 87772.00 mg/dL (2-200) H 02/17/22 17:00 Urine Total Protein 862 mg/dL (5-11.8) H 02/17/22 17:00 Random Vancomycin 13.1 ug/mL (0-40.0) 02/18/22 14:24 Hepatitis A IgM Ab Non-reactive (NonReactive) 02/23/22 19:30 Hep Bs Antigen Non-reactive (Negative) 02/23/22 19:30 Hep B Core IgM Ab Non-reactive (NonReactive) 02/23/22 19:30 Hepatitis C Antibody Non-reactive (NonReactive) 02/23/22 19:30 Sanabria/IV: Voiding Method Toilet Active Medications - Current Medications Current Medications: Generic Name Dose Route Start Last Admin Trade Name Freq PRN Reason Stop Dose Admin Acetaminophen 650 mg 02/16/22 19:18 Acetaminophen 325 Mg Tab PO Q4H PRN Pain MILD(1-3)/Fever >100.5/ALY Amlodipine Besylate 10 mg 02/20/22 10:00 02/24/22 13:01 Amlodipine 10 Mg Tab PO 10 mg QDAY NEY Administration Ascorbic Acid 1,000 mg 02/16/22 20:00 02/24/22 13:00 Ascorbic Acid 500 Mg Tab PO 1,000 mg QDAY NEY Administration Bumetanide 1 mg 02/21/22 11:00 02/24/22 13:01 Bumetanide 2.5 Mg/10 Ml Vial IV 1 mg DAILY NEY Administration Diphenhydramine HCl 25 mg 02/21/22 10:19 02/22/22 01:37 Diphenhydramine 25 Mg Cap PO 25 mg Q6H PRN Administration Itching Doxycycline Hyclate 100 mg 02/18/22 22:00 02/24/22 13:00 Doxycycline 100 Mg Cap PO 02/25/22 23:59 100 mg BID NEY Administration Protocol Gabapentin 100 mg 02/17/22 14:00 02/24/22 05:43 Gabapentin 100 Mg Cap PO 100 mg Q8HR NEY Administration Heparin Sodium (Porcine) 5,000 unit 02/16/22 22:00 02/23/22 21:30 Heparin 5,000 Unit/1 Ml Vial SUB-Q 5,000 unit Q12HR NEY Administration Hydromorphone HCl 0.5 mg 02/16/22 19:20 02/19/22 22:14 Hydromorphone 1 Mg/1 Ml Inj IV 0.5 mg Q3H PRN Administration Pain , Severe (7-10) Ampicillin Sodium/Sulbactam Sodium 3 gm in 100 mls @ 200 mls/hr 02/18/22 00:00 02/24/22 13:04 Unasyn/Ns 3 Gm/100 Ml IV 02/26/22 00:59 200 mls/hr Q12H NEY Administration Sodium Chloride 100 mls @ 999 mls/hr 02/23/22 11:00 Nacl 0.9% IV GAYLE PRN Hypotension Sodium Chloride 100 mls @ 999 mls/hr 02/24/22 07:53 Nacl 0.9% IV GAYLE PRN Hypotension Insulin Glargine 70 units 02/16/22 22:00 02/23/22 22:32 Insulin Glargine 100 Units/Ml SUB-Q Not Given BID NEY Insulin Human Lispro 0 unit 02/18/22 11:30 02/24/22 07:30 Insulin Lispro 100 Unit/Ml SUB-Q Not Given ACHS [facility] Protocol Metoclopramide HCl 5 mg 02/17/22 14:00 Metoclopramide 10 Mg/2 Ml Inj IV Q8H PRN Nausea And Vomiting Metoprolol Tartrate 50 mg 02/16/22 20:00 02/24/22 12:59 Metoprolol Tartrate 50 Mg Tab PO 50 mg QDAY NEY Administration Morphine Sulfate 2 mg 02/16/22 19:20 02/24/22 07:51 Morphine 2 Mg/1 Ml Inj IV 2 mg Q4H PRN Administration Pain, Moderate (4-6) Ondansetron HCl 4 mg 02/16/22 19:18 Ondansetron 4 Mg/2 Ml Inj IV Q3H PRN Nausea And Vomiting Oxycodone/Acetaminophen 1 tab 02/16/22 19:20 02/23/22 02:37 Oxycodone /Acetaminophen 5-325mg Tab PO 1 tab Q6H PRN Administration Pain, Moderate (4-6) Pantoprazole Sodium 40 mg 02/16/22 20:00 02/24/22 13:00 Pantoprazole 40 Mg Tab PO 40 mg QDAY NEY Administration Sodium Bicarbonate 1,300 mg 02/20/22 10:00 02/24/22 13:00 Sodium Bicarbonate 650 Mg Tab PO 1,300 mg BID NEY Administration Sodium Chloride 10 ml 02/16/22 22:00 02/23/22 21:30 Sodium Chloride 0.9% 10 Ml Flush Syringe IV 10 ml BID NEY Administration Sodium Chloride 10 ml 02/16/22 19:18 Sodium Chloride 0.9% 10 Ml Flush Syringe IV PRN PRN LINE FLUSH Zinc Sulfate 220 mg 02/17/22 10:00 02/24/22 13:00 Zinc Sulfate 220 Mg Cap PO 220 mg QDAY NEY Administration Nutrition/Malnutrition Assess - Dietary Evaluation Nutrition/Malnutrition Findings: Nutrition Notes Start: 02/23/22 15:37 Freq: Status: Active Protocol: Document 02/23/22 15:37 ZHANG (Rec: 02/23/22 15:50 ZHANG [id number]) Nutrition Notes Need for Assessment generated from: LOS Initial or Follow up Assessment Current Diagnosis Acute Kidney Injury,Diabetes, Hypertension,Hyperlipidemia Other Pertinent Diagnosis L-Breast Cellulitis, CHF, GERD . Current Diet Renal Diet (since D 02/23). Labs/Tests 02/23: Cl 111.5, CO2 18, BUN 54, Crea 6.0, Glu 108, Ca 8.3. Pertinent Medications 02/23: Vit C, ZnSO4, others nutritionally unremarkable. Height 5 ft 11 in Weight 152 kg [place] Body Weight (kg) 70.45 BMI 46.7 Intake Prior to Admission Good Weight change and time frame Pt states having loss body weigh, unintentionally, [employer]. Weight Status Morbidly Obese Subjective/Other Information RD consult for LOS assessment. Pt is currently on NPO due to ongoing procedure, but will resume Renal Diet at [place] time. Pt's PO intake of meals has been Good (100%), according to ADL notes. Pt is on Room Air, O2 saturation @ 98%, acording to Physical Assessment History notes. Procedure on 02/23: PermaCath Placement. Percent of energy/protein needs met: Prescribed Renal Diet provides for energy/protein needs (2, 072 Kcal/77 g) during LOS. Burn Absent Trauma Absent GI Symptoms None Food Allergy No Skin Integrity/Comment Assessment WNL. Current % PO Good (75-100%) Minimum of two criteria No #1 Nutrition Diagnosis No nutrition diagnosis at this time Is patient on ventilator? No Is Patient Ambulatory and/or Out of Bed Yes REE-([place]-St. Jeor-ambulatory/OOB) [ 2887.469 [id number]] Kcal/Kg value to use for calculation 14 Approximate Energy Requirements Using 2128 kcal/Kg Calculation Used for Recommendations Kcal/kg Additional Notes Protein: 0.8-1.2 g/Kg AdjBW; 89-133 g/day. Fluids: 1 ml/Kcal, or as per MD. Nutrition Intervention Change Diet Order: Continue Renal Diet, as tolerated. Revisit per MD consult or patient Sign Off request: Additional Comments Continue monitoring food tolerance, %PO intake of meals , and BM.
[2022-02-24] MEDS: diphenhydrAMINE 25 MG CAP PO PRN (17:47)
[2022-02-25] MEDS: oxyCODONE /ACETAMINOPHEN 5-325MG TAB PO PRN ×2 (02:10→17:24)
[2022-02-25] MEDS: GABAPENTIN 100 MG CAP PO SCH ×3 (05:55→22:04)
[2022-02-25] MEDS: INSULIN LISPRO 100 UNIT/ML SUB-Q SCH ×4 (07:30→22:06)
[2022-02-25] MEDS: ASCORBIC ACID 500 MG TAB PO SCH (10:00)
[2022-02-25] MEDS: INSULIN GLARGINE 100 UNITS/ML SUB-Q SCH ×4 (10:03→22:09)
[2022-02-25] MEDS: SODIUM BICARBONATE 650 MG TAB PO SCH ×2 (10:03→22:04)
[2022-02-25] MEDS: DOXYCYCLINE 100 MG CAP PO SCH ×2 (10:04→22:05)
[2022-02-25] MEDS: ZINC SULFATE 220 MG CAP PO SCH (10:04)
[2022-02-25] MEDS: METOPROLOL TARTRATE 50 MG TAB PO SCH (10:04)
[2022-02-25] MEDS: PANTOPRAZOLE 40 MG TAB PO SCH (10:05)
[2022-02-25] MEDS: amLODIPine 10 MG TAB PO SCH (10:05)
[2022-02-25] MEDS: BUMETANIDE 2.5 MG/10 ML VIAL IV SCH (10:05)
[2022-02-25] MEDS: HEPARIN 5,000 UNIT/1 ML VIAL SUB-Q SCH ×2 (10:05→22:04)
[2022-02-25] MEDS ORDERED: SODIUM CHLORIDE 0.9% 100 ML IV PRN (10:32)
--- NOTE | 2022-02-25 10:32 | Progress Note ---
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 --Permcath insertion on Feb 23 --HD intitation on Feb 23 --24h urine CrCl 18ml/min (Feb 17) --Scr 3.5mg/dL in Jun 2021 * Cellulits and abscess, left breast * Hypertension * Type II DM - long standing, uncontrolled per patient * Proteinuria, subnephrotic --24h urine protein 862mg (Feb 17) * CHF * Metabolic acidosis Plan: * Patient is s/p HD on and Sunday * HD today * UF as tolerated * Continue HD TTS next week * Continue antiHTN medications * Continue NaBicarb 1300mg BID * Abx per ID/primary team * Dose medications for renal function * AM labs * Consult CM for outpatient HD clinic placement - pending placement at [facility] Subjective Date of service: 02/25/22 Principal diagnosis: Anasarca shortness of breath. Interval history: Patient is seen on dialysis. Complains of cramping. Continues to complain of persistent swelling. Objective - Vital Signs Vital signs: Vital Signs - 12hr 02/25/22 02/25/22 03:47 10:04 Temperature 98.6 F Pulse Rate 91 H Respiratory 20 Rate Blood Pressure 152/74 150/72 O2 Sat by Pulse 94 Oximetry - General Appearance General appearance: well-developed, well-nourished EENT: ATNC Respiratory: Present: Clear to Ascultation Cardiology: regular, S1S2 Gastrointestinal: no tenderness, no distended, obese, other (abdominal wall edema) Integumentary: no rash, warm and dry Neurologic: alert and oriented x3 Musculoskeletal: other (2+ LE edema) Psychiatric: cooperative - Lab 02/24/22 05:14 02/24/22 05:14 Most recent lab results Calcium 8.0 mg/dL (8.4-10.2) L 02/24/22 05:14 Urine Creatinine 111.3 mg/dL (0.1-20.0) H 02/17/22 17:00 Ur Total Protein 24 Hr 54339.00 mg/dL (2-200) H 02/17/22 17:00 Urine Total Protein 862 mg/dL (5-11.8) H 02/17/22 17:00 Medications & Allergies - Medications Allergies/Adverse Reactions: Allergies No Known Allergies Allergy (Verified 02/21/22 07:23) Home Medications: Home Medications Medication Instructions Recorded Confirmed Last Taken Type Pantoprazole [Protonix TAB] 40 mg PO QDAY #30 tablet 06/12/20 02/21/22 Unknown Rx Ascorbic Acid [Vitamin C] 1,000 mg PO QDAY 01/10/22 02/21/22 Unknown History Furosemide [Lasix TAB] 40 mg PO BID 01/10/22 02/21/22 Unknown History Gabapentin [Neurontin] 600 mg PO QDAY 01/10/22 02/21/22 Unknown History Insulin Glargine,Hum.rec.anlog 80 unit SQ BID 01/10/22 02/21/22 Unknown History [Basaglar Kwikpen U-100] Metoprolol [Lopressor TAB] 50 mg PO QDAY 01/10/22 02/21/22 Unknown History Zinc [Zinc 50mg TAB] 50 mg PO QDAY 01/10/22 02/21/22 Unknown History traMADoL [Ultram] 50 mg PO QDAY PRN 01/10/22 02/21/22 Unknown History Active Medications: Generic Name Dose Route Start Last Admin Trade Name Freq PRN Reason Stop Dose Admin Acetaminophen 650 mg 02/16/22 19:18 Acetaminophen 325 Mg Tab PO Q4H PRN Pain MILD(1-3)/Fever >100.5/ALY Amlodipine Besylate 10 mg 02/20/22 10:00 02/25/22 10:05 Amlodipine 10 Mg Tab PO 10 mg QDAY NEY Administration Ascorbic Acid 1,000 mg 02/16/22 20:00 02/25/22 10:00 Ascorbic Acid 500 Mg Tab PO 1,000 mg QDAY NEY Administration Bumetanide 1 mg 02/21/22 11:00 02/25/22 10:05 Bumetanide 2.5 Mg/10 Ml Vial IV 1 mg DAILY NEY Administration Diphenhydramine HCl 25 mg 02/21/22 10:19 02/24/22 17:47 Diphenhydramine 25 Mg Cap PO 25 mg Q6H PRN Administration Itching Doxycycline Hyclate 100 mg 02/18/22 22:00 02/25/22 10:04 Doxycycline 100 Mg Cap PO 02/25/22 23:59 100 mg BID NEY Administration Protocol Gabapentin 100 mg 02/17/22 14:00 02/25/22 05:55 Gabapentin 100 Mg Cap PO 100 mg Q8HR NEY Administration Heparin Sodium (Porcine) 5,000 unit 02/16/22 22:00 02/25/22 10:05 Heparin 5,000 Unit/1 Ml Vial SUB-Q 5,000 unit Q12HR NEY Administration Hydromorphone HCl 0.5 mg 02/16/22 19:20 02/19/22 22:14 Hydromorphone 1 Mg/1 Ml Inj IV 0.5 mg Q3H PRN Administration Pain , Severe (7-10) Ampicillin Sodium/Sulbactam Sodium 3 gm in 100 mls @ 200 mls/hr 02/18/22 00:00 02/24/22 23:19 Unasyn/Ns 3 Gm/100 Ml IV 02/26/22 00:59 200 mls/hr Q12H NEY Administration Sodium Chloride 100 mls @ 999 mls/hr 02/23/22 11:00 Nacl 0.9% IV GAYLE PRN Hypotension Sodium Chloride 100 mls @ 999 mls/hr 02/24/22 07:53 Nacl 0.9% IV GAYLE PRN Hypotension Insulin Glargine 70 units 02/16/22 22:00 02/25/22 10:11 Insulin Glargine 100 Units/Ml SUB-Q Not Given BID [facility] Insulin Human Lispro 0 unit 02/18/22 11:30 02/25/22 07:30 Insulin Lispro 100 Unit/Ml SUB-Q 2 unit ACHS [facility] Administration Protocol Metoclopramide HCl 5 mg 02/17/22 14:00 Metoclopramide 10 Mg/2 Ml Inj IV Q8H PRN Nausea And Vomiting Metoprolol Tartrate 50 mg 02/16/22 20:00 02/25/22 10:04 Metoprolol Tartrate 50 Mg Tab PO 50 mg QDAY [facility] Administration Morphine Sulfate 2 mg 02/16/22 19:20 02/24/22 07:51 Morphine 2 Mg/1 Ml Inj IV 2 mg Q4H PRN Administration Pain, Moderate (4-6) Ondansetron HCl 4 mg 02/16/22 19:18 Ondansetron 4 Mg/2 Ml Inj IV Q3H PRN Nausea And Vomiting Oxycodone/Acetaminophen 1 tab 02/16/22 19:20 02/25/22 02:10 Oxycodone /Acetaminophen 5-325mg Tab PO 1 tab Q6H PRN Administration Pain, Moderate (4-6) Pantoprazole Sodium 40 mg 02/16/22 20:00 02/25/22 10:05 Pantoprazole 40 Mg Tab PO 40 mg QDAY NEY Administration Sodium Bicarbonate 1,300 mg 02/20/22 10:00 02/25/22 10:03 Sodium Bicarbonate 650 Mg Tab PO 1,300 mg BID NEY Administration Sodium Chloride 10 ml 02/16/22 22:00 02/25/22 10:06 Sodium Chloride 0.9% 10 Ml Flush Syringe IV 10 ml BID NEY Administration Sodium Chloride 10 ml 02/16/22 19:18 Sodium Chloride 0.9% 10 Ml Flush Syringe IV PRN PRN LINE FLUSH Zinc Sulfate 220 mg 02/17/22 10:00 02/25/22 10:04 Zinc Sulfate 220 Mg Cap PO 220 mg QDAY NEY Administration
--- NOTE | 2022-02-25 11:44 | Progress Note ---
Assessment and Plan Assessment and plan: 51 year old female admitted through the ER 02/16/22 with worsening left breast pain and swelling. She says that swelling started about a month ago. She says that the breast occasionally feels hot to touch. She denies any insect bite or skin trauma. The patient was evaluated by general surgery who reported clinical presentation and physical findings not consistent with inflammatory breast cancer. A bedside 4 mm punch biopsy was done and path report is negative for malignancy. The patient received IV antibiotics. 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 Patient had permacath insertion on February 23 and initiation of hemodialysis at that time. Acute kidney injury on stage IV/V CKD Diabetic nephropathy Left breast cellulitis. Hypertension Diabetes mellitus type 2 Chronic combined systolic and diastolic heart failure. 02/24/2022. Echocardiogram reveals left ventricle moderately dilated and left ventricular systolic function moderately to severely decreased. Mild to moderate concentric left ventricular hypertrophy with EF of 30-35%. Nephrology to continue hemodialysis Sunday and Sunday. Continue sodium bicarbonate. Continue antihypertensive medications. Case management consulted for outpatient hemodialysis clinic placement. 02/25/22. Continue hemodialysis per nephrology recommendations. Patient is s/p hemodialysis or Sunday. Patient will be maintained on TTS hemodialysis schedule. Continue antihypertensive medications. Continue sodium bicarbonate. Follow-up breast ultrasound reveals slight interval decrease of left breast soft tissue edema without evidence of discrete drainable fluid collection such as abscess. Patient will have follow-up left breast ultrasound and will likely need diagnostic mammogram as an outpatient. Follow-up left breast ultrasound on Sunday while inpatient. History Interval history: No new issues overnight Hospitalist Physical - Constitutional Vitals: Temp Pulse Resp BP Pulse Ox 98.6 F 91 H 20 150/72 94 02/25/22 03:47 02/25/22 03:47 02/25/22 03:47 02/25/22 10:04 02/25/22 03:47 General appearance: Present: no acute distress, well-nourished - EENT Eyes: Present: PERRL, EOM intact ENT: hearing intact, clear oral mucosa, dentition normal - Neck Neck: Present: supple, normal ROM - Respiratory Respiratory effort: normal Respiratory: bilateral: CTA - Cardiovascular Rhythm: regular Heart Sounds: Present: S1 & S2. Absent: gallop, rub - Extremities Extremities: no ischemia, No edema, Full ROM - Abdominal General gastrointestinal: soft, non-tender, non-distended, normal bowel sounds - Integumentary Integumentary: Present: clear, warm, dry - Neurologic Neurologic: CNII-XII intact, moves all extremities HEART Score - HEART Score Troponin: Troponin T 0.129 ng/mL (0.00-0.029) H* 02/16/22 15:30 Results - Labs CBC & Chem 7: 02/24/22 05:14 02/24/22 05:14 Labs: Laboratory Last Values WBC 5.6 K/mm3 (4.5-11.0) 02/24/22 05:14 RBC 3.29 M/mm3 (3.65-5.03) L 02/24/22 05:14 Hgb 8.5 gm/dl (10.1-14.3) L 02/24/22 05:14 Hct 27.6 % (30.3-42.9) L 02/24/22 05:14 MCV 84 fl (79-97) 02/24/22 05:14 MCH 26 pg (28-32) L 02/24/22 05:14 MCHC 31 % (30-34) 02/24/22 05:14 RDW 14.5 % (13.2-15.2) 02/24/22 05:14 Plt Count 239 K/mm3 (140-440) 02/24/22 05:14 Lymph % (Auto) 24.4 % (13.4-35.0) 02/24/22 05:14 [place] % (Auto) 10.0 % (0.0-7.3) H 02/24/22 05:14 Eos % (Auto) 1.6 % (0.0-4.3) 02/24/22 05:14 Baso % (Auto) 0.5 % (0.0-1.8) 02/24/22 05:14 Lymph # (Auto) 1.4 K/mm3 (1.2-5.4) 02/24/22 05:14 [place] # (Auto) 0.6 K/mm3 (0.0-0.8) 02/24/22 05:14 Eos # (Auto) 0.1 K/mm3 (0.0-0.4) 02/24/22 05:14 Baso # (Auto) 0.0 K/mm3 (0.0-0.1) 02/24/22 05:14 Seg Neutrophils % 63.5 % (40.0-70.0) 02/24/22 05:14 Seg Neutrophils # 3.5 K/mm3 (1.8-7.7) 02/24/22 05:14 PT 14.2 Sec. (12.2-14.9) 02/16/22 15:30 INR 0.99 (0.87-1.13) 02/16/22 15:30 Sodium 145 mmol/L (137-145) 02/24/22 05:14 Potassium 4.2 mmol/L (3.6-5.0) 02/24/22 05:14 Chloride 112.9 mmol/L (98-107) H 02/24/22 05:14 Carbon Dioxide 21 mmol/L (22-30) L 02/24/22 05:14 Anion Gap 15 mmol/L 02/24/22 05:14 BUN 43 mg/dL (7-17) H 02/24/22 05:14 Creatinine 5.2 mg/dL (0.6-1.2) H 02/24/22 05:14 Estimated GFR 10 ml/min 02/24/22 05:14 BUN/Creatinine Ratio 8 % 02/24/22 05:14 Glucose 244 mg/dL (65-100) H 02/24/22 05:14 POC Glucose 211 mg/dL (70-105) H 02/25/22 07:11 Lactic Acid 1.00 mmol/L (0.7-2.0) 02/16/22 15:30 Calcium 8.0 mg/dL (8.4-10.2) L 02/24/22 05:14 Total Bilirubin < 0.20 mg/dL (0.1-1.2) 02/24/22 05:14 AST 18 units/L (5-40) 02/24/22 05:14 ALT 24 units/L (7-56) 02/24/22 05:14 Alkaline Phosphatase 112 units/L (35-129) 02/24/22 05:14 Troponin T 0.129 ng/mL (0.00-0.029) H* 02/16/22 15:30 NT-Pro-B Natriuret Pep 8264 pg/mL (0-900) H 02/16/22 15:30 Total Protein 5.1 g/dL (6.3-8.2) L 02/24/22 05:14 Albumin 2.5 g/dL (3.9-5) L 02/24/22 05:14 Albumin/Globulin Ratio 1.0 % 02/24/22 05:14 Triglycerides 97 mg/dL (2-149) 02/16/22 15:30 Cholesterol 287 mg/dL (50-199) H 02/16/22 15:30 LDL Cholesterol Direct 184 mg/dL (50-130) H 02/16/22 15:30 HDL Cholesterol 103 mg/dL (40-59) H 02/16/22 15:30 Cholesterol/HDL Ratio 2.78 % 02/16/22 15:30 Urine Color Straw (Yellow) 02/17/22 Unknown Urine Turbidity Clear (Clear) 02/17/22 Unknown Urine pH 6.0 (5.0-7.0) 02/17/22 Unknown Ur Specific Allen 1.013 (1.003-1.030) 02/17/22 Unknown Urine Protein >500 mg/dL (Negative) 02/17/22 Unknown Urine Glucose (UA) 50 mg/dL (Negative) 02/17/22 Unknown Urine Ketones Neg mg/dL (Negative) 02/17/22 Unknown Urine Blood Sm (Negative) 02/17/22 Unknown Urine Nitrite Neg (Negative) 02/17/22 Unknown Urine Bilirubin Neg (Negative) 02/17/22 Unknown Urine Urobilinogen < 2.0 mg/dL (<2.0) 02/17/22 Unknown Ur Leukocyte Esterase Neg (Negative) 02/17/22 Unknown Urine WBC (Auto) 3.0 /HPF (0.0-6.0) 02/17/22 Unknown Urine RBC (Auto) 1.0 /HPF (0.0-6.0) 02/17/22 Unknown U Epithel Cells (Auto) 4.0 /HPF (0-13.0) 02/17/22 Unknown Urine Bacteria (Auto) 1+ /HPF (Negative) 02/17/22 Unknown Urine Mucus Few /HPF 02/17/22 Unknown Urine Yeast (Budding) Few /HPF 02/17/22 Unknown Urine Eosinophils Rare (None Seen) 02/17/22 Unknown Urine Total Volume 1300 ml 02/17/22 17:00 Urine Creatinine 111.3 mg/dL (0.1-20.0) H 02/17/22 17:00 Ur Creatinine 24 Hour 1.4 (0.8-2.8) 02/17/22 17:00 Ur Total Protein 24 Hr 52675.00 mg/dL (2-200) H 02/17/22 17:00 Urine Total Protein 862 mg/dL (5-11.8) H 02/17/22 17:00 Random Vancomycin 13.1 ug/mL (0-40.0) 02/18/22 14:24 Coronavirus (PCR) Negative (Negative) 02/24/22 09:35 Hepatitis A IgM Ab Non-reactive (NonReactive) 02/23/22 19:30 Hep Bs Antigen Non-reactive (Negative) 02/23/22 19:30 Hep B Core IgM Ab Non-reactive (NonReactive) 02/23/22 19:30 Hepatitis C Antibody Non-reactive (NonReactive) 02/23/22 19:30 Sanabria/IV: Voiding Method Toilet Active Medications - Current Medications Current Medications: Generic Name Dose Route Start Last Admin Trade Name Freq PRN Reason Stop Dose Admin Acetaminophen 650 mg 02/16/22 19:18 Acetaminophen 325 Mg Tab PO Q4H PRN Pain MILD(1-3)/Fever >100.5/ALY Amlodipine Besylate 10 mg 02/20/22 10:00 02/25/22 10:05 Amlodipine 10 Mg Tab PO 10 mg QDAY NEY Administration Ascorbic Acid 1,000 mg 02/16/22 20:00 02/25/22 10:00 Ascorbic Acid 500 Mg Tab PO 1,000 mg QDAY NEY Administration Bumetanide 1 mg 02/21/22 11:00 02/25/22 10:05 Bumetanide 2.5 Mg/10 Ml Vial IV 1 mg DAILY NEY Administration Diphenhydramine HCl 25 mg 02/21/22 10:19 02/24/22 17:47 Diphenhydramine 25 Mg Cap PO 25 mg Q6H PRN Administration Itching Doxycycline Hyclate 100 mg 02/18/22 22:00 02/25/22 10:04 Doxycycline 100 Mg Cap PO 02/25/22 23:59 100 mg BID NEY Administration Protocol Gabapentin 100 mg 02/17/22 14:00 02/25/22 05:55 Gabapentin 100 Mg Cap PO 100 mg Q8HR ENY Administration Heparin Sodium (Porcine) 5,000 unit 02/16/22 22:00 02/25/22 10:05 Heparin 5,000 Unit/1 Ml Vial SUB-Q 5,000 unit Q12HR NEY Administration Hydromorphone HCl 0.5 mg 02/16/22 19:20 02/19/22 22:14 Hydromorphone 1 Mg/1 Ml Inj IV 0.5 mg Q3H PRN Administration Pain , Severe (7-10) Ampicillin Sodium/Sulbactam Sodium 3 gm in 100 mls @ 200 mls/hr 02/18/22 00:00 02/24/22 23:19 Unasyn/Ns 3 Gm/100 Ml IV 02/26/22 00:59 200 mls/hr Q12H NEY Administration Sodium Chloride 100 mls @ 999 mls/hr 02/23/22 11:00 Nacl 0.9% IV GAYLE PRN Hypotension Sodium Chloride 100 mls @ 999 mls/hr 02/24/22 07:53 Nacl 0.9% IV GAYLE PRN Hypotension Sodium Chloride 100 mls @ 999 mls/hr 02/25/22 10:32 Nacl 0.9% IV GAYLE PRN Hypotension Insulin Glargine 70 units 02/16/22 22:00 02/25/22 10:11 Insulin Glargine 100 Units/Ml SUB-Q Not Given BID [facility] Insulin Human Lispro 0 unit 02/18/22 11:30 02/25/22 07:30 Insulin Lispro 100 Unit/Ml SUB-Q 2 unit ACHS [facility] Administration Protocol Metoclopramide HCl 5 mg 02/17/22 14:00 Metoclopramide 10 Mg/2 Ml Inj IV Q8H PRN Nausea And Vomiting Metoprolol Tartrate 50 mg 02/16/22 20:00 02/25/22 10:04 Metoprolol Tartrate 50 Mg Tab PO 50 mg QDAY [facility] Administration Morphine Sulfate 2 mg 02/16/22 19:20 02/24/22 07:51 Morphine 2 Mg/1 Ml Inj IV 2 mg Q4H PRN Administration Pain, Moderate (4-6) Ondansetron HCl 4 mg 02/16/22 19:18 Ondansetron 4 Mg/2 Ml Inj IV Q3H PRN Nausea And Vomiting Oxycodone/Acetaminophen 1 tab 02/16/22 19:20 02/25/22 02:10 Oxycodone /Acetaminophen 5-325mg Tab PO 1 tab Q6H PRN Administration Pain, Moderate (4-6) Pantoprazole Sodium 40 mg 02/16/22 20:00 02/25/22 10:05 Pantoprazole 40 Mg Tab PO 40 mg QDAY NEY Administration Sodium Bicarbonate 1,300 mg 02/20/22 10:00 02/25/22 10:03 Sodium Bicarbonate 650 Mg Tab PO 1,300 mg BID NEY Administration Sodium Chloride 10 ml 02/16/22 22:00 02/25/22 10:06 Sodium Chloride 0.9% 10 Ml Flush Syringe IV 10 ml BID NEY Administration Sodium Chloride 10 ml 02/16/22 19:18 Sodium Chloride 0.9% 10 Ml Flush Syringe IV PRN PRN LINE FLUSH Zinc Sulfate 220 mg 02/17/22 10:00 02/25/22 10:04 Zinc Sulfate 220 Mg Cap PO 220 mg QDAY NEY Administration Nutrition/Malnutrition Assess - Dietary Evaluation Nutrition/Malnutrition Findings: Nutrition Notes Start: 02/23/22 15:37 Freq: Status: Active Protocol: Document 02/23/22 15:37 ZHANG (Rec: 02/23/22 15:50 ZHANG [id number]) Nutrition Notes Need for Assessment generated from: LOS Initial or Follow up Assessment Current Diagnosis Acute Kidney Injury,Diabetes, Hypertension,Hyperlipidemia Other Pertinent Diagnosis L-Breast Cellulitis, CHF, GERD . Current Diet Renal Diet (since D 02/23). Labs/Tests 02/23: Cl 111.5, CO2 18, BUN 54, Crea 6.0, Glu 108, Ca 8.3. Pertinent Medications 02/23: Vit C, ZnSO4, others nutritionally unremarkable. 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 Weight Status Morbidly Obese Subjective/Other Information RD consult for LOS assessment. Pt is currently on NPO due to ongoing procedure, but will resume Renal Diet at [place] time. Pt's PO intake of meals has been Good (100%), according to ADL notes. Pt is on Room Air, O2 saturation @ 98%, acording to Physical Assessment History notes. Procedure on 02/23: PermaCath Placement. Percent of energy/protein needs met: Prescribed Renal Diet provides for energy/protein needs (2, 072 Kcal/77 g) during LOS. Burn Absent Trauma Absent GI Symptoms None Food Allergy No Skin Integrity/Comment Assessment WNL. Current % PO Good (75-100%) Minimum of two criteria No #1 Nutrition Diagnosis No nutrition diagnosis at this time Is patient on ventilator? No Is Patient Ambulatory and/or Out of Bed Yes REE-([place]-ambulatory/OOB) [ 2887.469 [id number]] Kcal/Kg value to use for calculation 14 Approximate Energy Requirements Using 2128 kcal/Kg Calculation Used for Recommendations Kcal/kg Additional Notes Protein: 0.8-1.2 g/Kg AdjBW; 89-133 g/day. Fluids: 1 ml/Kcal, or as per MD. Nutrition Intervention Change Diet Order: Continue Renal Diet, as tolerated. Revisit per MD consult or patient Sign Off request: Additional Comments Continue monitoring food tolerance, %PO intake of meals , and BM.
[2022-02-25] MEDS: diphenhydrAMINE 25 MG CAP PO PRN (13:57)
[2022-02-25] MEDS: AMPICILLIN/SULBACTA 3GM/100ML 3 GM/100 ML BAG IV SCH ×2 (16:24→23:01)
[2022-02-26] MEDS: GABAPENTIN 100 MG CAP PO SCH ×3 (05:10→21:50)
[2022-02-26 06:09] LABS: Basophils % (Auto) 0.3 % (0.0-1.8); Eosinophils # (Auto) 0.1 K/mm3 (0.0-0.4); Eosinophils % (Auto) 2.1 % (0.0-4.3); Hematocrit 27.4 % (30.3-42.9); Hemoglobin 8.7 gm/dl (10.1-14.3); Mean Corpuscular HGB Conc 32 % (30-34); Mean Corpuscular Volume 84 fl (79-97); Monocytes # (Auto) 0.6 K/mm3 (0.0-0.8); Monocytes % (Auto) 9.8 % (0.0-7.3); Platelet Count 208 K/mm3 (140-440); Red Blood Count 3.28 M/mm3 (3.65-5.03); Red Cell Distribution Width 14.4 % (13.2-15.2)
[2022-02-26 06:22] LABS: Calcium 8.5 mg/dL (8.4-10.2)
[2022-02-26] MEDS: INSULIN LISPRO 100 UNIT/ML SUB-Q SCH ×4 (07:30→21:59)
--- NOTE | 2022-02-26 09:32 | Progress Note ---
Assessment and Plan Assessment and plan: 51 year old female admitted through the ER 02/16/22 with worsening left breast pain and swelling. She says that swelling started about a month ago. She says that the breast occasionally feels hot to touch. She denies any insect bite or skin trauma. The patient was evaluated by general surgery who reported clinical presentation and physical findings not consistent with inflammatory breast cancer. A bedside 4 mm punch biopsy was done and path report is negative for malignancy. The patient received IV antibiotics. 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 Patient had permacath insertion on February 23 and initiation of hemodialysis at that time. Acute kidney injury on stage IV/V CKD Diabetic nephropathy Left breast cellulitis. Hypertension Diabetes mellitus type 2 Chronic combined systolic and diastolic heart failure. 02/24/2022. Echocardiogram reveals left ventricle moderately dilated and left ventricular systolic function moderately to severely decreased. Mild to moderate concentric left ventricular hypertrophy with EF of 30-35%. Nephrology to continue hemodialysis Sunday and Sunday. Continue sodium bicarbonate. Continue antihypertensive medications. Case management consulted for outpatient hemodialysis clinic placement. 02/25/22. Continue hemodialysis per nephrology recommendations. Patient is s/p hemodialysis or Sunday. Patient will be maintained on TTS hemodialysis schedule. Continue antihypertensive medications. Continue sodium bicarbonate. Follow-up breast ultrasound reveals slight interval decrease of left breast soft tissue edema without evidence of discrete drainable fluid collection such as abscess. Patient will have follow-up left breast ultrasound and will likely need diagnostic mammogram as an outpatient. Follow-up left breast ultrasound on Sunday while inpatient. 02/26/2022. We will check left breast ultrasound in a.m. to track interval improvement. The patient will need diagnostic mammogram as an outpatient. Continue hemodialysis per nephrology recommendations. Patient is s/p hemodialysis ,Sunday and Sunday. Patient will be maintained on TTS hemodialysis schedule. Continue antihypertensive medications. Continue sodium bicarbonate. History Interval history: No new issues overnight Hospitalist Physical - Constitutional Vitals: Temp Pulse Resp BP Pulse Ox 98.9 F 89 20 131/78 96 02/26/22 03:59 02/26/22 03:59 02/26/22 03:59 02/26/22 03:59 02/26/22 07:24 General appearance: Present: no acute distress, well-nourished - EENT Eyes: Present: PERRL, EOM intact ENT: hearing intact, clear oral mucosa, dentition normal - Neck Neck: Present: supple, normal ROM - Respiratory Respiratory effort: normal Respiratory: bilateral: CTA - Cardiovascular Rhythm: regular Heart Sounds: Present: S1 & S2. Absent: gallop, rub - Extremities Extremities: no ischemia, No edema, Full ROM - Abdominal General gastrointestinal: soft, non-tender, non-distended, normal bowel sounds - Integumentary Integumentary: Present: clear, warm, dry - Neurologic Neurologic: CNII-XII intact, moves all extremities HEART Score - HEART Score Troponin: Troponin T 0.129 ng/mL (0.00-0.029) H* 02/16/22 15:30 Results - Labs CBC & Chem 7: 02/26/22 05:01 02/26/22 05:01 Labs: Laboratory Last Values WBC 6.4 K/mm3 (4.5-11.0) 02/26/22 05:01 RBC 3.28 M/mm3 (3.65-5.03) L 02/26/22 05:01 Hgb 8.7 gm/dl (10.1-14.3) L 02/26/22 05:01 Hct 27.4 % (30.3-42.9) L 02/26/22 05:01 MCV 84 fl (79-97) 02/26/22 05:01 MCH 27 pg (28-32) L 02/26/22 05:01 MCHC 32 % (30-34) 02/26/22 05:01 RDW 14.4 % (13.2-15.2) 02/26/22 05:01 Plt Count 208 K/mm3 (140-440) 02/26/22 05:01 Lymph % (Auto) 32.0 % (13.4-35.0) 02/26/22 05:01 Petroleum % (Auto) 9.8 % (0.0-7.3) H 02/26/22 05:01 Eos % (Auto) 2.1 % (0.0-4.3) 02/26/22 05:01 Baso % (Auto) 0.3 % (0.0-1.8) 02/26/22 05:01 Lymph # (Auto) 2.0 K/mm3 (1.2-5.4) 02/26/22 05:01 Petroleum # (Auto) 0.6 K/mm3 (0.0-0.8) 02/26/22 05:01 Eos # (Auto) 0.1 K/mm3 (0.0-0.4) 02/26/22 05:01 Baso # (Auto) 0.0 K/mm3 (0.0-0.1) 02/26/22 05:01 Seg Neutrophils % 55.8 % (40.0-70.0) 02/26/22 05:01 Seg Neutrophils # 3.6 K/mm3 (1.8-7.7) 02/26/22 05:01 PT 14.2 Sec. (12.2-14.9) 02/16/22 15:30 INR 0.99 (0.87-1.13) 02/16/22 15:30 Sodium 146 mmol/L (137-145) H 02/26/22 05:01 Potassium 3.5 mmol/L (3.6-5.0) L 02/26/22 05:01 Chloride 110.3 mmol/L (98-107) H 02/26/22 05:01 Carbon Dioxide 24 mmol/L (22-30) 02/26/22 05:01 Anion Gap 15 mmol/L 02/26/22 05:01 BUN 33 mg/dL (7-17) H 02/26/22 05:01 Creatinine 4.7 mg/dL (0.6-1.2) H 02/26/22 05:01 Estimated GFR 12 ml/min 02/26/22 05:01 BUN/Creatinine Ratio 7 % 02/26/22 05:01 Glucose 140 mg/dL (65-100) H 02/26/22 05:01 POC Glucose 193 mg/dL (70-105) H 02/25/22 21:59 Lactic Acid 1.00 mmol/L (0.7-2.0) 02/16/22 15:30 Calcium 8.5 mg/dL (8.4-10.2) 02/26/22 05:01 Total Bilirubin < 0.20 mg/dL (0.1-1.2) 02/24/22 05:14 AST 18 units/L (5-40) 02/24/22 05:14 ALT 24 units/L (7-56) 02/24/22 05:14 Alkaline Phosphatase 112 units/L (35-129) 02/24/22 05:14 Troponin T 0.129 ng/mL (0.00-0.029) H* 02/16/22 15:30 NT-Pro-B Natriuret Pep 8264 pg/mL (0-900) H 02/16/22 15:30 Total Protein 5.1 g/dL (6.3-8.2) L 02/24/22 05:14 Albumin 2.5 g/dL (3.9-5) L 02/24/22 05:14 Albumin/Globulin Ratio 1.0 % 02/24/22 05:14 Triglycerides 97 mg/dL (2-149) 02/16/22 15:30 Cholesterol 287 mg/dL (50-199) H 02/16/22 15:30 LDL Cholesterol Direct 184 mg/dL (50-130) H 02/16/22 15:30 HDL Cholesterol 103 mg/dL (40-59) H 02/16/22 15:30 Cholesterol/HDL Ratio 2.78 % 02/16/22 15:30 Urine Color Straw (Yellow) 02/17/22 Unknown Urine Turbidity Clear (Clear) 02/17/22 Unknown Urine pH 6.0 (5.0-7.0) 02/17/22 Unknown Ur Specific Lena 1.013 (1.003-1.030) 02/17/22 Unknown Urine Protein >500 mg/dL (Negative) 02/17/22 Unknown Urine Glucose (UA) 50 mg/dL (Negative) 02/17/22 Unknown Urine Ketones Neg mg/dL (Negative) 02/17/22 Unknown Urine Blood Sm (Negative) 02/17/22 Unknown Urine Nitrite Neg (Negative) 02/17/22 Unknown Urine Bilirubin Neg (Negative) 02/17/22 Unknown Urine Urobilinogen < 2.0 mg/dL (<2.0) 02/17/22 Unknown Ur Leukocyte Esterase Neg (Negative) 02/17/22 Unknown Urine WBC (Auto) 3.0 /HPF (0.0-6.0) 02/17/22 Unknown Urine RBC (Auto) 1.0 /HPF (0.0-6.0) 02/17/22 Unknown U Epithel Cells (Auto) 4.0 /HPF (0-13.0) 02/17/22 Unknown Urine Bacteria (Auto) 1+ /HPF (Negative) 02/17/22 Unknown Urine Mucus Few /HPF 02/17/22 Unknown Urine Yeast (Budding) Few /HPF 02/17/22 Unknown Urine Eosinophils Rare (None Seen) 02/17/22 Unknown Urine Total Volume 1300 ml 02/17/22 17:00 Urine Creatinine 111.3 mg/dL (0.1-20.0) H 02/17/22 17:00 Ur Creatinine 24 Hour 1.4 (0.8-2.8) 02/17/22 17:00 Ur Total Protein 24 Hr 85575.00 mg/dL (2-200) H 02/17/22 17:00 Urine Total Protein 862 mg/dL (5-11.8) H 02/17/22 17:00 Random Vancomycin 13.1 ug/mL (0-40.0) 02/18/22 14:24 Coronavirus (PCR) Negative (Negative) 02/24/22 09:35 Hepatitis A IgM Ab Non-reactive (NonReactive) 02/23/22 19:30 Hep Bs Antigen Non-reactive (Negative) 02/23/22 19:30 Hep B Core IgM Ab Non-reactive (NonReactive) 02/23/22 19:30 Hepatitis C Antibody Non-reactive (NonReactive) 02/23/22 19:30 Sanabria/IV: Voiding Method Toilet Active Medications - Current Medications Current Medications: Generic Name Dose Route Start Last Admin Trade Name Freq PRN Reason Stop Dose Admin Acetaminophen 650 mg 02/16/22 19:18 Acetaminophen 325 Mg Tab PO Q4H PRN Pain MILD(1-3)/Fever >100.5/ALY Amlodipine Besylate 10 mg 02/20/22 10:00 02/25/22 10:05 Amlodipine 10 Mg Tab PO 10 mg QDAY NEY Administration Ascorbic Acid 1,000 mg 02/16/22 20:00 02/25/22 10:00 Ascorbic Acid 500 Mg Tab PO 1,000 mg QDAY NEY Administration Bumetanide 1 mg 02/21/22 11:00 02/25/22 10:05 Bumetanide 2.5 Mg/10 Ml Vial IV 1 mg DAILY NEY Administration Diphenhydramine HCl 25 mg 02/21/22 10:19 02/25/22 13:57 Diphenhydramine 25 Mg Cap PO 25 mg Q6H PRN Administration Itching Gabapentin 100 mg 02/17/22 14:00 02/26/22 05:10 Gabapentin 100 Mg Cap PO 100 mg Q8HR [facility] Administration Heparin Sodium (Porcine) 5,000 unit 02/16/22 22:00 02/25/22 22:04 Heparin 5,000 Unit/1 Ml Vial SUB-Q 5,000 unit Q12HR [facility] Administration Hydromorphone HCl 0.5 mg 02/16/22 19:20 02/19/22 22:14 Hydromorphone 1 Mg/1 Ml Inj IV 0.5 mg Q3H PRN Administration Pain , Severe (7-10) Sodium Chloride 100 mls @ 999 mls/hr 02/23/22 11:00 Nacl 0.9% IV GAYLE PRN Hypotension Sodium Chloride 100 mls @ 999 mls/hr 02/24/22 07:53 Nacl 0.9% IV GAYLE PRN Hypotension Sodium Chloride 100 mls @ 999 mls/hr 02/25/22 10:32 Nacl 0.9% IV GAYLE PRN Hypotension Insulin Glargine 70 units 02/16/22 22:00 02/25/22 22:09 Insulin Glargine 100 Units/Ml SUB-Q Not Given BID [facility] Insulin Human Lispro 0 unit 02/18/22 11:30 02/26/22 07:30 Insulin Lispro 100 Unit/Ml SUB-Q Not Given ACHS [facility] Protocol Metoclopramide HCl 5 mg 02/17/22 14:00 Metoclopramide 10 Mg/2 Ml Inj IV Q8H PRN Nausea And Vomiting Metoprolol Tartrate 50 mg 02/16/22 20:00 02/25/22 10:04 Metoprolol Tartrate 50 Mg Tab PO 50 mg QDAY [facility] Administration Morphine Sulfate 2 mg 02/16/22 19:20 02/24/22 07:51 Morphine 2 Mg/1 Ml Inj IV 2 mg Q4H PRN Administration Pain, Moderate (4-6) Ondansetron HCl 4 mg 02/16/22 19:18 Ondansetron 4 Mg/2 Ml Inj IV Q3H PRN Nausea And Vomiting Oxycodone/Acetaminophen 1 tab 02/16/22 19:20 02/25/22 17:24 Oxycodone /Acetaminophen 5-325mg Tab PO 1 tab Q6H PRN Administration Pain, Moderate (4-6) Pantoprazole Sodium 40 mg 02/16/22 20:00 02/25/22 10:05 Pantoprazole 40 Mg Tab PO 40 mg QDAY NEY Administration Sodium Bicarbonate 1,300 mg 02/20/22 10:00 02/25/22 22:04 Sodium Bicarbonate 650 Mg Tab PO 1,300 mg BID NEY Administration Sodium Chloride 10 ml 02/16/22 22:00 02/25/22 22:04 Sodium Chloride 0.9% 10 Ml Flush Syringe IV 10 ml BID NEY Administration Sodium Chloride 10 ml 02/16/22 19:18 Sodium Chloride 0.9% 10 Ml Flush Syringe IV PRN PRN LINE FLUSH Zinc Sulfate 220 mg 02/17/22 10:00 02/25/22 10:04 Zinc Sulfate 220 Mg Cap PO 220 mg QDAY NEY Administration Nutrition/Malnutrition Assess - Dietary Evaluation Nutrition/Malnutrition Findings: Nutrition Notes Start: 02/23/22 15:37 Freq: Status: Active Protocol: Document 02/23/22 15:37 ZHANG (Rec: 02/23/22 15:50 ZHANG [id number]) Nutrition Notes Need for Assessment generated from: LOS Initial or Follow up Assessment Current Diagnosis Acute Kidney Injury,Diabetes, Hypertension,Hyperlipidemia Other Pertinent Diagnosis L-Breast Cellulitis, CHF, GERD . Current Diet Renal Diet (since D 02/23). Labs/Tests 02/23: Cl 111.5, CO2 18, BUN 54, Crea 6.0, Glu 108, Ca 8.3. Pertinent Medications 02/23: Vit C, ZnSO4, others nutritionally unremarkable. Height 5 ft 11 in Weight 152 kg [place] Body Weight (kg) 70.45 BMI 46.7 Intake Prior to Admission Good Weight change and time frame Pt states having loss body weigh, unintentionally, [employer]. Weight Status Morbidly Obese Subjective/Other Information RD consult for LOS assessment. Pt is currently on NPO due to ongoing procedure, but will resume Renal Diet at [place] time. Pt's PO intake of meals has been Good (100%), according to ADL notes. Pt is on Room Air, O2 saturation @ 98%, acording to Physical Assessment History notes. Procedure on 02/23: PermaCath Placement. Percent of energy/protein needs met: Prescribed Renal Diet provides for energy/protein needs (2, 072 Kcal/77 g) during LOS. Burn Absent Trauma Absent GI Symptoms None Food Allergy No Skin Integrity/Comment Assessment WNL. Current % PO Good (75-100%) Minimum of two criteria No #1 Nutrition Diagnosis No nutrition diagnosis at this time Is patient on ventilator? No Is Patient Ambulatory and/or Out of Bed Yes REE-([facility]-ambulatory/OOB) [ 2887.469 [id number]] Kcal/Kg value to use for calculation 14 Approximate Energy Requirements Using 2128 kcal/Kg Calculation Used for Recommendations Kcal/kg Additional Notes Protein: 0.8-1.2 g/Kg AdjBW; 89-133 g/day. Fluids: 1 ml/Kcal, or as per MD. Nutrition Intervention Change Diet Order: Continue Renal Diet, as tolerated. Revisit per MD consult or patient Sign Off request: Additional Comments Continue monitoring food tolerance, %PO intake of meals , and BM.
[2022-02-26] MEDS: SODIUM BICARBONATE 650 MG TAB PO SCH ×2 (10:00→21:50)
[2022-02-26] MEDS: PANTOPRAZOLE 40 MG TAB PO SCH (10:32)
[2022-02-26] MEDS: ASCORBIC ACID 500 MG TAB PO SCH (10:32)
[2022-02-26] MEDS: BUMETANIDE 2.5 MG/10 ML VIAL IV SCH (10:33)
[2022-02-26] MEDS: HEPARIN 5,000 UNIT/1 ML VIAL SUB-Q SCH ×2 (10:33→21:51)
[2022-02-26] MEDS: METOPROLOL TARTRATE 50 MG TAB PO SCH (10:34)
[2022-02-26] MEDS: ZINC SULFATE 220 MG CAP PO SCH (10:34)
[2022-02-26] MEDS: INSULIN GLARGINE 100 UNITS/ML SUB-Q SCH ×2 (10:34→23:52)
[2022-02-26] MEDS: amLODIPine 10 MG TAB PO SCH (10:34)
[2022-02-26] MEDS ORDERED: SODIUM CHLORIDE 0.9% 100 ML IV PRN (11:42)
[2022-02-26] MEDS: oxyCODONE /ACETAMINOPHEN 5-325MG TAB PO PRN (16:15)
[2022-02-26] MEDS: diphenhydrAMINE 25 MG CAP PO PRN (21:59)
[2022-02-27] MEDS: GABAPENTIN 100 MG CAP PO SCH ×3 (05:08→23:27)
[2022-02-27 06:51] LABS: Calcium 7.9 mg/dL (8.4-10.2)
[2022-02-27 06:53] LABS: Basophils % (Auto) 0.5 % (0.0-1.8); Eosinophils # (Auto) 0.1 K/mm3 (0.0-0.4); Eosinophils % (Auto) 1.5 % (0.0-4.3); Hematocrit 26.7 % (30.3-42.9); Hemoglobin 8.3 gm/dl (10.1-14.3); Lymphocytes # (Auto) 1.8 K/mm3 (1.2-5.4); Lymphocytes % (Auto) 28.3 % (13.4-35.0); Mean Corpuscular HGB Conc 31 % (30-34); Mean Corpuscular Volume 85 fl (79-97); Monocytes # (Auto) 0.7 K/mm3 (0.0-0.8); Monocytes % (Auto) 11.2 % (0.0-7.3); Platelet Count 201 K/mm3 (140-440); Red Blood Count 3.16 M/mm3 (3.65-5.03); Red Cell Distribution Width 14.7 % (13.2-15.2)
[2022-02-27] MEDS: INSULIN LISPRO 100 UNIT/ML SUB-Q SCH ×3 (08:44→17:45)
[2022-02-27] MEDS: PANTOPRAZOLE 40 MG TAB PO SCH (10:37)
[2022-02-27] MEDS: ASCORBIC ACID 500 MG TAB PO SCH (10:37)
[2022-02-27] MEDS: BUMETANIDE 2.5 MG/10 ML VIAL IV SCH (10:37)
[2022-02-27] MEDS: ZINC SULFATE 220 MG CAP PO SCH (10:37)
--- NOTE | 2022-02-27 10:37 | Progress Note ---
Assessment and Plan Assessment and plan: 51 year old female admitted through the ER 02/16/22 with worsening left breast pain and swelling. She says that swelling started about a month ago. She says that the breast occasionally feels hot to touch. She denies any insect bite or skin trauma. The patient was evaluated by general surgery who reported clinical presentation and physical findings not consistent with inflammatory breast cancer. A bedside 4 mm punch biopsy was done and path report is negative for malignancy. The patient received IV antibiotics. 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 Patient had permacath insertion on February 23 and initiation of hemodialysis at that time. Acute kidney injury on stage IV/V CKD Diabetic nephropathy Left breast cellulitis. Hypertension Diabetes mellitus type 2 Chronic combined systolic and diastolic heart failure. 02/24/2022. Echocardiogram reveals left ventricle moderately dilated and left ventricular systolic function moderately to severely decreased. Mild to moderate concentric left ventricular hypertrophy with EF of 30-35%. Nephrology to continue hemodialysis Sunday and Sunday. Continue sodium bicarbonate. Continue antihypertensive medications. Case management consulted for outpatient hemodialysis clinic placement. 02/25/22. Continue hemodialysis per nephrology recommendations. Patient is s/p hemodialysis or Sunday. Patient will be maintained on TTS hemodialysis schedule. Continue antihypertensive medications. Continue sodium bicarbonate. Follow-up breast ultrasound reveals slight interval decrease of left breast soft tissue edema without evidence of discrete drainable fluid collection such as abscess. Patient will have follow-up left breast ultrasound and will likely need diagnostic mammogram as an outpatient. Follow-up left breast ultrasound on Sunday while inpatient. 02/26/2022. We will check left breast ultrasound in a.m. to track interval improvement. The patient will need diagnostic mammogram as an outpatient. Continue hemodialysis per nephrology recommendations. Patient is s/p hemodialysis ,Sunday and Sunday. Patient will be maintained on TTS hemodialysis schedule. Continue antihypertensive medications. Continue sodium bicarbonate. 02/27/2022. Follow-up left breast ultrasound to track interval improvement of fluid collection ? Abscess. Continue IV antibiotics. If no significant improvement, we will consult ID for further evaluation. The patient will need diagnostic mammogram as an outpatient. Continue hemodialysis per nephrology re commendations. Patient will be maintained on TTS hemodialysis schedule. Continue antihypertensive medications. Continue sodium bicarbonate. History Interval history: No new issues overnight Hospitalist Physical - Constitutional Vitals: Temp Pulse Resp BP Pulse Ox 98.7 F 79 20 145/62 95 02/27/22 04:25 02/27/22 04:25 02/27/22 04:25 02/27/22 04:25 02/27/22 04:25 General appearance: Present: no acute distress, well-nourished - EENT Eyes: Present: PERRL, EOM intact ENT: hearing intact, clear oral mucosa, dentition normal - Neck Neck: Present: supple, normal ROM - Respiratory Respiratory effort: normal Respiratory: bilateral: CTA - Cardiovascular Rhythm: regular Heart Sounds: Present: S1 & S2. Absent: gallop, rub - Extremities Extremities: no ischemia, No edema, Full ROM - Abdominal General gastrointestinal: soft, non-tender, non-distended, normal bowel sounds - Integumentary Integumentary: Present: clear, warm, dry - Neurologic Neurologic: CNII-XII intact, moves all extremities HEART Score - HEART Score Troponin: Troponin T 0.129 ng/mL (0.00-0.029) H* 02/16/22 15:30 Results - Labs CBC & Chem 7: 02/27/22 05:30 02/27/22 05:30 Labs: Laboratory Last Values WBC 6.4 K/mm3 (4.5-11.0) 02/27/22 05:30 RBC 3.16 M/mm3 (3.65-5.03) L 02/27/22 05:30 Hgb 8.3 gm/dl (10.1-14.3) L 02/27/22 05:30 Hct 26.7 % (30.3-42.9) L 02/27/22 05:30 MCV 85 fl (79-97) 02/27/22 05:30 MCH 26 pg (28-32) L 02/27/22 05:30 MCHC 31 % (30-34) 02/27/22 05:30 RDW 14.7 % (13.2-15.2) 02/27/22 05:30 Plt Count 201 K/mm3 (140-440) 02/27/22 05:30 Lymph % (Auto) 28.3 % (13.4-35.0) 02/27/22 05:30 Lares % (Auto) 11.2 % (0.0-7.3) H 02/27/22 05:30 Eos % (Auto) 1.5 % (0.0-4.3) 02/27/22 05:30 Baso % (Auto) 0.5 % (0.0-1.8) 02/27/22 05:30 Lymph # (Auto) 1.8 K/mm3 (1.2-5.4) 02/27/22 05:30 Lares # (Auto) 0.7 K/mm3 (0.0-0.8) 02/27/22 05:30 Eos # (Auto) 0.1 K/mm3 (0.0-0.4) 02/27/22 05:30 Baso # (Auto) 0.0 K/mm3 (0.0-0.1) 02/27/22 05:30 Seg Neutrophils % 58.5 % (40.0-70.0) 02/27/22 05:30 Seg Neutrophils # 3.7 K/mm3 (1.8-7.7) 02/27/22 05:30 PT 14.2 Sec. (12.2-14.9) 02/16/22 15:30 INR 0.99 (0.87-1.13) 02/16/22 15:30 Sodium 145 mmol/L (137-145) 02/27/22 05:30 Potassium 3.9 mmol/L (3.6-5.0) 02/27/22 05:30 Chloride 110.2 mmol/L (98-107) H 02/27/22 05:30 Carbon Dioxide 23 mmol/L (22-30) 02/27/22 05:30 Anion Gap 16 mmol/L 02/27/22 05:30 BUN 40 mg/dL (7-17) H 02/27/22 05:30 Creatinine 5.3 mg/dL (0.6-1.2) H 02/27/22 05:30 Estimated GFR 10 ml/min 02/27/22 05:30 BUN/Creatinine Ratio 8 % 02/27/22 05:30 Glucose 183 mg/dL (65-100) H 02/27/22 05:30 POC Glucose 135 mg/dL (70-105) H 02/27/22 08:16 Lactic Acid 1.00 mmol/L (0.7-2.0) 02/16/22 15:30 Calcium 7.9 mg/dL (8.4-10.2) L 02/27/22 05:30 Total Bilirubin < 0.20 mg/dL (0.1-1.2) 02/24/22 05:14 AST 18 units/L (5-40) 02/24/22 05:14 ALT 24 units/L (7-56) 02/24/22 05:14 Alkaline Phosphatase 112 units/L (35-129) 02/24/22 05:14 Troponin T 0.129 ng/mL (0.00-0.029) H* 02/16/22 15:30 NT-Pro-B Natriuret Pep 8264 pg/mL (0-900) H 02/16/22 15:30 Total Protein 5.1 g/dL (6.3-8.2) L 02/24/22 05:14 Albumin 2.5 g/dL (3.9-5) L 02/24/22 05:14 Albumin/Globulin Ratio 1.0 % 02/24/22 05:14 Triglycerides 97 mg/dL (2-149) 02/16/22 15:30 Cholesterol 287 mg/dL (50-199) H 02/16/22 15:30 LDL Cholesterol Direct 184 mg/dL (50-130) H 02/16/22 15:30 HDL Cholesterol 103 mg/dL (40-59) H 02/16/22 15:30 Cholesterol/HDL Ratio 2.78 % 02/16/22 15:30 Urine Color Straw (Yellow) 02/17/22 Unknown Urine Turbidity Clear (Clear) 02/17/22 Unknown Urine pH 6.0 (5.0-7.0) 02/17/22 Unknown Ur Specific [place] 1.013 (1.003-1.030) 02/17/22 Unknown Urine Protein >500 mg/dL (Negative) 02/17/22 Unknown Urine Glucose (UA) 50 mg/dL (Negative) 02/17/22 Unknown Urine Ketones Neg mg/dL (Negative) 02/17/22 Unknown Urine Blood Sm (Negative) 02/17/22 Unknown Urine Nitrite Neg (Negative) 02/17/22 Unknown Urine Bilirubin Neg (Negative) 02/17/22 Unknown Urine Urobilinogen < 2.0 mg/dL (<2.0) 02/17/22 Unknown Ur Leukocyte Esterase Neg (Negative) 02/17/22 Unknown Urine WBC (Auto) 3.0 /HPF (0.0-6.0) 02/17/22 Unknown Urine RBC (Auto) 1.0 /HPF (0.0-6.0) 02/17/22 Unknown U Epithel Cells (Auto) 4.0 /HPF (0-13.0) 02/17/22 Unknown Urine Bacteria (Auto) 1+ /HPF (Negative) 02/17/22 Unknown Urine Mucus Few /HPF 02/17/22 Unknown Urine Yeast (Budding) Few /HPF 02/17/22 Unknown Urine Eosinophils Rare (None Seen) 02/17/22 Unknown Urine Total Volume 1300 ml 02/17/22 17:00 Urine Creatinine 111.3 mg/dL (0.1-20.0) H 02/17/22 17:00 Ur Creatinine 24 Hour 1.4 (0.8-2.8) 02/17/22 17:00 Ur Total Protein 24 Hr 11742.00 mg/dL (2-200) H 02/17/22 17:00 Urine Total Protein 862 mg/dL (5-11.8) H 02/17/22 17:00 Random Vancomycin 13.1 ug/mL (0-40.0) 02/18/22 14:24 Coronavirus (PCR) Negative (Negative) 02/24/22 09:35 Hepatitis A IgM Ab Non-reactive (NonReactive) 02/23/22 19:30 Hep Bs Antigen Non-reactive (Negative) 02/23/22 19:30 Hep B Core IgM Ab Non-reactive (NonReactive) 02/23/22 19:30 Hepatitis C Antibody Non-reactive (NonReactive) 02/23/22 19:30 Sanabria/IV: Voiding Method Toilet Active Medications - Current Medications Current Medications: Generic Name Dose Route Start Last Admin Trade Name Freq PRN Reason Stop Dose Admin Acetaminophen 650 mg 02/16/22 19:18 Acetaminophen 325 Mg Tab PO Q4H PRN Pain MILD(1-3)/Fever >100.5/ALY Amlodipine Besylate 10 mg 02/20/22 10:00 02/26/22 10:34 Amlodipine 10 Mg Tab PO 10 mg QDAY NEY Administration Ascorbic Acid 1,000 mg 02/16/22 20:00 02/26/22 10:32 Ascorbic Acid 500 Mg Tab PO 1,000 mg QDAY [facility] Administration Bumetanide 1 mg 02/21/22 11:00 02/26/22 10:33 Bumetanide 2.5 Mg/10 Ml Vial IV 1 mg DAILY NEY Administration Diphenhydramine HCl 25 mg 02/21/22 10:19 02/26/22 21:59 Diphenhydramine 25 Mg Cap PO 25 mg Q6H PRN Administration Itching Gabapentin 100 mg 02/17/22 14:00 02/27/22 05:08 Gabapentin 100 Mg Cap PO 100 mg Q8HR NEY Administration Heparin Sodium (Porcine) 5,000 unit 02/16/22 22:00 02/26/22 21:51 Heparin 5,000 Unit/1 Ml Vial SUB-Q 5,000 unit Q12HR NEY Administration Hydromorphone HCl 0.5 mg 02/16/22 19:20 02/19/22 22:14 Hydromorphone 1 Mg/1 Ml Inj IV 0.5 mg Q3H PRN Administration Pain , Severe (7-10) Sodium Chloride 100 mls @ 999 mls/hr 02/23/22 11:00 Nacl 0.9% IV GAYLE PRN Hypotension Sodium Chloride 100 mls @ 999 mls/hr 02/24/22 07:53 Nacl 0.9% IV GAYLE PRN Hypotension Sodium Chloride 100 mls @ 999 mls/hr 02/25/22 10:32 Nacl 0.9% IV GAYLE PRN Hypotension Sodium Chloride 100 mls @ 999 mls/hr 02/26/22 11:42 Nacl 0.9% IV GAYLE PRN Hypotension Insulin Glargine 70 units 02/16/22 22:00 02/26/22 23:52 Insulin Glargine 100 Units/Ml SUB-Q Not Given BID [facility] Insulin Human Lispro 0 unit 02/18/22 11:30 02/27/22 08:44 Insulin Lispro 100 Unit/Ml SUB-Q Not Given ACHS [facility] Protocol Metoclopramide HCl 5 mg 02/17/22 14:00 Metoclopramide 10 Mg/2 Ml Inj IV Q8H PRN Nausea And Vomiting Metoprolol Tartrate 50 mg 02/16/22 20:00 02/26/22 10:34 Metoprolol Tartrate 50 Mg Tab PO 50 mg QDAY [facility] Administration Morphine Sulfate 2 mg 02/16/22 19:20 02/24/22 07:51 Morphine 2 Mg/1 Ml Inj IV 2 mg Q4H PRN Administration Pain, Moderate (4-6) Ondansetron HCl 4 mg 02/16/22 19:18 Ondansetron 4 Mg/2 Ml Inj IV Q3H PRN Nausea And Vomiting Oxycodone/Acetaminophen 1 tab 02/16/22 19:20 02/26/22 16:15 Oxycodone /Acetaminophen 5-325mg Tab PO 1 tab Q6H PRN Administration Pain, Moderate (4-6) Pantoprazole Sodium 40 mg 02/16/22 20:00 02/26/22 10:32 Pantoprazole 40 Mg Tab PO 40 mg QDAY NEY Administration Sodium Bicarbonate 1,300 mg 02/20/22 10:00 02/26/22 21:50 Sodium Bicarbonate 650 Mg Tab PO 1,300 mg BID NEY Administration Sodium Chloride 10 ml 02/16/22 22:00 02/26/22 21:50 Sodium Chloride 0.9% 10 Ml Flush Syringe IV 10 ml BID NEY Administration Sodium Chloride 10 ml 02/16/22 19:18 Sodium Chloride 0.9% 10 Ml Flush Syringe IV PRN PRN LINE FLUSH Zinc Sulfate 220 mg 02/17/22 10:00 02/26/22 10:34 Zinc Sulfate 220 Mg Cap PO 220 mg QDAY NEY Administration Nutrition/Malnutrition Assess - Dietary Evaluation Nutrition/Malnutrition Findings: Nutrition Notes Start: 02/23/22 15:37 Freq: Status: Active Protocol: Document 02/23/22 15:37 ZHANG (Rec: 02/23/22 15:50 ZHANG [id number]) Nutrition Notes Need for Assessment generated from: LOS Initial or Follow up Assessment Current Diagnosis Acute Kidney Injury,Diabetes, Hypertension,Hyperlipidemia Other Pertinent Diagnosis L-Breast Cellulitis, CHF, GERD . Current Diet Renal Diet (since D 02/23). Labs/Tests 02/23: Cl 111.5, CO2 18, BUN 54, Crea 6.0, Glu 108, Ca 8.3. Pertinent Medications 02/23: Vit C, ZnSO4, others nutritionally unremarkable. Height 5 ft 11 in Weight 152 kg [place] Body Weight (kg) 70.45 BMI 46.7 Intake Prior to Admission Good Weight change and time frame Pt states having loss body weigh, unintentionally, [employer]. Weight Status Morbidly Obese Subjective/Other Information RD consult for LOS assessment. Pt is currently on NPO due to ongoing procedure, but will resume Renal Diet at [place] time. Pt's PO intake of meals has been Good (100%), according to ADL notes. Pt is on Room Air, O2 saturation @ 98%, acording to Physical Assessment History notes. Procedure on 02/23: PermaCath Placement. Percent of energy/protein needs met: Prescribed Renal Diet provides for energy/protein needs (2, 072 Kcal/77 g) during LOS. Burn Absent Trauma Absent GI Symptoms None Food Allergy No Skin Integrity/Comment Assessment WNL. Current % PO Good (75-100%) Minimum of two criteria No #1 Nutrition Diagnosis No nutrition diagnosis at this time Is patient on ventilator? No Is Patient Ambulatory and/or Out of Bed Yes REE-([place]. Jeor-ambulatory/OOB) [ 2887.469 [id number]] Kcal/Kg value to use for calculation 14 Approximate Energy Requirements Using 2128 kcal/Kg Calculation Used for Recommendations Kcal/kg Additional Notes Protein: 0.8-1.2 g/Kg AdjBW; 89-133 g/day. Fluids: 1 ml/Kcal, or as per MD. Nutrition Intervention Change Diet Order: Continue Renal Diet, as tolerated. Revisit per MD consult or patient Sign Off request: Additional Comments Continue monitoring food tolerance, %PO intake of meals , and BM.
[2022-02-27] MEDS: SODIUM BICARBONATE 650 MG TAB PO SCH ×2 (10:38→23:26)
[2022-02-27] MEDS: amLODIPine 10 MG TAB PO SCH (10:38)
[2022-02-27] MEDS: HEPARIN 5,000 UNIT/1 ML VIAL SUB-Q SCH ×2 (10:38→23:27)
[2022-02-27] MEDS: METOPROLOL TARTRATE 50 MG TAB PO SCH (10:38)
[2022-02-27] MEDS: INSULIN GLARGINE 100 UNITS/ML SUB-Q SCH ×2 (10:39→23:28)
--- NOTE | 2022-02-27 12:33 | Ultrasound Report ---
ULTRASOUND BREAST LEFT LIMITED, 02/27/2022 CLINICAL INFORMATION / INDICATION: cellulitis, fluid collection. Follow up TECHNIQUE: Targeted ultrasound evaluation was performed of the area of interest. COMPARISON: 02/20/2022 FINDINGS: In the retroareolar region there is continued appearance of edema though this is less promi nent than previously. The vague hypoechoic tissue in this area is mildly less prominent. No defined c ollection is seen to suggest an abscess. Incidental note is made of a benign simple cyst at 9:00 ally uring 5 mm. In the 11:00 position, 5 cm the nipple, incidental note is made of a benign-appearing 6 m m ovoid wider than tall nodule versus complicated cyst. IMPRESSION: 1. Mild improvement in the appearance of probable mastitis without obvious organized collection to bettencourt ggest an abscess 2. Incidental note is made of a minimal probably benign nodule Follow up recommendation: Follow-up left breast ultrasound in 3 months unless there is clinical worse mata BI-RADS Category 3: PROBABLY BENIGN. Followup in 3 months. A normal or "negative" report should not preclude biopsy or follow-up of a clinically suspicious find ing. Signer Name: Sylvester Rdz MD Signed: 02/27/2022 12:28 PM Workstation Name: [email or web address]
[2022-02-27] MEDS: ONDANSETRON 4 MG/2 ML INJ IV PRN (13:22)
--- NOTE | 2022-02-27 15:15 | Progress Note ---
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 --Permcath insertion on Feb 23 --HD intitation on Feb 23 --24h urine CrCl 18ml/min (Feb 17) --Scr 3.5mg/dL in Jun 2021 * Cellulits and abscess, left breast * Hypertension * Type II DM - long standing, uncontrolled per patient * Proteinuria, subnephrotic --24h urine protein 862mg (Feb 17) * CHF * Metabolic acidosis Plan: * Patient is s/p HD on , Sunday and Sunday * Continue dialysis on TTS schedule for now * UF as tolerated * Continue antiHTN medications * Continue NaBicarb 1300mg BID * Abx per ID/primary team * Dose medications for renal function * Case management has been consulted for outpatient dialysis placement - pending placement at [facility] * Shall give patient 1 dose of Lasix today. Subjective Date of service: 02/27/22 Principal diagnosis: Anasarca shortness of breath. Interval history: Patient is comfortable today. Shortness of breath is better. No nausea or vomiting. Had uneventful hemodialysis on Sunday Objective - Vital Signs Vital signs: Vital Signs - 12hr 02/27/22 02/27/22 04:25 10:38 Temperature 98.7 F Pulse Rate 79 82 Respiratory 20 Rate Blood Pressure 145/62 138/72 O2 Sat by Pulse 95 Oximetry - General Appearance General appearance: well-developed, well-nourished, appears stated age, obese EENT: PERRL, mucous membranes moist Neck: no JVD, no thyromegaly, no carotid bruit, supple, other (Right IJ PermCath in place) Respiratory: Present: Clear to Ascultation, Decreased Breath Sounds (At the bases) Cardiology: regular, normal heart rate Gastrointestinal: normal, normoactive bowel sounds Integumentary: no rash, other (1+ edema) - Lab 02/27/22 05:30 02/27/22 05:30 Most recent lab results Calcium 7.9 mg/dL (8.4-10.2) L 02/27/22 05:30 Urine Creatinine 111.3 mg/dL (0.1-20.0) H 02/17/22 17:00 Ur Total Protein 24 Hr 93125.00 mg/dL (2-200) H 02/17/22 17:00 Urine Total Protein 862 mg/dL (5-11.8) H 02/17/22 17:00 Medications & Allergies - Medications Allergies/Adverse Reactions: Allergies No Known Allergies Allergy (Verified 02/21/22 07:23) Home Medications: Home Medications Medication Instructions Recorded Confirmed Last Taken Type Pantoprazole [Protonix TAB] 40 mg PO QDAY #30 tablet 06/12/20 02/21/22 Unknown Rx Ascorbic Acid [Vitamin C] 1,000 mg PO QDAY 01/10/22 02/21/22 Unknown History Furosemide [Lasix TAB] 40 mg PO BID 01/10/22 02/21/22 Unknown History Gabapentin [Neurontin] 600 mg PO QDAY 01/10/22 02/21/22 Unknown History Insulin Glargine,Hum.rec.anlog 80 unit SQ BID 01/10/22 02/21/22 Unknown History [Basaglar Kwikpen U-100] Metoprolol [Lopressor TAB] 50 mg PO QDAY 01/10/22 02/21/22 Unknown History Zinc [Zinc 50mg TAB] 50 mg PO QDAY 01/10/22 02/21/22 Unknown History traMADoL [Ultram] 50 mg PO QDAY PRN 01/10/22 02/21/22 Unknown History Active Medications: Generic Name Dose Route Start Last Admin Trade Name Freq PRN Reason Stop Dose Admin Acetaminophen 650 mg 02/16/22 19:18 Acetaminophen 325 Mg Tab PO Q4H PRN Pain MILD(1-3)/Fever >100.5/ALY Amlodipine Besylate 10 mg 02/20/22 10:00 02/27/22 10:38 Amlodipine 10 Mg Tab PO 10 mg QDAY [facility]Y Administration Ascorbic Acid 1,000 mg 02/16/22 20:00 02/27/22 10:37 Ascorbic Acid 500 Mg Tab PO 1,000 mg QDAY [facility]Y Administration Bumetanide 1 mg 02/21/22 11:00 02/27/22 10:37 Bumetanide 2.5 Mg/10 Ml Vial IV 1 mg DAILY [facility] Administration Diphenhydramine HCl 25 mg 02/21/22 10:19 02/26/22 21:59 Diphenhydramine 25 Mg Cap PO 25 mg Q6H PRN Administration Itching Gabapentin 100 mg 02/17/22 14:00 02/27/22 13:19 Gabapentin 100 Mg Cap PO 100 mg Q8HR NEY Administration Heparin Sodium (Porcine) 5,000 unit 02/16/22 22:00 02/27/22 10:38 Heparin 5,000 Unit/1 Ml Vial SUB-Q 5,000 unit Q12HR [facility] Administration Hydromorphone HCl 0.5 mg 02/16/22 19:20 02/19/22 22:14 Hydromorphone 1 Mg/1 Ml Inj IV 0.5 mg Q3H PRN Administration Pain , Severe (7-10) Sodium Chloride 100 mls @ 999 mls/hr 02/23/22 11:00 Nacl 0.9% IV GAYLE PRN Hypotension Sodium Chloride 100 mls @ 999 mls/hr 02/24/22 07:53 Nacl 0.9% IV GAYLE PRN Hypotension Sodium Chloride 100 mls @ 999 mls/hr 02/25/22 10:32 Nacl 0.9% IV GAYLE PRN Hypotension Sodium Chloride 100 mls @ 999 mls/hr 02/26/22 11:42 Nacl 0.9% IV GAYLE PRN Hypotension Insulin Glargine 70 units 02/16/22 22:00 02/27/22 10:39 Insulin Glargine 100 Units/Ml SUB-Q Not Given BID [facility] Insulin Human Lispro 0 unit 02/18/22 11:30 02/27/22 13:19 Insulin Lispro 100 Unit/Ml SUB-Q 2 unit ACHS [facility] Administration Protocol Metoclopramide HCl 5 mg 02/17/22 14:00 Metoclopramide 10 Mg/2 Ml Inj IV Q8H PRN Nausea And Vomiting Metoprolol Tartrate 50 mg 02/16/22 20:00 02/27/22 10:38 Metoprolol Tartrate 50 Mg Tab PO 50 mg QDAY [facility] Administration Morphine Sulfate 2 mg 02/16/22 19:20 02/24/22 07:51 Morphine 2 Mg/1 Ml Inj IV 2 mg Q4H PRN Administration Pain, Moderate (4-6) Ondansetron HCl 4 mg 02/16/22 19:18 02/27/22 13:22 Ondansetron 4 Mg/2 Ml Inj IV 4 mg Q3H PRN Administration Nausea And Vomiting Oxycodone/Acetaminophen 1 tab 02/16/22 19:20 02/26/22 16:15 Oxycodone /Acetaminophen 5-325mg Tab PO 1 tab Q6H PRN Administration Pain, Moderate (4-6) Pantoprazole Sodium 40 mg 02/16/22 20:00 02/27/22 10:37 Pantoprazole 40 Mg Tab PO 40 mg QDAY NEY Administration Sodium Bicarbonate 1,300 mg 02/20/22 10:00 02/27/22 10:38 Sodium Bicarbonate 650 Mg Tab PO 1,300 mg BID NEY Administration Sodium Chloride 10 ml 02/16/22 22:00 02/27/22 10:39 Sodium Chloride 0.9% 10 Ml Flush Syringe IV 10 ml BID NEY Administration Sodium Chloride 10 ml 02/16/22 19:18 Sodium Chloride 0.9% 10 Ml Flush Syringe IV PRN PRN LINE FLUSH Zinc Sulfate 220 mg 02/17/22 10:00 02/27/22 10:37 Zinc Sulfate 220 Mg Cap PO 220 mg QDAY NEY Administration
[2022-02-27] MEDS ORDERED: BUMETANIDE 2.5 MG/10 ML VIAL IV SCH (16:00)
[2022-02-28] MEDS: INSULIN LISPRO 100 UNIT/ML SUB-Q SCH ×5 (01:34→23:37)
[2022-02-28] MEDS: HYDROmorphone 1 MG/1 ML INJ IV PRN ×2 (01:35→23:17)
[2022-02-28 05:08] LABS: Basophils % (Auto) 0.6 % (0.0-1.8); Eosinophils # (Auto) 0.1 K/mm3 (0.0-0.4); Hematocrit 28.4 % (30.3-42.9); Hemoglobin 8.9 gm/dl (10.1-14.3); Lymphocytes # (Auto) 2.2 K/mm3 (1.2-5.4); Lymphocytes % (Auto) 32.3 % (13.4-35.0); Mean Corpuscular HGB Conc 31 % (30-34); Mean Corpuscular Volume 85 fl (79-97); Monocytes # (Auto) 0.8 K/mm3 (0.0-0.8); Monocytes % (Auto) 10.8 % (0.0-7.3); Platelet Count 209 K/mm3 (140-440); Red Blood Count 3.33 M/mm3 (3.65-5.03); Red Cell Distribution Width 14.9 % (13.2-15.2)
[2022-02-28] MEDS: GABAPENTIN 100 MG CAP PO SCH ×3 (06:29→23:05)
[2022-02-28] MEDS: amLODIPine 10 MG TAB PO SCH (09:25)
[2022-02-28] MEDS: ASCORBIC ACID 500 MG TAB PO SCH (09:25)
[2022-02-28] MEDS: PANTOPRAZOLE 40 MG TAB PO SCH (09:26)
[2022-02-28] MEDS: SODIUM BICARBONATE 650 MG TAB PO SCH ×2 (09:26→23:05)
[2022-02-28] MEDS: ZINC SULFATE 220 MG CAP PO SCH (09:26)
[2022-02-28] MEDS: BUMETANIDE 2.5 MG/10 ML VIAL IV SCH (09:27)
[2022-02-28] MEDS: HEPARIN 5,000 UNIT/1 ML VIAL SUB-Q SCH ×2 (09:28→23:06)
[2022-02-28] MEDS: METOPROLOL TARTRATE 50 MG TAB PO SCH (09:28)
[2022-02-28] MEDS: INSULIN GLARGINE 100 UNITS/ML SUB-Q SCH ×2 (09:28→23:06)
--- NOTE | 2022-02-28 13:52 | Progress Note ---
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 --Permcath insertion on Feb 23 --HD intitation on Feb 23 --24h urine CrCl 18ml/min (Feb 17) --Scr 3.5mg/dL in Jun 2021 * Cellulits and abscess, left breast * Hypertension * Type II DM - long standing, uncontrolled per patient * Proteinuria, subnephrotic --24h urine protein 862mg (Feb 17) * CHF * Metabolic acidosis Plan: * Continue dialysis on TTS schedule for now * UF as tolerated * Continue antiHTN medications * Continue NaBicarb 1300mg BID * Abx per ID/primary team * Dose medications for renal function * Case management has been consulted for outpatient dialysis placement - pending placement at [facility] Subjective Date of service: 02/28/22 Principal diagnosis: Anasarca shortness of breath. Interval history: Patient is comfortable today. Shortness of breath is better. Going down for dialysis. Objective - Vital Signs Vital signs: Vital Signs - 12hr 02/28/22 02/28/22 02/28/22 06:02 09:25 09:28 Temperature 98.0 F Pulse Rate 78 78 Respiratory 20 Rate Blood Pressure 138/94 126/63 126/63 O2 Sat by Pulse Oximetry 02/28/22 11:23 Temperature 99.0 F Pulse Rate 75 Respiratory 20 Rate Blood Pressure 138/74 O2 Sat by Pulse 95 Oximetry - General Appearance General appearance: well-developed, well-nourished, appears stated age, obese EENT: PERRL, mucous membranes moist Neck: no JVD, no thyromegaly, no carotid bruit, supple, other (Right IJ PermCath in place) Respiratory: Present: Clear to Ascultation Cardiology: regular, normal heart rate, S1S2, no murmurs Gastrointestinal: normal, normoactive bowel sounds Integumentary: no rash, other (1+ edema) - Lab 02/28/22 04:41 02/28/22 04:41 Most recent lab results Calcium 8.0 mg/dL (8.4-10.2) L 02/28/22 04:41 Urine Creatinine 111.3 mg/dL (0.1-20.0) H 02/17/22 17:00 Ur Total Protein 24 Hr 63677.00 mg/dL (2-200) H 02/17/22 17:00 Urine Total Protein 862 mg/dL (5-11.8) H 02/17/22 17:00 Medications & Allergies - Medications Allergies/Adverse Reactions: Allergies No Known Allergies Allergy (Verified 02/21/22 07:23) Home Medications: Home Medications Medication Instructions Recorded Confirmed Last Taken Type Pantoprazole [Protonix TAB] 40 mg PO QDAY #30 tablet 06/12/20 02/21/22 Unknown Rx Ascorbic Acid [Vitamin C] 1,000 mg PO QDAY 01/10/22 02/21/22 Unknown History Furosemide [Lasix TAB] 40 mg PO BID 01/10/22 02/21/22 Unknown History Gabapentin [Neurontin] 600 mg PO QDAY 01/10/22 02/21/22 Unknown History Insulin Glargine,Hum.rec.anlog 80 unit SQ BID 01/10/22 02/21/22 Unknown History [Basaglar Kwikpen U-100] Metoprolol [Lopressor TAB] 50 mg PO QDAY 01/10/22 02/21/22 Unknown History Zinc [Zinc 50mg TAB] 50 mg PO QDAY 01/10/22 02/21/22 Unknown History traMADoL [Ultram] 50 mg PO QDAY PRN 01/10/22 02/21/22 Unknown History Active Medications: Generic Name Dose Route Start Last Admin Trade Name Freq PRN Reason Stop Dose Admin Acetaminophen 650 mg 02/16/22 19:18 Acetaminophen 325 Mg Tab PO Q4H PRN Pain MILD(1-3)/Fever >100.5/ALY Amlodipine Besylate 10 mg 02/20/22 10:00 02/28/22 09:25 Amlodipine 10 Mg Tab PO 10 mg QDAY NEY Administration Ascorbic Acid 1,000 mg 02/16/22 20:00 02/28/22 09:25 Ascorbic Acid 500 Mg Tab PO 1,000 mg QDAY NEY Administration Bumetanide 2 mg 02/28/22 10:00 02/28/22 09:27 Bumetanide 2.5 Mg/10 Ml Vial IV 2 mg DAILY NEY Administration Diphenhydramine HCl 25 mg 02/21/22 10:19 02/26/22 21:59 Diphenhydramine 25 Mg Cap PO 25 mg Q6H PRN Administration Itching Gabapentin 100 mg 02/17/22 14:00 02/28/22 06:29 Gabapentin 100 Mg Cap PO 100 mg Q8HR [facility] Administration Heparin Sodium (Porcine) 5,000 unit 02/16/22 22:00 02/28/22 09:28 Heparin 5,000 Unit/1 Ml Vial SUB-Q 5,000 unit Q12HR NEY Administration Hydromorphone HCl 0.5 mg 02/16/22 19:20 02/28/22 01:35 Hydromorphone 1 Mg/1 Ml Inj IV 0.5 mg Q3H PRN Administration Pain , Severe (7-10) Sodium Chloride 100 mls @ 999 mls/hr 02/26/22 11:42 Nacl 0.9% IV GAYLE PRN Hypotension Insulin Glargine 70 units 02/16/22 22:00 02/28/22 09:28 Insulin Glargine 100 Units/Ml SUB-Q Not Given BID [facility] Insulin Human Lispro 0 unit 02/18/22 11:30 02/28/22 12:16 Insulin Lispro 100 Unit/Ml SUB-Q 2 unit ACHS [facility] Administration Protocol Metoclopramide HCl 5 mg 02/17/22 14:00 Metoclopramide 10 Mg/2 Ml Inj IV Q8H PRN Nausea And Vomiting Metoprolol Tartrate 50 mg 02/16/22 20:00 02/28/22 09:28 Metoprolol Tartrate 50 Mg Tab PO 50 mg QDAY [facility] Administration Morphine Sulfate 2 mg 02/16/22 19:20 02/24/22 07:51 Morphine 2 Mg/1 Ml Inj IV 2 mg Q4H PRN Administration Pain, Moderate (4-6) Ondansetron HCl 4 mg 02/16/22 19:18 02/27/22 13:22 Ondansetron 4 Mg/2 Ml Inj IV 4 mg Q3H PRN Administration Nausea And Vomiting Oxycodone/Acetaminophen 1 tab 02/16/22 19:20 02/26/22 16:15 Oxycodone /Acetaminophen 5-325mg Tab PO 1 tab Q6H PRN Administration Pain, Moderate (4-6) Pantoprazole Sodium 40 mg 02/16/22 20:00 02/28/22 09:26 Pantoprazole 40 Mg Tab PO 40 mg QDAY [facility] Administration Sodium Bicarbonate 1,300 mg 02/20/22 10:00 02/28/22 09:26 Sodium Bicarbonate 650 Mg Tab PO 1,300 mg BID NEY Administration Sodium Chloride 10 ml 02/16/22 22:00 02/28/22 09:29 Sodium Chloride 0.9% 10 Ml Flush Syringe IV 10 ml BID NEY Administration Sodium Chloride 10 ml 02/16/22 19:18 Sodium Chloride 0.9% 10 Ml Flush Syringe IV PRN PRN LINE FLUSH Zinc Sulfate 220 mg 02/17/22 10:00 02/28/22 09:26 Zinc Sulfate 220 Mg Cap PO 220 mg QDAY NEY Administration
[2022-02-28] MEDS: ONDANSETRON 4 MG/2 ML INJ IV PRN (15:09)
--- NOTE | 2022-02-28 19:19 | Progress Note ---
Assessment and Plan Assessment and plan: 51 year old female admitted through the ER 02/16/22 with worsening left breast pain and swelling. She says that swelling started about a month ago. She says that the breast occasionally feels hot to touch. She denies any insect bite or skin trauma. The patient was evaluated by general surgery who reported clinical presentation and physical findings not consistent with inflammatory breast cancer. A bedside 4 mm punch biopsy was done and path report is negative for malignancy. The patient received IV antibiotics. 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 Patient had permacath insertion on February 23 and initiation of hemodialysis at that time. Acute kidney injury on stage IV/V CKD, hemodialysis initiated Diabetic nephropathy Left breast cellulitis/cellulitis but no discrete abscess on imaging Hypertension Diabetes mellitus type 2 Chronic combined systolic and diastolic heart failure. 02/24/2022. Echocardiogram reveals left ventricle moderately dilated and left ventricular systolic function moderately to severely decreased. Mild to moderate concentric left ventricular hypertrophy with EF of 30-35%. Nephrology to continue hemodialysis Sunday and Sunday. Continue sodium bicarbonate. Continue antihypertensive medications. Case management consulted for outpatient hemodialysis clinic placement. 02/25/22. Continue hemodialysis per nephrology recommendations. Patient is s/p hemodialysis or Sunday. Patient will be maintained on TTS hemodialysis schedule. Continue antihypertensive medications. Continue sodium bicarbonate. Follow-up breast ultrasound reveals slight interval decrease of left breast soft tissue edema without evidence of discrete drainable fluid collection such as abscess. Patient will have follow-up left breast ultrasound and will likely need diagnostic mammogram as an outpatient. Follow-up left breast ultrasound on Sunday while inpatient. 02/26/2022. We will check left breast ultrasound in a.m. to track interval improvement. The patient will need diagnostic mammogram as an outpatient. Continue hemodialysis per nephrology recommendations. Patient is s/p hemodialysis ,Sunday and Sunday. Patient will be maintained on TTS hemodialysis schedule. Continue antihypertensive medications. Continue sodium bicarbonate. 02/27/2022. Follow-up left breast ultrasound to track interval improvement of fluid collection ? Abscess. Continue IV antibiotics. If no significant improvement, we will consult ID for further evaluation. The patient will need diagnostic mammogram as an outpatient. Continue hemodialysis per nephrology recommendations. Patient will be maintained on TTS hemodialysis schedule. Continue antihypertensive medications. Continue sodium bicarbonate. 02/28/2022: Patient reports significant reduction in swelling of the left wrist since admitted. Biopsy report pending. Imaging showed no significant abscess. Patient vomited in the last. No evidence of volume overload. Possible discharge tomorrow with arrangements for recommendations of outpatient dialysis. History Interval history: Patient had nausea and vomiting while receiving dialysis today. Left breast chest swelling improved since admitted. No drainage. Hospitalist Physical - Constitutional Vitals: Temp Pulse Resp BP Pulse Ox 99.3 F 78 20 136/78 94 02/28/22 18:34 02/28/22 18:34 02/28/22 18:34 02/28/22 18:34 02/28/22 18:34 General appearance: Present: no acute distress, obese (Extremely obese) - EENT Eyes: Present: PERRL ENT: clear oral mucosa - Neck Neck: Present: supple - Respiratory Respiratory effort: normal Respiratory: bilateral: CTA - Cardiovascular Rhythm: regular - Extremities Extremities: abnormal (Trace edema pedal/pretibial) - Abdominal General gastrointestinal: soft, non-tender, normal bowel sounds - Psychiatric Psychiatric: appropriate mood/affect - Neurologic Neurologic: moves all extremities, other (Alert and oriented, normal speech and comprehension.) HEART Score - HEART Score Troponin: Troponin T 0.129 ng/mL (0.00-0.029) H* 02/16/22 15:30 Results - Labs CBC & Chem 7: 02/28/22 04:41 02/28/22 04:41 Labs: Laboratory Last Values WBC 6.9 K/mm3 (4.5-11.0) 02/28/22 04:41 RBC 3.33 M/mm3 (3.65-5.03) L 02/28/22 04:41 Hgb 8.9 gm/dl (10.1-14.3) L 02/28/22 04:41 Hct 28.4 % (30.3-42.9) L 02/28/22 04:41 MCV 85 fl (79-97) 02/28/22 04:41 MCH 27 pg (28-32) L 02/28/22 04:41 MCHC 31 % (30-34) 02/28/22 04:41 RDW 14.9 % (13.2-15.2) 02/28/22 04:41 Plt Count 209 K/mm3 (140-440) 02/28/22 04:41 Lymph % (Auto) 32.3 % (13.4-35.0) 02/28/22 04:41 [place] % (Auto) 10.8 % (0.0-7.3) H 02/28/22 04:41 Eos % (Auto) 2.0 % (0.0-4.3) 02/28/22 04:41 Baso % (Auto) 0.6 % (0.0-1.8) 02/28/22 04:41 Lymph # (Auto) 2.2 K/mm3 (1.2-5.4) 02/28/22 04:41 [place] # (Auto) 0.8 K/mm3 (0.0-0.8) 02/28/22 04:41 Eos # (Auto) 0.1 K/mm3 (0.0-0.4) 02/28/22 04:41 Baso # (Auto) 0.0 K/mm3 (0.0-0.1) 02/28/22 04:41 Seg Neutrophils % 54.3 % (40.0-70.0) 02/28/22 04:41 Seg Neutrophils # 3.8 K/mm3 (1.8-7.7) 02/28/22 04:41 PT 14.2 Sec. (12.2-14.9) 02/16/22 15:30 INR 0.99 (0.87-1.13) 02/16/22 15:30 Sodium 146 mmol/L (137-145) H 02/28/22 04:41 Potassium 4.1 mmol/L (3.6-5.0) 02/28/22 04:41 Chloride 110.4 mmol/L (98-107) H 02/28/22 04:41 Carbon Dioxide 24 mmol/L (22-30) 02/28/22 04:41 Anion Gap 16 mmol/L 02/28/22 04:41 BUN 42 mg/dL (7-17) H 02/28/22 04:41 Creatinine 5.5 mg/dL (0.6-1.2) H 02/28/22 04:41 Estimated GFR 10 ml/min 02/28/22 04:41 BUN/Creatinine Ratio 8 % 02/28/22 04:41 Glucose 182 mg/dL (65-100) H 02/28/22 04:41 POC Glucose 174 mg/dL (70-105) H 02/28/22 11:43 Lactic Acid 1.00 mmol/L (0.7-2.0) 02/16/22 15:30 Calcium 8.0 mg/dL (8.4-10.2) L 02/28/22 04:41 Total Bilirubin < 0.20 mg/dL (0.1-1.2) 02/24/22 05:14 AST 18 units/L (5-40) 02/24/22 05:14 ALT 24 units/L (7-56) 02/24/22 05:14 Alkaline Phosphatase 112 units/L (35-129) 02/24/22 05:14 Troponin T 0.129 ng/mL (0.00-0.029) H* 02/16/22 15:30 NT-Pro-B Natriuret Pep 8264 pg/mL (0-900) H 02/16/22 15:30 Total Protein 5.1 g/dL (6.3-8.2) L 02/24/22 05:14 Albumin 2.5 g/dL (3.9-5) L 02/24/22 05:14 Albumin/Globulin Ratio 1.0 % 02/24/22 05:14 Triglycerides 97 mg/dL (2-149) 02/16/22 15:30 Cholesterol 287 mg/dL (50-199) H 02/16/22 15:30 LDL Cholesterol Direct 184 mg/dL (50-130) H 02/16/22 15:30 HDL Cholesterol 103 mg/dL (40-59) H 02/16/22 15:30 Cholesterol/HDL Ratio 2.78 % 02/16/22 15:30 Urine Color Straw (Yellow) 02/17/22 Unknown Urine Turbidity Clear (Clear) 02/17/22 Unknown Urine pH 6.0 (5.0-7.0) 02/17/22 Unknown Ur Specific [place] 1.013 (1.003-1.030) 02/17/22 Unknown Urine Protein >500 mg/dL (Negative) 02/17/22 Unknown Urine Glucose (UA) 50 mg/dL (Negative) 02/17/22 Unknown Urine Ketones Neg mg/dL (Negative) 02/17/22 Unknown Urine Blood Sm (Negative) 02/17/22 Unknown Urine Nitrite Neg (Negative) 02/17/22 Unknown Urine Bilirubin Neg (Negative) 02/17/22 Unknown Urine Urobilinogen < 2.0 mg/dL (<2.0) 02/17/22 Unknown Ur Leukocyte Esterase Neg (Negative) 02/17/22 Unknown Urine WBC (Auto) 3.0 /HPF (0.0-6.0) 02/17/22 Unknown Urine RBC (Auto) 1.0 /HPF (0.0-6.0) 02/17/22 Unknown U Epithel Cells (Auto) 4.0 /HPF (0-13.0) 02/17/22 Unknown Urine Bacteria (Auto) 1+ /HPF (Negative) 02/17/22 Unknown Urine Mucus Few /HPF 02/17/22 Unknown Urine Yeast (Budding) Few /HPF 02/17/22 Unknown Urine Eosinophils Rare (None Seen) 02/17/22 Unknown Urine Total Volume 1300 ml 02/17/22 17:00 Urine Creatinine 111.3 mg/dL (0.1-20.0) H 02/17/22 17:00 Ur Creatinine 24 Hour 1.4 (0.8-2.8) 02/17/22 17:00 Ur Total Protein 24 Hr 45488.00 mg/dL (2-200) H 02/17/22 17:00 Urine Total Protein 862 mg/dL (5-11.8) H 02/17/22 17:00 Random Vancomycin 13.1 ug/mL (0-40.0) 02/18/22 14:24 Coronavirus (PCR) Negative (Negative) 02/24/22 09:35 Hepatitis A IgM Ab Non-reactive (NonReactive) 02/23/22 19:30 Hep Bs Antigen Non-reactive (Negative) 02/23/22 19:30 Hep B Core IgM Ab Non-reactive (NonReactive) 02/23/22 19:30 Hepatitis C Antibody Non-reactive (NonReactive) 02/23/22 19:30 [place]/IV: Voiding Method Toilet Active Medications - Current Medications Current Medications: Generic Name Dose Route Start Last Admin Trade Name Freq PRN Reason Stop Dose Admin Acetaminophen 650 mg 02/16/22 19:18 Acetaminophen 325 Mg Tab PO Q4H PRN Pain MILD(1-3)/Fever >100.5/ALY Amlodipine Besylate 10 mg 02/20/22 10:00 02/28/22 09:25 Amlodipine 10 Mg Tab PO 10 mg QDAY [facility] Administration Ascorbic Acid 1,000 mg 02/16/22 20:00 02/28/22 09:25 Ascorbic Acid 500 Mg Tab PO 1,000 mg QDAY [facility] Administration Bumetanide 2 mg 02/28/22 10:00 02/28/22 09:27 Bumetanide 2.5 Mg/10 Ml Vial IV 2 mg DAILY [facility] Administration Diphenhydramine HCl 25 mg 02/21/22 10:19 02/26/22 21:59 Diphenhydramine 25 Mg Cap PO 25 mg Q6H PRN Administration Itching Gabapentin 100 mg 02/17/22 14:00 02/28/22 14:00 Gabapentin 100 Mg Cap PO Not Given Q8HR [facility] Heparin Sodium (Porcine) 5,000 unit 02/16/22 22:00 02/28/22 09:28 Heparin 5,000 Unit/1 Ml Vial SUB-Q 5,000 unit Q12HR [facility] Administration Hydromorphone HCl 0.5 mg 02/16/22 19:20 02/28/22 01:35 Hydromorphone 1 Mg/1 Ml Inj IV 0.5 mg Q3H PRN Administration Pain , Severe (7-10) Sodium Chloride 100 mls @ 999 mls/hr 02/26/22 11:42 Nacl 0.9% IV GAYLE PRN Hypotension Insulin Glargine 70 units 02/16/22 22:00 02/28/22 09:28 Insulin Glargine 100 Units/Ml SUB-Q Not Given BID [facility] Insulin Human Lispro 0 unit 02/18/22 11:30 02/28/22 16:30 Insulin Lispro 100 Unit/Ml [facility]Q [facility] Protocol Metoclopramide HCl 5 mg 02/17/22 14:00 Metoclopramide 10 Mg/2 Ml Inj IV Q8H PRN Nausea And Vomiting Metoprolol Tartrate 50 mg 02/16/22 20:00 02/28/22 09:28 Metoprolol Tartrate 50 Mg Tab PO 50 mg QDAY [facility] Administration Morphine Sulfate 2 mg 02/16/22 19:20 02/24/22 07:51 Morphine 2 Mg/1 Ml Inj IV 2 mg Q4H PRN Administration Pain, Moderate (4-6) Ondansetron HCl 4 mg 02/16/22 19:18 02/28/22 15:09 Ondansetron 4 Mg/2 Ml Inj IV 4 mg Q3H PRN Administration Nausea And Vomiting Oxycodone/Acetaminophen 1 tab 02/16/22 19:20 02/26/22 16:15 Oxycodone /Acetaminophen 5-325mg Tab PO 1 tab Q6H PRN Administration Pain, Moderate (4-6) Pantoprazole Sodium 40 mg 02/16/22 20:00 02/28/22 09:26 Pantoprazole 40 Mg Tab PO 40 mg QDAY [facility] Administration Sodium Bicarbonate 1,300 mg 02/20/22 10:00 02/28/22 09:26 Sodium Bicarbonate 650 Mg Tab PO 1,300 mg BID [facility] Administration Sodium Chloride 10 ml 02/16/22 22:00 02/28/22 09:29 Sodium Chloride 0.9% 10 Ml Flush Syringe IV 10 ml BID [facility] Administration Sodium Chloride 10 ml 02/16/22 19:18 Sodium Chloride 0.9% 10 Ml Flush Syringe IV PRN PRN LINE FLUSH Zinc Sulfate 220 mg 02/17/22 10:00 02/28/22 09:26 Zinc Sulfate 220 Mg Cap PO 220 mg QDAY [facility] Administration Nutrition/Malnutrition Assess - Dietary Evaluation Nutrition/Malnutrition Findings: Nutrition Notes Start: 02/23/22 15:37 Freq: Status: Active Protocol: Document 02/23/22 15:37 ZHANG (Rec: 02/23/22 15:50 ZHANG [id number]) Nutrition Notes Need for Assessment generated from: LOS Initial or Follow up Assessment Current Diagnosis Acute Kidney Injury,Diabetes, Hypertension,Hyperlipidemia Other Pertinent Diagnosis L-Breast Cellulitis, CHF, GERD . Current Diet Renal Diet (since D 02/23). Labs/Tests 02/23: Cl 111.5, CO2 18, BUN 54, Crea 6.0, Glu 108, Ca 8.3. Pertinent Medications 02/23: Vit C, ZnSO4, others nutritionally unremarkable. Height 5 ft 11 in Weight 152 kg [place] Body Weight (kg) 70.45 BMI 46.7 Intake Prior to Admission Good Weight change and time frame Pt states having loss body weigh, unintentionally, [employer]. Weight Status Morbidly Obese Subjective/Other Information RD consult for LOS assessment. Pt is currently on NPO due to ongoing procedure, but will resume Renal Diet at [place] time. Pt's PO intake of meals has been Good (100%), according to ADL notes. Pt is on Room Air, O2 saturation @ 98%, acording to Physical Assessment History notes. Procedure on 02/23: PermaCath Placement. Percent of energy/protein needs met: Prescribed Renal Diet provides for energy/protein needs (2, 072 Kcal/77 g) during LOS. Burn Absent Trauma Absent GI Symptoms None Food Allergy No Skin Integrity/Comment Assessment WNL. Current % PO Good (75-100%) Minimum of two criteria No #1 Nutrition Diagnosis No nutrition diagnosis at this time Is patient on ventilator? No Is Patient Ambulatory and/or Out of Bed Yes REE-([place]-ambulatory/OOB) [ 2887.469 [id number]] Kcal/Kg value to use for calculation 14 Approximate Energy Requirements Using 2128 kcal/Kg Calculation Used for Recommendations Kcal/kg Additional Notes Protein: 0.8-1.2 g/Kg AdjBW; 89-133 g/day. Fluids: 1 ml/Kcal, or as per MD. Nutrition Intervention Change Diet Order: Continue Renal Diet, as tolerated. Revisit per MD consult or patient Sign Off request: Additional Comments Continue monitoring food tolerance, %PO intake of meals , and BM.
[2022-03-01 05:30] LABS: Basophils % (Auto) 0.3 % (0.0-1.8); Eosinophils # (Auto) 0.1 K/mm3 (0.0-0.4); Eosinophils % (Auto) 1.4 % (0.0-4.3); Hematocrit 27.2 % (30.3-42.9); Hemoglobin 8.7 gm/dl (10.1-14.3); Lymphocytes # (Auto) 1.7 K/mm3 (1.2-5.4); Lymphocytes % (Auto) 26.2 % (13.4-35.0); Mean Corpuscular HGB Conc 32 % (30-34); Mean Corpuscular Volume 83 fl (79-97); Monocytes # (Auto) 0.6 K/mm3 (0.0-0.8); Monocytes % (Auto) 9.1 % (0.0-7.3); Platelet Count 186 K/mm3 (140-440); Red Blood Count 3.27 M/mm3 (3.65-5.03); Red Cell Distribution Width 14.2 % (13.2-15.2)
[2022-03-01 05:49] LABS: Calcium 7.6 mg/dL (8.4-10.2)
[2022-03-01] MEDS: GABAPENTIN 100 MG CAP PO SCH ×2 (06:16→14:10)
[2022-03-01] MEDS: diphenhydrAMINE 25 MG CAP PO PRN (06:16)
[2022-03-01] MEDS: INSULIN LISPRO 100 UNIT/ML SUB-Q SCH ×2 (07:30→11:30)
[2022-03-01] MEDS: INSULIN GLARGINE 100 UNITS/ML SUB-Q SCH (10:00)
[2022-03-01] MEDS: METOPROLOL TARTRATE 50 MG TAB PO SCH (11:07)
[2022-03-01] MEDS: ASCORBIC ACID 500 MG TAB PO SCH (11:07)
[2022-03-01] MEDS: HEPARIN 5,000 UNIT/1 ML VIAL SUB-Q SCH (11:07)
[2022-03-01] MEDS: amLODIPine 10 MG TAB PO SCH (11:07)
[2022-03-01] MEDS: BUMETANIDE 2.5 MG/10 ML VIAL IV SCH (11:08)
[2022-03-01] MEDS: PANTOPRAZOLE 40 MG TAB PO SCH (11:08)
[2022-03-01] MEDS: SODIUM BICARBONATE 650 MG TAB PO SCH (11:09)
[2022-03-01] MEDS: ZINC SULFATE 220 MG CAP PO SCH (11:10)
[2022-03-01 12:12] VITALS: BP 139/73
--- NOTE | 2022-03-01 12:35 | Discharge Summary ---
Providers - Providers Date of Admission: 02/16/22 19:18 Date of discharge: 03/01/22 Attending physician: CLARKE GUZMAN MD 02/16/22 19:20 Consult to Physician [CONS] Routine Comment: Consulting Provider: ABEL HOOD Physician Instructions: Reason For Exam: Left breast cellulitis 02/16/22 19:30 Consult to Physician [CONS] Routine Comment: Consulting Provider: HECTOR DOUGLAS Physician Instructions: Reason For Exam: DEVON/CKD 02/16/22 19:36 Consult to Physician [CONS] Routine Comment: Consulting Provider: MIKE MOROCHO Physician Instructions: Reason For Exam: Left breast abscess drainage by IR 02/20/22 17:00 Consult to Physician [CONS] Routine Comment: no need to call. I spoke with him already Consulting Provider: JEAN MARIE RODRIGUEZ Physician Instructions: Reason For Exam: left breast cellulitis, w/u for possible CA 02/23/22 08:46 Consult to Physician [CONS] Routine Comment: Consulting Provider: MIKE MOROCHO Physician Instructions: Reason For Exam: Permcath 02/23/22 12:12 Physical Therapy Evaluation and Treat [CONS] Stat Comment: Eval and Treat Reason For Exam: Physical Therapy Primary care physician: KODAK BARRIENTOS DO Hospitalization Reason for admission: breast pain Condition: Stable Hospital course: Assessment and plan: 51 year old female admitted through the ER 02/16/22 with worsening left breast pain and swelling. She says that swelling started about a month ago. She says that the breast occasionally feels hot to touch. She denies any insect bite or skin trauma. The patient was evaluated by general surgery who reported clinical presentation and physical findings not consistent with inflammatory breast cancer. A bedside 4 mm punch biopsy was done and path report is negative for malignancy. The patient received IV antibiotics. 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 Patient had permacath insertion on February 23 and initiation of hemodialysis at that time. Acute kidney injury on stage IV/V CKD, hemodialysis initiated Diabetic nephropathy Left breast cellulitis/cellulitis but no discrete abscess on imaging Hypertension Diabetes mellitus type 2 Chronic combined systolic and diastolic heart failure. 02/24/2022. Echocardiogram reveals left ventricle moderately dilated and left ventricular systolic function moderately to severely decreased. Mild to moderate concentric left ventricular hypertrophy with EF of 30-35%. Nephrology to continue hemodialysis Sunday and Sunday. Continue sodium bicarbonate. Continue antihypertensive medications. Case management consulted for outpatient hemodialysis clinic placement. 02/25/22. Continue hemodialysis per nephrology recommendations. Patient is s/p hemodialysis or Sunday. Patient will be maintained on TTS hemodialysis schedule. Continue antihypertensive medications. Continue sodium bicarbonate. Follow-up breast ultrasound reveals slight interval decrease of left breast soft tissue edema without evidence of discrete drainable fluid collection such as abscess. Patient will have follow-up left breast ultrasound and will likely need diagnostic mammogram as an outpatient. Follow-up left breast ultrasound on Sunday while inpatient. 02/26/2022. We will check left breast ultrasound in a.m. to track interval improvement. The patient will need diagnostic mammogram as an outpatient. Continue hemodialysis per nephrology recommendations. Patient is s/p hemodialysis ,Sunday and Sunday. Patient will be maintained on TTS hemodialysis schedule. Continue antihypertensive medications. Continue sodium bicarbonate. 02/27/2022. Follow-up left breast ultrasound to track interval improvement of fluid collection ? Abscess. Continue IV antibiotics. If no significant improvement, we will consult ID for further evaluation. The patient will need diagnostic mammogram as an outpatient. Continue hemodialysis per nephrology recommendations. Patient will be maintained on TTS hemodialysis schedule. Continue antihypertensive medications. Continue sodium bicarbonate. 02/28/2022: Patient reports significant reduction in swelling of the left wrist since admitted. Biopsy report pending. Imaging showed no significant abscess. Patient vomited in the last. No evidence of volume overload. Possible discharge tomorrow with arrangements for recommendations of outpatient dialysis. 03/01/2022: OP dialysis chair set up. Patient can be discharged today. Disposition: 30 STILL A PATIENT Final Discharge Diagnosis (Prints w/discharge instructions): Acute kidney injury superimposed on chronic kidney disease Time spent for discharge: 35 Core Measure Documentation - Palliative Care Palliative Care/ Comfort Measures: Not Applicable - Core Measures Any of the following diagnoses?: none Exam - Physical Exam Narrative exam: Physical Exam: VITAL SIGNS: Reviewed. GENERAL: The patient appears normally developed, Vital signs as documented. HEAD: No signs of head trauma. EYES: Pupils are equal. Extraocular motions intact. EARS: Hearing grossly intact. MOUTH: Oropharynx is normal. NECK: No adenopathy, no JVD. CHEST: Chest with clear breath sounds bilaterally. No wheezes, rales, or rhonchi. CARDIAC: Regular rate and rhythm. S1 and S2, without murmurs, gallops, or rubs. VASCULAR: No Edema. Peripheral pulses normal and equal in all extremities. ABDOMEN: Soft, non tender and non distended. No rebound or guarding, and no masses palpated. Bowel Sounds normal. MUSCULOSKELETAL: Good range of motion of all major joints. Extremities without clubbing, cyanosis or edema. NEUROLOGIC EXAM: Alert and oriented x 4. no focal sensory or strength deficits. PSYCHIATRIC: Mood normal. SKIN: detail exam as documented in skin assessment - Constitutional Vitals: Temp Pulse Resp BP Pulse Ox 98.4 F 75 24 139/73 99 03/01/22 11:24 03/01/22 11:24 03/01/22 11:24 03/01/22 11:24 03/01/22 11:24 Plan Diet: renal Follow up with: KODAK BARRIENTOS DO [Primary Care Provider] - 3-5 Days Prescriptions: amLODIPine 10 mg PO QDAY 30 Days #30 tablet Gabapentin 100 mg PO Q8HR 30 Days #90 capsule Metoprolol [Lopressor TAB] 50 mg PO QDAY 30 Days #60 tablet Pantoprazole [Protonix TAB] 40 mg PO QDAY 30 Days #30 tablet
--- NOTE | 2022-03-01 14:34 | Progress Note ---
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 --Permcath insertion on Feb 23 --HD intitation on Feb 23 --24h urine CrCl 18ml/min (Feb 17) --Scr 3.5mg/dL in Jun 2021 * Cellulits and abscess, left breast * Hypertension * Type II DM - long standing, uncontrolled per patient * Proteinuria, subnephrotic --24h urine protein 862mg (Feb 17) * CHF * Metabolic acidosis Plan: * Continue dialysis on TTS schedule for now * UF as tolerated * Continue antiHTN medications * Continue NaBicarb 1300mg BID * Abx per ID/primary team * Dose medications for renal function * Outpatient dialysis has been arranged at [facility] on TTS schedule * Discharge plans noted. Patient advised to go to her outpatient dialysis clinic tomorrow Subjective Date of service: 03/01/22 Principal diagnosis: Anasarca shortness of breath. Interval history: Patient is comfortable today. Denies any shortness of breath. Patient had hemodialysis treatment yesterday. Patient however developed nausea and cramps during her treatment yesterday. She still does have some peripheral edema. Objective - Vital Signs Vital signs: Vital Signs - 12hr 03/01/22 03/01/22 03/01/22 05:40 10:00 11:24 Temperature 97.8 F 98.4 F Pulse Rate 84 75 Respiratory 22 24 Rate Blood Pressure 127/63 139/73 O2 Sat by Pulse 95 96 99 Oximetry - General Appearance General appearance: well-developed, well-nourished, appears stated age, obese EENT: PERRL, mucous membranes moist Neck: no JVD, no thyromegaly, no carotid bruit, supple, other (Right IJ PermCath in place) Respiratory: Present: Clear to Ascultation Cardiology: regular, normal heart rate, S1S2, no murmurs Gastrointestinal: normal, normoactive bowel sounds Integumentary: no rash, other (1+ pitting edema) - Lab 03/01/22 04:38 03/01/22 04:38 Most recent lab results Calcium 7.6 mg/dL (8.4-10.2) L 03/01/22 04:38 Urine Creatinine 111.3 mg/dL (0.1-20.0) H 02/17/22 17:00 Ur Total Protein 24 Hr 86696.00 mg/dL (2-200) H 02/17/22 17:00 Urine Total Protein 862 mg/dL (5-11.8) H 02/17/22 17:00 Medications & Allergies - Medications Allergies/Adverse Reactions: Allergies No Known Allergies Allergy (Verified 02/21/22 07:23) Home Medications: Home Medications Medication Instructions Recorded Confirmed Last Taken Type Ascorbic Acid [Vitamin C] 1,000 mg PO QDAY 01/10/22 02/21/22 Unknown History Furosemide [Lasix TAB] 40 mg PO BID 01/10/22 02/21/22 Unknown History Gabapentin [Neurontin] 600 mg PO QDAY 01/10/22 02/21/22 Unknown History Insulin Glargine,Hum.rec.anlog 80 unit SQ BID 01/10/22 02/21/22 Unknown History [Basaglar Kwikpen U-100] Zinc [Zinc 50mg TAB] 50 mg PO QDAY 01/10/22 02/21/22 Unknown History traMADoL [Ultram 50 MG tab] 50 mg PO QDAY PRN 01/10/22 02/21/22 Unknown History Gabapentin 100 mg PO Q8HR 30 Days #90 capsule 03/01/22 Unknown Rx Metoprolol [Lopressor TAB] 50 mg PO QDAY 30 Days #60 tablet 03/01/22 Unknown Rx Pantoprazole [Protonix TAB] 40 mg PO QDAY 30 Days #30 tablet 03/01/22 Unknown Rx amLODIPine 10 mg PO QDAY 30 Days #30 tablet 03/01/22 Unknown Rx Active Medications: Generic Name Dose Route Start Last Admin Trade Name Berta PRN Reason Stop Dose Admin Acetaminophen 650 mg 02/16/22 19:18 Acetaminophen 325 Mg Tab PO Q4H PRN Pain MILD(1-3)/Fever >100.5/ALY Amlodipine Besylate 10 mg 02/20/22 10:00 03/01/22 11:07 Amlodipine 10 Mg Tab PO 10 mg QDAY NEY Administration Ascorbic Acid 1,000 mg 02/16/22 20:00 03/01/22 11:07 Ascorbic Acid 500 Mg Tab PO 1,000 mg QDAY NEY Administration Bumetanide 2 mg 02/28/22 10:00 03/01/22 11:08 Bumetanide 2.5 Mg/10 Ml Vial IV 2 mg DAILY NEY Administration Diphenhydramine HCl 25 mg 02/21/22 10:19 03/01/22 06:16 Diphenhydramine 25 Mg Cap PO 25 mg Q6H PRN Administration Itching Gabapentin 100 mg 02/17/22 14:00 03/01/22 14:10 Gabapentin 100 Mg Cap PO 100 mg Q8HR [facility] Administration Heparin Sodium (Porcine) 5,000 unit 02/16/22 22:00 03/01/22 11:07 Heparin 5,000 Unit/1 Ml Vial SUB-Q 5,000 unit Q12HR [facility] Administration Hydromorphone HCl 0.5 mg 02/16/22 19:20 02/28/22 23:17 Hydromorphone 1 Mg/1 Ml Inj IV 0.5 mg Q3H PRN Administration Pain , Severe (7-10) Sodium Chloride 100 mls @ 999 mls/hr 02/26/22 11:42 Nacl 0.9% IV GAYLE PRN Hypotension Insulin Glargine 70 units 02/16/22 22:00 03/01/22 10:00 Insulin Glargine 100 Units/Ml SUB-Q Not Given BID [facility] Insulin Human Lispro 0 unit 02/18/22 11:30 03/01/22 11:30 Insulin Lispro 100 Unit/Ml SUB-Q Not Given ACHS [facility] Protocol Metoclopramide HCl 5 mg 02/17/22 14:00 Metoclopramide 10 Mg/2 Ml Inj IV Q8H PRN Nausea And Vomiting Metoprolol Tartrate 50 mg 02/16/22 20:00 03/01/22 11:07 Metoprolol Tartrate 50 Mg Tab PO 50 mg QDAY [facility] Administration Morphine Sulfate 2 mg 02/16/22 19:20 02/24/22 07:51 Morphine 2 Mg/1 Ml Inj IV 2 mg Q4H PRN Administration Pain, Moderate (4-6) Ondansetron HCl 4 mg 02/16/22 19:18 02/28/22 15:09 Ondansetron 4 Mg/2 Ml Inj IV 4 mg Q3H PRN Administration Nausea And Vomiting Oxycodone/Acetaminophen 1 tab 02/16/22 19:20 02/26/22 16:15 Oxycodone /Acetaminophen 5-325mg Tab PO 1 tab Q6H PRN Administration Pain, Moderate (4-6) Pantoprazole Sodium 40 mg 02/16/22 20:00 03/01/22 11:08 Pantoprazole 40 Mg Tab PO 40 mg QDAY NEY Administration Sodium Bicarbonate 1,300 mg 02/20/22 10:00 03/01/22 11:09 Sodium Bicarbonate 650 Mg Tab PO 1,300 mg BID NEY Administration Sodium Chloride 10 ml 02/16/22 22:00 03/01/22 11:10 Sodium Chloride 0.9% 10 Ml Flush Syringe IV 10 ml BID NEY Administration Sodium Chloride 10 ml 02/16/22 19:18 Sodium Chloride 0.9% 10 Ml Flush Syringe IV PRN PRN LINE FLUSH Zinc Sulfate 220 mg 02/17/22 10:00 03/01/22 11:10 Zinc Sulfate 220 Mg Cap PO 220 mg QDAY ENY Administration
== END 2022-03-01 15:50 | disposition home health service (06) | DRG 579 ==
LOC: ED 13:32 → 3A 19:18
PROVIDERS: ADMIT Internal Medicine; ATTEND Internal Medicine
PROC: 0HB5XZX Excision of Chest Skin, External Approach, Diagnostic (ICD-10-PCS; principal; 2022-02-20)
PROC: 0JH63XZ Insertion of Tunneled Vascular Access Device into Chest Subcutaneous Tissue and Fascia, Percutaneous Approach (ICD-10-PCS; 2022-02-23)
PROC: 02H633Z Insertion of Infusion Device into Right Atrium, Percutaneous Approach (ICD-10-PCS; 2022-02-23)
PROC: B5181ZA Fluoroscopy of Superior Vena Cava using Low Osmolar Contrast, Guidance (ICD-10-PCS; 2022-02-23)
PROC: B548ZZA Ultrasonography of Superior Vena Cava, Guidance (ICD-10-PCS; 2022-02-23)
PROC: 5A1D70Z Performance of Urinary Filtration, Intermittent, Less than 6 Hours Per Day (ICD-10-PCS; 2022-02-23)
PROC: 5A1D70Z Performance of Urinary Filtration, Intermittent, Less than 6 Hours Per Day (ICD-10-PCS; 2022-02-24)
PROC: 5A1D70Z Performance of Urinary Filtration, Intermittent, Less than 6 Hours Per Day (ICD-10-PCS; 2022-02-25)
PROC: 5A1D70Z Performance of Urinary Filtration, Intermittent, Less than 6 Hours Per Day (ICD-10-PCS; 2022-02-28)
DX: N61.1 Abscess of the breast and nipple (principal); N17.0 Acute kidney failure with tubular necrosis; I50.42 Chronic combined systolic (congestive) and diastolic (congestive) heart failure; N18.5 Chronic kidney disease, stage 5; N61.0 Mastitis without abscess; Z20.822 Contact with and (suspected) exposure to COVID-19; E11.22 Type 2 diabetes mellitus with diabetic chronic kidney disease; I13.2 Hypertensive heart and chronic kidney disease with heart failure and with stage 5 chronic kidney disease, or end stage renal disease; K21.9 Gastro-esophageal reflux disease without esophagitis; G43.909 Migraine, unspecified, not intractable, without status migrainosus; M19.90 Unspecified osteoarthritis, unspecified site; R77.8 Other specified abnormalities of plasma proteins; E78.2 Mixed hyperlipidemia; E66.01 Morbid (severe) obesity due to excess calories; E87.2 Acidosis; Z79.4 Long term (current) use of insulin
CPT/HCPCS: 36415; 36558; 71045; 76770; 76857; 77001; 80048; 80053; 80061; 80074; 80202; 81001; 82140; 82570; 82962; 83880; 84156; 84484; 85025; 85610; 87040; 88305; 89050; 93005; 93306; 94644; 94760; G0378; J3490; Q9967; C1750; C8929; J0295; J1170; J1644; J1815; J1940; J2250; J2270; J2405; J2543; J3010; J3370; J7030; J7040; J7050; U0003

== ENCOUNTER 2022-03-22 08:44 | Emergency (ER) | payer MEDICAID | END 2022-03-22 09:15 | disposition left against medical advice (07) | LOC: ED 08:44 | DX: T85.638A Leakage of other specified internal prosthetic devices, implants and grafts, initial encounter (principal); Z53.21 Procedure and treatment not carried out due to patient leaving prior to being seen by health care provider; Y84.9 Medical procedure, unspecified as the cause of abnormal reaction of the patient, or of later complication, without mention of misadventure at the time of the procedure; Y92.89 Other specified places as the place of occurrence of the external cause ==

== ENCOUNTER 2022-04-28 10:57 | Emergency (ER) | payer MEDICAID ==
[2022-04-28 11:44] VITALS: BP 124/56
== END 2022-04-28 12:00 | disposition left against medical advice (07) ==
LOC: ED 10:57
DX: Z79.4 Long term (current) use of insulin (principal); Z53.21 Procedure and treatment not carried out due to patient leaving prior to being seen by health care provider
CPT/HCPCS: 82962

== ENCOUNTER 2022-06-05 18:49 | Emergency (ER) | payer MEDICAID ==
--- NOTE | 2022-06-06 03:00 | XRay Report ---
CHEST 2 VIEWS INDICATION / CLINICAL INFORMATION: sob. COMPARISON: Chest x-ray 02/16/2022 FINDINGS: SUPPORT DEVICES: Right-sided hemodialysis catheter is in place tip near cavoatrial junction. HEART / MEDIASTINUM: Heart size and mediastinal contour appear within normal limits. LUNGS / PLEURA: No significant pulmonary or pleural abnormality. No pneumothorax. BONES: No significant osseous abnormality. ADDITIONAL FINDINGS: No significant additional findings. IMPRESSION: 1. No active cardiopulmonary disease. 2. Interval placement of right-sided hemodialysis catheter as detailed. Signer Name: Bryan Rosario II, MD Signed: 06/06/2022 2:56 AM Workstation Name: [id number]
--- NOTE | 2022-06-06 05:45 | Emergency Department Report ---
ED General Adult HPI - General Chief complaint: Medical Clearance Stated complaint: MEDICAL CLEARANCE Time Seen by Provider: 06/06/22 01:49 Source: patient Mode of arrival: Ambulatory Limitations: No Limitations - History of Present Illness Initial comments: 51-year-old female with past medical history of morbid obesity, CHF, hypertension, insulin-dependent diabetes, acute kidney injury requiring peritoneal dialysis, history of medication noncompliance [facility] department complaining of needing clearance for dialysis tomorrow(06/06/2022). States when she went to dialysis on she got home and felt okay and then when tried to go Sunday she was feeling a little shortness of breath from walking o further than usual without assistance and without oxygen. For this reason she was advised to come get screened before her next Appointment to Ensure She Was Medically Safe She Reports No Chest Pain, No Presyncope, No Nausea, No Vomiting. She Reports No Chest Pain Severity scale (0 -10): 0 Consistency: constant Improves with: none Worsens with: none Associated Symptoms: denies other symptoms. denies: confusion, headaches, seizure, weakness Treatments Prior to Arrival: none - Related Data Home Medications Medication Instructions Recorded Confirmed Last Taken Ascorbic Acid [Vitamin C] 1,000 mg PO QDAY 01/10/22 02/21/22 Unknown Furosemide [Lasix TAB] 40 mg PO BID 01/10/22 02/21/22 Unknown Gabapentin [Neurontin] 600 mg PO QDAY 01/10/22 02/21/22 Unknown Insulin Glargine,Hum.rec.anlog 80 unit SQ BID 01/10/22 02/21/22 Unknown [Basaglar Jose Roberto U-100] Zinc [Zinc 50mg TAB] 50 mg PO QDAY 01/10/22 02/21/22 Unknown traMADoL [Ultram 50 MG tab] 50 mg PO QDAY PRN 01/10/22 02/21/22 Unknown Previous Rx's Medication Instructions Recorded Last Taken Type Gabapentin 100 mg PO Q8HR 30 Days #90 capsule 03/01/22 Unknown Rx Metoprolol [Lopressor TAB] 50 mg PO QDAY 30 Days #60 tablet 03/01/22 Unknown Rx Pantoprazole [Protonix TAB] 40 mg PO QDAY 30 Days #30 tablet 03/01/22 Unknown Rx amLODIPine 10 mg PO QDAY 30 Days #30 tablet 03/01/22 Unknown Rx Allergies Allergy/AdvReac Type Severity Reaction Status Date / Time No Known Allergies Allergy Verified 02/21/22 07:23 ED Review of Systems ROS: Stated complaint: MEDICAL CLEARANCE Other details as noted in HPI Comment: All other systems reviewed and negative ED Past Medical Hx - Past Medical History Hx Hypertension: Yes Hx Heart Attack/AMI: No Hx Congestive Heart Failure: Yes Hx Diabetes: Yes Hx GERD: Yes Hx Renal Disease: Yes (DEVON) Hx Arthritis: Yes Hx Headaches / Migraines: (MIGRAINES) Hx Seizures: Yes Hx Asthma: No Hx COPD: No Hx HIV: No Additional medical history: Home O2 user 3 liters since having Covid last year - Surgical History Additional Surgical History: eye surgery - Social History Smoking Status: Never Smoker Substance Use Type: None - Medications Home Medications: Home Medications Medication Instructions Recorded Confirmed Last Taken Type Ascorbic Acid [Vitamin C] 1,000 mg PO QDAY 01/10/22 02/21/22 Unknown History Furosemide [Lasix TAB] 40 mg PO BID 01/10/22 02/21/22 Unknown History Gabapentin [Neurontin] 600 mg PO QDAY 01/10/22 02/21/22 Unknown History Insulin Glargine,Hum.rec.anlog 80 unit SQ BID 01/10/22 02/21/22 Unknown History [Basaglar Kwikpen U-100] Zinc [Zinc 50mg TAB] 50 mg PO QDAY 01/10/22 02/21/22 Unknown History traMADoL [Ultram 50 MG tab] 50 mg PO QDAY PRN 01/10/22 02/21/22 Unknown History Gabapentin 100 mg PO Q8HR 30 Days #90 capsule 03/01/22 Unknown Rx Metoprolol [Lopressor TAB] 50 mg PO QDAY 30 Days #60 tablet 03/01/22 Unknown Rx Pantoprazole [Protonix TAB] 40 mg PO QDAY 30 Days #30 tablet 03/01/22 Unknown Rx amLODIPine 10 mg PO QDAY 30 Days #30 tablet 03/01/22 Unknown Rx ED Physical Exam - General Limitations: No Limitations General appearance: alert, in no apparent distress - Head Head exam: Present: atraumatic, normocephalic - Eye Eye exam: Present: normal appearance, PERRL Pupils: Present: normal accommodation - ENT ENT exam: Present: normal exam, mucous membranes moist. Absent: TM's normal bilaterally - Neck Neck exam: Present: normal inspection - Respiratory Respiratory exam: Present: normal lung sounds bilaterally. Absent: respiratory distress - Cardiovascular Cardiovascular Exam: Present: regular rate, normal rhythm. Absent: systolic murmur, diastolic murmur, rubs, gallop - GI/Abdominal GI/Abdominal exam: Present: soft, normal bowel sounds - Extremities Exam Extremities exam: Present: normal inspection - Back Exam Back exam: Present: normal inspection - Neurological Exam Neurological exam: Present: alert, oriented X3 - Psychiatric Psychiatric exam: Present: normal affect, normal mood - Skin Skin exam: Present: warm, dry, intact, normal color. Absent: rash ED Course Vital Signs 06/05/22 19:17 Temperature 98.9 F Pulse Rate 76 Respiratory 18 Rate Blood Pressure 173/100 [Right] O2 Sat by Pulse 99 Oximetry ED Medical Decision Making - Radiology Data Radiology results: report reviewed [facility] [address] [place] [address] XRay Report Signed Patient: YASMANY LEROY MR #: [id number] : 1970 Acct:[id number] Age/Sex: 51 / F ADM Date: 06/05/22 Loc: ED Attending Dr: Ordering Physician: MAGUI SANTOYO Date of Service: 06/06/22 Procedure(s): XR chest routine 2V Accession Number(s): [id number] cc: MAGUI SANTOYO Fluoro Time In Minutes: CHEST 2 VIEWS INDICATION / CLINICAL INFORMATION: sob. COMPARISON: Chest x-ray 02/16/2022 FINDINGS: SUPPORT DEVICES: Right-sided hemodialysis catheter is in place tip near cavoatrial junction. HEART / MEDIASTINUM: Heart size and mediastinal contour appear within normal limits. LUNGS / PLEURA: No significant pulmonary or pleural abnormality. No pneumothorax. BONES: No significant osseous abnormality. ADDITIONAL FINDINGS: No significant additional findings. IMPRESSION: 1. No active cardiopulmonary disease. 2. Interval placement of right-sided hemodialysis catheter as detailed. Signer Name: Nehal Merlos II, MD Signed: 06/06/2022 2:56 AM Workstation Name: [id number] Transcribed By: YULIANA Dictated By: NEHAL MERLOS II, MD Electronically Authenticated By: NEHAL MERLOS II, MD Signed Date/Time: 06/06/22 0256 DD/ TD/TT: - Medical Decision Making 51-year-old female [facility] department with no significant complaints or concerns seeking clearance for dialysis tomorrow chest x-ray is clear patient is ambulatory on room air maintaining saturation of 98% Critical care attestation.: If time is entered above; I have spent that time in minutes in the direct care of this critically ill patient, excluding procedure time. ED Disposition Clinical Impression: History of peritoneal dialysis, Cough Disposition: HOME / SELF CARE / HOMELESS Is pt being admited?: No Does the pt Need Aspirin: No Condition: Stable Instructions: Hypertension (ED), Cough, Adult, [id number] Referrals: KODAK BARRIENTOS DO [Primary Care Provider] - 3-5 Days Forms: Work/School Release Form(ED)
[2022-06-06 06:03] VITALS: BP 162/99
--- NOTE | 2022-06-06 09:42 | Electrocardiograph Report ---
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
== END 2022-06-06 06:03 | disposition home or self-care (01) ==
LOC: ED 18:49
DX: R05.9 Cough, unspecified (principal); I13.2 Hypertensive heart and chronic kidney disease with heart failure and with stage 5 chronic kidney disease, or end stage renal disease; E11.22 Type 2 diabetes mellitus with diabetic chronic kidney disease; N18.6 End stage renal disease; I50.9 Heart failure, unspecified; Z99.2 Dependence on renal dialysis; N17.9 Acute kidney failure, unspecified; K21.9 Gastro-esophageal reflux disease without esophagitis; R56.9 Unspecified convulsions; M19.90 Unspecified osteoarthritis, unspecified site; G43.909 Migraine, unspecified, not intractable, without status migrainosus; Z98.890 Other specified postprocedural states
CPT/HCPCS: 71046; 93005; 99283